=== PATIENT | male | born 1940 | race Caucasian/White ===

== ENCOUNTER 2017-07-14 12:30 | Inpatient (IN) | payer MEDICARE, OTHER ==
--- NOTE | 2017-07-14 14:21 | EDM.PDOC ---
ED HPI GENERAL MEDICAL PROBLEM - General Chief Complaint: Cardiovascular Problem Stated Complaint: SENT BY G[facility] Time Seen by Provider: 07/14/17 12:54 Source of Information: Reports: Patient, Provider (Dr. Briseno), RN Notes Reviewed History Limitations: Reports: No Limitations - History of Present Illness INITIAL COMMENTS - FREE TEXT/NARRATIVE: The patient was sent from the office of Dr. Briseno due to a heart rate elevated at 130. The patient states that his heart rate has been elevated for about a week at [facility], although Dr. Briseno had indicated that his heart rate was only found to be elevated last night. CG in his office indicated a sinus tachycardia of 130. Dr. Ledezma mentioned that because the patient has Parkinson disease, he is essentially nonambulatory. The patient states that he is able to ambulate holding onto rails. The patient denies having chest pain, palpitations, or dyspnea. The patient denies a prior history of elevated heart rate. - Related Data Allergies Allergy/AdvReac Type Severity Reaction Status Date / Time bee venom protein (honey bee) Allergy Cannot Verified 07/14/17 12:54 Remember hornet venom Allergy Cannot Verified 07/14/17 12:54 Remember Penicillins Allergy Cannot Verified 07/14/17 12:54 Remember Home Meds: Home Meds Acetaminophen 650 mg PO ASDIRECTED PRN 07/14/17 [History] Acetaminophen. 07/14/17 [History] Ascorbate Calcium [Vitamin C] 500 mg PO DAILY 07/14/17 [History] Calcium Carbonate [Tums] 200 mg PO QID PRN 07/14/17 [History] Cholecalciferol (Vitamin D3) [Vitamin D3] 2,000 unit PO DAILY 07/14/17 [History] Cyanocobalamin (Vitamin B-12) [Vitamin B-12] 1,000 mcg PO DAILY 07/14/17 [ History] Ferrous Sulfate 325 mg PO DAILY 07/14/17 [History] Fluticasone Propionate [Flonase Allergy Relief] 2 spray NS BID 07/14/17 [History ] Lisinopril/Hydrochlorothiazide [Lisinopril-Hctz 20-12.5 mg Tab] 1 each PO DAILY 07/14/17 [History] Mag Carb/Al Hydrox/Alginic Ac [Gaviscon Liquid] 93 - 358 mg PO ASDIRECTED [History] Mag Hydrox/Al Hydrox/Simeth [Maalox Maximum Strength Susp] 30 ml PO QID PRN [History] Magnesium Hydroxide [Milk of Magnesia] 30 ml PO ASDIRECTED PRN 07/14/17 [History ] Menthol/Camphor [Sarna Anti-Itch] 1 applic TOP BID 07/14/17 [History] Sennosides/Docusate Sodium [Senna-S] 1 each PO BID 07/14/17 [History] Sertraline [Zoloft] 50 mg PO DAILY 07/14/17 [History] Sodium Chloride [Saline Mist] 2 spray NS ASDIRECTED PRN 07/14/17 [History] Tamsulosin [Flomax] 0.8 mg PO BEDTIME 07/14/17 [History] Trolamine Salicylate/Aloe Vera [Aspercreme 10%] 1 applic TOP ASDIRECTED PRN [History] guaiFENesin [Mucinex] 600 mg PO BID 07/14/17 [History] traMADol [Ultram] 50 mg PO BID 07/14/17 [History] Past Medical History HEENT History: Reports: Sinusitis (chronic) Cardiovascular History: Reports: Hypertension Genitourinary History: Reports: BPH Musculoskeletal History: Reports: Osteoarthritis (knees) Neurological History: Reports: Parkinson's Psychiatric History: Reports: Depression - Past Surgical History Musculoskeletal Surgical History: Reports: Knee Replacement (bilateral), Other ( See Below) (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) Social & Family History - Tobacco Use Smoking Status *Q: Never Smoker - Caffeine Use Caffeine Use: Reports: Coffee Caffeine Use Comment: very little use - Alcohol Use Alcohol Use History: No - Recreational Drug Use Recreational Drug Use: No - Living Situation & Occupation Living situation: Reports: Extended Care Facility ([facility]) ED ROS GENERAL - Review of Systems Review Of Systems: See Below Constitutional: Reports: No Symptoms HEENT: Reports: No Symptoms Respiratory: Reports: No Symptoms Cardiovascular: Reports: No Symptoms Endocrine: Reports: No Symptoms GI/Abdominal: Reports: No Symptoms : Reports: No Symptoms Musculoskeletal: Reports: No Symptoms Skin: Reports: No Symptoms Neurological: Reports: No Symptoms Psychiatric: Reports: No Symptoms Hematologic/Lymphatic: Reports: No Symptoms Immunologic: Reports: No Symptoms ED EXAM, GENERAL - Physical Exam Exam: See Below Exam Limited By: No Limitations General Appearance: Alert, WD/WN, No Apparent Distress Eye Exam: Bilateral Eye: Normal Inspection Ears: Normal External Exam, Hearing Grossly Normal Nose: Normal Inspection, No Blood Throat/Mouth: Normal Inspection, Normal Lips, Normal Voice, No Airway Compromise Head: Atraumatic, Normocephalic Neck: Normal Inspection, Full Range of Motion Respiratory/Chest: No Respiratory Distress, Lungs Clear, Normal Breath Sounds, No Accessory Muscle Use Cardiovascular: Normal Peripheral Pulses, Regular Rate, Rhythm, No Gallop, No JVD, No Murmur, No Rub Peripheral Pulses: 4+: Radial (L), Radial (R) GI/Abdominal: Normal Bowel Sounds, Soft, Non-Tender, No Organomegaly, No Distention, No Abnormal Bruit, No Mass (Male) Exam: Deferred Rectal (Males) Exam: Deferred Extremities: Normal Inspection, Normal Range of Motion, Normal Capillary Refill , Other (2+ pitting pretibial edema bilaterally) Neurological: Alert, Oriented, Normal Cognition, Other (Masked facies, bradykinesia) Psychiatric: Normal Affect Skin Exam: Warm, Dry, Intact, Normal Color, No Rash Lymphatic: No Adenopathy EKG INTERPRETATION EKG Date: 07/14/17 Time: 12:49 Rhythm: Other (Sinus tachycardia) Rate (Beats/Min): 131 Kevin: LAD-Left Kevin Deviation P-Wave: Present (best seen in lead III) QRS: Normal ST-T: Normal QT: Prolonged (QTc 516 ms) Comparison: NA - No Prior EKG Course - Vital Signs Last Recorded V/S: Last Vital Signs Temp 35.7 C 07/14/17 12:54 Pulse 135 H 07/14/17 12:54 Resp 16 07/14/17 12:54 BP 119/89 07/14/17 12:54 Pulse Ox 95 07/14/17 12:54 - Orders/Labs/Meds Orders: Active Orders 24 hr Category Date Time Status EKG Documentation Completion [RC] STAT Care 07/14/17 12:50 Active EKG Documentation Completion [RC] STAT Care 07/14/17 15:21 Active Diltiazem 125 mg Med 07/14/17 16:00 Ordered Sodium Chloride 0.9% [Normal Saline] 100 ml IV TITRATE Sodium Chloride 0.9% [Normal Saline] 1,000 ml Med 07/14/17 14:30 Active IV ASDIRECTED Sodium Chloride 0.9% [Normal Saline] 100 ml Med 07/14/17 14:30 Active IV ASDIRECTED Medication Orders Sodium Chloride (Normal Saline) 1,000 mls @ 100 mls/hr IV ASDIRECTED PETERSON Last Admin: 07/14/17 14:26 Dose: 100 mls/hr Sodium Chloride (Normal Saline) 100 mls @ 60 mls/hr IV ASDIRECTED PETERSON Last Admin: 07/14/17 14:40 Dose: 60 mls/hr Diltiazem HCl 125 mg/ Sodium (Chloride) 125 mls @ 10 mls/hr IV TITRATE PETERSON; 10 MG/HR PRN Reason: Protocol Labs: Laboratory Tests 07/14/17 07/14/17 07/14/17 Range/Units 12:50 12:50 12:50 WBC 8.45 (4.23-9.07) K/mm3 RBC 4.44 L (4.63-6.08) M/mm3 Hgb 13.6 L (13.7-17.5) gm/L Hct 41.6 (40.1-51.0) % MCV 93.7 H (79.0-92.2) fl MCH 30.6 (25.7-32.2) pg MCHC 32.7 (32.2-35.5) g/dl RDW Std Deviation 50.2 H (35.1-43.9) fL Plt Count 255 (163-337) K/mm3 MPV 9.3 L (9.4-12.3) fl Neutrophils % (Manual) 78 H (40-60) % Band Neutrophils % 0 (0-10) % Lymphocytes % (Manual) 21 (20-40) % Atypical Lymphs % 0 % Monocytes % (Manual) 0 L (2-10) % Eosinophils % (Manual) 1 (0.8-7.0) % Basophils % (Manual) 0 L (0.2-1.2) Platelet Estimate Adequate RBC Morph Comment Normal PT 10.7 (8.0-13.0) SECONDS INR 0.98 APTT 30 (22-36) SECONDS D-Dimer, Quantitative 0.73 H (0.19-0.59) mg/L Sodium 139 (136-145) mEq/L Potassium 3.7 (3.5-5.1) mEq/L Chloride 104 (98-107) mEq/L Carbon Dioxide 25 (21-32) mEq/L Anion Gap 13.7 (5-15) BUN 17 (7-18) mg/dL Creatinine 1.1 (0.7-1.3) mg/dL Est Cr Clr Drug Dosing 59.77 mL/min Estimated GFR (MDRD) > 60 (>60) mL/min BUN/Creatinine Ratio 15.5 (14-18) Glucose 101 (83-115) mg/dL Calcium 9.6 (8.5-10.1) mg/dL Total Bilirubin 0.6 (0.2-1.0) mg/dL AST 17 (15-37) U/L ALT 14 L (16-63) U/L Alkaline Phosphatase 80 (46-116) U/L Troponin I < 0.017 (0.00-0.056) ng/mL NT-Pro-B Natriuret Pep 629 H (0-450) pg/mL Total Protein 7.9 (6.4-8.2) g/dl Albumin 3.9 (3.4-5.0) g/dl Globulin 4.0 gm/dL Albumin/Globulin Ratio 1.0 (1-2) Meds: Medications Generic Name Dose Route Start Last Admin Trade Name Freq PRN Reason Stop Dose Admin Sodium Chloride 1,000 mls @ 100 mls/hr 07/14/17 14:30 07/14/17 14:26 Normal Saline IV 100 mls/hr ASDIRECTED PETERSON Administration Sodium Chloride 100 mls @ 60 mls/hr 07/14/17 14:30 07/14/17 14:40 Normal Saline IV 60 mls/hr ASDIRECTED PETERSON Administration Diltiazem HCl 125 mg/ Sodium 125 mls @ 10 mls/hr 07/14/17 16:00 Chloride IV TITRATE PETERSON Protocol 10 MG/HR Discontinued Medications Generic Name Dose Route Start Last Admin Trade Name Freq PRN Reason Stop Dose Admin Adenosine 12 mg 07/14/17 15:20 07/14/17 15:32 Adenocard IVPUSH 07/14/17 15:21 12 mg NOW ONE Administration Diltiazem HCl 5 mg 07/14/17 15:49 Diltiazem IVPUSH 07/14/17 15:50 ONETIME STA Enoxaparin Sodium 100 mg 07/14/17 15:50 Lovenox SUBCUT 07/14/17 15:51 ONETIME ONE Iopamidol 100 ml 07/14/17 14:24 07/14/17 14:40 Isovue-370 (76%) IVPUSH 07/14/17 14:25 100 ml ONETIME ONE Administration Sodium Chloride 10 ml 07/14/17 14:24 07/14/17 14:41 Saline Flush FLUSH 07/14/17 14:25 10 ml ONETIME ONE Administration - Re-Assessments/Exams Free Text/Narrative Re-Assessment/Exam: 07/14/17 13:29 Portable chest radiograph reviewed. Cardiac silhouette is at the upper limits of normal. No pulmonary vascular congestion. No pleural effusions visible. No focal infiltrate. No pneumothorax. Old rib fracture on the left incidentally noted. Formal read per the Radiologist pending. 07/14/17 14:18 The patient's D-dimer has returned modestly elevated at 0.73, however, the remainder of his workup is unremarkable, and does not explain the cause of his tachycardia. I have ordered a CT angiogram of the chest to evaluate for a PE. 07/14/17 15:15 CT angiogram of the chest is read by Dr. Cortez as: 1. No findings of pulmonary embolism. 2. Other incidental findings as noted above. Nothing acute is appreciated on CT study of the chest. 07/14/17 15:22 Today's workup is unremarkable, and does not swing the cause of the patient's tachycardia. I have ordered adenosine 12 mg and a continuous ECG to be sure that the patient does not have an unusual presentation of an SVT masquerading as sinus tachycardia. 07/14/17 15:45 Following adenosine 12 mg IVP, the continuous ECG demonstrated atrial flutter. He returned to his previous rate of 123 BPM. His conduction is likely 2:1. I will start him on IV Cardizem and SQ Lovenox. He will require addition to the hospital. 07/14/17 15:[address] Burch at 15:53. He accepts the patient to the ICU. Departure - Departure Time of Disposition: 15:55 Disposition: Admitted As Inpatient 64 Condition: Fair Clinical Impression: Atrial flutter - My Orders Last 24 Hours: My Active Orders 07/14/17 12:50 EKG Documentation Completion [RC] STAT 07/14/17 14:30 Sodium Chloride 0.9% [Normal Saline] 1,000 ml IV ASDIRECTED Sodium Chloride 0.9% [Normal Saline] 100 ml IV ASDIRECTED 07/14/17 15:21 EKG Documentation Completion [RC] STAT 07/14/17 16:00 Diltiazem 125 mg Sodium Chloride 0.9% [Normal Saline] 100 ml IV TITRATE - Assessment/Plan Last 24 Hours: My Active Orders 07/14/17 12:50 EKG Documentation Completion [RC] STAT 07/14/17 14:30 Sodium Chloride 0.9% [Normal Saline] 1,000 ml IV ASDIRECTED Sodium Chloride 0.9% [Normal Saline] 100 ml IV ASDIRECTED 07/14/17 15:21 EKG Documentation Completion [RC] STAT 07/14/17 16:00 Diltiazem 125 mg Sodium Chloride 0.9% [Normal Saline] 100 ml IV TITRATE
[2017-07-14] MEDS ORDERED: Iopamidol 755 Mg/ML 100 ML Bottle IVPUSH ONE (14:24)
[2017-07-14] MEDS: Sodium Chloride 0.9% 1,000 ML IV SCH (14:26)
[2017-07-14] MEDS: Sodium Chloride 0.9% 10 ML Syringe FLUSH ONE ×2 (14:27→14:41)
[2017-07-14] MEDS ORDERED: Sodium Chloride 0.9% 100 ML IV SCH (14:30)
--- NOTE | 2017-07-14 14:48 | CR ---
Chest: Portable view of the chest was obtained. Heart size slightly is enlarged but accentuated from portable technique. Tortuous thoracic aorta is seen. Lungs are clear with no acute infiltrates. Several left-sided rib fractures are noted. These presumably are old but please correlate that patient has had no prior acute trauma. Impression: 1. Findings as described above. Nothing acute is appreciated. Diagnostic code #2
--- NOTE | 2017-07-14 15:04 | CT ---
CT chest Technique: Multiple axial sections were obtained through the chest. Intravenous contrast was utilized. Study has been performed as a pulmonary angiogram protocol. Findings: Mediastinum and hilar regions show no adenopathy or mass. Coronary artery calcification is seen. Mediastinum and hilar regions show no adenopathy or mass. No pericardial thickening is seen. Small portion of the visualized upper abdominal structures are within normal limits for the patient's age. Small hiatal hernia is noted. Focal area of pleural thickening and calcification is seen within the right lung base believed to be incidental. Lungs otherwise are clear. Bone window settings were reviewed which shows degenerative change within the spine. Several anterior wedge deformities are seen within the mid thoracic spine which are likely old. Impression: 1. No findings of pulmonary embolism. 2. Other incidental findings as noted above. Nothing acute is appreciated on CT study of the chest. Diagnostic code #2
[2017-07-14] MEDS ORDERED: Adenosine 12 MG/4 ML SDV IVPUSH ONE (15:20)
[2017-07-14] MEDS ORDERED: Diltiazem 25 MG/5 ML SDV IVPUSH STA ×2 (15:49→17:44)
[2017-07-14] MEDS ORDERED: Enoxaparin 100 MG/1 ML Syringe SUBCUT ONE (15:50)
[2017-07-14] MEDS ORDERED: Diltiazem 125 MG in Sodium Chloride 0.9% 100 ML IV SCH (16:00)
--- NOTE | 2017-07-14 17:31 | PCM.HP ---
H&P History of Present Illness - General Date of Service: 07/14/17 Admit Problem/Dx: Atrial Flutter Source of Information: Patient, Residential Records, Old Records, Provider, RN Notes Reviewed History Limitations: Reports: Physical Impairment - History of Present Illness Initial Comments - Free Text/Narative: This is a 77-year-old pleasant elderly white male with past medical history of HTN, BPH, Parkinsons's Disease, Maxillary Sinusitis, Allergic Rhinitis, OA/DJD, Iron Deficiency Anemia, on Iron Pills, Eczema, Constipation, Nicotine Dependence , he chews tobacco products, Hx/o Folliculitis, Hx/o Of C5-C6 Cervical Dislocation and MDD who was sent over by his PCP due to considerably elevated heart rate of 130 at the clinic. The patient denies any associated symptoms of shortness of breath, chest pain, lightheaded or dizziness, or heart palpitation. Per patient his heart rate has been elevated for about a week now. However according to his primary care doctor is fast heart rate was found to be elevated last night. Patient carries a history of hypertension but no history of abnormal rhythm. He takes hydrochlorothiazide and lisinopril for maintenance medications. I review all he is home medication list shows he is not on any calcium channel or beta blockers. He carries no history of thyroid dysfunction. On presentation to the emergency department, he had the following vital signs: Blood pressure 119/89 millimeters per mercury, respiratory rate of 16, heart rate of 135, and O2 sat of 95% on room air. His initial workup in the emergency department shows a CBC remarkable for RBC of 4.44, hemoglobin of 13.6, MCV of 92.7, and neutrophils of 78%. PT/APTT are normal but d-dimer is noted at 0.73. His chemistry is fairly unremarkable. ProBNP is slightly elevated at 629. Chest CTA shows no findings of pulmonary embolism. Chest x-ray report reads nothing acute is appreciated. Patient received initial treatment emergency department before he was sent to the unit for further treatment. During that time patient was found to be in atrial flutter. Currently he is on Cardizem drip to treat his fast heart rate. Patient is being admitted for medical treatment of sinus tachycardia. He is DNR. - Related Data Allergies/Adverse Reactions: Allergies Allergy/AdvReac Type Severity Reaction Status Date / Time bee venom protein (honey bee) Allergy Intermediate Bronchospas Verified 01:10 ms hornet venom Allergy Intermediate Bronchospas Verified 07/15/17 01:10 ms Penicillins Allergy Mild Rash Verified 07/15/17 01:10 Home Medications: Home Meds Acetaminophen 650 mg PO Q6H PRN 07/14/17 [History] Ascorbate Calcium [Vitamin C] 500 mg PO DAILY 07/14/17 [History] Calcium Carbonate [Tums] 200 mg PO QID PRN 07/14/17 [History] Cholecalciferol (Vitamin D3) [Vitamin D3] 2,000 unit PO DAILY 07/14/17 [History] Cyanocobalamin (Vitamin B-12) [Vitamin B-12] 1,000 mcg PO DAILY 07/14/17 [ History] Ferrous Sulfate 325 mg PO DAILY 07/14/17 [History] Fluticasone Propionate [Flonase Allergy Relief] 2 spray NS BID 07/14/17 [History ] Lisinopril/Hydrochlorothiazide [Lisinopril-Hctz 20-12.5 mg Tab] 1 each PO DAILY 07/14/17 [History] Mag Carb/Al Hydrox/Alginic Ac [Gaviscon Liquid] 95 - 358 mg PO ASDIRECTED [History] Mag Hydrox/Al Hydrox/Simeth [Maalox Maximum Strength Susp] 30 ml PO QID PRN [History] Magnesium Hydroxide [Milk of Magnesia] 30 ml PO ASDIRECTED PRN 07/14/17 [History ] Menthol/Camphor [Sarna Anti-Itch] 1 applic TOP BID PRN 07/14/17 [History] Sennosides/Docusate Sodium [Senna-S] 1 each PO BID 07/14/17 [History] Sertraline [Zoloft] 50 mg PO DAILY 07/14/17 [History] Sodium Chloride [Saline Mist] 2 spray NS ASDIRECTED PRN 07/14/17 [History] Tamsulosin [Flomax] 0.8 mg PO BEDTIME 07/14/17 [History] Trolamine Salicylate/Aloe Vera [Aspercreme 10%] 1 applic TOP ASDIRECTED PRN [History] guaiFENesin [Mucinex] 600 mg PO BID 07/14/17 [History] traMADol [Ultram] 50 mg PO BID 07/14/17 [History] Past Medical History HEENT History: Reports: Sinusitis (chronic) Other HEENT History: chronic maxillary sinus infection, chronic rhinitis Cardiovascular History: Reports: Hypertension Gastrointestinal History: Reports: Chronic Constipation, Other (See Below) Other Gastrointestinal History: nausea Genitourinary History: Reports: BPH Other Genitourinary History: BPH Musculoskeletal History: Reports: Osteoarthritis (knees) Other Musculoskeletal History: osteoarthritis of knees, disloaction of c5-c6 Neurological History: Reports: Parkinson's Psychiatric History: Reports: Depression Dermatologic History: Reports: Other (See Below) Other Dermatologic History: folliliculitis - Infectious Disease History Infectious Disease History: Reports: Chicken Pox, Measles, Mumps - Past Surgical History Musculoskeletal Surgical History: Reports: Knee Replacement (bilateral), Other ( See Below) (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 Denies: Contact Lenses, Dysphasia, Ear Pain, Eye Pain, Headaches, Hearing Changes, Post Nasal Drip, Sore Throat, Vertigo, Visual Changes, Other Pulmonary: Reports: Cough, Sputum. Denies: Shortness of Breath, Pleuritic Chest Pain, Hemoptysis Cardiovascular: Denies: Chest Pain, Palpitations, Dyspnea on Exertion, Edema, Lightheadedness, Syncope, Claudication Gastrointestinal: Denies: Abdominal Pain, Nausea, Vomiting Genitourinary: Denies: No Symptoms Musculoskeletal: Reports: No Symptoms Skin: Denies: Cyanosis, Jaundice, Mottled, Pallor, Diaphoresis, Pruritis, Rash, Erythema Psychiatric: Denies: Depression, Mood Lability, Anxiety, Cravings, Hallucinations, Suicidal Ideation, Homicidal Ideation, Hallucinations (Auditory) Neurological: Reports: Difficulty Walking, Weakness, Gait Disturbance. Denies: Confusion Hematologic/Lymphatic: Reports: No Symptoms Immunologic: Reports: No Symptoms Exam - Exam Exam: See Below - Vital Signs Vital Signs: Last Vital Signs Temp 35.7 C 07/14/17 12:54 Pulse 135 H 07/14/17 12:54 Resp 16 07/14/17 12:54 BP 119/89 07/14/17 12:54 Pulse Ox 95 07/14/17 12:54 Weight: 104.326 kg - Exam Quality Assessment: No: Supplemental Oxygen General: Alert, Oriented, Cooperative. No: Mild Distress HEENT: Conjunctiva Clear, EACs Clear, EOMI, Hearing Intact, Mucosa Moist & Mccloud , Nares Patent, Normal Nasal Septum, Posterior Pharynx Clear, Pupils Equal, Rhinitis, Other (Poor dentition) Neck: Supple, Trachea Midline, +2 Carotid Pulse wo Bruit Lungs: Normal Respiratory Effort, Decreased Breath Sounds Cardiovascular: Regular Rate, Tachycardia GI/Abdominal Exam: Normal Bowel Sounds, Soft, Non-Tender, No Organomegaly, No Distention, No Abnormal Bruit, No Mass, Other (Obese) (Male) Exam: Deferred Rectal (Males) Exam: Deferred Back Exam: Normal Inspection, Decreased Range of Motion Extremities: Normal Inspection, Normal Range of Motion, Non-Tender, No Pedal Edema, Normal Capillary Refill, Other (right leg trace edema). No: Leg Pain Peripheral Pulses: 2+: Posterior Tibial (L), Posterior Tibial (R), Dorsalis Pedis (L), Dorsalis Pedis (R) Skin: Warm, Dry, Intact Neuro Extensive - Mental Status: Oriented x3, Normal Cognition, Memory Intact Neuro Extensive - Motor, Sensory, Reflexes: CN II-XII Intact (limited but grossly intact), Abnormal Gait Psychiatric: Alert, Normal Affect, Normal Mood - Patient Data Lab Results Last 24 hrs: Laboratory Results - last 24 hr 07/14/17 07/14/17 07/14/17 Range/Units 12:50 12:50 12:50 WBC 8.45 (4.23-9.07) K/mm3 RBC 4.44 L (4.63-6.08) M/mm3 Hgb 13.6 L (13.7-17.5) gm/L Hct 41.6 (40.1-51.0) % MCV 93.7 H (79.0-92.2) fl MCH 30.6 (25.7-32.2) pg MCHC 32.7 (32.2-35.5) g/dl RDW Std Deviation 50.2 H (35.1-43.9) fL Plt Count 255 (163-337) K/mm3 MPV 9.3 L (9.4-12.3) fl Neutrophils % (Manual) 78 H (40-60) % Band Neutrophils % 0 (0-10) % Lymphocytes % (Manual) 21 (20-40) % Atypical Lymphs % 0 % Monocytes % (Manual) 0 L (2-10) % Eosinophils % (Manual) 1 (0.8-7.0) % Basophils % (Manual) 0 L (0.2-1.2) Platelet Estimate Adequate RBC Morph Comment Normal PT 10.7 (8.0-13.0) SECONDS INR 0.98 APTT 30 (22-36) SECONDS D-Dimer, Quantitative 0.73 H (0.19-0.59) mg/L Sodium 139 (136-145) mEq/L Potassium 3.7 (3.5-5.1) mEq/L Chloride 104 (98-107) mEq/L Carbon Dioxide 25 (21-32) mEq/L Anion Gap 13.7 (5-15) BUN 17 (7-18) mg/dL Creatinine 1.1 (0.7-1.3) mg/dL Est Cr Clr Drug Dosing 59.77 mL/min Estimated GFR (MDRD) > 60 (>60) mL/min BUN/Creatinine Ratio 15.5 (14-18) Glucose 101 (83-115) mg/dL Calcium 9.6 (8.5-10.1) mg/dL Total Bilirubin 0.6 (0.2-1.0) mg/dL AST 17 (15-37) U/L ALT 14 L (16-63) U/L Alkaline Phosphatase 80 (46-116) U/L Troponin I < 0.017 (0.00-0.056) ng/mL NT-Pro-B Natriuret Pep 629 H (0-450) pg/mL Total Protein 7.9 (6.4-8.2) g/dl Albumin 3.9 (3.4-5.0) g/dl Globulin 4.0 gm/dL Albumin/Globulin Ratio 1.0 (1-2) Result Diagrams: 07/15/17 05:48 07/15/17 05:48 EKG INTERPRETATION EKG Date: 07/14/17 Time: 12:49 Rhythm: Other (Sinus Tachycardia) Rate (Beats/Min): 131 QT: Prolonged Comparison: NA - No Prior EKG EKG Interpretation Comments: Q wave in 2,3 aVF, aVR and V1 *Q Meaningful Use (ADM) - VTE *Q VTE Criteria *Q: - Stroke *Q Stroke Criteria *Q: - AMI *Q AMI Criteria *Q: Problem List Initiated/Reviewed/Updated: Yes Orders Last 24hrs: Active Orders 24 hr Category Date Time Status EKG Documentation Completion [RC] STAT Care 07/14/17 12:50 Active EKG Documentation Completion [RC] STAT Care 07/14/17 15:21 Active Diltiazem 125 mg Med 07/14/17 16:00 Active Sodium Chloride 0.9% [Normal Saline] 100 ml IV TITRATE Sodium Chloride 0.9% [Normal Saline] 1,000 ml Med 07/14/17 14:30 Active IV ASDIRECTED Sodium Chloride 0.9% [Normal Saline] 100 ml Med 07/14/17 14:30 Active IV ASDIRECTED Medication Orders Sodium Chloride (Normal Saline) 1,000 mls @ 100 mls/hr IV ASDIRECTED PETERSON Last Admin: 07/14/17 14:26 Dose: 100 mls/hr Sodium Chloride (Normal Saline) 100 mls @ 60 mls/hr IV ASDIRECTED PETERSON Last Admin: 07/14/17 14:40 Dose: 60 mls/hr Diltiazem HCl 125 mg/ Sodium (Chloride) 125 mls @ 10 mls/hr IV TITRATE PETERSON; 10 MG/HR PRN Reason: Protocol Last Admin: 07/14/17 16:35 Dose: 10 mg/hr, 10 mls/hr Assessment/Plan Comment:: Assessment/Plan: Acute: Sinus Tachycardia vs New Onset A-flutter - HR in 130s at the clinic - HR has been elevated for a week at [facility] per patient - PCP report fast heart rate started last night - Apparently went into A-flutter after adenosin treatment in ED - Reviewed EKGs, could not appreciate atrial flutter, HR is < 100 - Patient still tachycardic with HR in the upper teens to 120s - Continue cardizem drip, titrate to keep HR at or < 100 - Serial EKGs Q6 x 3 to capture A-flutter - Thyroid Panel in AM Mildly Elevated D-Dimer - D-dimer 0.73 - CTA negative for PE Mildly Elevated Pro-BNP - 629 - No previous echo - 2D echo in AM for baseline CXR Findings - Several left sided rib fractures presumably old Chest CTA findings - Coronary artery calcification - Small hiatal hernia - Focal area of pleural thickening in calcification within the right lung base believed to be incidental - Generative change within the spine - Several anterior wedge deformities are seen within the mid thoracic spine which are likely old Chronic: HTN BPH Parkinsons's Disease Maxillary Sinusitis Allergic Rhinitis OA/DJD MDD Iron Deficiency Anemia, on Iron Pills Eczema Constipation Nicotine Dependence, he chews tobacco products Hx/o Folliculitis Hx/o Of C5-C6 Cervical Dislocation Plan: Admit to ICU Routine AM Labs Thyroid Panel in AM Nicotine Patch 21 mg daily Resume Home Meds Fall Precautions PT/OT consult SW/CM for d/c planning Additional orders as above Code status: DNR
[2017-07-14] MEDS ORDERED: hydrALAZINE 20 MG/ML SDV IVPUSH PRN (18:27)
[2017-07-14] MEDS ORDERED: LORazepam 2 MG/ML MDV IVPUSH PRN (18:27)
[2017-07-14] MEDS ORDERED: Capsaicin 0.025% Crm 60 GM Tube TOP PRN (18:28)
[2017-07-14] MEDS ORDERED: Aluminum Hydroxide/Magnesium Hydroxide/Simethicone Susp 30 ML Cup PO PRN (18:28)
[2017-07-14] MEDS ORDERED: Calcium Carbonate 500 MG Tab.Chew PO PRN (18:28)
[2017-07-14] MEDS ORDERED: Sodium Chloride 0.65% Nasal Spray 45 ML Bottle NASBOTH PRN (18:28)
[2017-07-14] MEDS ORDERED: Acetaminophen 325 MG Tab PO PRN (18:28)
[2017-07-14] MEDS ORDERED: Magnesium Hydroxide 400 MG/5 ML Susp 30 ML Cup PO PRN (18:28)
[2017-07-14] MEDS ORDERED: HYDROmorphone 1 MG/ML Syringe IVPUSH PRN (18:30)
[2017-07-14] MEDS ORDERED: Acetaminophen/HYDROcodone 325-5 MG Tab PO PRN (18:30)
[2017-07-14] MEDS ORDERED: Ondansetron 4 MG/2 ML SDV IV PRN (18:30)
[2017-07-14] MEDS ORDERED: Albuterol/Ipratropium 3.0-0.5 MG/3 ML Neb Soln NEB PRN (18:30)
[2017-07-14] MEDS ORDERED: Promethazine 12.5 MG in Sodium Chloride 0.9% 50 ML IV PRN (18:30)
[2017-07-14] MEDS ORDERED: Ibuprofen 600 MG Tab PO PRN (18:30)
[2017-07-14] MEDS ORDERED: Polyethylene Glycol 3350 Powder 17 GM Packet PO PRN (18:30)
[2017-07-14] MEDS ORDERED: Nicotine 21 MG/24 Hr Patch TRDERM ONE (18:58)
[2017-07-14] MEDS: Tamsulosin 0.4 MG Cap.ER PO SCH (20:43)
[2017-07-14] MEDS: traMADol 50 MG Tab PO SCH (20:44)
[2017-07-14] MEDS: Temazepam 7.5 MG Cap PO PRN (20:44)
[2017-07-14] MEDS: guaiFENesin 600 MG Tab.ER PO SCH (20:44)
[2017-07-14] MEDS: Oxymetazoline 0.05% Nasal Spray 15 ML Bottle NAS SCH (20:47)
[2017-07-15] MEDS: Sodium Chloride 0.9% 1,000 ML IV SCH (00:31)
[2017-07-15] MEDS ORDERED: HYDROmorphone 0.5 MG/0.5 ML Syringe IVPUSH PRN (07:14)
--- NOTE | 2017-07-15 07:42 | PCM.SN ---
- Free Text/Narrative Note: Serial EKGs captured atrial flutter with 3:1 AVB. Patient will come off cardizem drip and start on oral dose. Will defer to Dr. Leblanc and CM to discuss with patient patient's preference for anti-coagulation.
[2017-07-15] MEDS: MENTHOL TOP SCH ×3 (07:57→20:14)
[2017-07-15] MEDS: CAMPHOR TOP SCH ×3 (07:57→20:14)
[2017-07-15] MEDS: traMADol 50 MG Tab PO SCH ×2 (08:18→20:12)
[2017-07-15] MEDS: Cyanocobalamin (Vitamin B12) 1,000 MCG Tab PO SCH (08:18)
[2017-07-15] MEDS: Sertraline 50 MG Tab PO SCH (08:18)
[2017-07-15] MEDS: Cholecalciferol (Vitamin D3) 1,000 Unit Tab PO SCH (08:18)
[2017-07-15] MEDS: Hydrochlorothiazide 12.5 MG Cap PO SCH (08:18)
[2017-07-15] MEDS: Ferrous Sulfate 325 MG Tab PO SCH (08:18)
[2017-07-15] MEDS: Enoxaparin 40 MG/0.4 ML Syringe SUBCUT SCH (08:19)
[2017-07-15] MEDS: guaiFENesin 600 MG Tab.ER PO SCH ×2 (08:19→20:13)
[2017-07-15] MEDS: Diltiazem 180 MG Cap.CD PO SCH (08:19)
[2017-07-15] MEDS: Ascorbic Acid 500 MG Tab PO SCH (08:19)
[2017-07-15] MEDS: Lisinopril 20 MG Tab PO SCH (08:19)
[2017-07-15] MEDS: Nicotine 21 MG/24 Hr Patch TRDERM SCH (08:23)
[2017-07-15] MEDS: Oxymetazoline 0.05% Nasal Spray 15 ML Bottle NAS SCH (08:34)
[2017-07-15] MEDS ORDERED: Metoprolol Tartrate 5 MG/5 ML SDV IVPUSH PRN (11:26)
--- NOTE | 2017-07-15 11:33 | PCM.PN ---
<Sonia De La Vega - Last Filed: 07/15/17 11:24> - General Info Date of Service: 07/15/17 Admission Dx/Problem (Free Text): Atrial Flutter Functional Status: Reports: Pain Controlled - Review of Systems General: Reports: No Symptoms HEENT: Reports: No Symptoms Pulmonary: Reports: No Symptoms Cardiovascular: Reports: No Symptoms Gastrointestinal: Reports: No Symptoms Genitourinary: Reports: No Symptoms Musculoskeletal: Reports: No Symptoms Skin: Reports: No Symptoms Neurological: Reports: No Symptoms Psychiatric: Reports: No Symptoms - Patient Data Vitals - Most Recent: Last Vital Signs Temp 98.0 F 07/15/17 08:00 Pulse 82 07/15/17 02:01 Resp 21 H 07/15/17 08:00 BP 127/92 H 07/15/17 08:19 Pulse Ox 95 07/15/17 08:00 Weight - Most Recent: 104.326 kg I&O - Last 24 Hours: Intake & Output 07/14/17 07/15/17 07/15/17 22:59 06:59 14:59 Intake Total 514 2100 Output Total 175 300 250 Balance 339 1800 -250 Lab Results Last 24 Hours: Laboratory Results - last 24 hr 07/15/17 07/15/17 07/15/17 Range/Units 00:35 05:48 05:48 WBC 6.44 (4.23-9.07) K/mm3 RBC 3.84 L (4.63-6.08) M/mm3 Hgb 11.8 L (13.7-17.5) gm/L Hct 36.3 L (40.1-51.0) % MCV 94.5 H (79.0-92.2) fl MCH 30.7 (25.7-32.2) pg MCHC 32.5 (32.2-35.5) g/dl RDW Std Deviation 48.7 H (35.1-43.9) fL Plt Count 215 (163-337) K/mm3 MPV 8.9 L (9.4-12.3) fl Neut % (Auto) 64.3 (34.0-67.9) % Lymph % (Auto) 18.8 L (21.8-53.1) % [place] % (Auto) 12.0 (5.3-12.2) % Eos % (Auto) 4.3 (0.8-7.0) Baso % (Auto) 0.3 (0.1-1.2) % Neut # (Auto) 4.14 (1.78-5.38) K/mm3 Lymph # (Auto) 1.21 L (1.32-3.57) K/mm3 [place] # (Auto) 0.77 (0.30-0.82) K/mm3 Eos # (Auto) 0.28 (0.04-0.54) K/mm3 Baso # (Auto) 0.02 (0.01-0.08) K/mm3 Sodium 141 (136-145) mEq/L Potassium 3.7 (3.5-5.1) mEq/L Chloride 106 (98-107) mEq/L Carbon Dioxide 24 (21-32) mEq/L Anion Gap 14.7 (5-15) BUN 16 (7-18) mg/dL Creatinine 0.8 (0.7-1.3) mg/dL Est Cr Clr Drug Dosing 82.18 mL/min Estimated GFR (MDRD) > 60 (>60) mL/min BUN/Creatinine Ratio 20.0 H (14-18) Glucose 93 (83-115) mg/dL Calcium 8.6 (8.5-10.1) mg/dL Magnesium 1.8 (1.8-2.4) mg/dl Free T4 1.07 (0.76-1.46) ng/dL TSH 3rd Generation 2.423 (0.358-3.74) uIU/mL MRSA (PCR) Negative Med Orders - Current: Current Medications Acetaminophen (Tylenol) 650 mg PO Q6H PRN PRN Reason: unknown Hydrocodone Bitart/Acetaminophen ([place] 325-5 Mg) 1 tab PO Q4H PRN PRN Reason: Pain (moderate 4-6) Al Hydroxide/Mg Hydroxide (Mag-Al Plus) 30 ml PO QID PRN PRN Reason: unknown Albuterol/Ipratropium (Duoneb 3.0-0.5 Mg/3 Ml) 3 ml NEB Q4H PRN PRN Reason: Shortness Of Breath/wheezing Ascorbic Acid (Vitamin C) 500 mg PO DAILY [facility] Last Admin: 07/15/17 08:19 Dose: 500 mg Calcium Carbonate/Glycine (Tums) 500 mg PO QID PRN PRN Reason: HEARTBURN Capsaicin (Zostrix 0.025% Crm) 0 gm TOP ASDIRECTED PRN PRN Reason: APPLY TO KNEES Cholecalciferol (Vitamin D3) 2,000 units PO DAILY [facility] Last Admin: 07/15/17 08:18 Dose: 2,000 units Cyanocobalamin (Vitamin B12) 1,000 mcg PO DAILY [facility] Last Admin: 07/15/17 08:18 Dose: 1,000 mcg Diltiazem HCl (Cardizem Cd) 180 mg PO DAILY [facility] Last Admin: 07/15/17 08:19 Dose: 180 mg Enoxaparin Sodium (Lovenox) 40 mg SUBCUT DAILY [facility] Last Admin: 07/15/17 08:19 Dose: 40 mg Ferrous Sulfate (Ferrous Sulfate) 325 mg PO DAILY [facility] Last Admin: 07/15/17 08:18 Dose: 325 mg Flunisolide (Nasalide Nasal [place]) 0 ml NASBOTH BID [facility] Last Admin: 07/15/17 08:27 Dose: 2 spray Guaifenesin (Mucinex) 600 mg PO BID [facility] Last Admin: 07/15/17 08:19 Dose: 600 mg Hydralazine HCl (Apresoline) 20 mg IVPUSH Q4H PRN PRN Reason: Hypertension Hydrochlorothiazide (Hydrochlorothiazide) 12.5 mg PO DAILY [facility] Last Admin: 07/15/17 08:18 Dose: 12.5 mg Hydromorphone HCl (Dilaudid) 0.25 mg IVPUSH Q4H PRN PRN Reason: Pain (severe 7-10) Diltiazem HCl 125 mg/ Sodium (Chloride) 125 mls @ 10 mls/hr IV TITRATE [place]; 10 MG/HR PRN Reason: Protocol Last Titration: 07/14/17 23:04 Dose: 5 mg/hr, 5 mls/hr Promethazine HCl 12.5 mg/ (Sodium Chloride) 50.5 mls @ 100 mls/hr IV Q6H PRN PRN Reason: Nausea/Vomiting Ibuprofen (Motrin) 600 mg PO Q6H PRN PRN Reason: Pain (moderate 4-6) Lisinopril (Prinivil) 20 mg PO DAILY [facility] Last Admin: 07/15/17 08:19 Dose: 20 mg Lorazepam (Ativan) 1 mg IVPUSH Q4H PRN; Protocol PRN Reason: Anxiety Magnesium Hydroxide (Milk Of Magnesia) 30 ml PO ASDIRECTED PRN PRN Reason: unknown Magnesium Sulfate (Pharmacy To Dose - Magnesium Replacement) 0 dose .XX ASDIRECTED PRN PRN Reason: RX TO WATCH MAG LEVELS Miscellaneous Information (Remove Patch) 1 ea TRDERM DAILY [facility] Last Admin: 07/15/17 08:29 Dose: Not Given Nicotine (Habitrol) 21 mg TRDERM DAILY [facility] Last Admin: 07/15/17 08:23 Dose: Not Given Ondansetron HCl (Zofran) 4 mg IV Q6H PRN PRN Reason: Nausea/Vomiting Oxymetazoline HCl (Afrin Original 0.05% Nasal [place]) 0 ml TIFFANI DAILY [facility] Last Admin: 07/15/17 08:34 Dose: 1 spray Menthol/Camphor [ (Sarna] Lotion) 0 each TOP BID [facility] Last Admin: 07/15/17 08:23 Dose: Not Given Polyethylene Glycol (Miralax) 17 gm PO DAILY PRN PRN Reason: Constipation Potassium Chloride (Pharmacy To Dose - Potassium Replacement) 0 dose .XX ASDIRECTED PRN PRN Reason: RX TO WATCH K LEVELS Senna/Docusate Sodium (Senna Plus) 1 tab PO BID [facility] Last Admin: 07/15/17 08:18 Dose: 1 tab Sertraline HCl (Zoloft) 50 mg PO DAILY [facility] Last Admin: 07/15/17 08:18 Dose: 50 mg Sodium Chloride ([place] Nasal [place]) 0 ml NASBOTH ASDIRECTED PRN PRN Reason: CONGESTION Tamsulosin HCl (Flomax) 0.8 mg PO BEDTIME [facility] Last Admin: 07/14/17 20:43 Dose: 0.8 mg Temazepam (Restoril) 7.5 mg PO BEDTIME PRN PRN Reason: Sleep Last Admin: 07/14/17 20:44 Dose: 7.5 mg Tramadol HCl (Ultram) 50 mg PO BID [facility] Last Admin: 07/15/17 08:18 Dose: 50 mg Discontinued Medications Adenosine (Adenocard) 12 mg IVPUSH NOW ONE Stop: 07/14/17 15:21 Last Admin: 07/14/17 15:32 Dose: 12 mg Diltiazem HCl (Diltiazem) 5 mg IVPUSH ONETIME STA Stop: 07/14/17 15:50 Last Admin: 07/14/17 16:41 Dose: 5 mg Diltiazem HCl (Diltiazem) 5 mg IVPUSH ONETIME STA Stop: 07/14/17 17:45 Last Admin: 07/14/17 17:49 Dose: 5 mg Enoxaparin Sodium (Lovenox) 100 mg SUBCUT ONETIME ONE Stop: 07/14/17 15:51 Last Admin: 07/14/17 16:33 Dose: 100 mg Hydromorphone HCl (Dilaudid) 0.25 mg IVPUSH Q4H PRN PRN Reason: Pain (severe 7-10) Sodium Chloride (Normal Saline) 1,000 mls @ 100 mls/hr IV ASDIRECTED [facility] Last Admin: 07/15/17 00:31 Dose: 100 mls/hr Sodium Chloride (Normal Saline) 100 mls @ 60 mls/hr IV ASDIRECTED [facility] Last Admin: 07/14/17 14:40 Dose: 60 mls/hr Iopamidol (Isovue-370 (76%)) 100 ml IVPUSH ONETIME ONE Stop: 07/14/17 14:25 Last Admin: 07/14/17 14:40 Dose: 100 ml Nicotine (Habitrol) 21 mg TRDERM ONETIME ONE Stop: 07/14/17 18:59 Last Admin: 07/14/17 20:32 Dose: Not Given Sodium Chloride (Saline Flush) 10 ml FLUSH ONETIME ONE Stop: 07/14/17 14:25 Last Admin: 07/14/17 14:41 Dose: 10 ml - Exam General: Alert, Oriented, Cooperative Neck: Supple Lungs: Clear to Auscultation, Normal Respiratory Effort Cardiovascular: Regular Rhythm, Tachycardia GI/Abdominal Exam: Normal Bowel Sounds, Soft, Non-Tender, No Distention (Male) Exam: Deferred Back Exam: Normal Inspection Extremities: Normal Inspection, Normal Range of Motion, Non-Tender, No Pedal Edema Skin: Warm, Dry, Intact Neurological: No New Focal Deficit Psy/Mental Status: Alert, Normal Affect, Normal Mood - My Orders Last 24 Hours: My Active Orders 07/15/17 11:11 Hemoccult [OCCULT BLOOD DIAGNOSTIC] [OP] Routine - Plan Plan:: Assessment/Plan: This is a 77-year-old pleasant elderly white male with past medical history of HTN, BPH, Parkinsons's Disease, Maxillary Sinusitis, Allergic Rhinitis, OA/DJD, Iron Deficiency Anemia, on Iron Pills, Eczema, Constipation, Nicotine Dependence , he chews tobacco products, Hx/o Folliculitis, Hx/o Of C5-C6 Cervical Dislocation and MDD who was sent over by his PCP on 07/14/17 due to considerably elevated heart rate of 130 at the clinic. Thyroid panel is normal. Patient was given diltiazem to lower HR. The patient denies any associated symptoms of shortness of breath, diaphoresis, chest pain, lightheaded or dizziness, or heart palpitation. Acute: Sinus Tachycardia vs New Onset A-flutter - HR in 130s at the clinic - HR has been elevated for a week at [facility] per patient - PCP report fast heart rate started last night - Apparently went into A-flutter after adenosin treatment in ED - Reviewed EKGs, could not appreciate atrial flutter, HR is < 100 - Patient still tachycardic with HR in the upper teens to 120s - Continue cardizem drip, titrate to keep HR at or < 100 - Serial EKGs Q6 x 3 to capture A-flutter - Thyroid Panel in AM Mildly Elevated D-Dimer - D-dimer 0.73 - CTA negative for PE Anemia -On admission: RBC 4.44, Hgb: 13.6, Hct: 41.6, MCV: 93.7 Mildly Elevated Pro-BNP - 629 - No previous echo - 2D echo in AM for baseline CXR Findings - Several left sided rib fractures presumably old Chest CTA findings - Coronary artery calcification - Small hiatal hernia - Focal area of pleural thickening in calcification within the right lung base believed to be incidental - Generative change within the spine - Several anterior wedge deformities are seen within the mid thoracic spine which are likely old Chronic: HTN BPH Parkinsons's Disease Maxillary Sinusitis Allergic Rhinitis OA/DJD MDD Iron Deficiency Anemia, on Iron Pills Eczema Constipation Nicotine Dependence, he chews tobacco products Hx/o Folliculitis Hx/o Of C5-C6 Cervical Dislocation Plan: Admit to ICU Fecal occult blood test ordered due to anemia and elevated MCV Routine AM Labs Nicotine Patch 21 mg daily Resume Home Meds Fall Precautions PT/OT consult SW/CM for d/c planning Additional orders as above Code status: DNR <Mavis Leblanc - Last Filed: 07/17/17 12:51> - Patient Data Vitals - Most Recent: Last Vital Signs Temp 36.7 C 07/17/17 10:58 Pulse 78 07/17/17 10:58 Resp 16 07/17/17 10:58 BP 97/66 07/17/17 10:58 Pulse Ox 94 L 07/17/17 10:58 I&O - Last 24 Hours: Intake & Output 07/16/17 07/17/17 07/17/17 22:59 06:59 14:59 Intake Total 550 540 120 Output Total 850 Balance 550 -310 120 Lab Results Last 24 Hours: Laboratory Results - last 24 hr 07/16/17 07/17/17 Range/Units 13:14 05:44 PT 11.0 (8.0-13.0) SECONDS INR 1.01 Sodium 140 (136-145) mEq/L Potassium 3.8 (3.5-5.1) mEq/L Chloride 106 (98-107) mEq/L Carbon Dioxide 26 (21-32) mEq/L Anion Gap 11.8 (5-15) BUN 15 (7-18) mg/dL Creatinine 0.9 (0.7-1.3) mg/dL Est Cr Clr Drug Dosing 73.05 mL/min Estimated GFR (MDRD) > 60 (>60) mL/min BUN/Creatinine Ratio 16.7 (14-18) Glucose 79 L (83-115) mg/dL Calcium 8.8 (8.5-10.1) mg/dL Magnesium 1.9 (1.8-2.4) mg/dl [place] Results Last 24 Hours: Microbiology 07/17/17 10:00 Stool Occult Blood (ISSA) - Final Stool / Feces NEGATIVE OCCULT BLOOD Med Orders - Current: Current Medications Acetaminophen (Tylenol) 650 mg PO Q6H PRN PRN Reason: unknown Hydrocodone Bitart/Acetaminophen ([place] 325-5 Mg) 1 tab PO Q4H PRN PRN Reason: Pain (moderate 4-6) Al Hydroxide/Mg Hydroxide (Mag-Al Plus) 30 ml PO QID PRN PRN Reason: unknown Albuterol/Ipratropium (Duoneb 3.0-0.5 Mg/3 Ml) 3 ml NEB Q4H PRN PRN Reason: Shortness Of Breath/wheezing Ascorbic Acid (Vitamin C) 500 mg PO DAILY [facility] Last Admin: 07/17/17 08:10 Dose: 500 mg Calcium Carbonate/Glycine (Tums) 500 mg PO QID PRN PRN Reason: HEARTBURN Capsaicin (Zostrix 0.025% Crm) 0 gm TOP ASDIRECTED PRN PRN Reason: APPLY TO KNEES Cholecalciferol (Vitamin D3) 2,000 units PO DAILY [facility] Last Admin: 07/17/17 08:10 Dose: 2,000 units Cyanocobalamin (Vitamin B12) 1,000 mcg PO DAILY [facility] Last Admin: 07/17/17 08:11 Dose: 1,000 mcg Diltiazem HCl (Cardizem Cd) 240 mg PO DAILY [facility] Last Admin: 07/17/17 08:10 Dose: 240 mg Enoxaparin Sodium (Lovenox) 100 mg SUBCUT Q12HR [facility] Last Admin: 07/17/17 08:09 Dose: 100 mg Ferrous Sulfate (Ferrous Sulfate) 325 mg PO DAILY [facility] Last Admin: 07/17/17 08:11 Dose: 325 mg Flunisolide (Nasalide Nasal [place]) 0 ml NASBOTH BID [facility] Last Admin: 07/17/17 08:24 Dose: 1 spray Guaifenesin (Mucinex) 600 mg PO BID [facility] Last Admin: 07/17/17 08:11 Dose: 600 mg Hydralazine HCl (Apresoline) 20 mg IVPUSH Q4H PRN PRN Reason: Hypertension Hydrochlorothiazide (Hydrochlorothiazide) 12.5 mg PO DAILY [facility] Last Admin: 07/17/17 08:10 Dose: 12.5 mg Hydromorphone HCl (Dilaudid) 0.25 mg IVPUSH Q4H PRN PRN Reason: Pain (severe 7-10) Promethazine HCl 12.5 mg/ (Sodium Chloride) 50.5 mls @ 100 mls/hr IV Q6H PRN PRN Reason: Nausea/Vomiting Lisinopril (Prinivil) 20 mg PO DAILY [facility] Last Admin: 07/17/17 08:10 Dose: 20 mg Lorazepam (Ativan) 1 mg IVPUSH Q4H PRN; Protocol PRN Reason: Anxiety Magnesium Hydroxide (Milk Of Magnesia) 30 ml PO ASDIRECTED PRN PRN Reason: unknown Last Admin: 07/17/17 08:28 Dose: 30 ml Metoprolol Tartrate (Lopressor) 5 mg IVPUSH Q6H PRN PRN Reason: heart rate Last Admin: 07/15/17 14:14 Dose: 5 mg Metoprolol Tartrate (Lopressor) 25 mg PO Q12HR [facility] Last Admin: 07/17/17 08:11 Dose: 25 mg Miscellaneous Information (Remove Patch) 1 ea TRDERM DAILY [facility] Last Admin: 07/17/17 08:13 Dose: 1 ea Nicotine (Habitrol) 21 mg TRDERM DAILY [facility] Last Admin: 07/17/17 08:09 Dose: 21 mg Ondansetron HCl (Zofran) 4 mg IV Q6H PRN PRN Reason: Nausea/Vomiting Last Admin: 07/15/17 16:12 Dose: 4 mg Oxymetazoline HCl (Afrin Original 0.05% Nasal [place]) 0 ml TIFFANI DAILY [facility] Last Admin: 07/17/17 08:24 Dose: 1 spray Menthol/Camphor [ (Sarna] Lotion) 0 each TOP BID [facility] Last Admin: 07/17/17 08:13 Dose: Not Given Patient's Own Medication 1 Each Zyrtec 10 Mg 1 each PO DAILY [facility] Last Admin: 07/17/17 08:12 Dose: Not Given Polyethylene Glycol (Miralax) 17 gm PO DAILY PRN PRN Reason: Constipation Senna/Docusate Sodium (Senna Plus) 1 tab PO BID [facility] Last Admin: 07/17/17 08:10 Dose: 1 tab Sertraline HCl (Zoloft) 50 mg PO DAILY [facility] Last Admin: 07/17/17 08:12 Dose: 50 mg Sodium Chloride ([place] Nasal [place]) 0 ml NASBOTH ASDIRECTED PRN PRN Reason: CONGESTION Tamsulosin HCl (Flomax) 0.8 mg PO BEDTIME [facility] Last Admin: 07/16/17 20:37 Dose: 0.8 mg Temazepam (Restoril) 7.5 mg PO BEDTIME PRN PRN Reason: Sleep Last Admin: 07/16/17 20:37 Dose: 7.5 mg Tramadol HCl (Ultram) 50 mg PO BID [facility] Last Admin: 07/17/17 08:11 Dose: 50 mg Warfarin Sodium (Coumadin) 5 mg PO ONETIME ONE Stop: 07/17/17 18:01 Discontinued Medications Adenosine (Adenocard) 12 mg IVPUSH NOW ONE Stop: 07/14/17 15:21 Last Admin: 07/14/17 15:32 Dose: 12 mg Diltiazem HCl (Diltiazem) 5 mg IVPUSH ONETIME STA Stop: 07/14/17 15:50 Last Admin: 07/14/17 16:41 Dose: 5 mg Diltiazem HCl (Diltiazem) 5 mg IVPUSH ONETIME STA Stop: 07/14/17 17:45 Last Admin: 07/14/17 17:49 Dose: 5 mg Diltiazem HCl (Cardizem Cd) 180 mg PO DAILY [facility] Last Admin: 07/16/17 09:01 Dose: 180 mg Enoxaparin Sodium (Lovenox) 100 mg SUBCUT ONETIME ONE Stop: 07/14/17 15:51 Last Admin: 07/14/17 16:33 Dose: 100 mg Enoxaparin Sodium (Lovenox) 40 mg SUBCUT DAILY [facility] Last Admin: 07/16/17 09:01 Dose: 40 mg Hydromorphone HCl (Dilaudid) 0.25 mg IVPUSH Q4H PRN PRN Reason: Pain (severe 7-10) Sodium Chloride (Normal Saline) 1,000 mls @ 100 mls/hr IV ASDIRECTED [facility] Last Admin: 07/15/17 00:31 Dose: 100 mls/hr Sodium Chloride (Normal Saline) 100 mls @ 60 mls/hr IV ASDIRECTED [facility] Last Admin: 07/14/17 14:40 Dose: 60 mls/hr Diltiazem HCl 125 mg/ Sodium (Chloride) 125 mls @ 10 mls/hr IV TITRATE [place]; 10 MG/HR PRN Reason: Protocol Last Titration: 07/14/17 23:04 Dose: 5 mg/hr, 5 mls/hr Magnesium Sulfate 2 gm/ Premix 50 mls @ 25 mls/hr IV ONETIME ONE Stop: 07/15/17 16:36 Last Admin: 07/15/17 16:10 Dose: 25 mls/hr Ibuprofen (Motrin) 600 mg PO Q6H PRN PRN Reason: Pain (moderate 4-6) Iopamidol (Isovue-370 (76%)) 100 ml IVPUSH ONETIME ONE Stop: 07/14/17 14:25 Last Admin: 07/14/17 14:40 Dose: 100 ml Magnesium Sulfate (Pharmacy To Dose - Magnesium Replacement) 0 dose .XX ASDIRECTED PRN PRN Reason: RX TO WATCH MAG LEVELS Nicotine (Habitrol) 21 mg TRDERM ONETIME ONE Stop: 07/14/17 18:59 Last Admin: 07/14/17 20:32 Dose: Not Given Potassium Chloride (Pharmacy To Dose - Potassium Replacement) 0 dose .XX ASDIRECTED PRN PRN Reason: RX TO WATCH K LEVELS Sodium Chloride (Saline Flush) 10 ml FLUSH ONETIME ONE Stop: 07/14/17 14:25 Last Admin: 07/14/17 14:41 Dose: 10 ml - Problem List Review Problem List Initiated/Reviewed/Updated: Yes - My Orders Last 24 Hours: My Active Orders 07/16/17 12:00 Metoprolol Tartrate [Lopressor] 25 mg PO Q12HR 07/16/17 21:00 Enoxaparin [Lovenox] 100 mg SUBCUT Q12HR 07/17/17 09:00 Diltiazem [Cardizem CD] 240 mg PO DAILY 07/17/17 18:00 Warfarin [Coumadin] 5 mg PO ONETIME ONE 07/18/17 05:00 INR,PT,PROTHROMBIN TIME [COAG] Routine - Plan Plan:: Discussed briefly anticoagulation, will be initiated before DC.
[2017-07-15] MEDS ORDERED: Magnesium Sulfate/Water 2 GM in Premix Bag 1 BAG IV ONE (14:37)
[2017-07-15] MEDS: Temazepam 7.5 MG Cap PO PRN (20:12)
[2017-07-15] MEDS: Tamsulosin 0.4 MG Cap.ER PO SCH (20:13)
[2017-07-16] MEDS: Nicotine 21 MG/24 Hr Patch TRDERM SCH (08:59)
[2017-07-16] MEDS: Cyanocobalamin (Vitamin B12) 1,000 MCG Tab PO SCH (08:59)
[2017-07-16] MEDS: Ferrous Sulfate 325 MG Tab PO SCH (09:00)
[2017-07-16] MEDS: Oxymetazoline 0.05% Nasal Spray 15 ML Bottle NAS SCH (09:00)
[2017-07-16] MEDS: Cholecalciferol (Vitamin D3) 1,000 Unit Tab PO SCH (09:01)
[2017-07-16] MEDS: Enoxaparin 40 MG/0.4 ML Syringe SUBCUT SCH (09:01)
[2017-07-16] MEDS: Hydrochlorothiazide 12.5 MG Cap PO SCH (09:01)
[2017-07-16] MEDS: guaiFENesin 600 MG Tab.ER PO SCH ×2 (09:01→20:34)
[2017-07-16] MEDS: Diltiazem 180 MG Cap.CD PO SCH (09:01)
[2017-07-16] MEDS: MENTHOL TOP SCH ×2 (09:02→20:46)
[2017-07-16] MEDS: CAMPHOR TOP SCH ×2 (09:02→20:46)
[2017-07-16] MEDS: Lisinopril 20 MG Tab PO SCH (09:02)
[2017-07-16] MEDS: Ascorbic Acid 500 MG Tab PO SCH (09:03)
[2017-07-16] MEDS: ZYRTEC 10 MG PO SCH (09:03)
[2017-07-16] MEDS: traMADol 50 MG Tab PO SCH ×2 (09:06→20:35)
[2017-07-16] MEDS: Sertraline 50 MG Tab PO SCH (09:15)
[2017-07-16] MEDS: Metoprolol Tartrate 25 MG Tab PO SCH ×3 (10:11→20:34)
--- NOTE | 2017-07-16 13:15 | PCM.PN ---
- General Info Date of Service: 07/16/17 Functional Status: Reports: Pain Controlled, Tolerating Diet - Review of Systems General: Reports: No Symptoms HEENT: Reports: No Symptoms Pulmonary: Reports: No Symptoms Cardiovascular: Reports: No Symptoms Gastrointestinal: Reports: No Symptoms Genitourinary: Reports: No Symptoms Musculoskeletal: Reports: No Symptoms Skin: Reports: No Symptoms Neurological: Reports: No Symptoms Psychiatric: Reports: No Symptoms - Patient Data Vitals - Most Recent: Last Vital Signs Temp 36.3 C 07/16/17 11:15 Pulse 102 H 07/16/17 11:15 Resp 6 L 07/16/17 11:15 BP 97/76 07/16/17 11:15 Pulse Ox 95 07/16/17 11:15 Weight - Most Recent: 108.862 kg I&O - Last 24 Hours: Intake & Output 07/15/17 07/16/17 07/16/17 22:59 06:59 14:59 Intake Total 300 600 240 Output Total 450 200 725 Balance -150 400 -485 Lab Results Last 24 Hours: Laboratory Results - last 24 hr 07/16/17 Range/Units 05:40 Sodium 142 (136-145) mEq/L Potassium 3.6 (3.5-5.1) mEq/L Chloride 106 (98-107) mEq/L Carbon Dioxide 27 (21-32) mEq/L Anion Gap 12.6 (5-15) BUN 11 (7-18) mg/dL Creatinine 0.9 (0.7-1.3) mg/dL Est Cr Clr Drug Dosing 73.05 mL/min Estimated GFR (MDRD) > 60 (>60) mL/min BUN/Creatinine Ratio 12.2 L (14-18) Glucose 86 (83-115) mg/dL Calcium 8.5 (8.5-10.1) mg/dL Magnesium 2.0 (1.8-2.4) mg/dl Med Orders - Current: Current Medications Acetaminophen (Tylenol) 650 mg PO Q6H PRN PRN Reason: unknown Hydrocodone Bitart/Acetaminophen ([place] 325-5 Mg) 1 tab PO Q4H PRN PRN Reason: Pain (moderate 4-6) Al Hydroxide/Mg Hydroxide (Mag-Al Plus) 30 ml PO QID PRN PRN Reason: unknown Albuterol/Ipratropium (Duoneb 3.0-0.5 Mg/3 Ml) 3 ml NEB Q4H PRN PRN Reason: Shortness Of Breath/wheezing Ascorbic Acid (Vitamin C) 500 mg PO DAILY [facility] Last Admin: 07/16/17 09:03 Dose: 500 mg Calcium Carbonate/Glycine (Tums) 500 mg PO QID PRN PRN Reason: HEARTBURN Capsaicin (Zostrix 0.025% Crm) 0 gm TOP ASDIRECTED PRN PRN Reason: APPLY TO KNEES Cholecalciferol (Vitamin D3) 2,000 units PO DAILY [facility] Last Admin: 07/16/17 09:01 Dose: 2,000 units Cyanocobalamin (Vitamin B12) 1,000 mcg PO DAILY [facility] Last Admin: 07/16/17 08:59 Dose: 1,000 mcg Diltiazem HCl (Cardizem Cd) 240 mg PO DAILY [facility] Ferrous Sulfate (Ferrous Sulfate) 325 mg PO DAILY [facility] Last Admin: 07/16/17 09:00 Dose: 325 mg Flunisolide (Nasalide Nasal [place]) 0 ml NASBOTH BID [facility] Last Admin: 07/16/17 09:00 Dose: 1 spray Guaifenesin (Mucinex) 600 mg PO BID [facility] Last Admin: 07/16/17 09:01 Dose: 600 mg Hydralazine HCl (Apresoline) 20 mg IVPUSH Q4H PRN PRN Reason: Hypertension Hydrochlorothiazide (Hydrochlorothiazide) 12.5 mg PO DAILY [facility] Last Admin: 07/16/17 09:01 Dose: 12.5 mg Hydromorphone HCl (Dilaudid) 0.25 mg IVPUSH Q4H PRN PRN Reason: Pain (severe 7-10) Diltiazem HCl 125 mg/ Sodium (Chloride) 125 mls @ 10 mls/hr IV TITRATE [place]; 10 MG/HR PRN Reason: Protocol Last Titration: 07/14/17 23:04 Dose: 5 mg/hr, 5 mls/hr Promethazine HCl 12.5 mg/ (Sodium Chloride) 50.5 mls @ 100 mls/hr IV Q6H PRN PRN Reason: Nausea/Vomiting Lisinopril (Prinivil) 20 mg PO DAILY [facility] Last Admin: 07/16/17 09:02 Dose: 20 mg Lorazepam (Ativan) 1 mg IVPUSH Q4H PRN; Protocol PRN Reason: Anxiety Magnesium Hydroxide (Milk Of Magnesia) 30 ml PO ASDIRECTED PRN PRN Reason: unknown Metoprolol Tartrate (Lopressor) 5 mg IVPUSH Q6H PRN PRN Reason: heart rate Last Admin: 07/15/17 14:14 Dose: 5 mg Metoprolol Tartrate (Lopressor) 25 mg PO Q12HR [facility] Last Admin: 07/16/17 12:31 Dose: Not Given Miscellaneous Information (Remove Patch) 1 ea TRDERM DAILY [facility] Last Admin: 07/16/17 09:03 Dose: Not Given Nicotine (Habitrol) 21 mg TRDERM DAILY [facility] Last Admin: 07/16/17 08:59 Dose: 21 mg Ondansetron HCl (Zofran) 4 mg IV Q6H PRN PRN Reason: Nausea/Vomiting Last Admin: 07/15/17 16:12 Dose: 4 mg Oxymetazoline HCl (Afrin Original 0.05% Nasal [place]) 0 ml TIFFANI DAILY [facility] Last Admin: 07/16/17 09:00 Dose: 1 spray Menthol/Camphor [ (Sarna] Lotion) 0 each TOP BID [facility] Last Admin: 07/16/17 09:02 Dose: Not Given Patient's Own Medication 1 Each Zyrtec 10 Mg 1 each PO DAILY [facility] Last Admin: 07/16/17 09:03 Dose: Not Given Polyethylene Glycol (Miralax) 17 gm PO DAILY PRN PRN Reason: Constipation Senna/Docusate Sodium (Senna Plus) 1 tab PO BID [facility] Last Admin: 07/16/17 09:00 Dose: 1 tab Sertraline HCl (Zoloft) 50 mg PO DAILY [facility] Last Admin: 07/16/17 09:15 Dose: 50 mg Sodium Chloride (Regino [place] Nasal [place]) 0 ml NASBOTH ASDIRECTED PRN PRN Reason: CONGESTION Tamsulosin HCl (Flomax) 0.8 mg PO BEDTIME [facility] Last Admin: 07/15/17 20:13 Dose: 0.8 mg Temazepam (Restoril) 7.5 mg PO BEDTIME PRN PRN Reason: Sleep Last Admin: 07/15/17 20:12 Dose: 7.5 mg Tramadol HCl (Ultram) 50 mg PO BID [facility] Last Admin: 07/16/17 09:06 Dose: 50 mg Discontinued Medications Adenosine (Adenocard) 12 mg IVPUSH NOW ONE Stop: 07/14/17 15:21 Last Admin: 07/14/17 15:32 Dose: 12 mg Diltiazem HCl (Diltiazem) 5 mg IVPUSH ONETIME STA Stop: 07/14/17 15:50 Last Admin: 07/14/17 16:41 Dose: 5 mg Diltiazem HCl (Diltiazem) 5 mg IVPUSH ONETIME STA Stop: 07/14/17 17:45 Last Admin: 07/14/17 17:49 Dose: 5 mg Diltiazem HCl (Cardizem Cd) 180 mg PO DAILY [facility] Last Admin: 07/16/17 09:01 Dose: 180 mg Enoxaparin Sodium (Lovenox) 100 mg SUBCUT ONETIME ONE Stop: 07/14/17 15:51 Last Admin: 07/14/17 16:33 Dose: 100 mg Enoxaparin Sodium (Lovenox) 40 mg SUBCUT DAILY [facility] Last Admin: 07/16/17 09:01 Dose: 40 mg Hydromorphone HCl (Dilaudid) 0.25 mg IVPUSH Q4H PRN PRN Reason: Pain (severe 7-10) Sodium Chloride (Normal Saline) 1,000 mls @ 100 [facility]ls[facility] Last Admin: 07/15/17 00:31 Dose: 100 mls/hr Sodium Chloride (Normal Saline) 100 mls [facility] 60 [facility] Admin: 07/14/17 14:40 Dose: 60 mls/hr Magnesium Sulfate 2 gm/ Premix 50 mls @ 25 mls/hr IV ONETIME ONE Stop: 07/15/17 16:36 Last Admin: 07/15/17 16:10 Dose: 25 mls/hr Ibuprofen (Motrin) 600 mg PO Q6H PRN PRN Reason: Pain (moderate 4-6) Iopamidol (Isovue-370 (76%)) 100 ml IVPUSH ONETIME ONE Stop: 07/14/17 14:25 Last Admin: 07/14/17 14:40 Dose: 100 ml Magnesium Sulfate (Pharmacy To Dose - Magnesium Replacement) 0 dose .XX ASDIRECTED PRN PRN Reason: RX TO WATCH MAG LEVELS Nicotine (Habitrol) 21 mg TRDERM ONETIME ONE Stop: 07/14/17 18:59 Last Admin: 07/14/17 20:32 Dose: Not Given Potassium Chloride (Pharmacy To Dose - Potassium Replacement) 0 dose .XX ASDIRECTED PRN PRN Reason: RX TO WATCH K LEVELS Sodium Chloride (Saline Flush) 10 ml FLUSH ONETIME ONE Stop: 07/14/17 14:25 Last Admin: 07/14/17 14:41 Dose: 10 ml - Exam Quality Assessment: DVT Prophylaxis General: Alert, Oriented, Cooperative, No Acute Distress HEENT: Pupils Equal, Pupils Reactive, EOMI Neck: Supple, Trachea Midline Lungs: Normal Respiratory Effort Cardiovascular: Regular Rate, Irregular Rhythm GI/Abdominal Exam: Normal Bowel Sounds, Soft, Non-Tender, No Distention (Male) Exam: Deferred Back Exam: Normal Inspection Extremities: Normal Inspection Skin: Warm Neurological: No New Focal Deficit Psy/Mental Status: Alert, Normal Affect, Normal Mood - Problem List Review Problem List Initiated/Reviewed/Updated: Yes - My Orders Last 24 Hours: My Active Orders 07/16/17 09:00 Patient's Own Medication [Ptom] 1 each PO DAILY 07/16/17 12:00 Metoprolol Tartrate [Lopressor] 25 mg PO Q12HR 07/16/17 13:14 INR,PT,PROTHROMBIN TIME [COAG] Routine 07/16/17 21:00 Enoxaparin [Lovenox] 100 mg SUBCUT Q12HR 07/17/17 09:00 Diltiazem [Cardizem CD] 240 mg PO DAILY 07/17/17 18:00 Warfarin [Coumadin] 5 mg PO ONETIME ONE - Plan Plan:: Assessment/Plan: This is a 77-year-old pleasant elderly white male with past medical history of HTN, BPH, Parkinsons's Disease, Maxillary Sinusitis, Allergic Rhinitis, OA/DJD, Iron Deficiency Anemia, on Iron Pills, Eczema, Constipation, Nicotine Dependence , he chews tobacco products, Hx/o Folliculitis, Hx/o Of C5-C6 Cervical Dislocation and MDD who was sent over by his PCP on 07/14/17 due to considerably elevated heart rate of 130 at the clinic. Thyroid panel is normal. Patient was given diltiazem to lower HR. The patient denies any associated symptoms of shortness of breath, diaphoresis, chest pain, lightheaded or dizziness, or heart palpitation. Acute: New Onset A-flutter-->ChadVasc~4 - HR in 130s at the clinic - HR has been elevated for a week at [place] per patient - PCP report fast heart rate started last night - Apparently went into A-flutter after adenosin treatment in ED - Reviewed EKGs, could not appreciate atrial flutter, HR is < 100 - Patient still tachycardic with HR in the upper teens to 120s - Continue cardizem drip, titrate to keep HR at or < 100 - Serial EKGs Q6 x 3 to capture A-flutter - Thyroid Panel in AM Mildly Elevated D-Dimer - D-dimer 0.73 - CTA negative for PE Anemia -On admission: RBC 4.44, Hgb: 13.6, Hct: 41.6, MCV: 93.7 Mildly Elevated Pro-BNP - 629 - No previous echo - 2D echo in AM for baseline CXR Findings - Several left sided rib fractures presumably old Chest CTA findings - Coronary artery calcification - Small hiatal hernia - Focal area of pleural thickening in calcification within the right lung base believed to be incidental - Generative change within the spine - Several anterior wedge deformities are seen within the mid thoracic spine which are likely old Chronic: HTN BPH Parkinsons's Disease Maxillary Sinusitis Allergic Rhinitis OA/DJD MDD Iron Deficiency Anemia, on Iron Pills Eczema Constipation Nicotine Dependence, he chews tobacco products Hx/o Folliculitis Hx/o Of C5-C6 Cervical Dislocation Plan: Admit to ICU Fecal occult blood test ordered due to anemia and elevated MCV Routine AM Labs Nicotine Patch 21 mg daily Resume Home Meds Fall Precautions PT/OT consult SW/CM for d/c planning Additional orders as above Code status: DNR LOS>96 hours expected with gradual response to therapy.
[2017-07-16] MEDS: Enoxaparin 100 MG/1 ML Syringe SUBCUT SCH (20:35)
[2017-07-16] MEDS: Tamsulosin 0.4 MG Cap.ER PO SCH (20:37)
[2017-07-16] MEDS: Temazepam 7.5 MG Cap PO PRN (20:37)
[2017-07-17] MEDS: Enoxaparin 100 MG/1 ML Syringe SUBCUT SCH ×2 (08:09→20:39)
[2017-07-17] MEDS: Nicotine 21 MG/24 Hr Patch TRDERM SCH (08:09)
[2017-07-17] MEDS: Cholecalciferol (Vitamin D3) 1,000 Unit Tab PO SCH (08:10)
[2017-07-17] MEDS: Lisinopril 20 MG Tab PO SCH (08:10)
[2017-07-17] MEDS: Diltiazem 120 MG Cap.CD PO SCH (08:10)
[2017-07-17] MEDS: Hydrochlorothiazide 12.5 MG Cap PO SCH (08:10)
[2017-07-17] MEDS: Ascorbic Acid 500 MG Tab PO SCH (08:10)
[2017-07-17] MEDS: Cyanocobalamin (Vitamin B12) 1,000 MCG Tab PO SCH (08:11)
[2017-07-17] MEDS: traMADol 50 MG Tab PO SCH ×2 (08:11→20:38)
[2017-07-17] MEDS: Ferrous Sulfate 325 MG Tab PO SCH (08:11)
[2017-07-17] MEDS: Metoprolol Tartrate 25 MG Tab PO SCH ×3 (08:11→21:14)
[2017-07-17] MEDS: guaiFENesin 600 MG Tab.ER PO SCH ×2 (08:11→20:36)
[2017-07-17] MEDS: ZYRTEC 10 MG PO SCH (08:12)
[2017-07-17] MEDS: Sertraline 50 MG Tab PO SCH (08:12)
[2017-07-17] MEDS: MENTHOL TOP SCH ×2 (08:13→20:39)
[2017-07-17] MEDS: CAMPHOR TOP SCH ×2 (08:13→20:39)
[2017-07-17] MEDS: Oxymetazoline 0.05% Nasal Spray 15 ML Bottle NAS SCH (08:24)
--- NOTE | 2017-07-17 13:08 | PCM.PN ---
- General Info Date of Service: 07/17/17 Functional Status: Reports: Pain Controlled, Tolerating Diet - Review of Systems General: Reports: No Symptoms HEENT: Reports: No Symptoms Pulmonary: Reports: No Symptoms Cardiovascular: Reports: No Symptoms Gastrointestinal: Reports: No Symptoms Genitourinary: Reports: No Symptoms Musculoskeletal: Reports: No Symptoms Skin: Reports: No Symptoms Neurological: Reports: No Symptoms Psychiatric: Reports: No Symptoms - Patient Data Vitals - Most Recent: Last Vital Signs Temp 36.7 C 07/17/17 10:58 Pulse 78 07/17/17 10:58 Resp 16 07/17/17 10:58 BP 97/66 07/17/17 10:58 Pulse Ox 94 L 07/17/17 10:58 Weight - Most Recent: 108.862 kg I&O - Last 24 Hours: Intake & Output 07/16/17 07/17/17 07/17/17 22:59 06:59 14:59 Intake Total 550 540 120 Output Total 850 Balance 550 -310 120 Lab Results Last 24 Hours: Laboratory Results - last 24 hr 07/16/17 07/17/17 Range/Units 13:14 05:44 PT 11.0 (8.0-13.0) SECONDS INR 1.01 Sodium 140 (136-145) mEq/L Potassium 3.8 (3.5-5.1) mEq/L Chloride 106 (98-107) mEq/L Carbon Dioxide 26 (21-32) mEq/L Anion Gap 11.8 (5-15) BUN 15 (7-18) mg/dL Creatinine 0.9 (0.7-1.3) mg/dL Est Cr Clr Drug Dosing 73.05 mL/min Estimated GFR (MDRD) > 60 (>60) mL/min BUN/Creatinine Ratio 16.7 (14-18) Glucose 79 L (83-115) mg/dL Calcium 8.8 (8.5-10.1) mg/dL Magnesium 1.9 (1.8-2.4) mg/dl [place] Results Last 24 Hours: Microbiology 07/17/17 10:00 Stool Occult Blood (ISSA) - Final Stool / Feces NEGATIVE OCCULT BLOOD Med Orders - Current: Current Medications Acetaminophen (Tylenol) 650 mg PO Q6H PRN PRN Reason: unknown Hydrocodone Bitart/Acetaminophen ([place] 325-5 Mg) 1 tab PO Q4H PRN PRN Reason: Pain (moderate 4-6) Al Hydroxide/Mg Hydroxide (Mag-Al Plus) 30 ml PO QID PRN PRN Reason: unknown Albuterol/Ipratropium (Duoneb 3.0-0.5 Mg/3 Ml) 3 ml NEB Q4H PRN PRN Reason: Shortness Of Breath/wheezing Ascorbic Acid (Vitamin C) 500 mg PO DAILY [facility] Last Admin: 07/17/17 08:10 Dose: 500 mg Calcium Carbonate/Glycine (Tums) 500 mg PO QID PRN PRN Reason: HEARTBURN Capsaicin (Zostrix 0.025% Crm) 0 gm TOP ASDIRECTED PRN PRN Reason: APPLY TO KNEES Cholecalciferol (Vitamin D3) 2,000 units PO DAILY [facility] Last Admin: 07/17/17 08:10 Dose: 2,000 units Cyanocobalamin (Vitamin B12) 1,000 mcg PO DAILY [facility] Last Admin: 07/17/17 08:11 Dose: 1,000 mcg Diltiazem HCl (Cardizem Cd) 240 mg PO DAILY [facility] Last Admin: 07/17/17 08:10 Dose: 240 mg Enoxaparin Sodium (Lovenox) 100 mg SUBCUT Q12HR [facility] Last Admin: 07/17/17 08:09 Dose: 100 mg Ferrous Sulfate (Ferrous Sulfate) 325 mg PO DAILY [facility] Last Admin: 07/17/17 08:11 Dose: 325 mg Flunisolide (Nasalide Nasal [place]) 0 ml NASBOTH BID [facility] Last Admin: 07/17/17 08:24 Dose: 1 spray Guaifenesin (Mucinex) 600 mg PO BID [facility] Last Admin: 07/17/17 08:11 Dose: 600 mg Hydralazine HCl (Apresoline) 20 mg IVPUSH Q4H PRN PRN Reason: Hypertension Hydrochlorothiazide (Hydrochlorothiazide) 12.5 mg PO DAILY [facility] Last Admin: 07/17/17 08:10 Dose: 12.5 mg Hydromorphone HCl (Dilaudid) 0.25 mg IVPUSH Q4H PRN PRN Reason: Pain (severe 7-10) Promethazine HCl 12.5 mg/ (Sodium Chloride) 50.5 mls @ 100 mls/hr IV Q6H PRN PRN Reason: Nausea/Vomiting Lisinopril (Prinivil) 20 mg PO DAILY [facility] Last Admin: 07/17/17 08:10 Dose: 20 mg Lorazepam (Ativan) 1 mg IVPUSH Q4H PRN; Protocol PRN Reason: Anxiety Magnesium Hydroxide (Milk Of Magnesia) 30 ml PO ASDIRECTED PRN PRN Reason: unknown Last Admin: 07/17/17 08:28 Dose: 30 ml Metoprolol Tartrate (Lopressor) 5 mg IVPUSH Q6H PRN PRN Reason: heart rate Last Admin: 07/15/17 14:14 Dose: 5 mg Metoprolol Tartrate (Lopressor) 25 mg PO Q12HR [facility] Last Admin: 07/17/17 08:11 Dose: 25 mg Miscellaneous Information (Remove Patch) 1 ea TRDERM DAILY [facility] Last Admin: 07/17/17 08:13 Dose: 1 ea Nicotine (Habitrol) 21 mg TRDERM DAILY [facility] Last Admin: 07/17/17 08:09 Dose: 21 mg Ondansetron HCl (Zofran) 4 mg IV Q6H PRN PRN Reason: Nausea/Vomiting Last Admin: 07/15/17 16:12 Dose: 4 mg Oxymetazoline HCl (Afrin Original 0.05% Nasal [place]) 0 ml TIFFANI DAILY [facility] Last Admin: 07/17/17 08:24 Dose: 1 spray Menthol/Camphor [ (Sarna] Lotion) 0 each TOP BID [facility] Last Admin: 07/17/17 08:13 Dose: Not Given Patient's Own Medication 1 Each Zyrtec 10 Mg 1 each PO DAILY [facility] Last Admin: 07/17/17 08:12 Dose: Not Given Polyethylene Glycol (Miralax) 17 gm PO DAILY PRN PRN Reason: Constipation Senna/Docusate Sodium (Senna Plus) 1 tab PO BID [facility] Last Admin: 07/17/17 08:10 Dose: 1 tab Sertraline HCl (Zoloft) 50 mg PO DAILY [facility] Last Admin: 07/17/17 08:12 Dose: 50 mg Sodium Chloride ([place] Nasal [place]) 0 ml NASBOTH ASDIRECTED PRN PRN Reason: CONGESTION Tamsulosin HCl (Flomax) 0.8 mg PO BEDTIME [facility] Last Admin: 07/16/17 20:37 Dose: 0.8 mg Temazepam (Restoril) 7.5 mg PO BEDTIME PRN PRN Reason: Sleep Last Admin: 07/16/17 20:37 Dose: 7.5 mg Tramadol HCl (Ultram) 50 mg PO BID [facility] Last Admin: 07/17/17 08:11 Dose: 50 mg Warfarin Sodium (Coumadin) 5 mg PO ONETIME ONE Stop: 07/17/17 18:01 Discontinued Medications Adenosine (Adenocard) 12 mg IVPUSH NOW ONE Stop: 07/14/17 15:21 Last Admin: 07/14/17 15:32 Dose: 12 mg Diltiazem HCl (Diltiazem) 5 mg IVPUSH ONETIME STA Stop: 07/14/17 15:50 Last Admin: 07/14/17 16:41 Dose: 5 mg Diltiazem HCl (Diltiazem) 5 mg IVPUSH ONETIME STA Stop: 07/14/17 17:45 Last Admin: 07/14/17 17:49 Dose: 5 mg Diltiazem HCl (Cardizem Cd) 180 mg PO DAILY [facility] Last Admin: 07/16/17 09:01 Dose: 180 mg Enoxaparin Sodium (Lovenox) 100 mg SUBCUT ONETIME ONE Stop: 07/14/17 15:51 Last Admin: 07/14/17 16:33 Dose: 100 mg Enoxaparin Sodium (Lovenox) 40 mg SUBCUT DAILY [facility] Last Admin: 07/16/17 09:01 Dose: 40 mg Hydromorphone HCl (Dilaudid) 0.25 mg IVPUSH Q4H PRN PRN Reason: Pain (severe 7-10) Sodium Chloride (Normal Saline) 1,000 mls @ 100 mls/hr IV ASDIRECTED [facility] Last Admin: 07/15/17 00:31 Dose: 100 mls/hr Sodium Chloride (Normal Saline) 100 mls @ 60 mls/hr IV ASDIRECTED [facility] Last Admin: 07/14/17 14:40 Dose: 60 mls/hr Diltiazem HCl 125 mg/ Sodium (Chloride) 125 mls @ 10 mls/hr IV TITRATE [place]; 10 MG/HR PRN Reason: Protocol Last Titration: 07/14/17 23:04 Dose: 5 mg/hr, 5 mls/hr Magnesium Sulfate 2 gm/ Premix 50 mls @ 25 mls/hr IV ONETIME ONE Stop: 07/15/17 16:36 Last Admin: 07/15/17 16:10 Dose: 25 mls/hr Ibuprofen (Motrin) 600 mg PO Q6H PRN PRN Reason: Pain (moderate 4-6) Iopamidol (Isovue-370 (76%)) 100 ml IVPUSH ONETIME ONE Stop: 07/14/17 14:25 Last Admin: 07/14/17 14:40 Dose: 100 ml Magnesium Sulfate (Pharmacy To Dose - Magnesium Replacement) 0 dose .XX ASDIRECTED PRN PRN Reason: RX TO WATCH MAG LEVELS Nicotine (Habitrol) 21 mg TRDERM ONETIME ONE Stop: 07/14/17 18:59 Last Admin: 07/14/17 20:32 Dose: Not Given Potassium Chloride (Pharmacy To Dose - Potassium Replacement) 0 dose .XX ASDIRECTED PRN PRN Reason: RX TO WATCH K LEVELS Sodium Chloride (Saline Flush) 10 ml FLUSH ONETIME ONE Stop: 07/14/17 14:25 Last Admin: 07/14/17 14:41 Dose: 10 ml - Exam Quality Assessment: DVT Prophylaxis General: Alert, Oriented, Cooperative, No Acute Distress HEENT: Pupils Equal, Pupils Reactive, EOMI Neck: Supple, Trachea Midline, No JVD Lungs: Normal Respiratory Effort Cardiovascular: Regular Rate, Irregular Rhythm, Tachycardia GI/Abdominal Exam: Normal Bowel Sounds, Soft, Non-Tender, No Distention (Male) Exam: Deferred Back Exam: Normal Inspection Extremities: Normal Inspection, No Pedal Edema Skin: Warm Neurological: No New Focal Deficit, Normal Speech Psy/Mental Status: Alert, Normal Affect, Normal Mood - Problem List Review Problem List Initiated/Reviewed/Updated: Yes - My Orders Last 24 Hours: My Active Orders 07/16/17 21:00 Enoxaparin [Lovenox] 100 mg SUBCUT Q12HR 07/17/17 09:00 Diltiazem [Cardizem CD] 240 mg PO DAILY 07/17/17 18:00 Warfarin [Coumadin] 5 mg PO ONETIME ONE 07/18/17 05:00 INR,PT,PROTHROMBIN TIME [COAG] Routine - Plan Plan:: Assessment/Plan: This is a 77-year-old pleasant elderly white male with past medical history of HTN, BPH, Parkinsons's Disease, Maxillary Sinusitis, Allergic Rhinitis, OA/DJD, Iron Deficiency Anemia, on Iron Pills, Eczema, Constipation, Nicotine Dependence , he chews tobacco products, Hx/o Folliculitis, Hx/o Of C5-C6 Cervical Dislocation and MDD who was sent over by his PCP on 07/14/17 due to considerably elevated heart rate of 130 at the clinic. Thyroid panel is normal. Patient was given diltiazem to lower HR. The patient denies any associated symptoms of shortness of breath, diaphoresis, chest pain, lightheaded or dizziness, or heart palpitation. Acute: New Onset A-flutter-->ChadVasc~4 - HR in 130s at the clinic - HR has been elevated for a week at [place] per patient - PCP report fast heart rate started last night - Apparently went into A-flutter after adenosin treatment in ED - Reviewed EKGs, could not appreciate atrial flutter, HR is < 100 - Patient still tachycardic with HR in the upper teens to 120s - Cardizem CD 240 mg with Lopressor 25 mg BID--->increase to TID - Serial EKGs Q6 x 3 to capture A-flutter - Thyroid Panel in AM Mildly Elevated D-Dimer - D-dimer 0.73 - CTA negative for PE Anemia -On admission: RBC 4.44, Hgb: 13.6, Hct: 41.6, MCV: 93.7 Mildly Elevated Pro-BNP - 629 - No previous echo - 2D echo in AM for baseline CXR Findings - Several left sided rib fractures presumably old Chest CTA findings - Coronary artery calcification - Small hiatal hernia - Focal area of pleural thickening in calcification within the right lung base believed to be incidental - Generative change within the spine - Several anterior wedge deformities are seen within the mid thoracic spine which are likely old Chronic: HTN BPH Parkinsons's Disease Maxillary Sinusitis Allergic Rhinitis OA/DJD MDD Iron Deficiency Anemia, on Iron Pills Eczema Constipation Nicotine Dependence, he chews tobacco products Hx/o Folliculitis Hx/o Of C5-C6 Cervical Dislocation Plan: Admit to ICU Fecal occult blood test ordered due to anemia and elevated MCV Routine AM Labs Nicotine Patch 21 mg daily Resume Home Meds Fall Precautions PT/OT consult SW/CM for d/c planning Additional orders as above Code status: DNR LOS>96 hours expected with gradual response to therapy.
[2017-07-17] MEDS ORDERED: Metoprolol Tartrate 25 MG Tab PO SCH (13:15)
[2017-07-17] MEDS ORDERED: Warfarin 5 MG Tab PO ONE (18:00)
[2017-07-17] MEDS: Tamsulosin 0.4 MG Cap.ER PO SCH (20:37)
[2017-07-17] MEDS: Temazepam 7.5 MG Cap PO PRN (20:37)
[2017-07-18] MEDS: Metoprolol Tartrate 25 MG Tab PO SCH (05:57)
[2017-07-18] MEDS: Sertraline 50 MG Tab PO SCH (08:08)
[2017-07-18] MEDS: Cholecalciferol (Vitamin D3) 1,000 Unit Tab PO SCH (08:08)
[2017-07-18] MEDS: Ascorbic Acid 500 MG Tab PO SCH (08:08)
[2017-07-18] MEDS: Diltiazem 120 MG Cap.CD PO SCH (08:08)
[2017-07-18] MEDS: Hydrochlorothiazide 12.5 MG Cap PO SCH (08:09)
[2017-07-18] MEDS: traMADol 50 MG Tab PO SCH (08:09)
[2017-07-18] MEDS: Ferrous Sulfate 325 MG Tab PO SCH (08:09)
[2017-07-18] MEDS: Nicotine 21 MG/24 Hr Patch TRDERM SCH (08:09)
[2017-07-18] MEDS: Cyanocobalamin (Vitamin B12) 1,000 MCG Tab PO SCH (08:09)
[2017-07-18] MEDS: guaiFENesin 600 MG Tab.ER PO SCH (08:09)
[2017-07-18] MEDS: Lisinopril 20 MG Tab PO SCH (08:09)
[2017-07-18] MEDS: Enoxaparin 100 MG/1 ML Syringe SUBCUT SCH (08:10)
[2017-07-18] MEDS: Oxymetazoline 0.05% Nasal Spray 15 ML Bottle NAS SCH (08:10)
[2017-07-18] MEDS: MENTHOL TOP SCH (08:11)
[2017-07-18] MEDS: CAMPHOR TOP SCH (08:11)
[2017-07-18] MEDS: ZYRTEC 10 MG PO SCH (08:11)
--- NOTE | 2017-07-18 10:17 | PCM.DCSUM1 ---
Discharge Summary - Hospital Course Free Text/Narrative:: 77 year old male with rapid heart rate, diagnosed on this admission with A Flutter. He was started on a Cardizem drip. His hospital stay was uneventful but required frequent titration to improve rate control. The goal of therapy was two fold, rate control and anticoagulation. He had a 2D echo which unfortunately had not been dictated before discharge. At least two family meetings occurred including a phone visit with his daughter, Johanny who lives in [place]. The phone conference participants included hospitalist, ICU nurse, and patient as well as daughter out of state. The conference call was 35 minutes. The patient is ready for DC, he will be on long acting Cardizem as well as short acting Metoprolol. Pradaxa has been chosen for his NOAC because of the drug interaction with nondihydropyridine calcium channel marcela, Diltiazem. Additionally, the family had a negative impression/ experience with Coumadin from a family member who was on the medication. Pradaxa 75 mg BID has been prescribed as a result of the patient's age. He is to begin the Pradaxa on 07/19/17. (The patient may or may not be able to get the medication from the [place] where it is on the formulary). One dose of weight adjusted Lovenox was given on the day of DC. Primary DX A Flutter HTN Hyperlipidemia Meds, see home med list Newer: Lopressor 25 mg TID Cardizem CD 240 mg daily Pradaxa 75 mg BID as directed Follow Up PCP, Dr Briseno Cardiology, Dr James Guillory' Pending at the time of DC 2D echo Activity As tolerated Diet Resume previous diet - Discharge Data Discharge Date: 07/18/17 Discharge Disposition: Home, Self-Care 01 Condition: Good - Patient Summary/Data Consults: Consultations 07/14/17 18:33 Consult to Case Management [CONS] Routine Consult to Airdox Fitter [CONS] Routine OT Evaluation and Treatment [CONS] Routine PT Evaluation and Treatment [CONS] Routine Recommended Follow-up Testing/Procedures: PCP, Dr Briseno Cardiology, Dr Guillory Hospital Course: See free text narrative. - Patient Instructions Diet: Usual Diet as Tolerated Activity: As Tolerated Driving: May Drive Today Showering/Bathing: May Shower Notify Provider of: Increased Pain - Discharge Plan Prescriptions/Med Rec: Diltiazem [Cardizem CD] 240 mg PO DAILY #30 cap.cd Metoprolol Tartrate [Lopressor] 25 mg PO Q8H #90 tablet Nicotine [Habitrol] 21 mg TRDERM DAILY #30 patch Home Medications: Home Meds Acetaminophen 650 mg PO Q6H PRN 07/14/17 [History] Ascorbate Calcium [Vitamin C] 500 mg PO DAILY 07/14/17 [History] Calcium Carbonate [Tums] 200 mg PO QID PRN 07/14/17 [History] Cholecalciferol (Vitamin D3) [Vitamin D3] 2,000 unit PO DAILY 07/14/17 [History] Cyanocobalamin (Vitamin B-12) [Vitamin B-12] 1,000 mcg PO DAILY 07/14/17 [ History] Ferrous Sulfate 325 mg PO DAILY 07/14/17 [History] Fluticasone Propionate [Flonase Allergy Relief] 2 spray NS BID 07/14/17 [History ] Lisinopril/Hydrochlorothiazide [Lisinopril-Hctz 20-12.5 mg Tab] 1 each PO DAILY 07/14/17 [History] Mag Carb/Al Hydrox/Alginic Ac [Gaviscon Liquid] 95 - 358 mg PO ASDIRECTED [History] Mag Hydrox/Al Hydrox/Simeth [Maalox Maximum Strength Susp] 30 ml PO QID PRN [History] Magnesium Hydroxide [Milk of Magnesia] 30 ml PO ASDIRECTED PRN 07/14/17 [History ] Menthol/Camphor [Sarna Anti-Itch] 1 applic TOP BID PRN 07/14/17 [History] Sennosides/Docusate Sodium [Senna-S] 1 each PO BID 07/14/17 [History] Sertraline [Zoloft] 50 mg PO DAILY 07/14/17 [History] Sodium Chloride [Saline Mist] 2 spray NS ASDIRECTED PRN 07/14/17 [History] Tamsulosin [Flomax] 0.8 mg PO BEDTIME 07/14/17 [History] Trolamine Salicylate/Aloe Vera [Aspercreme 10%] 1 applic TOP ASDIRECTED PRN [History] guaiFENesin [Mucinex] 600 mg PO BID 07/14/17 [History] traMADol [Ultram] 50 mg PO BID 07/14/17 [History] Diltiazem [Cardizem CD] 240 mg PO DAILY #30 cap.cd 07/18/17 [Rx] Metoprolol Tartrate [Lopressor] 25 mg PO Q8H #90 tablet 07/18/17 [Rx] Nicotine [Habitrol] 21 mg TRDERM DAILY #30 patch 07/18/17 [Rx] Patient Handouts: Atrial Flutter Referrals: James Guillory MD [Ordering Only Provider] - Sunny Briseno MD [Primary Care Provider] - - Discharge Summary/Plan Comment DC Time >30 min.: No - General Info Date of Service: 07/14/17 Functional Status: Reports: Tolerating Diet - Review of Systems General: Reports: No Symptoms HEENT: Reports: No Symptoms Pulmonary: Reports: No Symptoms Cardiovascular: Reports: No Symptoms Gastrointestinal: Reports: No Symptoms Genitourinary: Reports: No Symptoms Musculoskeletal: Reports: No Symptoms Skin: Reports: No Symptoms Neurological: Reports: No Symptoms Psychiatric: Reports: No Symptoms - Patient Data Vitals - Most Recent: Last Vital Signs Temp 36.9 C 07/18/17 07:33 Pulse 82 07/18/17 08:08 Resp 16 07/18/17 07:33 BP 121/87 07/18/17 08:09 Pulse Ox 98 07/18/17 07:33 Weight - Most Recent: 107.728 kg I&O - Last 24 hours: Intake & Output 07/17/17 07/18/17 07/18/17 22:59 06:59 14:59 Intake Total 340 100 Output Total 200 275 Balance 140 -175 Lab Results - Last 24 hrs: Laboratory Results - last 24 hr 07/18/17 Range/Units 05:55 PT 10.7 (8.0-13.0) SECONDS INR 0.98 HILARIO Results - Last 24 hrs: Microbiology 07/17/17 10:00 Stool Occult Blood (HILARIO) - Final Stool / Feces NEGATIVE OCCULT BLOOD Med Orders - Current: Current Medications Acetaminophen (Tylenol) 650 mg PO Q6H PRN PRN Reason: unknown Hydrocodone Bitart/Acetaminophen ([place] 325-5 Mg) 1 tab PO Q4H PRN PRN Reason: Pain (moderate 4-6) Al Hydroxide/Mg Hydroxide (Mag-Al Plus) 30 ml PO QID PRN PRN Reason: unknown Albuterol/Ipratropium (Duoneb 3.0-0.5 Mg/3 Ml) 3 ml NEB Q4H PRN PRN Reason: Shortness Of Breath/wheezing Ascorbic Acid (Vitamin C) 500 mg PO DAILY [facility] [place] [place] Last Admin: 07/18/17 08:08 Dose: 500 mg Calcium Carbonate/Glycine (Tums) 500 mg PO QID PRN PRN Reason: HEARTBURN Capsaicin (Zostrix 0.025% Crm) 0 gm TOP ASDIRECTED PRN PRN Reason: APPLY TO KNEES Cholecalciferol (Vitamin D3) 2,000 units PO DAILY [facility] [place] Last Admin: 07/18/17 08:08 Dose: 2,000 units Cyanocobalamin (Vitamin B12) 1,000 mcg PO DAILY [facility] [place] Last Admin: 07/18/17 08:09 Dose: 1,000 mcg Diltiazem HCl (Cardizem Cd) 240 mg PO DAILY [facility] [place] Last Admin: 07/18/17 08:08 Dose: 240 mg Enoxaparin Sodium (Lovenox) 100 mg SUBCUT Q12HR [facility] [place] Last Admin: 07/18/17 08:10 Dose: 100 mg Ferrous Sulfate (Ferrous Sulfate) 325 mg PO DAILY [facility] [place] Last Admin: 07/18/17 08:09 Dose: 325 mg Flunisolide (Nasalide Nasal [place]) 0 ml NASBOTH BID [facility] [place] [place] Last Admin: 07/18/17 08:10 Dose: 1 spray Guaifenesin (Mucinex) 600 mg PO BID [facility] [place] Last Admin: 07/18/17 08:09 Dose: 600 mg Hydralazine HCl (Apresoline) 20 mg IVPUSH Q4H PRN PRN Reason: Hypertension Hydrochlorothiazide (Hydrochlorothiazide) 12.5 mg PO DAILY [facility] [place] [place] Last Admin: 07/18/17 08:09 Dose: 12.5 mg Hydromorphone HCl (Dilaudid) 0.25 mg IVPUSH Q4H PRN PRN Reason: Pain (severe 7-10) Promethazine HCl 12.5 mg/ (Sodium Chloride) 50.5 mls @ 100 mls/hr IV Q6H PRN PRN Reason: Nausea/Vomiting Lisinopril (Prinivil) 20 mg PO DAILY [facility] [place] [place] Last Admin: 07/18/17 08:09 Dose: 20 mg Lorazepam (Ativan) 1 mg IVPUSH Q4H PRN; Protocol PRN Reason: Anxiety Magnesium Hydroxide (Milk Of Magnesia) 30 ml PO ASDIRECTED PRN PRN Reason: unknown Last Admin: 07/17/17 08:28 Dose: 30 ml Metoprolol Tartrate (Lopressor) 5 mg IVPUSH Q6H PRN PRN Reason: heart rate Last Admin: 07/15/17 14:14 Dose: 5 mg Metoprolol Tartrate (Lopressor) 25 mg PO Q8H [facility] [place] Last Admin: 07/18/17 05:57 Dose: 25 mg Miscellaneous Information (Remove Patch) 1 ea TRDERM DAILY [facility] [place] Last Admin: 07/18/17 08:12 Dose: 1 ea Nicotine (Habitrol) 21 mg TRDERM DAILY [facility] [place] Last Admin: 07/18/17 08:09 Dose: 21 mg Ondansetron HCl (Zofran) 4 mg IV Q6H PRN PRN Reason: Nausea/Vomiting Last Admin: 07/15/17 16:12 Dose: 4 mg Oxymetazoline HCl (Afrin Original 0.05% Nasal [place]) 0 ml TIFFANI DAILY [facility] [place] Last Admin: 07/18/17 08:10 Dose: 1 spray Menthol/Camphor [ (Sarna] Lotion) 0 each TOP BID [facility] [place] Last Admin: 07/18/17 08:11 Dose: Not Given Patient's Own Medication 1 Each Zyrtec 10 Mg 1 each PO DAILY [facility] [place] Last Admin: 07/18/17 08:11 Dose: Not Given Polyethylene Glycol (Miralax) 17 gm PO DAILY PRN PRN Reason: Constipation Senna/Docusate Sodium (Senna Plus) 1 tab PO BID [facility] [place] Last Admin: 07/18/17 08:08 Dose: 1 tab Sertraline HCl (Zoloft) 50 mg PO DAILY [facility] [place] Last Admin: 07/18/17 08:08 Dose: 50 mg Sodium Chloride ([place] Nasal [place]) 0 ml NASBOTH ASDIRECTED PRN PRN Reason: CONGESTION Tamsulosin HCl (Flomax) 0.8 mg PO BEDTIME [facility] [place] Last Admin: 07/17/17 20:37 Dose: 0.8 mg Temazepam (Restoril) 7.5 mg PO BEDTIME PRN PRN Reason: Sleep Last Admin: 07/17/17 20:37 Dose: 7.5 mg Tramadol HCl (Ultram) 50 mg PO BID [facility] [place] Last Admin: 07/18/17 08:09 Dose: 50 mg Discontinued Medications Adenosine (Adenocard) 12 mg IVPUSH NOW ONE Stop: 07/14/17 15:21 Last Admin: 07/14/17 15:32 Dose: 12 mg Diltiazem HCl (Diltiazem) 5 mg IVPUSH ONETIME STA Stop: 07/14/17 15:50 Last Admin: 07/14/17 16:41 Dose: 5 mg Diltiazem HCl (Diltiazem) 5 mg IVPUSH ONETIME STA Stop: 07/14/17 17:45 Last Admin: 07/14/17 17:49 Dose: 5 mg Diltiazem HCl (Cardizem Cd) 180 mg PO DAILY [facility] [place] Last Admin: 07/16/17 09:01 Dose: 180 mg Enoxaparin Sodium (Lovenox) 100 mg SUBCUT ONETIME ONE Stop: 07/14/17 15:51 Last Admin: 07/14/17 16:33 Dose: 100 mg Enoxaparin Sodium (Lovenox) 40 mg SUBCUT DAILY [facility] [place] Last Admin: 07/16/17 09:01 Dose: 40 mg Hydromorphone HCl (Dilaudid) 0.25 mg IVPUSH Q4H PRN PRN Reason: Pain (severe 7-10) Sodium Chloride (Normal Saline) 1,000 mls @ 100 mls/hr IV ASDIRECTED [facility] [place] Last Admin: 07/15/17 00:31 Dose: 100 mls/hr Sodium Chloride (Normal Saline) 100 mls @ 60 mls/hr IV ASDIRECTED [facility] [place] Last Admin: 07/14/17 14:40 Dose: 60 mls/hr Diltiazem HCl 125 mg/ Sodium (Chloride) 125 mls @ 10 mls/hr IV TITRATE [place]; 10 MG/HR PRN Reason: Protocol Last Titration: 07/14/17 23:04 Dose: 5 mg/hr, 5 mls/hr Magnesium Sulfate 2 gm/ Premix 50 mls @ 25 mls/hr IV ONETIME ONE Stop: 07/15/17 16:36 Last Admin: 07/15/17 16:10 Dose: 25 mls/hr Ibuprofen (Motrin) 600 mg PO Q6H PRN PRN Reason: Pain (moderate 4-6) Iopamidol (Isovue-370 (76%)) 100 ml IVPUSH ONETIME ONE Stop: 07/14/17 14:25 Last Admin: 07/14/17 14:40 Dose: 100 ml Magnesium Sulfate (Pharmacy To Dose - Magnesium Replacement) 0 dose .XX ASDIRECTED PRN PRN Reason: RX TO WATCH MAG LEVELS Metoprolol Tartrate (Lopressor) 25 mg PO Q12HR [facility] Last Admin: 07/17/17 08:11 Dose: 25 mg Metoprolol Tartrate (Lopressor) 25 mg PO Q8H [place] Nicotine (Habitrol) 21 mg TRDERM ONETIME ONE Stop: 07/14/17 18:59 Last Admin: 07/14/17 20:32 Dose: Not Given Potassium Chloride (Pharmacy To Dose - Potassium Replacement) 0 dose .XX ASDIRECTED PRN PRN Reason: RX TO WATCH K LEVELS Sodium Chloride (Saline Flush) 10 ml FLUSH ONETIME ONE Stop: 07/14/17 14:25 Last Admin: 07/14/17 14:41 Dose: 10 ml Warfarin Sodium (Coumadin) 5 mg PO ONETIME ONE Stop: 07/17/17 18:01 - Exam Quality Assessment: Reports: DVT Prophylaxis General: Reports: Alert, Oriented, Cooperative, No Acute Distress HEENT: Reports: Pupils Equal, Pupils Reactive, EOMI Neck: Reports: Supple, Trachea Midline Lungs: Reports: Clear to Auscultation, Normal Respiratory Effort Cardiovascular: Reports: Regular Rate, Irregular Rhythm GI/Abdominal Exam: Normal Bowel Sounds, Soft, Non-Tender, No Distention (Male) Exam: Deferred Rectal (Males) Exam: Deferred Back Exam: Reports: Normal Inspection Extremities: Normal Inspection Skin: Reports: Warm Neurological: Reports: No New Focal Deficit, Normal Speech Psy/Mental Status: Reports: Alert, Normal Affect, Normal Mood *Q Meaningful Use (DIS) - VTE *Q VTE Criteria *Q: - Stroke *Q Stroke Criteria *Q: - AMI *Q AMI Criteria *Q:
[2017-07-18 11:27] VITALS: BP 101/62
== END 2017-07-18 12:36 | disposition home or self-care (01) | DRG 309 ==
LOC: JD.ED 12:30 → JD.ICU 17:49 → UNDOADMIN 17:49 → JD.ICU 19:31 → UNDODISIN 07-18 12:36
PROVIDERS: ADMIT Internal Medicine; ATTEND Internal Medicine
DX: I48.92 Unspecified atrial flutter (principal); S22.42XA Multiple fractures of ribs, left side, initial encounter for closed fracture; R79.1 Abnormal coagulation profile; R79.89 Other specified abnormal findings of blood chemistry; E78.5 Hyperlipidemia, unspecified; I10 Essential (primary) hypertension; N40.0 Benign prostatic hyperplasia without lower urinary tract symptoms; G20 Parkinson's disease; J30.9 Allergic rhinitis, unspecified; M17.0 Bilateral primary osteoarthritis of knee; F32.9 Major depressive disorder, single episode, unspecified; D50.9 Iron deficiency anemia, unspecified; L30.9 Dermatitis, unspecified; J32.0 Chronic maxillary sinusitis; K59.00 Constipation, unspecified; K44.9 Diaphragmatic hernia without obstruction or gangrene; F17.200 Nicotine dependence, unspecified, uncomplicated; Z66 Do not resuscitate; Z88.0 Allergy status to penicillin; Z91.030 Bee allergy status; Z91.038 Other insect allergy status; Z79.899 Other long term (current) drug therapy; X58.XXXA Exposure to other specified factors, initial encounter
CPT/HCPCS: 36415; 71010; 71275; 80053; 83880; 84484; 85025; 85379; 85610; 85730; 93005 ×2; 96361; 96365; 96366; 96372; 96374; 99285; J0153; J1650; J3490; J7030 ×2; J7040; J7050 ×2; Q9967; 80048; 82272; 83735; 84439; 84443; 87641; 93306; 97162-GP; 97166-GO; A9270-GY; J2405; J3475

== ENCOUNTER 2018-05-24 11:31 | Inpatient (IN) | payer MEDICARE, OTHER ==
[2018-05-24] MEDS ORDERED: Sodium Chloride 0.9% 1,000 ML IV ONE (11:59)
[2018-05-24] MEDS ORDERED: Sodium Chloride 0.9% 10 ML Syringe FLUSH PRN (11:59)
--- NOTE | 2018-05-24 12:30 | EDM.PDOC ---
ED HPI GENERAL MEDICAL PROBLEM - General Chief Complaint: Gastrointestinal Problem Stated Complaint: LOW BLOOD COUNTS Time Seen by Provider: 05/24/18 11:35 Source of Information: Reports: Patient, Old Records (recent clinic labs ) History Limitations: Reports: No Limitations - History of Present Illness INITIAL COMMENTS - FREE TEXT/NARRATIVE: 78-year-old male sent over from his primary care provider's office for a low hemoglobin of 5.5. The patient is a poor historian. He states that he's had black stools for "a while". He is a resident of [facility]. Records show that his blood pressures have been running on the lower side, 90s over 50s, for the last week. He is reporting shortness of breath, and right-sided chest pain which he describes as pain above his ribs. No syncope. No lightheadedness or dizziness. No nausea or vomiting. Reports he has been having about one bowel movement per day. Patient is on Xeralto. The past medical history of A. fib. Patient reportedly chews tobacco. He also drinks a glass of whiskey daily. Patient is listed as being a DNR. Left Abdominal Pain Score (Numeric/FACES): 4 - Related Data Allergies Allergy/AdvReac Type Severity Reaction Status Date / Time bee venom protein (honey bee) Allergy Intermediate Bronchospas Verified 18:21 ms hornet venom Allergy Intermediate Bronchospas Verified 05/24/18 18:21 ms Penicillins Allergy Mild Rash Verified 05/24/18 18:21 Home Meds: Home Meds Acetaminophen [Tylenol] 650 mg PO Q6H PRN 05/24/18 [History] Aloe Vera/Sodium Chloride [Verona Saline Nasal Gel] 2 spray TIFFANI DAILY PRN 05/24/18 [History] Alum Hydrox/Mag Hydrox/Simeth [Maalox Advanced] 30 ml PO QID PRN 05/24/18 [ History] Ascorbate Calcium [Vitamin C] 500 mg PO DAILY 05/24/18 [History] Calcium Carbonate [Tums] 500 mg PO QID PRN 05/24/18 [History] Cetirizine [ZyrTEC] 10 mg PO DAILY 05/24/18 [History] Cholecalciferol (Vitamin D3) [Vitamin D3] 2,000 units PO DAILY 05/24/18 [History ] Cyanocobalamin (Vitamin B12) [Vitamin B12] 1,000 mcg PO DAILY 05/24/18 [History] Diltiazem HCl [Diltiazem 24Hr Cd] 240 mg PO DAILY 05/24/18 [History] Docusate Sodium/Sennosides [Senokot-S] 1 tab PO BID 05/24/18 [History] Eucalyptus/Menthol [Cough Drops] 1 lozenge PO Q4H PRN 05/24/18 [History] Ferrous Sulfate 325 mg PO DAILY 05/24/18 [History] Fluticasone Propionate [Flonase] 2 spray TIFFANI BID 05/24/18 [History] Lisinopril/Hydrochlorothiazide [Zestoretic 10-12.5 mg Tablet] 1 tab PO DAILY 10/01 [History] Mag Carb/Al Hydrox/Alginic Ac [Gaviscon Extra Strength Liquid] 15 ml PO TID PRN 05/24/18 [History] Magnesium Hydroxide [Milk of Magnesia] 30 ml PO DAILY PRN 05/24/18 [History] Metoprolol Tartrate [Lopressor] 50 mg PO BID 05/24/18 [History] Oxymetazoline HCl [Mucinex Sinus-Max] 1 spray TIFFANI QID PRN 05/24/18 [History] Propylene Glycol [Systane Balance] 1 drop EYEBOTH TID 05/24/18 [History] Rivaroxaban [Xarelto] 20 mg PO DAILY 05/24/18 [History] Sertraline [Zoloft] 50 mg PO DAILY 05/24/18 [History] Tamsulosin [Flomax] 0.8 mg PO DAILY 05/24/18 [History] Trolamine Salicylate/Aloe Vera [Aspercreme 10%] 1 applic TOP DAILY 05/24/18 [ History] guaiFENesin [Mucinex] 600 mg PO BID 05/24/18 [History] traMADol [Ultram] 50 mg PO BID 05/24/18 [History] Past Medical History HEENT History: Reports: Sinusitis Other HEENT History: chronic maxillary sinus infection, chronic rhinitis Cardiovascular History: Reports: Hypertension Gastrointestinal History: Reports: Chronic Constipation, Other (See Below) Other Gastrointestinal History: nausea Genitourinary History: Reports: BPH Other Genitourinary History: BPH Musculoskeletal History: Reports: Osteoarthritis Other Musculoskeletal History: osteoarthritis of knees, disloaction of c5-c6 Neurological History: Reports: Parkinson's Psychiatric History: Reports: Depression Dermatologic History: Reports: Other (See Below) Other Dermatologic History: folliliculitis - Infectious Disease History Infectious Disease History: Reports: Chicken Pox, Measles, Mumps - Past Surgical History Musculoskeletal Surgical History: Reports: Knee Replacement, Other (See Below) Social & Family History - Caffeine Use Caffeine Use: Reports: Coffee Caffeine Use Comment: very little use - Recreational Drug Use Recreational Drug Use: No - Living Situation & Occupation Living situation: Reports: Extended Care Facility ([facility]) ED ROS GENERAL - Review of Systems Review Of Systems: See Below Respiratory: Denies: Shortness of Breath Cardiovascular: Reports: Chest Pain (right lower lateral chest) GI/Abdominal: Reports: Melena. Denies: Diarrhea, Nausea, Vomiting Neurological: Denies: Syncope ED EXAM, GI/ABD - Physical Exam Exam: See Below Exam Limited By: No Limitations General Appearance: Alert, WD/WN, No Apparent Distress Ears: Normal External Exam Nose: Normal Inspection Throat/Mouth: Normal Inspection, Normal Voice, No Airway Compromise Respiratory/Chest: No Respiratory Distress, Lungs Clear, Normal Breath Sounds Cardiovascular: Normal Peripheral Pulses, Regular Rate, Rhythm, No Murmur GI/Abdominal Exam: Normal Bowel Sounds, Soft, Non-Tender Neurological: Alert, Oriented, Normal Cognition Psychiatric: Normal Affect, Normal Mood Skin Exam: Warm, Dry, Pallor EKG INTERPRETATION EKG Date: 05/24/18 Time: 12:45 Rhythm: NSR Rate (Beats/Min): 87 [place]: Normal P-Wave: Present QRS: Normal ST-T: Normal QT: Normal Comparison: No Change (2016 EKG) EKG Interpretation Comments: NSR at 87 bpm. No acute changes. Reviewed by myself and Dr. Mckinney. Course - Vital Signs Last Recorded V/S: Last Vital Signs Temp 98.9 F 05/24/18 18:20 Pulse 96 05/24/18 18:20 Resp 16 05/24/18 18:20 BP 132/50 L 05/24/18 18:20 Pulse Ox 98 05/24/18 18:20 - Orders/Labs/Meds Orders: Active Orders 24 hr Category Date Time Status PATIENT RETYPE [BBK] Stat Lab 05/24/18 11:45 Results RED BLOOD CELLS LP [BBK] Stat Lab 05/24/18 11:45 Results TYPE AND SCREEN [BBK] Stat Lab 05/24/18 11:45 Results Sodium Chloride 0.9% [Saline Flush] Med 05/24/18 11:59 Active 10 ml FLUSH ASDIRECTED PRN Peripheral IV Insertion Adult [OM.PC] Routine Oth 05/24/18 11:59 Ordered Transfuse Red Blood Cells [COMM] Stat Oth 05/24/18 12:02 Ordered Transfuse Red Blood Cells [COMM] Stat Oth 05/24/18 12:02 Ordered Medication Orders Acetaminophen (Tylenol) 650 mg PO Q6H PRN PRN Reason: Pain Acetaminophen (Tylenol) 650 mg PO Q4H PRN PRN Reason: Pain (Mild 1-3)/fever Hydrocodone Bitart/Acetaminophen ([place] 325-5 Mg) 1 tab PO Q4H PRN PRN Reason: Pain (moderate 4-6) Al Hydroxide/Mg Hydroxide (Mag-Al Plus) 30 ml PO QID PRN PRN Reason: Indigestion Albuterol/Ipratropium (Duoneb 3.0-0.5 Mg/3 Ml) 3 ml NEB Q4H PRN PRN Reason: Shortness Of Breath/wheezing Artificial Tears (Isopto Tears 0.5% Ophth Soln) 0 ml EYEBOTH TID [facility]ERSON Ascorbic Acid (Vitamin C) 500 mg PO DAILY [facility]ERSON Calcium Carbonate/Glycine (Tums) 500 mg PO QID PRN PRN Reason: Indigestion Cholecalciferol (Vitamin D3) 2,000 units PO DAILY PETERSON Cyanocobalamin (Vitamin B12) 1,000 mcg PO DAILY PETERSON Diltiazem HCl (Cardizem Cd) 240 mg PO DAILY [facility]ERSON Ferrous Sulfate (Ferrous Sulfate) 325 mg PO DAILY [facility]ERSON Flunisolide (Nasalide Nasal [place]) 0 ml TIFFANI BID [facility]ERSON Guaifenesin (Mucinex) 600 mg PO BID [facility]ERSON Hydralazine HCl (Apresoline) 10 mg IVPUSH Q4H PRN PRN Reason: Hypertension Hydrochlorothiazide (Hydrochlorothiazide) 12.5 mg PO DAILY PETERSON Hydromorphone HCl (Dilaudid) 0.25 mg IVPUSH Q2H PRN PRN Reason: Pain (severe 7-10) Promethazine HCl 12.5 mg/ (Sodium Chloride) 50.5 mls @ 100 mls/hr IV Q6H PRN PRN Reason: Nausea/Vomiting Lisinopril (Prinivil) 10 mg PO DAILY [facility] Loratadine (Claritin) 10 mg PO DAILY [facility] Lorazepam (Ativan) 0.25 mg IV Q6H PRN PRN Reason: Anxiety Lorazepam (Ativan) 2 mg IVPUSH Q4H PRN PRN Reason: Seizures Magnesium Hydroxide (Milk Of Magnesia) 30 ml PO DAILY PRN PRN Reason: constipation Magnesium Sulfate (Pharmacy To Dose - Magnesium Replacement) 1 dose .XX ASDIRECTED [facility] Metoprolol Tartrate (Lopressor) 50 mg PO BID [facility] Metoprolol Tartrate (Lopressor) 5 mg IVPUSH Q4H PRN PRN Reason: Tachycardia Non-Formulary Medication (Aloe Vera/Sodium Chloride [Verona Saline Nasal Gel]) 2 spray TIFFANI DAILY PRN PRN Reason: Rhinitis Non-Formulary Medication (Eucalyptus/Menthol [Cough Drops]) 1 lozenge PO Q4H PRN PRN Reason: Cough Non-Formulary Medication (Oxymetazoline Hcl [Mucinex Sinus-Max]) 1 spray TIFFANI QID PRN PRN Reason: nasal decongestant Non-Formulary Medication (Trolamine Salicylate/Aloe Vera) 1 applic TOP DAILY [facility] Ondansetron HCl (Zofran) 4 mg IV Q6H PRN PRN Reason: Nausea/Vomiting Potassium Chloride (Pharmacy To Dose - Potassium Replacement) 1 dose .XX ASDIRECTED [facility] Senna/Docusate Sodium (Senna Plus) 1 tab PO BID [facility] Sertraline HCl (Zoloft) 50 mg PO DAILY [facility] Sodium Chloride (Saline Flush) 10 ml FLUSH ASDIRECTED PRN PRN Reason: Keep Vein Open Last Admin: 05/24/18 12:14 Dose: 10 ml Tamsulosin HCl (Flomax) 0.8 mg PO DAILY [facility] Temazepam (Restoril) 7.5 mg PO BEDTIME PRN PRN Reason: Sleep Tramadol HCl (Ultram) 50 mg PO BID [facility] Labs: Laboratory Tests 05/24/18 05/24/18 05/24/18 Range/Units 11:45 11:45 11:45 WBC 12.18 H (4.23-9.07) K/mm3 RBC 1.78 L (4.63-6.08) M/mm3 Hgb 5.6 L* (13.7-17.5) gm/L Hct 18.7 L (40.1-51.0) % MCV 105.1 H (79.0-92.2) fl MCH 31.5 (25.7-32.2) pg MCHC 29.9 L (32.2-35.5) g/dl RDW Std Deviation 64.7 H (35.1-43.9) fL Plt Count 318 (163-337) K/mm3 MPV 9.2 L (9.4-12.3) fl Neutrophils % (Manual) 81 H (40-60) % Band Neutrophils % 0 (0-10) % Lymphocytes % (Manual) 15 L (20-40) % Atypical Lymphs % 0 % Monocytes % (Manual) 1 L (2-10) % Eosinophils % (Manual) 3 (0.8-7.0) % Basophils % (Manual) 0 L (0.2-1.2) Platelet Estimate Adequate Polychromasia 2+ moderate Hypochromasia 1+ slight Anisocytosis 2+ moderate Macrocytosis 1+ slight RBC Morph Comment Not Reportable PT 11.4 (9.5-12.1) SECONDS INR 1.05 APTT 26 (24-31) SECONDS Sodium 138 (136-145) mEq/L Potassium 3.9 (3.5-5.1) mEq/L Chloride 105 (98-107) mEq/L Carbon Dioxide 23 (21-32) mEq/L Anion Gap 13.9 (5-15) BUN 34 H (7-18) mg/dL Creatinine 1.4 H (0.7-1.3) mg/dL Est Cr Clr Drug Dosing 37.98 mL/min Estimated GFR (MDRD) 49 (>60) mL/min BUN/Creatinine Ratio 24.3 H (14-18) Glucose 99 (83-115) mg/dL Calcium 8.7 (8.5-10.1) mg/dL Total Bilirubin 0.4 (0.2-1.0) mg/dL AST 42 H (15-37) U/L ALT 18 (16-63) U/L Alkaline Phosphatase 58 (46-116) U/L Troponin I < 0.017 (0.00-0.056) ng/mL NT-Pro-B Natriuret Pep (0-450) pg/mL Total Protein 6.7 (6.4-8.2) g/dl Albumin 3.3 L (3.4-5.0) g/dl Globulin 3.4 gm/dL Albumin/Globulin Ratio 1.0 (1-2) Blood Type Gel Antibody Screen Crossmatch 05/24/18 05/24/18 Range/Units 11:45 11:45 WBC (4.23-9.07) K/mm3 RBC (4.63-6.08) M/mm3 Hgb (13.7-17.5) gm/L Hct (40.1-51.0) % MCV (79.0-92.2) fl MCH (25.7-32.2) pg MCHC (32.2-35.5) g/dl RDW Std Deviation (35.1-43.9) fL Plt Count (163-337) K/mm3 MPV (9.4-12.3) fl Neutrophils % (Manual) (40-60) % Band Neutrophils % (0-10) % Lymphocytes % (Manual) (20-40) % Atypical Lymphs % % Monocytes % (Manual) (2-10) % Eosinophils % (Manual) (0.8-7.0) % Basophils % (Manual) (0.2-1.2) Platelet Estimate Polychromasia Hypochromasia Anisocytosis Macrocytosis RBC Morph Comment PT (9.5-12.1) SECONDS INR APTT (24-31) SECONDS Sodium (136-145) mEq/L Potassium (3.5-5.1) mEq/L Chloride (98-107) mEq/L Carbon Dioxide (21-32) mEq/L Anion Gap (5-15) BUN (7-18) mg/dL Creatinine (0.7-1.3) mg/dL Est Cr Clr Drug Dosing mL/min Estimated GFR (MDRD) (>60) mL/min BUN/Creatinine Ratio (14-18) Glucose (83-115) mg/dL Calcium (8.5-10.1) mg/dL Total Bilirubin (0.2-1.0) mg/dL AST (15-37) U/L ALT (16-63) U/L Alkaline Phosphatase (46-116) U/L Troponin I (0.00-0.056) ng/mL NT-Pro-B Natriuret Pep 850 H (0-450) pg/mL Total Protein (6.4-8.2) g/dl Albumin (3.4-5.0) g/dl Globulin gm/dL Albumin/Globulin Ratio (1-2) Blood Type O POSITIVE Gel Antibody Screen Negative Crossmatch See Detail Meds: Medications Generic Name Dose Route Start Last Admin Trade Name Freq PRN Reason Stop Dose Admin Acetaminophen 650 mg 05/24/18 17:16 Tylenol PO Q6H PRN Pain Acetaminophen 650 mg 05/24/18 17:32 Tylenol PO Q4H PRN Pain (Mild 1-3)/fever Hydrocodone Bitart/Acetaminophen 1 tab 05/24/18 17:32 [place] 325-5 Mg PO Q4H PRN Pain (moderate 4-6) Al Hydroxide/Mg Hydroxide 30 ml 05/24/18 17:16 Mag-Al Plus PO QID PRN Indigestion Albuterol/Ipratropium 3 ml 05/24/18 17:32 Duoneb 3.0-0.5 Mg/3 Ml NEB Q4H PRN Shortness Of Breath/wheezing Artificial Tears 0 ml 05/24/18 21:00 Isopto Tears 0.5% Ophth Soln EYEBOTH TID PETERSON Ascorbic Acid 500 mg 05/25/18 09:00 Vitamin C PO DAILY PETERSON Calcium Carbonate/Glycine 500 mg 05/24/18 17:16 Tums PO QID PRN Indigestion Cholecalciferol 2,000 units 05/25/18 09:00 Vitamin D3 PO DAILY PETERSON Cyanocobalamin 1,000 mcg 05/25/18 09:00 Vitamin B12 PO DAILY PETERSON Diltiazem HCl 240 mg 05/25/18 09:00 Cardizem Cd PO DAILY PETERSON Ferrous Sulfate 325 mg 05/25/18 09:00 Ferrous Sulfate PO DAILY PETERSON Flunisolide 0 ml 05/24/18 21:00 Nasalide Nasal [place] TIFFANI BID PETERSON Guaifenesin 600 mg 05/24/18 21:00 Mucinex PO BID PETERSON Hydralazine HCl 10 mg 05/24/18 17:45 Apresoline IVPUSH Q4H PRN Hypertension Hydrochlorothiazide 12.5 mg 05/25/18 09:00 Hydrochlorothiazide PO DAILY PETERSON Hydromorphone HCl 0.25 mg 05/24/18 17:32 Dilaudid IVPUSH Q2H PRN Pain (severe 7-10) Promethazine HCl 12.5 mg/ 50.5 mls @ 100 mls/hr 05/24/18 17:32 Sodium Chloride IV Q6H PRN Nausea/Vomiting Lisinopril 10 mg 05/25/18 09:00 Prinivil PO DAILY PETERSON Loratadine 10 mg 05/25/18 09:00 Claritin PO DAILY PETERSON Lorazepam 0.25 mg 05/24/18 17:32 Ativan IV Q6H PRN Anxiety Lorazepam 2 mg 05/24/18 17:45 Ativan IVPUSH Q4H PRN Seizures Magnesium Hydroxide 30 ml 05/24/18 17:16 Milk Of Magnesia PO DAILY PRN constipation Magnesium Sulfate 1 dose 05/24/18 17:45 Pharmacy To Dose - Magnesium Replacement .XX ASDIRECTED PETERSON Metoprolol Tartrate 50 mg 05/24/18 21:00 Lopressor PO BID PETERSON Metoprolol Tartrate 5 mg 05/24/18 17:45 Lopressor IVPUSH Q4H PRN Tachycardia Non-Formulary Medication 2 spray 05/24/18 17:16 Aloe Vera/Sodium Chloride [Verona Saline Nasal Gel] TIFFANI DAILY PRN Rhinitis Non-Formulary Medication 1 lozenge 05/24/18 17:16 Eucalyptus/Menthol [Cough Drops] PO Q4H PRN Cough Non-Formulary Medication 1 spray 05/24/18 17:16 Oxymetazoline Hcl [Mucinex Sinus-Max] TIFFANI QID PRN nasal decongestant Non-Formulary Medication 1 applic 05/25/18 09:00 Trolamine Salicylate/Aloe Vera TOP DAILY [facility]ERSON Ondansetron HCl 4 mg 05/24/18 17:32 Zofran IV Q6H PRN Nausea/Vomiting Potassium Chloride 1 dose 05/24/18 17:45 Pharmacy To Dose - Potassium Replacement .XX ASDIRECTED [facility]ERSON Senna/Docusate Sodium 1 tab 05/24/18 21:00 Senna Plus PO BID PETERSON Sertraline HCl 50 mg 05/25/18 09:00 Zoloft PO DAILY [facility]ERSON Sodium Chloride 10 ml 05/24/18 11:59 05/24/18 12:14 Saline Flush FLUSH 10 ml ASDIRECTED PRN Administration Keep Vein Open Tamsulosin HCl 0.8 mg 05/25/18 09:00 Flomax PO DAILY PETERSON Temazepam 7.5 mg 05/24/18 17:32 Restoril PO BEDTIME PRN Sleep Tramadol HCl 50 mg 05/24/18 21:00 Ultram PO BID PETERSON Discontinued Medications Generic Name Dose Route Start Last Admin Trade Name Freq PRN Reason Stop Dose Admin Sodium Chloride 1,000 mls @ 500 mls/hr 05/24/18 11:59 05/24/18 12:13 Normal Saline IV 05/24/18 13:58 999 mls/hr ONETIME ONE Administration Non-Formulary Medication 15 ml 05/24/18 17:16 Mag Carb/Al Hydrox/Alginic Ac [Gaviscon Extra Strength Liquid] PO TID PRN Indigestion - Radiology Interpretation Free Text/Narrative:: Chest: Portable view of the chest was obtained. Comparison: Prior chest x-ray of 07/14/[address] of 07/14/17. Heart is enlarged. Tortuous thoracic aorta is noted. Nodule is seen within the right mid to lower lung which correlates to a pleural-based calcified nodule or pleural thickening on previous CT exam which is incidental. Lungs otherwise are clear. Bony structures are grossly intact. Impression: 1. Incidental findings as noted above. Nothing acute is seen. - Re-Assessments/Exams Free Text/Narrative Re-Assessment/Exam: 05/24/18 14:21 I reviewed the labs, EKG and imaging with the patient and his family. Given his hemoglobin of 5.5 in the ED today and he is symptomatic, shortness of breath, I do feel he needs to be admitted. Sonia also had documented blood pressures in the 90s to 50s systolic over the last week. His blood pressures have not been this low in the ED, however, I do not feel that he is safe to go home especially since he is on xeralto at this time. Spoke with the patient's primary care provider, Dr. Briseno, he tells me that patient's last hemoglobin they have on file for him was 12.8 in February. creatinine at that time was 1.02. Dr. Briseno reports that the patient previously had a diagnosis of Parkinson's but at this time the diagnosis is inconclusive. 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 The patient has not had much trouble with his tremor. Dr. Briseno has referred him for further testing in [place]. He has not been able to go as of yet. He is not currently on any medications for Parkinson's. Patient primarily presented to Dr. Briseno's office today due to the shortness of breath. Dr. Briseno is recommending that we admit or transfer the patient. Spoke with Dr. Mcdonald, hospitalist distribution district supervisor. He agrees to the admission. Will admit [facility] with telemetry for GI bleed. Departure - Departure Time of Disposition: 14:25 Disposition: Admitted As Inpatient 64 Condition: Serious Clinical Impression: GI bleed, Anemia - Discharge Information *PRESCRIPTION DRUG MONITORING PROGRAM REVIEWED*: No *COPY OF PRESCRIPTION DRUG MONITORING REPORT IN PATIENT TIMUR: No - My Orders Last 24 Hours: My Active Orders 05/24/18 11:45 PATIENT RETYPE [BBK] Stat RED BLOOD CELLS LP [BBK] Stat TYPE AND SCREEN [BBK] Stat 05/24/18 11:59 Sodium Chloride 0.9% [Saline Flush] 10 ml FLUSH ASDIRECTED PRN Peripheral IV Insertion Adult [OM.PC] Routine 05/24/18 12:02 Transfuse Red Blood Cells [COMM] Stat Transfuse Red Blood Cells [COMM] Stat - Assessment/Plan Last 24 Hours: My Active Orders 05/24/18 11:45 PATIENT RETYPE [BBK] Stat RED BLOOD CELLS LP [BBK] Stat TYPE AND SCREEN [BBK] Stat 05/24/18 11:59 Sodium Chloride 0.9% [Saline Flush] 10 ml FLUSH ASDIRECTED PRN Peripheral IV Insertion Adult [OM.PC] Routine 05/24/18 12:02 Transfuse Red Blood Cells [COMM] Stat Transfuse Red Blood Cells [COMM] Stat
--- NOTE | 2018-05-24 14:02 | CR ---
Chest: Portable view of the chest was obtained. Comparison: Prior chest x-ray of 07/14/[address] of 07/14/17. Heart is enlarged. Tortuous thoracic aorta is noted. Nodule is seen within the right mid to lower lung which correlates to a pleural-based calcified nodule or pleural thickening on previous CT exam which is incidental. Lungs otherwise are clear. Bony structures are grossly intact. Impression: 1. Incidental findings as noted above. Nothing acute is seen. Diagnostic code #2
[2018-05-24] MEDS ORDERED: Magnesium Hydroxide 400 MG/5 ML Susp 30 ML Cup PO PRN (17:16)
[2018-05-24] MEDS ORDERED: Oxymetazoline 0.05% Nasal Spray 15 ML Bottle NAS PRN (17:16)
[2018-05-24] MEDS ORDERED: [UNRECOGNIZED DRUG - OTHER] PO PRN (17:16)
[2018-05-24] MEDS ORDERED: MAG CARB PO PRN (17:16)
[2018-05-24] MEDS ORDERED: AL HYDROX PO PRN (17:16)
[2018-05-24] MEDS ORDERED: Aluminum Hydroxide/Magnesium Hydroxide/Simethicone Susp 30 ML Cup PO PRN (17:16)
[2018-05-24] MEDS ORDERED: [UNRECOGNIZED DRUG - OTHER] MUCMEM PRN (17:16)
[2018-05-24] MEDS ORDERED: PHENOL MUCMEM PRN (17:16)
[2018-05-24] MEDS ORDERED: ALGINIC AC PO PRN (17:16)
[2018-05-24] MEDS ORDERED: Acetaminophen 325 MG Tab PO PRN ×2 (17:16→17:32)
[2018-05-24] MEDS ORDERED: Calcium Carbonate 500 MG Tab.Chew PO PRN (17:16)
--- NOTE | 2018-05-24 17:17 | PCM.HP ---
<Talisha Henriquez - Last Filed: 05/24/18 17:12> H&P History of Present Illness - General Date of Service: 05/24/18 Admit Problem/Dx: Admission Diagnosis/Problem Admission Diagnosis/Problem Anemia Source of Information: Patient History Limitations: Reports: No Limitations - History of Present Illness Onset of Symptoms: Reports: Unknown/Unsure (Reports black stools for "a while") Location: Reports: Chest Front/Back Full Body Diagram: 1 - Patient reports pain "right under his ribs" Left Abdominal Pain Score (Numeric/FACES): 4 - Related Data Allergies/Adverse Reactions: Allergies Allergy/AdvReac Type Severity Reaction Status Date / Time bee venom protein (honey bee) Allergy Intermediate Bronchospas Verified 18:21 ms hornet venom Allergy Intermediate Bronchospas Verified 05/24/18 18:21 ms Penicillins Allergy Mild Rash Verified 05/24/18 18:21 Home Medications: Home Meds Acetaminophen [Tylenol] 650 mg PO Q6H PRN 05/24/18 [History] Aloe Vera/Sodium Chloride [[place] Saline Nasal Gel] 2 spray NASBOTH QID PRN [History] Alum Hydrox/Mag Hydrox/Simeth [Maalox Advanced] 30 ml PO QID PRN 05/24/18 [ History] Ascorbate Calcium [Vitamin C] 500 mg PO DAILY 05/24/18 [History] Calcium Carbonate [Tums] 200 mg PO QID PRN 05/24/18 [History] Cetirizine [ZyrTEC] 5 mg PO DAILY 05/24/18 [History] Cholecalciferol (Vitamin D3) [Vitamin D3] 2,000 units PO DAILY 05/24/18 [History ] Cyanocobalamin (Vitamin B12) [Vitamin B12] 1,000 mcg PO DAILY 05/24/18 [History] Diltiazem HCl [Diltiazem 24Hr Cd] 240 mg PO DAILY 05/24/18 [History] Docusate Sodium/Sennosides [Senokot-S] 1 tab PO BID 05/24/18 [History] Eucalyptus/Menthol [Cough Drops] 1 lozenge PO TID PRN 05/24/18 [History] Ferrous Sulfate 325 mg PO DAILY 05/24/18 [History] Fluticasone Propionate [Flonase] 2 spray NASBOTH BID 05/24/18 [History] Lisinopril/Hydrochlorothiazide [Zestoretic 10-12.5 mg Tablet] 1 tab PO DAILY 10/01 [History] Mag Carb/Al Hydrox/Alginic Ac [Gaviscon Extra Strength Liquid] 15 ml PO TID PRN 05/24/18 [History] Magnesium Hydroxide [Milk of Magnesia] 30 ml PO DAILY PRN 05/24/18 [History] Menthol/Camphor [[place] Anti-Itch] 1 applic TOP BID PRN 05/24/18 [History] Metoprolol Tartrate [Lopressor] 50 mg PO BID 05/24/18 [History] Oxymetazoline HCl [Mucinex Sinus-Max] 1 spray NASBOTH TID PRN 05/24/18 [History] Propylene Glycol [Systane Balance] 1 drop EYEBOTH TID 05/24/18 [History] Rivaroxaban [Xarelto] 20 mg PO DAILY 05/24/18 [History] Sertraline [Zoloft] 50 mg PO DAILY 05/24/18 [History] Tamsulosin [Flomax] 0.8 mg PO DAILY 05/24/18 [History] Trolamine Salicylate/Aloe Vera [Aspercreme 10%] 1 applic TOP TID PRN 05/24/18 [ History] guaiFENesin [Mucinex] 600 mg PO BID 05/24/18 [History] traMADol [Ultram] 50 mg PO BID 05/24/18 [History] Past Medical History HEENT History: Reports: Sinusitis Other HEENT History: chronic maxillary sinus infection, chronic rhinitis Cardiovascular History: Reports: Hypertension Gastrointestinal History: Reports: Chronic Constipation, Other (See Below) Other Gastrointestinal History: nausea Genitourinary History: Reports: BPH Other Genitourinary History: BPH Musculoskeletal History: Reports: Osteoarthritis Other Musculoskeletal History: osteoarthritis of knees, disloaction of c5-c6 Neurological History: Reports: Parkinson's Psychiatric History: Reports: Depression Dermatologic History: Reports: Other (See Below) Other Dermatologic History: folliliculitis - Infectious Disease History Infectious Disease History: Reports: Chicken Pox, Measles, Mumps - Past Surgical History Musculoskeletal Surgical History: Reports: Knee Replacement, Other (See Below) Social & Family History - Caffeine Use Caffeine Use: Reports: Coffee Caffeine Use Comment: very little use - Recreational Drug Use Recreational Drug Use: No - Living Situation & Occupation Living situation: Reports: Extended Care Facility ([facility]) H&P Review of Systems - Review of Systems: Review Of Systems: See Below General: Reports: No Symptoms HEENT: Reports: Other (Chronic maxillary sinus infection; chronic rhinitis) Pulmonary: Reports: Shortness of Breath Cardiovascular: Reports: Other (Hx atrial flutter). Denies: Lightheadedness, Syncope Gastrointestinal: Reports: Black Stool, Constipation, Melena Genitourinary: Reports: Other (BPH) Musculoskeletal: Reports: Other (Osteoarthritis of knee; dislocation of C5-6) Skin: Reports: No Symptoms, Other (Folliculitis) Psychiatric: Reports: Depression Neurological: Reports: Other (Parkinson's) Exam - Exam Exam: See Below - Vital Signs Vital Signs: Last Vital Signs Temp 99.2 F 05/24/18 13:57 Pulse 93 05/24/18 15:09 Resp 16 05/24/18 15:09 BP 138/71 05/24/18 15:09 Pulse Ox 93 L 05/24/18 15:09 Weight: 104.326 kg - Exam General: Alert, Oriented, Cooperative HEENT: Conjunctiva Clear, Hearing Intact, PERRLA Neck: Supple Lungs: Clear to Auscultation, Normal Respiratory Effort Cardiovascular: Regular Rate, Regular Rhythm GI/Abdominal Exam: Normal Bowel Sounds, Soft, No Organomegaly, No Mass, Tender ( RUQ pain) (Male) Exam: Normal Inspection, Deferred Rectal (Males) Exam: Deferred Extremities: Normal Inspection, Normal Range of Motion, Non-Tender, No Pedal Edema Skin: Warm, Dry, Intact Neurological: Cranial Nerves Intact, Reflexes Equal Bilateral, Normal Speech Neuro Extensive - Mental Status: Alert, Normal Mood/Affect, Normal Cognition Neuro Extensive - Motor, Sensory, Reflexes: CN II-XII Intact Psychiatric: Alert, Normal Affect, Normal Mood - Patient Data Lab Results Last 24 hrs: Laboratory Results - last 24 hr 07/11/18 07/11/18 07/11/18 Range/Units 11:45 11:45 11:45 WBC 12.18 H (4.23-9.07) K/mm3 RBC 1.78 L (4.63-6.08) M/mm3 Hgb 5.6 L* (13.7-17.5) gm/L Hct 18.7 L (40.1-51.0) % MCV 105.1 H (79.0-92.2) fl MCH 31.5 (25.7-32.2) pg MCHC 29.9 L (32.2-35.5) g/dl RDW Std Deviation 64.7 H (35.1-43.9) fL Plt Count 318 (163-337) K/mm3 MPV 9.2 L (9.4-12.3) fl Neutrophils % (Manual) 81 H (40-60) % Band Neutrophils % 0 (0-10) % Lymphocytes % (Manual) 15 L (20-40) % Atypical Lymphs % 0 % Monocytes % (Manual) 1 L (2-10) % Eosinophils % (Manual) 3 (0.8-7.0) % Basophils % (Manual) 0 L (0.2-1.2) Platelet Estimate Adequate Polychromasia 2+ moderate Hypochromasia 1+ slight Anisocytosis 2+ moderate Macrocytosis 1+ slight RBC Morph Comment Not Reportable PT 11.4 (9.5-12.1) SECONDS INR 1.05 APTT 26 (24-31) SECONDS Sodium 138 (136-145) mEq/L Potassium 3.9 (3.5-5.1) mEq/L Chloride 105 (98-107) mEq/L Carbon Dioxide 23 (21-32) mEq/L Anion Gap 13.9 (5-15) BUN 34 H (7-18) mg/dL Creatinine 1.4 H (0.7-1.3) mg/dL Est Cr Clr Drug Dosing 37.98 mL/min Estimated GFR (MDRD) 49 (>60) mL/min BUN/Creatinine Ratio 24.3 H (14-18) Glucose 99 (83-115) mg/dL Calcium 8.7 (8.5-10.1) mg/dL Total Bilirubin 0.4 (0.2-1.0) mg/dL AST 42 H (15-37) U/L ALT 18 (16-63) U/L Alkaline Phosphatase 58 (46-116) U/L Troponin I < 0.017 (0.00-0.056) ng/mL NT-Pro-B Natriuret Pep (0-450) pg/mL Total Protein 6.7 (6.4-8.2) g/dl Albumin 3.3 L (3.4-5.0) g/dl Globulin 3.4 gm/dL Albumin/Globulin Ratio 1.0 (1-2) Blood Type Gel Antibody Screen Crossmatch 05/24/18 05/24/18 Range/Units 11:45 11:45 WBC (4.23-9.07) K/mm3 RBC (4.63-6.08) M/mm3 Hgb (13.7-17.5) gm/L Hct (40.1-51.0) % MCV (79.0-92.2) fl MCH (25.7-32.2) pg MCHC (32.2-35.5) g/dl RDW Std Deviation (35.1-43.9) fL Plt Count (163-337) K/mm3 MPV (9.4-12.3) fl Neutrophils % (Manual) (40-60) % Band Neutrophils % (0-10) % Lymphocytes % (Manual) (20-40) % Atypical Lymphs % % Monocytes % (Manual) (2-10) % Eosinophils % (Manual) (0.8-7.0) % Basophils % (Manual) (0.2-1.2) Platelet Estimate Polychromasia Hypochromasia Anisocytosis Macrocytosis RBC Morph Comment PT (9.5-12.1) SECONDS INR APTT (24-31) SECONDS Sodium (136-145) mEq/L Potassium (3.5-5.1) mEq/L Chloride (98-107) mEq/L Carbon Dioxide (21-32) mEq/L Anion Gap (5-15) BUN (7-18) mg/dL Creatinine (0.7-1.3) mg/dL Est Cr Clr Drug Dosing mL/min Estimated GFR (MDRD) (>60) mL/min BUN/Creatinine Ratio (14-18) Glucose (83-115) mg/dL Calcium (8.5-10.1) mg/dL Total Bilirubin (0.2-1.0) mg/dL AST (15-37) U/L ALT (16-63) U/L Alkaline Phosphatase (46-116) U/L Troponin I (0.00-0.056) ng/mL NT-Pro-B Natriuret Pep 850 H (0-450) pg/mL Total Protein (6.4-8.2) g/dl Albumin (3.4-5.0) g/dl Globulin gm/dL Albumin/Globulin Ratio (1-2) Blood Type O POSITIVE Gel Antibody Screen Negative Crossmatch See Detail Result Diagrams: 05/24/18 11:45 05/24/18 11:45 Problem List Initiated/Reviewed/Updated: Yes Orders Last 24hrs: Active Orders 24 hr Category Date Time Status Patient Status [ADT] Routine ADT 05/24/18 14:34 Active Cardiac Monitoring [RC] . DIRECTED Care 05/24/18 12:03 Active EKG 12 Lead [EKG Documentation Completion] [RC] STAT Care 05/24/18 11:59 Active METH-RESIST S.AUR,MRSA BY PCR [MOLEC] Routine Lab 05/24/18 16:32 Received PATIENT RETYPE [BBK] Stat Lab 05/24/18 11:45 Results RED BLOOD CELLS LP [BBK] Stat Lab 05/24/18 11:45 Results TYPE AND SCREEN [BBK] Stat Lab 05/24/18 11:45 Results Sodium Chloride 0.9% [Saline Flush] Med 05/24/18 11:59 Active 10 ml FLUSH ASDIRECTED PRN Peripheral IV Insertion Adult [OM.PC] Routine Oth 05/24/18 11:59 Ordered Transfuse Red Blood Cells [COMM] Stat Oth 05/24/18 12:02 Ordered Transfuse Red Blood Cells [COMM] Stat Oth 05/24/18 12:02 Ordered Medication Orders Sodium Chloride (Saline Flush) 10 ml FLUSH ASDIRECTED PRN PRN Reason: Keep Vein Open Last Admin: 05/24/18 12:14 Dose: 10 ml Assessment/Plan Comment:: Assessment: Acute: Anemia * RBC 1.78; Hgb 5.6; Hct 18.7 * Most likely due to GI bleed. Patient reports having black stools for "a while " Prerenal Azotemia * BUN 34; creatinine 1.4; estimated GFR 49 * Due to insufficient perfusion Plan: * Continue IV hydration * Transfuse RBCs to stabilize hemoglobin to 9 * Stop Zarelto until the source of the blood loss is identified and corrected * Avoid gastroerosive agents like NSAIDs, aspirin * Consult surgery to perform endoscopy/colonoscopy * Code status: DNR * PCP: Sunny Briseno <Jonelle Burch - Last Filed: 05/25/18 16:24> H&P History of Present Illness - General Admit Problem/Dx: Admission Diagnosis/Problem Admission Diagnosis/Problem Anemia Source of Information: Patient, Family, Old Records, Provider, RN Notes Reviewed History Limitations: Reports: No Limitations - History of Present Illness Initial Comments - Free Text/Narative: This is an 78 yo elderly white male with past medical hx/o chronic maxillary sinus inspection, chronic sinusitis, hypertension, chronic constipation, chronic nausea, BPH, or she arthritis dislocation of C5-C6, parkinsonian syndrome and depression who comes in the emergency department with complains of shortness of breath, and right-sided ib pain. He reports an adequate complaints black stool that has been going on for a while. He was initially seen at his primary are office we'd a hemoglobin level of 5.5. Patient needs at [facility] and in the past week he was observed having pressures and the lower end as low as 90s over 50s. patient carries a history of atrial fibrillation currently on 0 though. Per secondary sources, he chews tobacco and drinks a glass of w daily. And per [facility] staff, it appears patient is taking aspirin on his own after they found an empty bottle of aspirin in his room. Patient is a poor historian. His initial workup in the emergency department is remarkable for WBC of 12.18, RBC of 1.78, hemoglobin of 5.6, MCH of 29.9, RDW of 64.7, MPV of 9.2, neutrophils of 81%, lymphocytes of 15%, and monocytes of 1%. His chemistry is significant for BUN of 34, creatinine of 1.4, AST of 42, proBNP of 850, an albumin of 3. His guaiac-positive in ED. Patient is being admitted for acute GI bleed likely secondary to blood thinners. He is DNR/DNI. H&P Review of Systems - Review of Systems: Review of Systems Comment:: Agree with ROS by medical student Exam - Vital Signs Vital Signs: Last Vital Signs Temp 37.2 C 07/11/18 18:20 Pulse 96 05/24/18 18:20 Resp 16 05/24/18 18:20 BP 132/50 L 05/24/18 18:20 Pulse Ox 98 05/24/18 18:20 - Exam HEENT: Pupils Equal, Pupils Reactive Neck: Trachea Midline Peripheral Pulses: 2+: Dorsalis Pedis (L), Dorsalis Pedis (R) Neuro Extensive - Motor, Sensory, Reflexes: No: Abnormal Gait Physical Exam Comments:: Agree with physical exam findings by medical student - Patient Data Lab Results Last 24 hrs: Laboratory Results - last 24 hr 05/24/18 05/24/18 05/24/18 Range/Units 11:45 11:45 11:45 WBC 12.18 H (4.23-9.07) K/mm3 RBC 1.78 L (4.63-6.08) M/mm3 Hgb 5.6 L* (13.7-17.5) gm/L Hct 18.7 L (40.1-51.0) % MCV 105.1 H (79.0-92.2) fl MCH 31.5 (25.7-32.2) pg MCHC 29.9 L (32.2-35.5) g/dl RDW Std Deviation 64.7 H (35.1-43.9) fL Plt Count 318 (163-337) K/mm3 MPV 9.2 L (9.4-12.3) fl Neutrophils % (Manual) 81 H (40-60) % Band Neutrophils % 0 (0-10) % Lymphocytes % (Manual) 15 L (20-40) % Atypical Lymphs % 0 % Monocytes % (Manual) 1 L (2-10) % Eosinophils % (Manual) 3 (0.8-7.0) % Basophils % (Manual) 0 L (0.2-1.2) Platelet Estimate Adequate Polychromasia 2+ moderate Hypochromasia 1+ slight Anisocytosis 2+ moderate Macrocytosis 1+ slight RBC Morph Comment Not Reportable PT 11.4 (9.5-12.1) SECONDS INR 1.05 APTT 26 (24-31) SECONDS Sodium 138 (136-145) mEq/L Potassium 3.9 (3.5-5.1) mEq/L Chloride 105 (98-107) mEq/L Carbon Dioxide 23 (21-32) mEq/L Anion Gap 13.9 (5-15) BUN 34 H (7-18) mg/dL Creatinine 1.4 H (0.7-1.3) mg/dL Est Cr Clr Drug Dosing 37.98 mL/min Estimated GFR (MDRD) 49 (>60) mL/min BUN/Creatinine Ratio 24.3 H (14-18) Glucose 99 (83-115) mg/dL Calcium 8.7 (8.5-10.1) mg/dL Total Bilirubin 0.4 (0.2-1.0) mg/dL AST 42 H (15-37) U/L ALT 18 (16-63) U/L Alkaline Phosphatase 58 (46-116) U/L Troponin I < 0.017 (0.00-0.056) ng/mL NT-Pro-B Natriuret Pep (0-450) pg/mL Total Protein 6.7 (6.4-8.2) g/dl Albumin 3.3 L (3.4-5.0) g/dl Globulin 3.4 gm/dL Albumin/Globulin Ratio 1.0 (1-2) Blood Type Gel Antibody Screen Crossmatch 05/24/18 05/24/18 Range/Units 11:45 11:45 WBC (4.23-9.07) K/mm3 RBC (4.63-6.08) M/mm3 Hgb (13.7-17.5) gm/L Hct (40.1-51.0) % MCV (79.0-92.2) fl MCH (25.7-32.2) pg MCHC (32.2-35.5) g/dl RDW Std Deviation (35.1-43.9) fL Plt Count (163-337) K/mm3 MPV (9.4-12.3) fl Neutrophils % (Manual) (40-60) % Band Neutrophils % (0-10) % Lymphocytes % (Manual) (20-40) % Atypical Lymphs % % Monocytes % (Manual) (2-10) % Eosinophils % (Manual) (0.8-7.0) % Basophils % (Manual) (0.2-1.2) Platelet Estimate Polychromasia Hypochromasia Anisocytosis Macrocytosis RBC Morph Comment PT (9.5-12.1) SECONDS INR APTT (24-31) SECONDS Sodium (136-145) mEq/L Potassium (3.5-5.1) mEq/L Chloride (98-107) mEq/L Carbon Dioxide (21-32) mEq/L Anion Gap (5-15) BUN (7-18) mg/dL Creatinine (0.7-1.3) mg/dL Est Cr Clr Drug Dosing mL/min Estimated GFR (MDRD) (>60) mL/min BUN/Creatinine Ratio (14-18) Glucose (83-115) mg/dL Calcium (8.5-10.1) mg/dL Total Bilirubin (0.2-1.0) mg/dL AST (15-37) U/L ALT (16-63) U/L Alkaline Phosphatase (46-116) U/L Troponin I (0.00-0.056) ng/mL NT-Pro-B Natriuret Pep 850 H (0-450) pg/mL Total Protein (6.4-8.2) g/dl Albumin (3.4-5.0) g/dl Globulin gm/dL Albumin/Globulin Ratio (1-2) Blood Type O POSITIVE Gel Antibody Screen Negative Crossmatch See Detail Result Diagrams: 05/25/18 05:45 05/25/18 05:45 EKG INTERPRETATION EKG Date: 05/24/18 Time: 12:47 Rhythm: Other (Sinus Rhythm) Rate (Beats/Min): 87 ST-T: Depressed (minimal in lateral leads) Comparison: Change From Previous EKG Orders Last 24hrs: Active Orders 24 hr Category Date Time Status Patient Status [ADT] Routine ADT 05/24/18 14:34 Active Cardiac Monitoring [RC] CONTINUOUS Care 05/24/18 17:33 Active Height and Weight [RC] 04 Care 05/24/18 17:32 Active Intake and Output [RC] 04,16 Care 05/24/18 17:33 Active Notify Provider Consults [RC] ASDIRECTED Care 05/24/18 17:15 Active Oxygen Therapy [RC] PRN Care 05/24/18 17:32 Active RT Aerosol Therapy [RC] ASDIRECTED Care 05/24/18 17:36 Active Up With Assistance [RC] ASDIRECTED Care 05/24/18 17:32 Active Up ad Nalini [RC] ASDIRECTED Care 05/24/18 17:32 Active VTE/DVT Education [RC] DAILY Care 05/24/18 17:32 Active Vital Signs [RC] Q4H Care 05/24/18 17:32 Active Consult to Case Management [CONS] Routine Cons 05/24/18 17:32 Active Consult to Reptile Keeper [CONS] Routine Cons 05/24/18 17:32 Active Consult to Physician [CONS] Routine Cons 05/24/18 17:15 Active Consult to Newspaper Clipper [CONS] Routine Cons 05/24/18 17:32 Active Consult to Spiritual Care [CONS] Routine Cons 05/24/18 17:32 Active Nothing per Oral After Midnight Diet [DIET] Diet 05/24/18 Dinner Active Regular Diet [DIET] Diet 05/24/18 Dinner Active BASIC METABOLIC PANEL,BMP [CHEM] AM Lab 05/25/18 05:11 Ordered CBC WITH AUTO DIFF [HEME] AM Lab 05/25/18 05:11 Ordered MAGNESIUM [CHEM] AM Lab 05/25/18 05:11 Ordered METH-RESIST S.AUR,MRSA BY PCR [MOLEC] Routine Lab 05/24/18 16:32 Received PATIENT RETYPE [BBK] Stat Lab 05/24/18 11:45 Results RED BLOOD CELLS LP [BBK] Stat Lab 05/24/18 11:45 Results TYPE AND SCREEN [BBK] Stat Lab 05/24/18 11:45 Results Acetaminophen [Tylenol] Med 05/24/18 17:32 Pending 650 mg PO Q4H PRN Acetaminophen [Tylenol] Med 05/24/18 17:16 Active 650 mg PO Q6H PRN Acetaminophen/HYDROcodone [[place] 325-5 MG] Med 05/24/18 17:32 Active 1 tab PO Q4H PRN Albuterol/Ipratropium [DuoNeb 3.0-0.5 MG/3 ML] Med 05/24/18 17:32 Active 3 ml NEB Q4H PRN Aloe Vera/Sodium Chloride [[place] Saline Nasal Gel] Med 05/24/18 17:16 Pending 2 spray TIFFANI DAILY PRN Alum Hydrox/Mag Hydrox/Simeth [Mag-Al Plus] Med 05/24/18 17:16 Active 30 ml PO QID PRN Ascorbic Acid [Vitamin C] Med 05/25/18 09:00 Active 500 mg PO DAILY Calcium Carbonate [Tums] Med 05/24/18 17:16 Active 500 mg PO QID PRN Cholecalciferol (Vitamin D3) [Vitamin D3] Med 05/25/18 09:00 Active 2,000 units PO DAILY Cyanocobalamin (Vitamin B12) [Vitamin B12] Med 05/25/18 09:00 Active 1,000 mcg PO DAILY Diltiazem [Cardizem CD] Med 05/25/18 09:00 Active 240 mg PO DAILY Docusate Sodium/Sennosides [Senna Plus] Med 05/24/18 21:00 Active 1 tab PO BID Eucalyptus/Menthol [Cough Drops] Med 05/24/18 17:16 Pending 1 lozenge PO Q4H PRN Ferrous Sulfate Med 05/25/18 09:00 Active 325 mg PO DAILY Flunisolide [Nasalide Nasal [place]] Med 05/24/18 21:00 Active 0 ml TIFFANI BID HYDROmorphone [Dilaudid] Med 05/24/18 17:32 Active 0.25 mg IVPUSH Q2H PRN Hydrochlorothiazide Med 05/25/18 09:00 Active 12.5 mg PO DAILY Hypromellose [Isopto Tears 0.5% Ophth Soln] Med 05/24/18 21:00 Active 0 ml EYEBOTH TID LORazepam [Ativan] Med 05/24/18 17:32 Active 0.25 mg IV Q6H PRN LORazepam [Ativan] Med 05/24/18 17:45 Active 2 mg IVPUSH Q4H PRN Lisinopril [Prinivil] Med 05/25/18 09:00 Active 10 mg PO DAILY Loratadine [Claritin] Med 05/25/18 09:00 Active 10 mg PO DAILY Magnesium Hydroxide [Milk of Magnesia] Med 05/24/18 17:16 Active 30 ml PO DAILY PRN Magnesium Rep Pharmacy to Dose [Pharmacy to Dose - Med 05/24/18 17:45 Pending Magnesium Replacement] 1 dose .XX ASDIRECTED Metoprolol Tartrate [Lopressor] Med 05/24/18 17:45 Active 5 mg IVPUSH Q4H PRN Metoprolol Tartrate [Lopressor] Med 05/24/18 21:00 Active 50 mg PO BID Ondansetron [Zofran] Med 05/24/18 17:32 Active 4 mg IV Q6H PRN Oxymetazoline HCl [Mucinex Sinus-Max] Med 05/24/18 17:16 Pending 1 spray TIFFANI QID PRN Potassium Rep Pharmacy to Dose [Pharmacy to Dose - Med 05/24/18 17:45 Pending Potassium Replacement] 1 dose .XX ASDIRECTED Promethazine [Phenergan] 12.5 mg Med 05/24/18 17:32 Active Sodium Chloride 0.9% [Normal Saline] 50 ml IV Q6H Sertraline [Zoloft] Med 05/25/18 09:00 Active 50 mg PO DAILY Sodium Chloride 0.9% [Saline Flush] Med 05/24/18 11:59 Active 10 ml FLUSH ASDIRECTED PRN Tamsulosin [Flomax] Med 05/25/18 09:00 Active 0.8 mg PO DAILY Temazepam [Restoril] Med 05/24/18 17:32 Active 7.5 mg PO BEDTIME PRN Trolamine Salicylate/Aloe Vera Med 05/25/18 09:00 Pending 1 applic TOP DAILY guaiFENesin [Mucinex] Med 05/24/18 21:00 Active 600 mg PO BID hydrALAZINE [Apresoline] Med 05/24/18 17:45 Active 10 mg IVPUSH Q4H PRN traMADol [Ultram] Med 05/24/18 21:00 Active 50 mg PO BID Peripheral IV Insertion Adult [OM.PC] Routine Oth 05/24/18 11:59 Ordered Sequential Compression Device [OM.PC] Per Unit Routine Oth 05/24/18 17:34 Ordered Transfuse Red Blood Cells [COMM] Stat Oth 05/24/18 12:02 Ordered Transfuse Red Blood Cells [COMM] Stat Oth 05/24/18 12:02 Ordered Resuscitation Status Routine Resus Stat 05/24/18 17:32 Ordered Medication Orders Acetaminophen (Tylenol) 650 mg PO Q6H PRN PRN Reason: Pain Acetaminophen (Tylenol) 650 mg PO Q4H PRN PRN Reason: Pain (Mild 1-3)/fever Hydrocodone Bitart/Acetaminophen ([place] 325-5 Mg) 1 tab PO Q4H PRN PRN Reason: Pain (moderate 4-6) Al Hydroxide/Mg Hydroxide (Mag-Al Plus) 30 ml PO QID PRN PRN Reason: Indigestion Albuterol/Ipratropium (Duoneb 3.0-0.5 Mg/3 Ml) 3 ml NEB Q4H PRN PRN Reason: Shortness Of Breath/wheezing Artificial Tears (Isopto Tears 0.5% Ophth Soln) 0 ml EYEBOTH TID [place] Ascorbic Acid (Vitamin C) 500 mg PO DAILY [place] Calcium Carbonate/Glycine (Tums) 500 mg PO QID PRN PRN Reason: Indigestion Cholecalciferol (Vitamin D3) 2,000 units PO DAILY [place] Cyanocobalamin (Vitamin B12) 1,000 mcg PO DAILY [place] Diltiazem HCl (Cardizem Cd) 240 mg PO DAILY [place] Ferrous Sulfate (Ferrous Sulfate) 325 mg PO DAILY [facility] Flunisolide (Nasalide Nasal [place]) 0 ml TIFFANI BID [facility] Guaifenesin (Mucinex) 600 mg PO BID [facility] Hydralazine HCl (Apresoline) 10 mg IVPUSH Q4H PRN PRN Reason: Hypertension Hydrochlorothiazide (Hydrochlorothiazide) 12.5 mg PO DAILY [facility] Hydromorphone HCl (Dilaudid) 0.25 mg IVPUSH Q2H PRN PRN Reason: Pain (severe 7-10) Promethazine HCl 12.5 mg/ (Sodium Chloride) 50.5 mls @ 100 mls/hr IV Q6H PRN PRN Reason: Nausea/Vomiting Lisinopril (Prinivil) 10 mg PO DAILY [facility] Loratadine (Claritin) 10 mg PO DAILY [facility] Lorazepam (Ativan) 0.25 mg IV Q6H PRN PRN Reason: Anxiety Lorazepam (Ativan) 2 mg IVPUSH Q4H PRN PRN Reason: Seizures Magnesium Hydroxide (Milk Of Magnesia) 30 ml PO DAILY PRN PRN Reason: constipation Magnesium Sulfate (Pharmacy To Dose - Magnesium Replacement) 1 dose .XX ASDIRECTED [place] Metoprolol Tartrate (Lopressor) 50 mg PO BID [place] Metoprolol Tartrate (Lopressor) 5 mg IVPUSH Q4H PRN PRN Reason: Tachycardia Non-Formulary Medication (Aloe Vera/Sodium Chloride [[place] Saline Nasal Gel]) 2 spray TIFFANI DAILY PRN PRN Reason: Rhinitis Non-Formulary Medication (Eucalyptus/Menthol [Cough Drops]) 1 lozenge PO Q4H PRN PRN Reason: Cough Non-Formulary Medication (Oxymetazoline Hcl [Mucinex Sinus-Max]) 1 spray TIFFANI QID PRN PRN Reason: nasal decongestant Non-Formulary Medication (Trolamine Salicylate/Aloe Vera) 1 applic TOP DAILY [facility] Ondansetron HCl (Zofran) 4 mg IV Q6H PRN PRN Reason: Nausea/Vomiting Potassium Chloride (Pharmacy To Dose - Potassium Replacement) 1 dose .XX ASDIRECTED [facility] Senna/Docusate Sodium (Senna Plus) 1 tab PO BID [facility] Sertraline HCl (Zoloft) 50 mg PO DAILY [facility] Sodium Chloride (Saline Flush) 10 ml FLUSH ASDIRECTED PRN PRN Reason: Keep Vein Open Last Admin: 05/24/18 12:14 Dose: 10 ml Tamsulosin HCl (Flomax) 0.8 mg PO DAILY [facility] Temazepam (Restoril) 7.5 mg PO BEDTIME PRN PRN Reason: Sleep Tramadol HCl (Ultram) 50 mg PO BID [facility] Assessment/Plan Comment:: Assessment/Plan: Acute: Anemia * Hct is 5.6; baseline * 2/2 GI Bleed likely from PUD * Risk factors: On anticoagulation and anti-platelet * No previous hx/o GI bleed the past * He is currently receiving blood transfusions * GS consult for further evaluation * No nausea or vomiting * Monitor H/H Pre-renal Azotemia * BUN 34; creatinine 1.4; estimated GFR 49 * Due to insufficient perfusion * Expect to improve after volume resuscitation PAF * Discussed the need to stop the xarelto with family due to active bleed * They were made aware; he would be at increased risk of stroke without anticoagulation Chronic: chronic maxillary sinus inspection, chronic sinusitis, hypertension, chronic constipation, chronic nausea, BPH, osteoarthritis, dislocation of C5-C6 , parkinsonian syndrome, depression and obesity Plan: * Admit to [facility] floor with Tele-He is clinically stable * Resume Home Meds * Routine AM Labs * Volume resuscitation with blood and fluids * Continue IV hydration * Transfuse RBCs to stabilize hemoglobin with a target goal of 8-9 * Stop Xarelto until the source of the blood loss is identified and corrected * Avoid gastroerosive agents like NSAIDs, aspirin; H2B * Consult surgery to perform endoscopy/colonoscopy * DVT/GI PPx: SCDs and H2B * Code status: DNR/DNI * PCP: Sunny Briseno Spoke to family at bedside. Updated them about his diagnosis, treatment plan and clinical status.
[2018-05-24] MEDS ORDERED: Promethazine 12.5 MG in Sodium Chloride 0.9% 50 ML IV PRN (17:32)
[2018-05-24] MEDS ORDERED: Ondansetron 4 MG/2 ML SDV IV PRN (17:32)
[2018-05-24] MEDS ORDERED: LORazepam 2 MG/ML SDV IV PRN (17:32)
[2018-05-24] MEDS ORDERED: Albuterol/Ipratropium 3.0-0.5 MG/3 ML Neb Soln NEB PRN (17:32)
[2018-05-24] MEDS ORDERED: Acetaminophen/HYDROcodone 325-5 MG Tab PO PRN (17:32)
[2018-05-24] MEDS ORDERED: HYDROmorphone 0.5 MG/0.5 ML SYRINGE IVPUSH PRN (17:32)
[2018-05-24] MEDS ORDERED: Temazepam 7.5 MG Cap PO PRN (17:32)
[2018-05-24] MEDS ORDERED: Metoprolol Tartrate 5 MG/5 ML SDV IVPUSH PRN (17:45)
[2018-05-24] MEDS ORDERED: LORazepam 2 MG/ML SDV IVPUSH PRN (17:45)
[2018-05-24] MEDS ORDERED: hydrALAZINE 20 MG/ML SDV IVPUSH PRN (17:45)
[2018-05-24] MEDS: guaiFENesin 600 MG Tab.ER PO SCH (20:43)
[2018-05-24] MEDS: Hypromellose 0.5% Ophth Soln 15 ML Bottle EYEBOTH SCH (20:43)
[2018-05-24] MEDS: traMADol 50 MG Tab PO SCH (20:44)
[2018-05-24] MEDS: Metoprolol Tartrate 50 MG Tab PO SCH (20:44)
[2018-05-24] MEDS: Nystatin Topical Powder 15 GM Bottle TOP SCH (20:51)
[2018-05-24] MEDS ORDERED: Sodium Chloride 0.9% 250 ML IV ONE (21:22)
[2018-05-24] MEDS ORDERED: Sodium Chloride 0.65% Nasal Spray 45 ML Bottle NAS PRN ×2 (22:10→22:15)
[2018-05-25] MEDS ORDERED: Propofol 200 MG/20 ML SDV ONE (08:29)
[2018-05-25] MEDS ORDERED: Lidocaine 1% 4 ML ONE (08:29)
[2018-05-25] MEDS ORDERED: fentaNYL 100 MCG/2 ML SDV ONE (08:30)
--- NOTE | 2018-05-25 08:48 | PCM.PREANE ---
Preanesthetic Assessment - Procedure Proposed Procedure: diag egd - Anesthesia/Transfusion/Family Hx Anesthesia History: Prior Anesthesia Without Reaction Type of Anesthesia Reaction: Other (see below) (hard time waking up) Family History of Anesthesia Reaction: No Transfusion History: Prior Transfusion Without Reaction - Review of Systems General: Weakness Pulmonary: Shortness of Breath Cardiovascular: Dyspnea on Exertion Gastrointestinal: Other (dark tarry stools) Neurological: Tremors (minimal) Other: Reports: Easy Bleeding, Easy Bruising, Sinus Problem (chronic sinusitis) , Depression - Physical Assessment NPO Status Date: 05/24/18 NPO Status Time: 21:00 Pulse: 73 O2 Sat by Pulse Oximetry: 97 Respiratory Rate: 24 Blood Pressure: 132/66 Temperature: 98.4 F Vital Signs: Last Vital Signs Temp 98.4 F 05/25/18 08:00 Pulse 73 05/25/18 08:00 Resp 24 H 05/25/18 08:00 BP 132/66 05/25/18 08:00 Pulse Ox 97 05/25/18 08:00 Height: 5 ft 6 in Weight: 112.536 kg ASA Class: 3 Mental Status: Alert & Oriented x3 (seems to answer questions appropiately) Airway Class: Mallampati = 3 Dentition: Reports: Dentures (top- not in), Broken Tooth/Teeth, Missing Tooth/ Teeth (bottom) Thyro-Mental Finger Breadths: 3 Mouth Opening Finger Breadths: 3 ROM/Head Extension: Limited/Partial - Lab Values: Laboratory Last Values WBC 9.38 K/mm3 (4.23-9.07) H 05/25/18 05:45 RBC 2.67 M/mm3 (4.63-6.08) L 05/25/18 05:45 Hgb 8.1 gm/L (13.7-17.5) L 05/25/18 05:45 Hct 25.6 % (40.1-51.0) L 05/25/18 05:45 MCV 95.9 fl (79.0-92.2) H 05/25/18 05:45 MCH 30.3 pg (25.7-32.2) 05/25/18 05:45 MCHC 31.6 g/dl (32.2-35.5) L 05/25/18 05:45 RDW Std Deviation 61.6 fL (35.1-43.9) H 05/25/18 05:45 Plt Count 271 K/mm3 (163-337) 05/25/18 05:45 MPV 8.8 fl (9.4-12.3) 05/25/18 05:45 Neut % (Auto) 78.4 % (34.0-67.9) H 05/25/18 05:45 Lymph % (Auto) 10.1 % (21.8-53.1) 05/25/18 05:45 [place] % (Auto) 8.5 % (5.3-12.2) 05/25/18 05:45 Eos % (Auto) 2.0 (0.8-7.0) 05/25/18 05:45 Baso % (Auto) 0.3 % (0.1-1.2) 05/25/18 05:45 Neut # (Auto) 7.34 K/mm3 (1.78-5.38) 05/25/18 05:45 Lymph # (Auto) 0.95 K/mm3 (1.32-3.57) 05/25/18 05:45 [place] # (Auto) 0.80 K/mm3 (0.30-0.82) 05/25/18 05:45 Eos # (Auto) 0.19 K/mm3 (0.04-0.54) 05/25/18 05:45 Baso # (Auto) 0.03 K/mm3 (0.01-0.08) 05/25/18 05:45 Neutrophils % (Manual) 81 % (40-60) 05/24/18 11:45 Band Neutrophils % 0 % (0-10) 05/24/18 11:45 Lymphocytes % (Manual) 15 % (20-40) 05/24/18 11:45 Atypical Lymphs % 0 % 05/24/18 11:45 Monocytes % (Manual) 1 % (2-10) 05/24/18 11:45 Eosinophils % (Manual) 3 % (0.8-7.0) 05/24/18 11:45 Basophils % (Manual) 0 (0.2-1.2) 05/24/18 11:45 Platelet Estimate Adequate 05/24/18 11:45 Polychromasia 2+ moderate 05/24/18 11:45 Hypochromasia 1+ slight 05/24/18 11:45 Anisocytosis 2+ moderate 05/24/18 11:45 Macrocytosis 1+ slight 05/24/18 11:45 RBC Morph Comment Not Reportable 05/24/18 11:45 PT 11.4 SECONDS (9.5-12.1) 05/24/18 11:45 INR 1.05 05/24/18 11:45 APTT 26 SECONDS (24-31) 05/24/18 11:45 Sodium 141 mEq/L (136-145) 05/25/18 05:45 Potassium 4.1 mEq/L (3.5-5.1) 05/25/18 05:45 Chloride 108 mEq/L (98-107) H 05/25/18 05:45 Carbon Dioxide 26 mEq/L (21-32) 05/25/18 05:45 Anion Gap 11.1 (5-15) 05/25/18 05:45 BUN 28 mg/dL (7-18) H 05/25/18 05:45 Creatinine 1.1 mg/dL (0.7-1.3) 05/25/18 05:45 Est Cr Clr Drug Dosing 48.33 mL/min 05/25/18 05:45 Estimated GFR (MDRD) > 60 mL/min (>60) 05/25/18 05:45 BUN/Creatinine Ratio 25.5 (14-18) H 05/25/18 05:45 Glucose 93 mg/dL (83-115) 05/25/18 05:45 Calcium 8.1 mg/dL (8.5-10.1) L 05/25/18 05:45 Magnesium 1.9 mg/dl (1.8-2.4) 05/25/18 05:45 Total Bilirubin 0.4 mg/dL (0.2-1.0) 05/24/18 11:45 AST 42 U/L (15-37) H 05/24/18 11:45 ALT 18 U/L (16-63) 05/24/18 11:45 Alkaline Phosphatase 58 U/L (46-116) 05/24/18 11:45 Troponin I < 0.017 ng/mL (0.00-0.056) 05/24/18 11:45 NT-Pro-B Natriuret Pep 850 pg/mL (0-450) H 05/24/18 11:45 Total Protein 6.7 g/dl (6.4-8.2) 05/24/18 11:45 Albumin 3.3 g/dl (3.4-5.0) L 05/24/18 11:45 Globulin 3.4 gm/dL 05/24/18 11:45 Albumin/Globulin Ratio 1.0 (1-2) 05/24/18 11:45 MRSA (PCR) Negative 05/24/18 16:32 Blood Type O POSITIVE 05/24/18 11:45 Gel Antibody Screen Negative 05/24/18 11:45 Crossmatch See Detail 05/24/18 11:45 - Allergies Allergies/Adverse Reactions: Allergies Allergy/AdvReac Type Severity Reaction Status Date / Time bee venom protein (honey bee) Allergy Intermediate Bronchospas Verified 18:21 ms hornet venom Allergy Intermediate Bronchospas Verified 05/24/18 18:21 ms Penicillins Allergy Mild Rash Verified 05/24/18 18:21 - Anesthesia Plan Beta Kenia: Metoprolol Med Last Dose Date: 05/25/18 Med Last Dose Time: 09:00 - Acknowledgements Anesthesia Type Planned: MAC Pt an Appropriate Candidate for the Planned Anesthesia: Yes Alternatives and Risks of Anesthesia Discussed w Pt/Guardian: Yes Pt/Guardian Understands and Agrees with Anesthesia Plan: Yes PreAnesthesia Questionnaire HEENT History: Reports: Sinusitis Other HEENT History: chronic maxillary sinus infection, chronic rhinitis Cardiovascular History: Reports: Hypertension Other Cardiovascular History: atrial flutter Respiratory History: Reports: None Gastrointestinal History: Reports: Chronic Constipation, Other (See Below) Other Gastrointestinal History: nausea Genitourinary History: Reports: BPH Other Genitourinary History: BPH Musculoskeletal History: Reports: Osteoarthritis Other Musculoskeletal History: osteoarthritis of knees, disloaction of c5-c6 Neurological History: Reports: Parkinson's Psychiatric History: Reports: Depression Endocrine/Metabolic History: Reports: None Hematologic History: Reports: B12 Deficiency, Iron Deficiency Immunologic History: Reports: None Oncologic (Cancer) History: Reports: None Dermatologic History: Reports: Other (See Below) Other Dermatologic History: folliliculitis - Infectious Disease History Infectious Disease History: Reports: Chicken Pox, Measles, Mumps - Past Surgical History Musculoskeletal Surgical History: Reports: Knee Replacement, Other (See Below) ( finger cut off) - SUBSTANCE USE Smoking Status *Q: Unknown Ever Smoked Tobacco Use Within Last Twelve Months: Snuff/Dip Other Tobacco Use Within Last Twelve Months: chews daily Second Hand Smoke Exposure: No Days Per Week of Alcohol Use: 7 (glass of whiskey a day) Number of Drinks Per Day: 1 Total Drinks Per Week: 7 Recreational Drug Use History: No - HOME MEDS Home Medications: Home Meds Acetaminophen [Tylenol] 650 mg PO Q6H PRN 05/24/18 [History] Aloe Vera/Sodium Chloride [[place] Saline Nasal Gel] 2 spray NASBOTH QID PRN [History] Alum Hydrox/Mag Hydrox/Simeth [Maalox Advanced] 30 ml PO QID PRN 05/24/18 [ History] Ascorbate Calcium [Vitamin C] 500 mg PO DAILY 05/24/18 [History] Calcium Carbonate [Tums] 200 mg PO QID PRN 05/24/18 [History] Cetirizine [ZyrTEC] 5 mg PO DAILY 05/24/18 [History] Cholecalciferol (Vitamin D3) [Vitamin D3] 2,000 units PO DAILY 05/24/18 [History ] Cyanocobalamin (Vitamin B12) [Vitamin B12] 1,000 mcg PO DAILY 05/24/18 [History] Diltiazem HCl [Diltiazem 24Hr Cd] 240 mg PO DAILY 05/24/18 [History] Docusate Sodium/Sennosides [Senokot-S] 1 tab PO BID 05/24/18 [History] Eucalyptus/Menthol [Cough Drops] 1 lozenge PO TID PRN 05/24/18 [History] Ferrous Sulfate 325 mg PO DAILY 05/24/18 [History] Fluticasone Propionate [Flonase] 2 spray NASBOTH BID 05/24/18 [History] Lisinopril/Hydrochlorothiazide [Zestoretic 10-12.5 mg Tablet] 1 tab PO DAILY 10/01 [History] Mag Carb/Al Hydrox/Alginic Ac [Gaviscon Extra Strength Liquid] 15 ml PO TID PRN 05/24/18 [History] Magnesium Hydroxide [Milk of Magnesia] 30 ml PO DAILY PRN 05/24/18 [History] Menthol/Camphor [[place] Anti-Itch] 1 applic TOP BID PRN 05/24/18 [History] Metoprolol Tartrate [Lopressor] 50 mg PO BID 05/24/18 [History] Oxymetazoline HCl [Mucinex Sinus-Max] 1 spray NASBOTH TID PRN 05/24/18 [History] Propylene Glycol [Systane Balance] 1 drop EYEBOTH TID 05/24/18 [History] Rivaroxaban [Xarelto] 20 mg PO DAILY 05/24/18 [History] Sertraline [Zoloft] 50 mg PO DAILY 05/24/18 [History] Tamsulosin [Flomax] 0.8 mg PO DAILY 05/24/18 [History] Trolamine Salicylate/Aloe Vera [Aspercreme 10%] 1 applic TOP TID PRN 05/24/18 [ History] guaiFENesin [Mucinex] 600 mg PO BID 05/24/18 [History] traMADol [Ultram] 50 mg PO BID 05/24/18 [History] - CURRENT (IN HOUSE) MEDS Current Meds: Current Medications Acetaminophen (Tylenol) 650 mg PO Q6H PRN PRN Reason: Pain Hydrocodone Bitart/Acetaminophen ([place] 325-5 Mg) 1 tab PO Q4H PRN PRN Reason: Pain (moderate 4-6) Al Hydroxide/Mg Hydroxide (Mag-Al Plus) 30 ml PO QID PRN PRN Reason: Indigestion Albuterol/Ipratropium (Duoneb 3.0-0.5 Mg/3 Ml) 3 ml NEB Q4H PRN PRN Reason: Shortness Of Breath/wheezing Artificial Tears (Isopto Tears 0.5% Ophth Soln) 0 ml EYEBOTH TID [facility] Last Admin: 05/24/18 20:43 Dose: 1 drop Ascorbic Acid (Vitamin C) 500 mg PO DAILY [facility] Calcium Carbonate/Glycine (Tums) 500 mg PO QID PRN PRN Reason: Indigestion Capsaicin (Zostrix 0.025% Crm) 0 gm TOP DAILY [facility] Cholecalciferol (Vitamin D3) 2,000 units PO DAILY [facility] Cyanocobalamin (Vitamin B12) 1,000 mcg PO DAILY [facility] Diltiazem HCl (Cardizem Cd) 240 mg PO DAILY [facility] Ferrous Sulfate (Ferrous Sulfate) 325 mg PO DAILY [facility] Flunisolide (Nasalide Nasal [place]) 0 ml TIFFANI BID [facility] Last Admin: 05/24/18 20:42 Dose: 2 spr Guaifenesin (Mucinex) 600 mg PO BID [facility] Last Admin: 05/24/18 20:43 Dose: 600 mg Hydralazine HCl (Apresoline) 10 mg IVPUSH Q4H PRN PRN Reason: Hypertension Hydrochlorothiazide (Hydrochlorothiazide) 12.5 mg PO DAILY [facility] Hydromorphone HCl (Dilaudid) 0.25 mg IVPUSH Q2H PRN PRN Reason: Pain (severe 7-10) Promethazine HCl 12.5 mg/ (Sodium Chloride) 50.5 mls @ 100 mls/hr IV Q6H PRN PRN Reason: Nausea/Vomiting Lisinopril (Prinivil) 10 mg PO DAILY [facility] Loratadine (Claritin) 10 mg PO DAILY [facility] Lorazepam (Ativan) 0.25 mg IV Q6H PRN PRN Reason: Anxiety Lorazepam (Ativan) 2 mg IVPUSH Q4H PRN PRN Reason: Seizures Magnesium Hydroxide (Milk Of Magnesia) 30 ml PO DAILY PRN PRN Reason: constipation Magnesium Sulfate (Pharmacy To Dose - Magnesium Replacement) 0 dose .XX ASDIRECTED PRN PRN Reason: RX TO WATCH MAG LEVELS Metoprolol Tartrate (Lopressor) 50 mg PO BID [facility] Last Admin: 05/24/18 20:44 Dose: 50 mg Metoprolol Tartrate (Lopressor) 5 mg IVPUSH Q4H PRN PRN Reason: Tachycardia Nystatin (Nystop) 0 gm TOP TID [facility] Last Admin: 05/24/18 20:51 Dose: 1 applic Ondansetron HCl (Zofran) 4 mg IV Q6H PRN PRN Reason: Nausea/Vomiting Oxymetazoline HCl (Afrin Original 0.05% Nasal [place]) 0 ml TIFFANI QID PRN PRN Reason: nasal decongestant Phenol/Menthol (Cepastat) 1 deacon MUCMEM Q4H PRN PRN Reason: Cough Potassium Chloride (Pharmacy To Dose - Potassium Replacement) 0 dose .XX ASDIRECTED PRN PRN Reason: RX TO WATCH K LEVELS Senna/Docusate Sodium (Senna Plus) 1 tab PO BID [facility] Last Admin: 05/24/18 20:44 Dose: 1 tab Sertraline HCl (Zoloft) 50 mg PO DAILY [facility] Sodium Chloride (Saline Flush) 10 ml FLUSH ASDIRECTED PRN PRN Reason: Keep Vein Open Last Admin: 05/24/18 12:14 Dose: 10 ml Sodium Chloride ([place] Nasal [place]) 0 ml TIFFANI QID PRN PRN Reason: RHINITIS Tamsulosin HCl (Flomax) 0.8 mg PO DAILY [facility] Temazepam (Restoril) 7.5 mg PO BEDTIME PRN PRN Reason: Sleep Tramadol HCl (Ultram) 50 mg PO BID [facility] Last Admin: 05/24/18 20:44 Dose: 50 mg Discontinued Medications Acetaminophen (Tylenol) 650 mg PO Q4H PRN PRN Reason: Pain (Mild 1-3)/fever Fentanyl (Sublimaze) Confirm Administered Dose 100 mcg .ROUTE .STK-MED ONE Stop: 05/25/18 08:31 Sodium Chloride (Normal Saline) 1,000 mls @ 500 mls/hr IV ONETIME ONE Stop: 05/24/18 13:58 Last Admin: 05/24/18 12:13 Dose: 999 mls/hr Sodium Chloride (Normal Saline) 250 mls @ 125 mls/hr IV ONETIME ONE Stop: 05/24/18 23:21 Last Admin: 05/25/18 02:31 Dose: 125 mls/hr Lidocaine HCl (Xylocaine-Mpf 1%) Confirm Administered Dose 4 mls @ as directed .ROUTE .STK-MED ONE Stop: 05/25/18 08:30 Non-Formulary Medication (Mag Carb/Al Hydrox/Alginic Ac [Gaviscon Extra Strength Liquid]) 15 ml PO TID PRN PRN Reason: Indigestion Propofol (Diprivan 20 Ml) Confirm Administered Dose 200 mg .ROUTE .STK-MED ONE Stop: 05/25/18 08:30 Sodium Chloride ([place] Nasal [place]) 0 ml TIFFANI DAILY PRN PRN Reason: RHINITIS
[2018-05-25] MEDS: Metoprolol Tartrate 50 MG Tab PO SCH ×2 (08:58→22:14)
[2018-05-25] MEDS ORDERED: Ferrous Sulfate 325 MG Tab PO SCH (09:00)
--- NOTE | 2018-05-25 09:08 | PCM.CONSN ---
- General Info Date of Service: 05/25/18 - Patient Data Vitals - Most Recent: Last Vital Signs Temp 98.4 F 05/25/18 08:56 Pulse 73 05/25/18 08:58 Resp 24 H 05/25/18 08:56 BP 132/66 05/25/18 08:58 Pulse Ox 97 05/25/18 08:56 Weight - Most Recent: 112.536 kg I&O - Last 24 Hours: Intake & Output 05/24/18 05/25/18 05/25/18 23:59 07:59 15:59 Intake Total 1545 885 Output Total 1050 Balance 1545 -165 Lab Results Last 24 Hours: Laboratory Results - last 24 hr 05/24/18 05/24/18 05/24/18 Range/Units 11:45 11:45 11:45 WBC 12.18 H (4.23-9.07) K/mm3 RBC 1.78 L (4.63-6.08) M/mm3 Hgb 5.6 L* (13.7-17.5) gm/L Hct 18.7 L (40.1-51.0) % MCV 105.1 H (79.0-92.2) fl MCH 31.5 (25.7-32.2) pg MCHC 29.9 L (32.2-35.5) g/dl RDW Std Deviation 64.7 H (35.1-43.9) fL Plt Count 318 (163-337) K/mm3 MPV 9.2 L (9.4-12.3) fl Neut % (Auto) (34.0-67.9) % Lymph % (Auto) (21.8-53.1) % [place] % (Auto) (5.3-12.2) % Eos % (Auto) (0.8-7.0) Baso % (Auto) (0.1-1.2) % Neut # (Auto) (1.78-5.38) K/mm3 Lymph # (Auto) (1.32-3.57) K/mm3 [place] # (Auto) (0.30-0.82) K/mm3 Eos # (Auto) (0.04-0.54) K/mm3 Baso # (Auto) (0.01-0.08) K/mm3 Neutrophils % (Manual) 81 H (40-60) % Band Neutrophils % 0 (0-10) % Lymphocytes % (Manual) 15 L (20-40) % Atypical Lymphs % 0 % Monocytes % (Manual) 1 L (2-10) % Eosinophils % (Manual) 3 (0.8-7.0) % Basophils % (Manual) 0 L (0.2-1.2) Platelet Estimate Adequate Polychromasia 2+ moderate Hypochromasia 1+ slight Anisocytosis 2+ moderate Macrocytosis 1+ slight RBC Morph Comment Not Reportable PT 11.4 (9.5-12.1) SECONDS INR 1.05 APTT 26 (24-31) SECONDS Sodium 138 (136-145) mEq/L Potassium 3.9 (3.5-5.1) mEq/L Chloride 105 (98-107) mEq/L Carbon Dioxide 23 (21-32) mEq/L Anion Gap 13.9 (5-15) BUN 34 H (7-18) mg/dL Creatinine 1.4 H (0.7-1.3) mg/dL Est Cr Clr Drug Dosing 37.98 mL/min Estimated GFR (MDRD) 49 (>60) mL/min BUN/Creatinine Ratio 24.3 H (14-18) Glucose 99 (83-115) mg/dL Calcium 8.7 (8.5-10.1) mg/dL Magnesium (1.8-2.4) mg/dl Total Bilirubin 0.4 (0.2-1.0) mg/dL AST 42 H (15-37) U/L ALT 18 (16-63) U/L Alkaline Phosphatase 58 (46-116) U/L Troponin I < 0.017 (0.00-0.056) ng/mL NT-Pro-B Natriuret Pep (0-450) pg/mL Total Protein 6.7 (6.4-8.2) g/dl Albumin 3.3 L (3.4-5.0) g/dl Globulin 3.4 gm/dL Albumin/Globulin Ratio 1.0 (1-2) MRSA (PCR) Blood Type Gel Antibody Screen Crossmatch 05/24/18 05/24/18 05/24/18 Range/Units 11:45 11:45 16:32 WBC (4.23-9.07) K/mm3 RBC (4.63-6.08) M/mm3 Hgb (13.7-17.5) gm/L Hct (40.1-51.0) % MCV (79.0-92.2) fl MCH (25.7-32.2) pg MCHC (32.2-35.5) g/dl RDW Std Deviation (35.1-43.9) fL Plt Count (163-337) K/mm3 MPV (9.4-12.3) fl Neut % (Auto) (34.0-67.9) % Lymph % (Auto) (21.8-53.1) % [place] % (Auto) (5.3-12.2) % Eos % (Auto) (0.8-7.0) Baso % (Auto) (0.1-1.2) % Neut # (Auto) (1.78-5.38) K/mm3 Lymph # (Auto) (1.32-3.57) K/mm3 [place] # (Auto) (0.30-0.82) K/mm3 Eos # (Auto) (0.04-0.54) K/mm3 Baso # (Auto) (0.01-0.08) K/mm3 Neutrophils % (Manual) (40-60) % Band Neutrophils % (0-10) % Lymphocytes % (Manual) (20-40) % Atypical Lymphs % % Monocytes % (Manual) (2-10) % Eosinophils % (Manual) (0.8-7.0) % Basophils % (Manual) (0.2-1.2) Platelet Estimate Polychromasia Hypochromasia Anisocytosis Macrocytosis RBC Morph Comment PT (9.5-12.1) SECONDS INR APTT (24-31) SECONDS Sodium (136-145) mEq/L Potassium (3.5-5.1) mEq/L Chloride (98-107) mEq/L Carbon Dioxide (21-32) mEq/L Anion Gap (5-15) BUN (7-18) mg/dL Creatinine (0.7-1.3) mg/dL Est Cr Clr Drug Dosing mL/min Estimated GFR (MDRD) (>60) mL/min BUN/Creatinine Ratio (14-18) Glucose (83-115) mg/dL Calcium (8.5-10.1) mg/dL Magnesium (1.8-2.4) mg/dl Total Bilirubin (0.2-1.0) mg/dL AST (15-37) U/L ALT (16-63) U/L Alkaline Phosphatase (46-116) U/L Troponin I (0.00-0.056) ng/mL NT-Pro-B Natriuret Pep 850 H (0-450) pg/mL Total Protein (6.4-8.2) g/dl Albumin (3.4-5.0) g/dl Globulin gm/dL Albumin/Globulin Ratio (1-2) MRSA (PCR) Negative Blood Type O POSITIVE Gel Antibody Screen Negative Crossmatch See Detail 05/25/18 05/25/18 Range/Units 05:45 05:45 WBC 9.38 H (4.23-9.07) K/mm3 RBC 2.67 L (4.63-6.08) M/mm3 Hgb 8.1 L (13.7-17.5) gm/L Hct 25.6 L (40.1-51.0) % MCV 95.9 H (79.0-92.2) fl MCH 30.3 (25.7-32.2) pg MCHC 31.6 L (32.2-35.5) g/dl RDW Std Deviation 61.6 H (35.1-43.9) fL Plt Count 271 (163-337) K/mm3 MPV 8.8 L (9.4-12.3) fl Neut % (Auto) 78.4 H (34.0-67.9) % Lymph % (Auto) 10.1 L (21.8-53.1) % [place] % (Auto) 8.5 (5.3-12.2) % Eos % (Auto) 2.0 (0.8-7.0) Baso % (Auto) 0.3 (0.1-1.2) % Neut # (Auto) 7.34 H (1.78-5.38) K/mm3 Lymph # (Auto) 0.95 L (1.32-3.57) K/mm3 [place] # (Auto) 0.80 (0.30-0.82) K/mm3 Eos # (Auto) 0.19 (0.04-0.54) K/mm3 Baso # (Auto) 0.03 (0.01-0.08) K/mm3 Neutrophils % (Manual) (40-60) % Band Neutrophils % (0-10) % Lymphocytes % (Manual) (20-40) % Atypical Lymphs % % Monocytes % (Manual) (2-10) % Eosinophils % (Manual) (0.8-7.0) % Basophils % (Manual) (0.2-1.2) Platelet Estimate Polychromasia Hypochromasia Anisocytosis Macrocytosis RBC Morph Comment PT (9.5-12.1) SECONDS INR APTT (24-31) SECONDS Sodium 141 (136-145) mEq/L Potassium 4.1 (3.5-5.1) mEq/L Chloride 108 H (98-107) mEq/L Carbon Dioxide 26 (21-32) mEq/L Anion Gap 11.1 (5-15) BUN 28 H (7-18) mg/dL Creatinine 1.1 (0.7-1.3) mg/dL Est Cr Clr Drug Dosing 48.33 mL/min Estimated GFR (MDRD) > 60 (>60) mL/min BUN/Creatinine Ratio 25.5 H (14-18) Glucose 93 (83-115) mg/dL Calcium 8.1 L (8.5-10.1) mg/dL Magnesium 1.9 (1.8-2.4) mg/dl Total Bilirubin (0.2-1.0) mg/dL AST (15-37) U/L ALT (16-63) U/L Alkaline Phosphatase (46-116) U/L Troponin I (0.00-0.056) ng/mL NT-Pro-B Natriuret Pep (0-450) pg/mL Total Protein (6.4-8.2) g/dl Albumin (3.4-5.0) g/dl Globulin gm/dL Albumin/Globulin Ratio (1-2) MRSA (PCR) Blood Type Gel Antibody Screen Crossmatch Med Orders - Current: Current Medications Acetaminophen (Tylenol) 650 mg PO Q6H PRN PRN Reason: Pain Hydrocodone Bitart/Acetaminophen ([place] 325-5 Mg) 1 tab PO Q4H PRN PRN Reason: Pain (moderate 4-6) Al Hydroxide/Mg Hydroxide (Mag-Al Plus) 30 ml PO QID PRN PRN Reason: Indigestion Albuterol/Ipratropium (Duoneb 3.0-0.5 Mg/3 Ml) 3 ml NEB Q4H PRN PRN Reason: Shortness Of Breath/wheezing Artificial Tears (Isopto Tears 0.5% Ophth Soln) 0 ml EYEBOTH TID [facility] Last Admin: 05/24/18 20:43 Dose: 1 drop Ascorbic Acid (Vitamin C) 500 mg PO DAILY [facility] Calcium Carbonate/Glycine (Tums) 500 mg PO QID PRN PRN Reason: Indigestion Capsaicin (Zostrix 0.025% Crm) 0 gm TOP DAILY [facility] Cholecalciferol (Vitamin D3) 2,000 units PO DAILY [facility] Cyanocobalamin (Vitamin B12) 1,000 mcg PO DAILY [facility] Diltiazem HCl (Cardizem Cd) 240 mg PO DAILY [facility] Ferrous Sulfate (Ferrous Sulfate) 325 mg PO DAILY [facility] Flunisolide (Nasalide Nasal [place]) 0 ml TIFFANI BID [facility] Last Admin: 05/24/18 20:42 Dose: 2 spr Guaifenesin (Mucinex) 600 mg PO BID [facility] Last Admin: 05/24/18 20:43 Dose: 600 mg Hydralazine HCl (Apresoline) 10 mg IVPUSH Q4H PRN PRN Reason: Hypertension Hydrochlorothiazide (Hydrochlorothiazide) 12.5 mg PO DAILY [facility] Hydromorphone HCl (Dilaudid) 0.25 mg IVPUSH Q2H PRN PRN Reason: Pain (severe 7-10) Promethazine HCl 12.5 mg/ (Sodium Chloride) 50.5 mls @ 100 mls/hr IV Q6H PRN PRN Reason: Nausea/Vomiting Lisinopril (Prinivil) 10 mg PO DAILY [facility] Loratadine (Claritin) 10 mg PO DAILY [facility] Lorazepam (Ativan) 0.25 mg IV Q6H PRN PRN Reason: Anxiety Lorazepam (Ativan) 2 mg IVPUSH Q4H PRN PRN Reason: Seizures Magnesium Hydroxide (Milk Of Magnesia) 30 ml PO DAILY PRN PRN Reason: constipation Magnesium Sulfate (Pharmacy To Dose - Magnesium Replacement) 0 dose .XX ASDIRECTED PRN PRN Reason: RX TO WATCH MAG LEVELS Metoprolol Tartrate (Lopressor) 50 mg PO BID [facility] Last Admin: 05/25/18 08:58 Dose: 50 mg Metoprolol Tartrate (Lopressor) 5 mg IVPUSH Q4H PRN PRN Reason: Tachycardia Nystatin (Nystop) 0 gm TOP TID [facility] Last Admin: 05/24/18 20:51 Dose: 1 applic Ondansetron HCl (Zofran) 4 mg IV Q6H PRN PRN Reason: Nausea/Vomiting Oxymetazoline HCl (Afrin Original 0.05% Nasal [place]) 0 ml TIFFANI QID PRN PRN Reason: nasal decongestant Phenol/Menthol (Cepastat) 1 deacon MUCMEM Q4H PRN PRN Reason: Cough Potassium Chloride (Pharmacy To Dose - Potassium Replacement) 0 dose .XX ASDIRECTED PRN PRN Reason: RX TO WATCH K LEVELS Senna/Docusate Sodium (Senna Plus) 1 tab PO BID [facility] Last Admin: 05/24/18 20:44 Dose: 1 tab Sertraline HCl (Zoloft) 50 mg PO DAILY [facility] Sodium Chloride (Saline Flush) 10 ml FLUSH ASDIRECTED PRN PRN Reason: Keep Vein Open Last Admin: 05/24/18 12:14 Dose: 10 ml Sodium Chloride ([place] Nasal [place]) 0 ml TIFFANI QID PRN PRN Reason: RHINITIS Tamsulosin HCl (Flomax) 0.8 mg PO DAILY [facility] Temazepam (Restoril) 7.5 mg PO BEDTIME PRN PRN Reason: Sleep Tramadol HCl (Ultram) 50 mg PO BID [facility] Last Admin: 05/24/18 20:44 Dose: 50 mg Discontinued Medications Acetaminophen (Tylenol) 650 mg PO Q4H PRN PRN Reason: Pain (Mild 1-3)/fever Fentanyl (Sublimaze) Confirm Administered Dose 100 mcg .ROUTE .STK-MED ONE Stop: 05/25/18 08:31 Sodium Chloride (Normal Saline) 1,000 mls @ 500 mls/hr IV ONETIME ONE Stop: 05/24/18 13:58 Last Admin: 05/24/18 12:13 Dose: 999 mls/hr Sodium Chloride (Normal Saline) 250 mls @ 125 mls/hr IV ONETIME ONE Stop: 05/24/18 23:21 Last Admin: 05/25/18 02:31 Dose: 125 mls/hr Lidocaine HCl (Xylocaine-Mpf 1%) Confirm Administered Dose 4 mls @ as directed .ROUTE .STK-MED ONE Stop: 05/25/18 08:30 Non-Formulary Medication (Mag Carb/Al Hydrox/Alginic Ac [Gaviscon Extra Strength Liquid]) 15 ml PO TID PRN PRN Reason: Indigestion Propofol (Diprivan 20 Ml) Confirm Administered Dose 200 mg .ROUTE .STK-MED ONE Stop: 05/25/18 08:30 Sodium Chloride ([place] Nasal [place]) 0 ml TIFFANI DAILY PRN PRN Reason: RHINITIS Consult PN Assessment/Plan Procedures: Procedures ASSAY OF FREE THYROXINE (07/14/17) ASSAY OF MAGNESIUM (07/14/17) ASSAY OF NATRIURETIC PEPTIDE (07/14/17) ASSAY OF TROPONIN QUANT (07/14/17) ASSAY THYROID STIM HORMONE (07/14/17) CHEST X-RAY 1 VIEW FRONTAL (07/14/17) COMPLETE CBC W/AUTO DIFF WBC (07/14/17) COMPREHEN METABOLIC PANEL (07/14/17) CT ANGIOGRAPHY CHEST (07/14/17) ELECTROCARDIOGRAM TRACING (07/14/17) EMERGENCY DEPT VISIT (07/14/17) FIBRIN DEGRADATION QUANT (07/14/17) HYDRATE IV INFUSION ADD-ON (07/14/17) METABOLIC PANEL TOTAL CA (07/14/17) MR-STAPH DNA AMP PROBE (07/14/17) OCCULT BLD FECES 1-3 TESTS (07/14/17) OT EVAL MOD COMPLEX 45 MIN (07/14/17) PROTHROMBIN TIME (07/14/17) PT EVAL MOD COMPLEX 30 MIN (07/14/17) ROUTINE VENIPUNCTURE (07/14/17) THER/PROPH/DIAG INJ IV PUSH (07/14/17) THER/PROPH/DIAG INJ SC/IM (07/14/17) THER/PROPH/DIAG IV INF ADDON (07/14/17) THER/PROPH/DIAG IV INF INIT (07/14/17) THROMBOPLASTIN TIME PARTIAL (07/14/17) TTE W/DOPPLER COMPLETE (07/14/17) Problem List Initiated/Reviewed/Updated: Yes My Orders Last 24 Hours: My Active Orders 05/25/18 09:03 Verify Patient Consent Obtain [RC] ASDIRECTED Schedule Procedure [COMM] Routine Plan: surgical consult dictated [place]
--- NOTE | 2018-05-25 10:24 | PCM.OPNOTE ---
- General Post-Op/Procedure Note Date of Surgery/Procedure: 05/25/18 Operative Procedure(s): egd Findings: mild chronic gastritic Pre Op Diagnosis: GI bleed anemia Post-Op Diagnosis: Same Anesthesia Technique: MAC Primary Surgeon: Cy Hinton Complications: None Condition: Good Free Text/Narrative:: Intake & Output 05/24/18 05/25/18 05/25/18 23:59 07:59 15:59 Intake Total 1545 885 Output Total 1050 Balance 1545 -165
--- NOTE | 2018-05-25 10:30 | PCM48HPAN ---
Post Anesthesia Note - EVALUATION WITHIN 48HRS OF ANESTHETIC Vital Signs in Normal Range: Yes Patient Participated in Evaluation: Yes Respiratory Function Stable: Yes Airway Patent: Yes Cardiovascular Function Stable: Yes Hydration Status Stable: Yes Pain Control Satisfactory: Yes Nausea and Vomiting Control Satisfactory: Yes Mental Status Recovered: Yes Pulse Rate: 73 SaO2: 94 Resp Rate: 17 Temperature: 36.9 C Blood Pressure: 120/80 Pulse Rate: 73
[2018-05-25] MEDS: Cyanocobalamin (Vitamin B12) 1,000 MCG Tab PO SCH (10:39)
[2018-05-25] MEDS: Cholecalciferol (Vitamin D3) 1,000 Unit Tab PO SCH (10:39)
[2018-05-25] MEDS: Tamsulosin 0.4 MG Cap.ER PO SCH (10:40)
[2018-05-25] MEDS: Diltiazem 120 MG Cap.CD PO SCH (10:40)
[2018-05-25] MEDS: guaiFENesin 600 MG Tab.ER PO SCH ×2 (10:41→22:16)
[2018-05-25] MEDS: Sertraline 50 MG Tab PO SCH (10:41)
[2018-05-25] MEDS: Lisinopril 10 MG Tab PO SCH (10:41)
[2018-05-25] MEDS: Loratadine 10 MG Tab PO SCH (10:41)
[2018-05-25] MEDS: Ascorbic Acid 500 MG Tab PO SCH (10:41)
[2018-05-25] MEDS: Hydrochlorothiazide 12.5 MG Cap PO SCH (10:42)
[2018-05-25] MEDS: traMADol 50 MG Tab PO SCH ×2 (10:42→22:40)
[2018-05-25] MEDS: Hypromellose 0.5% Ophth Soln 15 ML Bottle EYEBOTH SCH ×3 (10:46→22:16)
[2018-05-25] MEDS: Capsaicin 0.025% Crm 60 GM Tube TOP SCH (10:50)
[2018-05-25] MEDS: Nystatin Topical Powder 15 GM Bottle TOP SCH ×3 (10:51→22:12)
--- NOTE | 2018-05-25 11:21 | PCM.PN ---
<Talisha Henriquez - Last Filed: 05/25/18 13:00> - General Info Date of Service: 05/25/18 Admission Dx/Problem (Free Text): Admission Diagnosis/Problem Admission Diagnosis/Problem Anemia Functional Status: Reports: Pain Controlled (Patient reports no pain) - Review of Systems General: Reports: No Symptoms HEENT: Reports: Rhinitis (chronic), Other (Chronic maxillary sinus infection) Pulmonary: Reports: No Symptoms. Denies: Shortness of Breath, Pleuritic Chest Pain Cardiovascular: Reports: No Symptoms Gastrointestinal: Reports: No Symptoms. Denies: Abdominal Pain Genitourinary: Reports: Other (BPH) Musculoskeletal: Reports: Other (Osteoarthritis of knee; dislocation of C5-6) Skin: Reports: No Symptoms Neurological: Reports: Other (Parkinson's) Psychiatric: Reports: Depression - Patient Data Vitals - Most Recent: Last Vital Signs Temp 98.5 F 05/25/18 10:30 Pulse 68 05/25/18 10:40 Resp 17 05/25/18 10:30 BP 109/58 L 05/25/18 10:41 Pulse Ox 94 L 05/25/18 10:30 Weight - Most Recent: 112.536 kg I&O - Last 24 Hours: Intake & Output 05/24/18 05/25/18 05/25/18 22:59 06:59 14:59 Intake Total 1545 885 Output Total 1050 Balance 1545 -165 Lab Results Last 24 Hours: Laboratory Results - last 24 hr 05/24/18 05/24/18 05/24/18 Range/Units 11:45 11:45 11:45 WBC 12.18 H (4.23-9.07) K/mm3 RBC 1.78 L (4.63-6.08) M/mm3 Hgb 5.6 L* (13.7-17.5) gm/L Hct 18.7 L (40.1-51.0) % MCV 105.1 H (79.0-92.2) fl MCH 31.5 (25.7-32.2) pg MCHC 29.9 L (32.2-35.5) g/dl RDW Std Deviation 64.7 H (35.1-43.9) fL Plt Count 318 (163-337) K/mm3 MPV 9.2 L (9.4-12.3) fl Neut % (Auto) (34.0-67.9) % Lymph % (Auto) (21.8-53.1) % Cecil % (Auto) (5.3-12.2) % Eos % (Auto) (0.8-7.0) Baso % (Auto) (0.1-1.2) % Neut # (Auto) (1.78-5.38) K/mm3 Lymph # (Auto) (1.32-3.57) K/mm3 Cecil # (Auto) (0.30-0.82) K/mm3 Eos # (Auto) (0.04-0.54) K/mm3 Baso # (Auto) (0.01-0.08) K/mm3 Neutrophils % (Manual) 81 H (40-60) % Band Neutrophils % 0 (0-10) % Lymphocytes % (Manual) 15 L (20-40) % Atypical Lymphs % 0 % Monocytes % (Manual) 1 L (2-10) % Eosinophils % (Manual) 3 (0.8-7.0) % Basophils % (Manual) 0 L (0.2-1.2) Platelet Estimate Adequate Polychromasia 2+ moderate Hypochromasia 1+ slight Anisocytosis 2+ moderate Macrocytosis 1+ slight RBC Morph Comment Not Reportable PT 11.4 (9.5-12.1) SECONDS INR 1.05 APTT 26 (24-31) SECONDS Sodium 138 (136-145) mEq/L Potassium 3.9 (3.5-5.1) mEq/L Chloride 105 (98-107) mEq/L Carbon Dioxide 23 (21-32) mEq/L Anion Gap 13.9 (5-15) BUN 34 H (7-18) mg/dL Creatinine 1.4 H (0.7-1.3) mg/dL Est Cr Clr Drug Dosing 37.98 mL/min Estimated GFR (MDRD) 49 (>60) mL/min BUN/Creatinine Ratio 24.3 H (14-18) Glucose 99 (83-115) mg/dL Calcium 8.7 (8.5-10.1) mg/dL Magnesium (1.8-2.4) mg/dl Total Bilirubin 0.4 (0.2-1.0) mg/dL AST 42 H (15-37) U/L ALT 18 (16-63) U/L Alkaline Phosphatase 58 (46-116) U/L Troponin I < 0.017 (0.00-0.056) ng/mL NT-Pro-B Natriuret Pep (0-450) pg/mL Total Protein 6.7 (6.4-8.2) g/dl Albumin 3.3 L (3.4-5.0) g/dl Globulin 3.4 gm/dL Albumin/Globulin Ratio 1.0 (1-2) MRSA (PCR) Blood Type Gel Antibody Screen Crossmatch 05/24/18 05/24/18 05/24/18 Range/Units 11:45 11:45 16:32 WBC (4.23-9.07) K/mm3 RBC (4.63-6.08) M/mm3 Hgb (13.7-17.5) gm/L Hct (40.1-51.0) % MCV (79.0-92.2) fl MCH (25.7-32.2) pg MCHC (32.2-35.5) g/dl RDW Std Deviation (35.1-43.9) fL Plt Count (163-337) K/mm3 MPV (9.4-12.3) fl Neut % (Auto) (34.0-67.9) % Lymph % (Auto) (21.8-53.1) % Cecil % (Auto) (5.3-12.2) % Eos % (Auto) (0.8-7.0) Baso % (Auto) (0.1-1.2) % Neut # (Auto) (1.78-5.38) K/mm3 Lymph # (Auto) (1.32-3.57) K/mm3 Cecil # (Auto) (0.30-0.82) K/mm3 Eos # (Auto) (0.04-0.54) K/mm3 Baso # (Auto) (0.01-0.08) K/mm3 Neutrophils % (Manual) (40-60) % Band Neutrophils % (0-10) % Lymphocytes % (Manual) (20-40) % Atypical Lymphs % % Monocytes % (Manual) (2-10) % Eosinophils % (Manual) (0.8-7.0) % Basophils % (Manual) (0.2-1.2) Platelet Estimate Polychromasia Hypochromasia Anisocytosis Macrocytosis RBC Morph Comment PT (9.5-12.1) SECONDS INR APTT (24-31) SECONDS Sodium (136-145) mEq/L Potassium (3.5-5.1) mEq/L Chloride (98-107) mEq/L Carbon Dioxide (21-32) mEq/L Anion Gap (5-15) BUN (7-18) mg/dL Creatinine (0.7-1.3) mg/dL Est Cr Clr Drug Dosing mL/min Estimated GFR (MDRD) (>60) mL/min BUN/Creatinine Ratio (14-18) Glucose (83-115) mg/dL Calcium (8.5-10.1) mg/dL Magnesium (1.8-2.4) mg/dl Total Bilirubin (0.2-1.0) mg/dL AST (15-37) U/L ALT (16-63) U/L Alkaline Phosphatase (46-116) U/L Troponin I (0.00-0.056) ng/mL NT-Pro-B Natriuret Pep 850 H (0-450) pg/mL Total Protein (6.4-8.2) g/dl Albumin (3.4-5.0) g/dl Globulin gm/dL Albumin/Globulin Ratio (1-2) MRSA (PCR) Negative Blood Type O POSITIVE Gel Antibody Screen Negative Crossmatch See Detail 05/25/18 05/25/18 Range/Units 05:45 05:45 WBC 9.38 H (4.23-9.07) K/mm3 RBC 2.67 L (4.63-6.08) M/mm3 Hgb 8.1 L (13.7-17.5) gm/L Hct 25.6 L (40.1-51.0) % MCV 95.9 H (79.0-92.2) fl MCH 30.3 (25.7-32.2) pg MCHC 31.6 L (32.2-35.5) g/dl RDW Std Deviation 61.6 H (35.1-43.9) fL Plt Count 271 (163-337) K/mm3 MPV 8.8 L (9.4-12.3) fl Neut % (Auto) 78.4 H (34.0-67.9) % Lymph % (Auto) 10.1 L (21.8-53.1) % Cecil % (Auto) 8.5 (5.3-12.2) % Eos % (Auto) 2.0 (0.8-7.0) Baso % (Auto) 0.3 (0.1-1.2) % Neut # (Auto) 7.34 H (1.78-5.38) K/mm3 Lymph # (Auto) 0.95 L (1.32-3.57) K/mm3 Cecil # (Auto) 0.80 (0.30-0.82) K/mm3 Eos # (Auto) 0.19 (0.04-0.54) K/mm3 Baso # (Auto) 0.03 (0.01-0.08) K/mm3 Neutrophils % (Manual) (40-60) % Band Neutrophils % (0-10) % Lymphocytes % (Manual) (20-40) % Atypical Lymphs % % Monocytes % (Manual) (2-10) % Eosinophils % (Manual) (0.8-7.0) % Basophils % (Manual) (0.2-1.2) Platelet Estimate Polychromasia Hypochromasia Anisocytosis Macrocytosis RBC Morph Comment PT (9.5-12.1) SECONDS INR APTT (24-31) SECONDS Sodium 141 (136-145) mEq/L Potassium 4.1 (3.5-5.1) mEq/L Chloride 108 H (98-107) mEq/L Carbon Dioxide 26 (21-32) mEq/L Anion Gap 11.1 (5-15) BUN 28 H (7-18) mg/dL Creatinine 1.1 (0.7-1.3) mg/dL Est Cr Clr Drug Dosing 48.33 mL/min Estimated GFR (MDRD) > 60 (>60) mL/min BUN/Creatinine Ratio 25.5 H (14-18) Glucose 93 (83-115) mg/dL Calcium 8.1 L (8.5-10.1) mg/dL Magnesium 1.9 (1.8-2.4) mg/dl Total Bilirubin (0.2-1.0) mg/dL AST (15-37) U/L ALT (16-63) U/L Alkaline Phosphatase (46-116) U/L Troponin I (0.00-0.056) ng/mL NT-Pro-B Natriuret Pep (0-450) pg/mL Total Protein (6.4-8.2) g/dl Albumin (3.4-5.0) g/dl Globulin gm/dL Albumin/Globulin Ratio (1-2) MRSA (PCR) Blood Type Gel Antibody Screen Crossmatch Med Orders - Current: Current Medications Acetaminophen (Tylenol) 650 mg PO Q6H PRN PRN Reason: Pain Hydrocodone Bitart/Acetaminophen ([place]vin 325-5 Mg) 1 tab PO Q4H PRN PRN Reason: Pain (moderate 4-6) Al Hydroxide/Mg Hydroxide (Mag-Al Plus) 30 ml PO QID PRN PRN Reason: Indigestion Albuterol/Ipratropium (Duoneb 3.0-0.5 Mg/3 Ml) 3 ml NEB Q4H PRN PRN Reason: Shortness Of Breath/wheezing Artificial Tears (Isopto Tears 0.5% Ophth Soln) [address] [facility] Last Admin: 05/25/18 10:46 Dose: 1 drop Ascorbic Acid (Vitamin C) [address] [facility] Last Admin: 05/25/18 10:41 Dose: 500 mg Calcium Carbonate/Glycine (Tums) 500 mg PO QID PRN PRN Reason: Indigestion Capsaicin (Zostrix 0.025% Crm) [address] [facility] Last Admin: 05/25/18 10:50 Dose: Not Given Cholecalciferol (Vitamin D3) 2,[address] [facility] Last Admin: 05/25/18 10:39 Dose: 2,000 units Cyanocobalamin (Vitamin B12) 1,[address] [facility] Last Admin: 05/25/18 10:39 Dose: 1,000 mcg Diltiazem HCl (Cardizem Cd) [address] [facility] Last Admin: 05/25/18 10:40 Dose: 240 mg Ferrous Sulfate (Ferrous Sulfate) [address] [facility] Last Admin: 05/25/18 10:42 Dose: 325 mg Flunisolide (Nasalide Nasal [place]) [address] [facility] Last Admin: 05/25/18 10:47 Dose: 2 spr Guaifenesin (Mucinex) [address] [facility] Last Admin: 05/25/18 10:41 Dose: 600 mg Hydralazine HCl (Apresoline) 10 mg IVPUSH Q4H PRN PRN Reason: Hypertension Hydrochlorothiazide (Hydrochlorothiazide) 12.[address] [facility] Last Admin: 05/25/18 10:42 Dose: 12.5 mg Hydromorphone HCl (Dilaudid) 0.25 mg IVPUSH Q2H PRN PRN Reason: Pain (severe 7-10) Promethazine HCl 12.5 mg/ (Sodium Chloride) 50.5 mls @ 100 mls/hr IV Q6H PRN PRN Reason: Nausea/Vomiting Lisinopril (Prinivil) [address] [facility] Last Admin: 05/25/18 10:41 Dose: 10 mg Loratadine (Claritin) [address] [facility] Last Admin: 05/25/18 10:41 Dose: 10 mg Lorazepam (Ativan) 0.25 mg IV Q6H PRN PRN Reason: Anxiety Lorazepam (Ativan) 2 mg IVPUSH Q4H PRN PRN Reason: Seizures Magnesium Hydroxide (Milk Of Magnesia) 30 ml PO DAILY PRN PRN Reason: constipation Magnesium Sulfate (Pharmacy To Dose - Magnesium Replacement) 0 dose .XX ASDIRECTED PRN PRN Reason: RX TO WATCH MAG LEVELS Metoprolol Tartrate (Lopressor) [address] [facility] Last Admin: 05/25/18 08:58 Dose: 50 mg Metoprolol Tartrate (Lopressor) 5 mg IVPUSH Q4H PRN PRN Reason: Tachycardia Nystatin (Nystop) [address] [facility] Last Admin: 05/25/18 10:51 Dose: 15 applic Ondansetron HCl (Zofran) 4 mg IV Q6H PRN PRN Reason: Nausea/Vomiting Oxymetazoline HCl (Afrin Original 0.05% Nasal [place]) 0 ml TIFFANI QID PRN PRN Reason: nasal decongestant Phenol/Menthol (Cepastat) 1 deacon MUCMEM Q4H PRN PRN Reason: Cough Polyethylene Glycol/Electrolytes (Golytely) 4,000 ml PO ONETIME ONE Stop: 05/25/18 17:01 Potassium Chloride (Pharmacy To Dose - Potassium Replacement) 0 dose .XX ASDIRECTED PRN PRN Reason: RX TO WATCH K LEVELS Senna/Docusate Sodium (Senna Plus) [address] [facility] Last Admin: 05/25/18 10:41 Dose: 1 tab Sertraline HCl (Zoloft) [address] [facility] Last Admin: 05/25/18 10:41 Dose: 50 mg Sodium Chloride (Saline Flush) 10 ml FLUSH ASDIRECTED PRN PRN Reason: Keep Vein Open Last Admin: 05/24/18 12:14 Dose: 10 ml Sodium Chloride ([place] Nasal [place]) 0 ml TIFFANI QID PRN PRN Reason: RHINITIS Tamsulosin HCl (Flomax) 0.[address] [facility] Last Admin: 05/25/18 10:40 Dose: 0.8 mg Temazepam (Restoril) 7.5 mg PO BEDTIME PRN PRN Reason: Sleep Tramadol HCl (Ultram) [address] [facility] Last Admin: 05/25/18 10:42 Dose: 50 mg Discontinued Medications Acetaminophen (Tylenol) 650 mg PO Q4H PRN PRN Reason: Pain (Mild 1-3)/fever Fentanyl (Sublimaze) Confirm Administered Dose 100 mcg .ROUTE .STK-MED ONE Stop: 05/25/18 08:31 Sodium Chloride (Normal Saline) 1,000 mls @ 500 mls/hr IV ONETIME ONE Stop: 05/24/18 13:58 Last Admin: 05/24/18 12:13 Dose: 999 mls/hr Sodium Chloride (Normal Saline) 250 mls @ 125 mls/hr IV ONETIME ONE Stop: 05/24/18 23:21 Last Admin: 05/25/18 02:31 Dose: 125 mls/hr Lidocaine HCl (Xylocaine-Mpf 1%) Confirm Administered Dose 4 mls @ as directed .ROUTE .STK-MED ONE Stop: 05/25/18 08:30 Non-Formulary Medication (Mag Carb/Al Hydrox/Alginic Ac [Gaviscon Extra Strength Liquid]) 15 ml PO TID PRN PRN Reason: Indigestion Propofol (Diprivan 20 Ml) Confirm Administered Dose 200 mg .ROUTE .STK-MED ONE Stop: 05/25/18 08:30 Sodium Chloride ([place] Nasal [place]) 0 ml TIFFANI DAILY PRN PRN Reason: RHINITIS - Exam General: Alert, Cooperative, No Acute Distress HEENT: Pupils Equal, Pupils Reactive, Mucous Membr. Moist/[place] Neck: Supple Lungs: Clear to Auscultation, Normal Respiratory Effort Cardiovascular: Regular Rate, No Murmurs GI/Abdominal Exam: Normal Bowel Sounds, Soft, Non-Tender (Male) Exam: Deferred Back Exam: Normal Inspection Extremities: Normal Inspection, Non-Tender, No Pedal Edema Skin: Intact Neurological: No New Focal Deficit Psy/Mental Status: Alert, Normal Mood - Problem List Review Problem List Initiated/Reviewed/Updated: Yes - Plan Plan:: Assessment: Acute: Anemia * Improved with 3 units of packed RBCs. Hgb is now 8.1, RBC 2.67, and Hct 25.6 * Labs on admission: RBC 1.78; Hgb 5.6; Hct 18.7 * Most likely due to GI bleed. Patient reports having black stools for "a while " * Upper endoscopy showed mild chronic gastritis and a sliding hiatal hernia, but no acute ulceration or irritation Prerenal Azotemia * Improved with hydration and increased blood volume. BUN now 28, Creatinine 1.1 , and estimated GFR > 60. * Labs on admission: BUN 34; creatinine 1.4; estimated GFR 49 Plan: * Dr. Hinton performed endoscopy and will perform colonoscopy on 05/26/18 * Prepare for colonoscopy tomorrow with a clear liquid diet and ordered preparation regimen * Supplement folic acid, vitamin B12, and iron to aid in hematopoiesis * Hold Zarelto * Avoid gastroerosive agents like NSAIDs, aspirin * Routine labs in AM to assess hemoglobin status * Code status: DNR * PCP: Sunny Briseno <Jonelle Burch T - Last Filed: 05/25/18 16:59> - General Info Subjective Update: Follow Up Functional Status: Reports: Pain Controlled, Urinating. Denies: New Symptoms - Review of Systems General: Denies: Fever, Weakness, Fatigue, Malaise, Chills HEENT: Reports: No Symptoms Cardiovascular: Denies: Chest Pain, Palpitations, Dyspnea on Exertion, Lightheadedness Gastrointestinal: Denies: Nausea, Vomiting Genitourinary: Reports: No Symptoms Skin: Denies: Cyanosis, Mottled, Pallor, Diaphoresis, Bruising Neurological: Reports: Weakness, Gait Disturbance, Other. Denies: Confusion Psychiatric: Denies: Depression, Anxiety, Agitation, Hallucinations Systems Review Comment:: No overnight or acute issues. His Hgb is stable at 8.1. No episode or rectal bleed report by his nurse. He just came back from endoscopy with no reports of any abnormal findings. - Patient Data Vitals - Most Recent: Last Vital Signs Temp 36.9 C 05/25/18 10:30 Pulse 67 05/25/18 11:30 Resp 17 05/25/18 10:30 BP 109/54 L 05/25/18 14:21 Pulse Ox 99 05/25/18 11:30 I&O - Last 24 Hours: Intake & Output 05/25/18 05/25/18 05/25/18 06:59 14:59 22:59 Intake Total 885 720 Output Total 1050 Balance -165 720 Lab Results Last 24 Hours: Laboratory Results - last 24 hr 05/24/18 05/24/18 05/25/18 Range/Units 11:45 16:32 05:45 WBC 9.38 H (4.23-9.07) K/mm3 RBC 2.67 L (4.63-6.08) M/mm3 Hgb 8.1 L (13.7-17.5) gm/L Hct 25.6 L (40.1-51.0) % MCV 95.9 H (79.0-92.2) fl MCH 30.3 (25.7-32.2) pg MCHC 31.6 L (32.2-35.5) g/dl RDW Std Deviation 61.6 H (35.1-43.9) fL Plt Count 271 (163-337) K/mm3 MPV 8.8 L (9.4-12.3) fl Neut % (Auto) 78.4 H (34.0-67.9) % Lymph % (Auto) 10.1 L (21.8-53.1) % Cecil % (Auto) 8.5 (5.3-12.2) % Eos % (Auto) 2.0 (0.8-7.0) Baso % (Auto) 0.3 (0.1-1.2) % Neut # (Auto) 7.34 H (1.78-5.38) K/mm3 Lymph # (Auto) 0.95 L (1.32-3.57) K/mm3 Cecil # (Auto) 0.80 (0.30-0.82) K/mm3 Eos # (Auto) 0.19 (0.04-0.54) K/mm3 Baso # (Auto) 0.03 (0.01-0.08) K/mm3 Sodium (136-145) mEq/L Potassium (3.5-5.1) mEq/L Chloride (98-107) mEq/L Carbon Dioxide (21-32) mEq/L Anion Gap (5-15) BUN (7-18) mg/dL Creatinine (0.7-1.3) mg/dL Est Cr Clr Drug Dosing mL/min Estimated GFR (MDRD) (>60) mL/min BUN/Creatinine Ratio (14-18) Glucose (83-115) mg/dL Calcium (8.5-10.1) mg/dL Magnesium (1.8-2.4) mg/dl MRSA (PCR) Negative Blood Type O POSITIVE Gel Antibody Screen Negative Crossmatch See Detail 05/25/18 Range/Units 05:45 WBC (4.23-9.07) K/mm3 RBC (4.63-6.08) M/mm3 Hgb (13.7-17.5) gm/L Hct (40.1-51.0) % MCV (79.0-92.2) fl MCH (25.7-32.2) pg MCHC (32.2-35.5) g/dl RDW Std Deviation (35.1-43.9) fL Plt Count (163-337) K/mm3 MPV (9.4-12.3) fl Neut % (Auto) (34.0-67.9) % Lymph % (Auto) (21.8-53.1) % [place] % (Auto) (5.3-12.2) % Eos % (Auto) (0.8-7.0) Baso % (Auto) (0.1-1.2) % Neut # (Auto) (1.78-5.38) K/mm3 Lymph # (Auto) (1.32-3.57) K/mm3 [place] # (Auto) (0.30-0.82) K/mm3 Eos # (Auto) (0.04-0.54) K/mm3 Baso # (Auto) (0.01-0.08) K/mm3 Sodium 141 (136-145) mEq/L Potassium 4.1 (3.5-5.1) mEq/L Chloride 108 H (98-107) mEq/L Carbon Dioxide 26 (21-32) mEq/L Anion Gap 11.1 (5-15) BUN 28 H (7-18) mg/dL Creatinine 1.1 (0.7-1.3) mg/dL Est Cr Clr Drug Dosing 48.33 mL/min Estimated GFR (MDRD) > 60 (>60) mL/min BUN/Creatinine Ratio 25.5 H (14-18) Glucose 93 (83-115) mg/dL Calcium 8.1 L (8.5-10.1) mg/dL Magnesium 1.9 (1.8-2.4) mg/dl MRSA (PCR) Blood Type Gel Antibody Screen Crossmatch Med Orders - Current: Current Medications Acetaminophen (Tylenol) 650 mg PO Q6H PRN PRN Reason: Pain Hydrocodone Bitart/Acetaminophen (Calvin 325-5 Mg) 1 tab PO Q4H PRN PRN Reason: Pain (moderate 4-6) Al Hydroxide/Mg Hydroxide (Mag-Al Plus) 30 ml PO QID PRN PRN Reason: Indigestion Albuterol/Ipratropium (Duoneb 3.0-0.5 Mg/3 Ml) 3 ml NEB Q4H PRN PRN Reason: Shortness Of Breath/wheezing Artificial Tears (Isopto Tears 0.5% Ophth Soln) [address] [facility] Last Admin: 05/25/18 15:55 Dose: 1 drop Ascorbic Acid (Vitamin C) [address] [facility] Last Admin: 05/25/18 10:41 Dose: 500 mg Calcium Carbonate/Glycine (Tums) 500 mg PO QID PRN PRN Reason: Indigestion Capsaicin (Zostrix 0.025% Crm) [address] [facility] Last Admin: 05/25/18 10:50 Dose: Not Given Cholecalciferol (Vitamin D3) 2,[address] [facility] Last Admin: 05/25/18 10:39 Dose: 2,000 units Cyanocobalamin (Vitamin B12) 1,[address] [facility] Last Admin: 05/25/18 10:39 Dose: 1,000 mcg Diltiazem HCl (Cardizem Cd) [address] [facility] Last Admin: 05/25/18 10:40 Dose: 240 mg Famotidine (Pepcid) [address] [facility] Stop: 05/26/18 09:01 Flunisolide (Nasalide Nasal [place]) [address] [facility] Last Admin: 05/25/18 10:47 Dose: 2 spr Folic Acid (Folic Acid) [address] [facility] Guaifenesin (Mucinex) [address] [facility] Last Admin: 05/25/18 10:41 Dose: 600 mg Hydralazine HCl (Apresoline) 10 mg IVPUSH Q4H PRN PRN Reason: Hypertension Hydrochlorothiazide (Hydrochlorothiazide) 12.[address] [facility] Last Admin: 05/25/18 10:42 Dose: 12.5 mg Hydromorphone HCl (Dilaudid) 0.25 mg IVPUSH Q2H PRN PRN Reason: Pain (severe 7-10) Promethazine HCl 12.5 mg/ (Sodium Chloride) 50.5 mls @ 100 mls/hr IV Q6H PRN PRN Reason: Nausea/Vomiting Lisinopril (Prinivil) [address] [facility] Last Admin: 05/25/18 10:41 Dose: 10 mg Loratadine (Claritin) [address] [facility] Last Admin: 05/25/18 10:41 Dose: 10 mg Lorazepam (Ativan) 0.25 mg IV Q6H PRN PRN Reason: Anxiety Lorazepam (Ativan) 2 mg IVPUSH Q4H PRN PRN Reason: Seizures Magnesium Hydroxide (Milk Of Magnesia) 30 ml PO DAILY PRN PRN Reason: constipation Magnesium Sulfate (Pharmacy To Dose - Magnesium Replacement) 0 dose .XX ASDIRECTED PRN PRN Reason: RX TO WATCH MAG LEVELS Metoprolol Tartrate (Lopressor) [address] [facility] Last Admin: 05/25/18 08:58 Dose: 50 mg Metoprolol Tartrate (Lopressor) 5 mg IVPUSH Q4H PRN PRN Reason: Tachycardia Nystatin (Nystop) [address] [facility] Last Admin: 05/25/18 15:55 Dose: 1 applic Ondansetron HCl (Zofran) 4 mg IV Q6H PRN PRN Reason: Nausea/Vomiting Oxymetazoline HCl (Afrin Original 0.05% Nasal [place]) 0 ml TIFFANI QID PRN PRN Reason: nasal decongestant Phenol/Menthol (Cepastat) 1 deacon MUCMEM Q4H PRN PRN Reason: Cough Polyethylene Glycol/Electrolytes (Golytely) 4,000 ml PO ONETIME ONE Stop: 05/25/18 17:01 Potassium Chloride (Pharmacy To Dose - Potassium Replacement) 0 dose .XX ASDIRECTED PRN PRN Reason: RX TO WATCH K LEVELS Senna/Docusate Sodium (Senna Plus) [address] [facility] Last Admin: 05/25/18 10:41 Dose: 1 tab Sertraline HCl (Zoloft) [address] [facility] Last Admin: 05/25/18 10:41 Dose: 50 mg Sodium Chloride (Saline Flush) 10 ml FLUSH ASDIRECTED PRN PRN Reason: Keep Vein Open Last Admin: 05/24/18 12:14 Dose: 10 ml Sodium Chloride ([place] Nasal [place]) 0 ml TIFFANI QID PRN PRN Reason: RHINITIS Tamsulosin HCl (Flomax) 0.[address] [facility] Last Admin: 05/25/18 10:40 Dose: 0.8 mg Temazepam (Restoril) 7.5 mg PO BEDTIME PRN PRN Reason: Sleep Thiamine HCl (Vitamin B-1) [address] [facility] Tramadol HCl (Ultram) [address] [facility] Last Admin: 05/25/18 10:42 Dose: 50 mg Discontinued Medications Acetaminophen (Tylenol) 650 mg PO Q4H PRN PRN Reason: Pain (Mild 1-3)/fever Fentanyl (Sublimaze) Confirm Administered Dose 100 mcg .ROUTE .STK-MED ONE Stop: 05/25/18 08:31 Ferrous Sulfate (Ferrous Sulfate) [address] [facility] Last Admin: 05/25/18 10:42 Dose: 325 mg Sodium Chloride (Normal Saline) 1,000 mls @ 500 mls/hr IV ONETIME ONE Stop: 05/24/18 13:58 Last Admin: 05/24/18 12:13 Dose: 999 mls/hr Sodium Chloride (Normal Saline) 250 mls @ 125 mls/hr IV ONETIME ONE Stop: 05/24/18 23:21 Last Admin: 05/25/18 02:31 Dose: 125 mls/hr Lidocaine HCl (Xylocaine-Mpf 1%) Confirm Administered Dose 4 mls @ as directed .ROUTE .STK-MED ONE Stop: 05/25/18 08:30 Ferric Sodium Gluconate Complex 250 mg/ Sodium Chloride 120 mls @ 60 mls/hr IV ONETIME ONE Stop: 05/25/18 13:59 Last Admin: 05/25/18 12:21 Dose: 60 mls/hr Non-Formulary Medication (Mag Carb/Al Hydrox/Alginic Ac [Gaviscon Extra Strength Liquid]) 15 ml PO TID PRN PRN Reason: Indigestion Propofol (Diprivan 20 Ml) Confirm Administered Dose 200 mg .ROUTE .STK-MED ONE Stop: 05/25/18 08:30 Sodium Chloride ([place] Nasal [place]) 0 ml TIFFANI DAILY PRN PRN Reason: RHINITIS - Exam General: Alert, Cooperative Cardiovascular: Regular Rhythm GI/Abdominal Exam: No Organomegaly, No Distention, No Abnormal Bruit, No Mass Peripheral Pulses: 2+: Dorsalis Pedis (L), Dorsalis Pedis (R) Skin: Warm, Dry Psy/Mental Status: Normal Affect Physical Findings Comments:: 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 - My Orders Last 24 Hours: My Active Orders 05/24/18 17:15 Notify Provider Consults [RC] ASDIRECTED Consult to Physician [CONS] Routine 05/24/18 17:16 Acetaminophen [Tylenol] 650 mg PO Q6H PRN Alum Hydrox/Mag Hydrox/Simeth [Mag-Al Plus] 30 ml PO QID PRN Calcium Carbonate [Tums] 500 mg PO QID PRN Magnesium Hydroxide [Milk of Magnesia] 30 ml PO DAILY PRN Oxymetazoline [Afrin Original 0.05% Nasal [place]] 0 ml TIFFANI QID PRN Phenol [Cepastat] 1 deacon MUCMEM Q4H PRN 05/24/18 17:32 Height and Weight [RC] 04 Oxygen Therapy [RC] PRN Up With Assistance [RC] ASDIRECTED Up ad Nalini [RC] ASDIRECTED VTE/DVT Education [RC] DAILY Vital Signs [RC] Q4HR Consult to Case Management [CONS] Routine Consult to Transformation Consultant [CONS] Routine Consult to Senior Oracle Applications Developer [CONS] Routine Consult to Spiritual Care [CONS] Routine Acetaminophen/HYDROcodone [Calvin 325-5 MG] 1 tab PO Q4H PRN Albuterol/Ipratropium [DuoNeb 3.0-0.5 MG/3 ML] 3 ml NEB Q4H PRN HYDROmorphone [Dilaudid] 0.25 mg IVPUSH Q2H PRN LORazepam [Ativan] 0.25 mg IV Q6H PRN Ondansetron [Zofran] 4 mg IV Q6H PRN Promethazine [Phenergan] 12.5 mg Sodium Chloride 0.9% [Normal Saline] 50 ml IV Q6H Temazepam [Restoril] 7.5 mg PO BEDTIME PRN Resuscitation Status Routine 05/24/18 17:33 Cardiac Monitoring [RC] CONTINUOUS Intake and Output [RC] 04,16 05/24/18 17:34 Sequential Compression Device [OM.PC] Per Unit Routine 05/24/18 17:36 RT Aerosol Therapy [RC] ASDIRECTED 05/24/18 17:45 LORazepam [Ativan] 2 mg IVPUSH Q4H PRN Magnesium Rep Pharmacy to Dose [Pharmacy to Dose - Magnesium Replacement] 0 dose .XX ASDIRECTED PRN Metoprolol Tartrate [Lopressor] 5 mg IVPUSH Q4H PRN Potassium Rep Pharmacy to Dose [Pharmacy to Dose - Potassium Replacement] 0 dose .XX ASDIRECTED PRN hydrALAZINE [Apresoline] 10 mg IVPUSH Q4H PRN 05/24/18 19:53 Transfuse PRBC [Transfuse Red Blood Cells] [COMM] Routine 05/24/18 21:00 Docusate Sodium/Sennosides [Senna Plus] 1 tab PO BID Flunisolide [Nasalide Nasal [place]] 0 ml TIFFANI BID Hypromellose [Isopto Tears 0.5% Ophth Soln] 0 ml EYEBOTH TID Metoprolol Tartrate [Lopressor] 50 mg PO BID guaiFENesin [Mucinex] 600 mg PO BID traMADol [Ultram] 50 mg PO BID 05/24/18 22:10 Sodium Chloride 0.65% [[place] Nasal [place]] 0 ml TIFFANI QID PRN 05/25/18 09:00 Ascorbic Acid [Vitamin C] 500 mg PO DAILY Capsaicin [Zostrix 0.025% Crm] 0 gm TOP DAILY Cholecalciferol (Vitamin D3) [Vitamin D3] 2,000 units PO DAILY Cyanocobalamin (Vitamin B12) [Vitamin B12] 1,000 mcg PO DAILY Diltiazem [Cardizem CD] 240 mg PO DAILY Hydrochlorothiazide 12.5 mg PO DAILY Lisinopril [Prinivil] 10 mg PO DAILY Loratadine [Claritin] 10 mg PO DAILY Sertraline [Zoloft] 50 mg PO DAILY Tamsulosin [Flomax] 0.8 mg PO DAILY 05/25/18 21:00 Famotidine [Pepcid] 20 mg IVPUSH BID Folic Acid 1 mg PO BEDTIME Thiamine [Vitamin B-1] 100 mg PO BEDTIME - Plan Plan:: Assessment/Plan: Acute: Anemia * Hct is 5.6; baseline is 11 * 2/2 GI Bleed; EGD is benign * Risk factors: On anticoagulation and anti-platelet * No previous hx/o GI bleed the past * S/p 2 units of PRBC Transfusion * GS following for further evaluation * No nausea or vomiting * Monitor H/H PAF * Discussed the need to stop the xarelto with family due to active bleed * They were made aware; he would be at increased risk of stroke without anticoagulation * He remains in SR by auscultation and Telemetry Resolved: S/p Pre-renal Azotemia * BUN 34; creatinine 1.4; estimated GFR 49 ---> > 60 * Due to insufficient perfusion Chronic: maxillary sinus inspection, sinusitis, hypertension, constipation, nausea, BPH, osteoarthritis, dislocation of C5-C6, parkinsonian syndrome, depression and obesity Plan: * He is much better clinically * Routine AM Labs * Continue IV hydration * Colonoscopy in Am per Dr. Hinton * DVT/GI PPx: SCDs and H2B * Code status: DNR/DNI * PCP: Sunny Briseno Spoke to family at bedside. Updated them about his most recent labs, findings on EGD and treatment plan and clinical status. Possible discharge in AM if lower endoscopy is negative.
--- NOTE | 2018-05-25 12:54 | CONS ---
CONSULTING PHYSICIAN: Cy Hinton MD DATE OF CONSULTATION: 05/25/2018 HISTORY OF PRESENT ILLNESS: An 78-year-old who comes into his primary care's office with hemoglobin of 5.5. He is not lightheaded nor dizzy. No symptoms. No nausea or vomiting. Did report abdominal pain in the right upper quadrant, which has since resolved. He was brought into the hospital and given transfusions, and his hemoglobin has gone up to the 8 range. The patient states that he has been taking some aspirin. He has black tarry stools, not sure of the duration. He is on Xarelto for atrial fibrillation and multiple medications which have been reviewed. PAST MEDICAL HISTORY: Hypertension, osteoarthritis, Parkinson disease, and history of atrial fibrillation. SOCIAL HISTORY: Use of aspirin. No smoking, drinking, or drug use. REVIEW OF SYSTEMS: No chest pain, shortness of breath, cough, hoarseness, wheezing, fainting, weakness, numbness, or convulsions. Did have black tarry stools. No diarrhea. PHYSICAL EXAMINATION: GENERAL: Reveals alert, cooperative male. VITAL SIGNS: Blood pressure 132/50, respirations 16, pulse 96. HEENT: Eyes: Sclerae white. Extraocular muscle motion normal. Oral cavity: Healthy mucous membrane with mouth and tongue. NECK: Supple. No nodes. No thyromegaly. Trachea midline. LUNGS: Clear. No rales, rhonchi, fremitus, or dullness. HEART: Heart tones are regular rate. No S3, S4, jugular venous distention or murmurs. ABDOMEN: Soft. No tenderness, guarding, rebound, organomegaly, or pulsatile masses. Upper and lower extremities; no angulation deformities. NEUROLOGIC: He does have some stiffness due to his Parkinson's. ASSESSMENT: Gastrointestinal bleed. PLAN: Plan for upper GI endoscopy. Discussed this with the caregiver and the power of sports attorney. Risks and complications. He understands and consents. GILBERTO /[id number]
--- NOTE | 2018-05-25 12:57 | OR ---
DATE OF OPERATION: 05/25/2018 SURGEON: Cy Hinton MD PREOPERATIVE DIAGNOSIS: Anemia. POSTOPERATIVE DIAGNOSIS: Anemia. OPERATION PERFORMED: Esophagogastroduodenoscopy done under IV sedation. FINDINGS: Some chronic gastritis, flattening of the mucosa throughout the stomach, some mild inflammation in the duodenal bulb and the antrum. There is a hiatal hernia at GE junction located about 35 cm which is sliding. There is no acute pathology at the GE junction and the balance of the esophagus free of any disease. DESCRIPTION OF PROCEDURE: The patient was taken to the endoscopy room, placed in a supine position, connected to the monitoring equipment, placed in the left lateral position. Bite block was inserted and video Olympus gastroscope placed in the posterior oropharynx under direct vision, threaded past the cricopharyngeus down the esophagus into the stomach. Stomach was insufflated and the scope passed through the pylorus to the second portion of the duodenum. This was then slowly withdrawn showing pathology as described above. The antrum was viewed and showed some mild inflammation, but no active ulceration in either the duodenum or the antrum. Body and cardia of the stomach other than chronic gastritis did not show any acute ulceration. J maneuver demonstrated sliding hiatal hernia and normal fundus. Scope withdrawn to the GE junction which did not show any acute pathology. No pathology in the hiatal hernia pouch. The esophagus was viewed, scope withdrawn, was normal. The patient tolerated the procedure and sent to recovery room in a stable condition. ANESTHESIA: ESTIMATED BLOOD LOSS: MMODAL /[id number]
[2018-05-25] MEDS ORDERED: Polyethylene Glycol/Electrolytes 4,000 ML Bottle PO ONE (17:00)
[2018-05-25] MEDS: Famotidine 20 MG/2 ML SDV IVPUSH SCH (22:14)
[2018-05-25] MEDS: Thiamine 100 MG Tab PO SCH (22:15)
[2018-05-25] MEDS: Folic Acid 1 MG Tab PO SCH (22:15)
--- NOTE | 2018-05-26 07:31 | PCM.PREANE ---
Preanesthetic Assessment - Anesthesia/Transfusion/Family Hx Anesthesia History: Prior Anesthesia Without Reaction Type of Anesthesia Reaction: Other (see below) (hard time waking up) Family History of Anesthesia Reaction: No Transfusion History: Prior Transfusion Without Reaction - Review of Systems General: Weakness Pulmonary: Shortness of Breath Cardiovascular: Dyspnea on Exertion Gastrointestinal: Other (dark tarry stools) Neurological: Tremors Other: Reports: Easy Bleeding, Easy Bruising, Sinus Problem (chronic sinusitis) , Depression - Physical Assessment NPO Status Date: 05/25/18 NPO Status Time: 00:00 Pulse: 67 O2 Sat by Pulse Oximetry: 97 Respiratory Rate: 16 Blood Pressure: 124/63 Temperature: 37.1 C Vital Signs: Last Vital Signs Temp 37.1 C 05/26/18 04:10 Pulse 67 05/26/18 04:10 Resp 16 05/26/18 04:10 BP 124/63 05/26/18 04:10 Pulse Ox 97 05/26/18 04:10 Height: 1.68 m Weight: 112.854 kg ASA Class: 3 Mental Status: Alert & Oriented x3 Airway Class: Mallampati = 2 Dentition: Reports: Dentures, Missing Tooth/Teeth (bottom) Thyro-Mental Finger Breadths: 3 Mouth Opening Finger Breadths: 3 ROM/Head Extension: Limited/Partial Lungs: Clear to Auscultation, Normal Respiratory Effort Cardiovascular: Regular Rate, Regular Rhythm - Lab Values: Laboratory Last Values WBC 9.38 K/mm3 (4.23-9.07) H 05/25/18 05:45 RBC 2.67 M/mm3 (4.63-6.08) L 05/25/18 05:45 Hgb 8.1 gm/L (13.7-17.5) L 05/25/18 05:45 Hct 25.6 % (40.1-51.0) L 05/25/18 05:45 MCV 95.9 fl (79.0-92.2) H 05/25/18 05:45 MCH 30.3 pg (25.7-32.2) 05/25/18 05:45 MCHC 31.6 g/dl (32.2-35.5) L 05/25/18 05:45 RDW Std Deviation 61.6 fL (35.1-43.9) H 05/25/18 05:45 Plt Count 271 K/mm3 (163-337) 05/25/18 05:45 MPV 8.8 fl (9.4-12.3) L 05/25/18 05:45 Neut % (Auto) 78.4 % (34.0-67.9) H 05/25/18 05:45 Lymph % (Auto) 10.1 % (21.8-53.1) L 05/25/18 05:45 [place] % (Auto) 8.5 % (5.3-12.2) 05/25/18 05:45 Eos % (Auto) 2.0 (0.8-7.0) 05/25/18 05:45 Baso % (Auto) 0.3 % (0.1-1.2) 05/25/18 05:45 Neut # (Auto) 7.34 K/mm3 (1.78-5.38) H 05/25/18 05:45 Lymph # (Auto) 0.95 K/mm3 (1.32-3.57) L 05/25/18 05:45 [place] # (Auto) 0.80 K/mm3 (0.30-0.82) 05/25/18 05:45 Eos # (Auto) 0.19 K/mm3 (0.04-0.54) 05/25/18 05:45 Baso # (Auto) 0.03 K/mm3 (0.01-0.08) 05/25/18 05:45 Neutrophils % (Manual) 81 % (40-60) H 05/24/18 11:45 Band Neutrophils % 0 % (0-10) 05/24/18 11:45 Lymphocytes % (Manual) 15 % (20-40) L 05/24/18 11:45 Atypical Lymphs % 0 % 05/24/18 11:45 Monocytes % (Manual) 1 % (2-10) L 05/24/18 11:45 Eosinophils % (Manual) 3 % (0.8-7.0) 05/24/18 11:45 Basophils % (Manual) 0 (0.2-1.2) L 05/24/18 11:45 Platelet Estimate Adequate 05/24/18 11:45 Polychromasia 2+ moderate 05/24/18 11:45 Hypochromasia 1+ slight 05/24/18 11:45 Anisocytosis 2+ moderate 05/24/18 11:45 Macrocytosis 1+ slight 05/24/18 11:45 RBC Morph Comment Not Reportable 05/24/18 11:45 PT 11.4 SECONDS (9.5-12.1) 05/24/18 11:45 INR 1.05 05/24/18 11:45 APTT 26 SECONDS (24-31) 05/24/18 11:45 Sodium 141 mEq/L (136-145) 05/25/18 05:45 Potassium 4.1 mEq/L (3.5-5.1) 05/25/18 05:45 Chloride 108 mEq/L (98-107) H 05/25/18 05:45 Carbon Dioxide 26 mEq/L (21-32) 05/25/18 05:45 Anion Gap 11.1 (5-15) 05/25/18 05:45 BUN 28 mg/dL (7-18) H 05/25/18 05:45 Creatinine 1.1 mg/dL (0.7-1.3) 05/25/18 05:45 Est Cr Clr Drug Dosing 48.33 mL/min 05/25/18 05:45 Estimated GFR (MDRD) > 60 mL/min (>60) 05/25/18 05:45 BUN/Creatinine Ratio 25.5 (14-18) H 05/25/18 05:45 Glucose 93 mg/dL (83-115) 05/25/18 05:45 Calcium 8.1 mg/dL (8.5-10.1) L 05/25/18 05:45 Magnesium 1.9 mg/dl (1.8-2.4) 05/25/18 05:45 Total Bilirubin 0.4 mg/dL (0.2-1.0) 05/24/18 11:45 AST 42 U/L (15-37) H 05/24/18 11:45 ALT 18 U/L (16-63) 05/24/18 11:45 Alkaline Phosphatase 58 U/L (46-116) 05/24/18 11:45 Troponin I < 0.017 ng/mL (0.00-0.056) 05/24/18 11:45 NT-Pro-B Natriuret Pep 850 pg/mL (0-450) H 05/24/18 11:45 Total Protein 6.7 g/dl (6.4-8.2) 05/24/18 11:45 Albumin 3.3 g/dl (3.4-5.0) L 05/24/18 11:45 Globulin 3.4 gm/dL 05/24/18 11:45 Albumin/Globulin Ratio 1.0 (1-2) 05/24/18 11:45 MRSA (PCR) Negative 05/24/18 16:32 Blood Type O POSITIVE 05/24/18 11:45 Gel Antibody Screen Negative 05/24/18 11:45 Crossmatch See Detail 05/24/18 11:45 - Allergies Allergies/Adverse Reactions: Allergies Allergy/AdvReac Type Severity Reaction Status Date / Time bee venom protein (honey bee) Allergy Intermediate Bronchospas Verified 18:21 ms hornet venom Allergy Intermediate Bronchospas Verified 05/24/18 18:21 ms Penicillins Allergy Mild Rash Verified 05/24/18 18:21 - Anesthesia Plan Pre-Op Medication Ordered: Beta Kenia Beta Kenia: Metoprolol Med Last Dose Date: 05/25/18 Med Last Dose Time: 22:15 - Acknowledgements Anesthesia Type Planned: MAC Pt an Appropriate Candidate for the Planned Anesthesia: Yes Alternatives and Risks of Anesthesia Discussed w Pt/Guardian: Yes Pt/Guardian Understands and Agrees with Anesthesia Plan: Yes PreAnesthesia Questionnaire HEENT History: Reports: Sinusitis Other HEENT History: chronic maxillary sinus infection, chronic rhinitis Cardiovascular History: Reports: Hypertension Other Cardiovascular History: atrial flutter Respiratory History: Reports: None Gastrointestinal History: Reports: Chronic Constipation, Other (See Below) Other Gastrointestinal History: nausea Genitourinary History: Reports: BPH Other Genitourinary History: BPH Musculoskeletal History: Reports: Osteoarthritis Other Musculoskeletal History: osteoarthritis of knees, disloaction of c5-c6 Neurological History: Reports: Parkinson's Psychiatric History: Reports: Depression Endocrine/Metabolic History: Reports: None Hematologic History: Reports: B12 Deficiency, Iron Deficiency Immunologic History: Reports: None Oncologic (Cancer) History: Reports: None Dermatologic History: Reports: Other (See Below) Other Dermatologic History: folliliculitis - Infectious Disease History Infectious Disease History: Reports: Chicken Pox, Measles, Mumps - Past Surgical History Musculoskeletal Surgical History: Reports: Knee Replacement, Other (See Below) ( finger cut off) - SUBSTANCE USE Smoking Status *Q: Unknown Ever Smoked Tobacco Use Within Last Twelve Months: Snuff/Dip Other Tobacco Use Within Last Twelve Months: chews daily Second Hand Smoke Exposure: No Days Per Week of Alcohol Use: 7 (glass of whiskey a day) Number of Drinks Per Day: 1 Total Drinks Per Week: 7 Recreational Drug Use History: No - HOME MEDS Home Medications: Home Meds Acetaminophen [Tylenol] 650 mg PO Q6H PRN 05/24/18 [History] Aloe Vera/Sodium Chloride [[place] Saline Nasal Gel] 2 spray NASBOTH QID PRN [History] Alum Hydrox/Mag Hydrox/Simeth [Maalox Advanced] 30 ml PO QID PRN 05/24/18 [ History] Ascorbate Calcium [Vitamin C] 500 mg PO DAILY 05/24/18 [History] Calcium Carbonate [Tums] 200 mg PO QID PRN 05/24/18 [History] Cetirizine [ZyrTEC] 5 mg PO DAILY 05/24/18 [History] Cholecalciferol (Vitamin D3) [Vitamin D3] 2,000 units PO DAILY 05/24/18 [History ] Cyanocobalamin (Vitamin B12) [Vitamin B12] 1,000 mcg PO DAILY 05/24/18 [History] Diltiazem HCl [Diltiazem 24Hr Cd] 240 mg PO DAILY 05/24/18 [History] Docusate Sodium/Sennosides [Senokot-S] 1 tab PO BID 05/24/18 [History] Eucalyptus/Menthol [Cough Drops] 1 lozenge PO TID PRN 05/24/18 [History] Ferrous Sulfate 325 mg PO DAILY 05/24/18 [History] Fluticasone Propionate [Flonase] 2 spray NASBOTH BID 05/24/18 [History] Lisinopril/Hydrochlorothiazide [Zestoretic 10-12.5 mg Tablet] 1 tab PO DAILY 10/01 [History] Mag Carb/Al Hydrox/Alginic Ac [Gaviscon Extra Strength Liquid] 15 ml PO TID PRN 05/24/18 [History] Magnesium Hydroxide [Milk of Magnesia] 30 ml PO DAILY PRN 05/24/18 [History] Menthol/Camphor [[place] Anti-Itch] 1 applic TOP BID PRN 05/24/18 [History] Metoprolol Tartrate [Lopressor] 50 mg PO BID 05/24/18 [History] Oxymetazoline HCl [Mucinex Sinus-Max] 1 spray NASBOTH TID PRN 05/24/18 [History] Propylene Glycol [Systane Balance] 1 drop EYEBOTH TID 05/24/18 [History] Rivaroxaban [Xarelto] 20 mg PO DAILY 05/24/18 [History] Sertraline [Zoloft] 50 mg PO DAILY 05/24/18 [History] Tamsulosin [Flomax] 0.8 mg PO DAILY 05/24/18 [History] Trolamine Salicylate/Aloe Vera [Aspercreme 10%] 1 applic TOP TID PRN 05/24/18 [ History] guaiFENesin [Mucinex] 600 mg PO BID 05/24/18 [History] traMADol [Ultram] 50 mg PO BID 05/24/18 [History] - CURRENT (IN HOUSE) MEDS Current Meds: Current Medications Acetaminophen (Tylenol) 650 mg PO Q6H PRN PRN Reason: Pain Hydrocodone Bitart/Acetaminophen ([place] 325-5 Mg) 1 tab PO Q4H PRN PRN Reason: Pain (moderate 4-6) Al Hydroxide/Mg Hydroxide (Mag-Al Plus) 30 ml PO QID PRN PRN Reason: Indigestion Albuterol/Ipratropium (Duoneb 3.0-0.5 Mg/3 Ml) 3 ml NEB Q4H PRN PRN Reason: Shortness Of Breath/wheezing Artificial Tears (Isopto Tears 0.5% Ophth Soln) 0 ml EYEBOTH TID [facility] Last Admin: 05/25/18 22:16 Dose: 1 drop Ascorbic Acid (Vitamin C) 500 mg PO DAILY [facility] Last Admin: 05/25/18 10:41 Dose: 500 mg Calcium Carbonate/Glycine (Tums) 500 mg PO QID PRN PRN Reason: Indigestion Capsaicin (Zostrix 0.025% Crm) 0 gm TOP DAILY [facility] Last Admin: 05/25/18 10:50 Dose: Not Given Cholecalciferol (Vitamin D3) 2,000 units PO DAILY [facility] Last Admin: 05/25/18 10:39 Dose: 2,000 units Cyanocobalamin (Vitamin B12) 1,000 mcg PO DAILY [facility] Last Admin: 05/25/18 10:39 Dose: 1,000 mcg Diltiazem HCl (Cardizem Cd) 240 mg PO DAILY [facility] Last Admin: 05/25/18 10:40 Dose: 240 mg Famotidine (Pepcid) 20 mg IVPUSH BID [facility] Stop: 05/26/18 09:01 Last Admin: 05/25/18 22:14 Dose: 20 mg Flunisolide (Nasalide Nasal [place]) 0 ml TIFFANI BID [facility] Last Admin: 05/25/18 22:13 Dose: 1 spr Folic Acid (Folic Acid) 1 mg PO BEDTIME [facility] Last Admin: 05/25/18 22:15 Dose: 1 mg Guaifenesin (Mucinex) 600 mg PO BID [facility] Last Admin: 05/25/18 22:16 Dose: 600 mg Hydralazine HCl (Apresoline) 10 mg IVPUSH Q4H PRN PRN Reason: Hypertension Hydrochlorothiazide (Hydrochlorothiazide) 12.5 mg PO DAILY [facility] Last Admin: 05/25/18 10:42 Dose: 12.5 mg Hydromorphone HCl (Dilaudid) 0.25 mg IVPUSH Q2H PRN PRN Reason: Pain (severe 7-10) Promethazine HCl 12.5 mg/ (Sodium Chloride) 50.5 mls @ 100 mls/hr IV Q6H PRN PRN Reason: Nausea/Vomiting Lisinopril (Prinivil) 10 mg PO DAILY [facility] Last Admin: 05/25/18 10:41 Dose: 10 mg Loratadine (Claritin) 10 mg PO DAILY [facility] Last Admin: 05/25/18 10:41 Dose: 10 mg Lorazepam (Ativan) 0.25 mg IV Q6H PRN PRN Reason: Anxiety Lorazepam (Ativan) 2 mg IVPUSH Q4H PRN PRN Reason: Seizures Magnesium Hydroxide (Milk Of Magnesia) 30 ml PO DAILY PRN PRN Reason: constipation Magnesium Sulfate (Pharmacy To Dose - Magnesium Replacement) 0 dose .XX ASDIRECTED PRN PRN Reason: RX TO WATCH MAG LEVELS Metoprolol Tartrate (Lopressor) 50 mg PO BID [facility] Last Admin: 05/25/18 22:14 Dose: 50 mg Metoprolol Tartrate (Lopressor) 5 mg IVPUSH Q4H PRN PRN Reason: Tachycardia Nystatin (Nystop) 0 gm TOP TID [facility] Last Admin: 05/25/18 22:12 Dose: 1 applic Ondansetron HCl (Zofran) 4 mg IV Q6H PRN PRN Reason: Nausea/Vomiting Oxymetazoline HCl (Afrin Original 0.05% Nasal [place]) 0 ml TIFFANI QID PRN PRN Reason: nasal decongestant Phenol/Menthol (Cepastat) 1 de[place] MUCMEM Q4H PRN PRN Reason: Cough Potassium Chloride (Pharmacy To Dose - Potassium Replacement) 0 dose .XX ASDIRECTED PRN PRN Reason: RX TO WATCH K LEVELS Senna/Docusate Sodium (Senna Plus) 1 tab PO BID [facility] Last Admin: 05/25/18 22:15 Dose: 1 tab Sertraline HCl (Zoloft) 50 mg PO DAILY [facility] Last Admin: 05/25/18 10:41 Dose: 50 mg Sodium Chloride (Saline Flush) 10 ml FLUSH ASDIRECTED PRN PRN Reason: Keep Vein Open Last Admin: 05/24/18 12:14 Dose: 10 ml Sodium Chloride ([place] Nasal [place]) 0 ml TIFFANI QID PRN PRN Reason: RHINITIS Tamsulosin HCl (Flomax) 0.8 mg PO DAILY [facility] Last Admin: 05/25/18 10:40 Dose: 0.8 mg Temazepam (Restoril) 7.5 mg PO BEDTIME PRN PRN Reason: Sleep Last Admin: 05/25/18 22:15 Dose: 7.5 mg Thiamine HCl (Vitamin B-1) 100 mg PO BEDTIME [facility] Last Admin: 05/25/18 22:15 Dose: 100 mg Tramadol HCl (Ultram) 50 mg PO BID [facility] Last Admin: 05/25/18 10:42 Dose: 50 mg Discontinued Medications Acetaminophen (Tylenol) 650 mg PO Q4H PRN PRN Reason: Pain (Mild 1-3)/fever Fentanyl (Sublimaze) Confirm Administered Dose 100 mcg .ROUTE .STK-MED ONE Stop: 05/25/18 08:31 Ferrous Sulfate (Ferrous Sulfate) 325 mg PO DAILY [facility] Last Admin: 05/25/18 10:42 Dose: 325 mg Sodium Chloride (Normal Saline) 1,000 mls @ 500 mls/hr IV ONETIME ONE Stop: 05/24/18 13:58 Last Admin: 05/24/18 12:13 Dose: 999 mls/hr Sodium Chloride (Normal Saline) 250 mls @ 125 mls/hr IV ONETIME ONE Stop: 05/24/18 23:21 Last Admin: 05/25/18 02:31 Dose: 125 mls/hr Lidocaine HCl (Xylocaine-Mpf 1%) Confirm Administered Dose 4 mls @ as directed .ROUTE .STK-MED ONE Stop: 05/25/18 08:30 Ferric Sodium Gluconate Complex 250 mg/ Sodium Chloride 120 mls @ 60 mls/hr IV ONETIME ONE Stop: 05/25/18 13:59 Last Admin: 05/25/18 12:21 Dose: 60 mls/hr Non-Formulary Medication (Mag Carb/Al Hydrox/Alginic Ac [Gaviscon Extra Strength Liquid]) 15 ml PO TID PRN PRN Reason: Indigestion Polyethylene Glycol/Electrolytes (Golytely) 4,000 ml PO ONETIME ONE Stop: 05/25/18 17:01 Last Admin: 05/25/18 18:17 Dose: 4,000 ml Propofol (Diprivan 20 Ml) Confirm Administered Dose 200 mg .ROUTE .STK-MED ONE Stop: 05/25/18 08:30 Sodium Chloride ([place] Nasal [place]) 0 ml TIFFANI DAILY PRN PRN Reason: RHINITIS
[2018-05-26] MEDS: Ascorbic Acid 500 MG Tab PO SCH (08:13)
[2018-05-26] MEDS: guaiFENesin 600 MG Tab.ER PO SCH ×2 (08:13→21:50)
[2018-05-26] MEDS: traMADol 50 MG Tab PO SCH ×2 (08:13→21:51)
[2018-05-26] MEDS: Metoprolol Tartrate 50 MG Tab PO SCH ×2 (08:13→21:50)
[2018-05-26] MEDS: Hydrochlorothiazide 12.5 MG Cap PO SCH (08:13)
[2018-05-26] MEDS: Sertraline 50 MG Tab PO SCH (08:13)
[2018-05-26] MEDS: Lisinopril 10 MG Tab PO SCH (08:14)
[2018-05-26] MEDS: Diltiazem 120 MG Cap.CD PO SCH (08:14)
[2018-05-26] MEDS: Cholecalciferol (Vitamin D3) 1,000 Unit Tab PO SCH (08:14)
[2018-05-26] MEDS: Tamsulosin 0.4 MG Cap.ER PO SCH (08:14)
[2018-05-26] MEDS: Loratadine 10 MG Tab PO SCH (08:14)
[2018-05-26] MEDS: Cyanocobalamin (Vitamin B12) 1,000 MCG Tab PO SCH (08:14)
[2018-05-26] MEDS: Famotidine 20 MG/2 ML SDV IVPUSH SCH (08:15)
[2018-05-26] MEDS: Capsaicin 0.025% Crm 60 GM Tube TOP SCH (08:15)
[2018-05-26] MEDS: Hypromellose 0.5% Ophth Soln 15 ML Bottle EYEBOTH SCH ×3 (08:16→21:44)
[2018-05-26] MEDS: Nystatin Topical Powder 15 GM Bottle TOP SCH ×3 (08:17→21:54)
[2018-05-26] MEDS ORDERED: Lidocaine 1% 4 ML ONE (08:33)
[2018-05-26] MEDS ORDERED: Propofol 200 MG/20 ML SDV ONE ×2 (08:33→12:22)
[2018-05-26] MEDS ORDERED: fentaNYL 100 MCG/2 ML SDV ONE (08:33)
[2018-05-26] MEDS ORDERED: Sodium Chloride 0.9% 250 ML IV SCH (09:45)
[2018-05-26] MEDS ORDERED: Magnesium Oxide 400 MG Tab PO ONE (12:00)
[2018-05-26] MEDS ORDERED: Simethicone Drops 40 MG/0.6 ML 30 ML Bottle ONE (12:17)
[2018-05-26] MEDS ORDERED: ePHEDrine/Normal Saline 25 MG/5 ML Syringe ONE (12:21)
[2018-05-26] MEDS ORDERED: Phenylephrine/Normal Saline 100 MCG/ML 10 ML Syringe ONE (12:32)
--- NOTE | 2018-05-26 12:48 | PCM.OPNOTE ---
- General Post-Op/Procedure Note Date of Surgery/Procedure: 05/26/18 Operative Procedure(s): colonoscopy to cecum with polypectomy Pre Op Diagnosis: gi bleeding Post-Op Diagnosis: Same Anesthesia Technique: MAC Primary Surgeon: Cy Hinton EBL in mLs: 0 Complications: None Condition: Good Free Text/Narrative:: Intake & Output 05/25/18 05/26/18 05/26/18 23:59 07:59 15:59 Intake Total 1020 400 0 Output Total 125 Balance 1020 275 0
--- NOTE | 2018-05-26 13:04 | PCM48HPAN ---
Post Anesthesia Note - EVALUATION WITHIN 48HRS OF ANESTHETIC Vital Signs in Normal Range: Yes Patient Participated in Evaluation: Yes Respiratory Function Stable: Yes Airway Patent: Yes Cardiovascular Function Stable: Yes Hydration Status Stable: Yes Pain Control Satisfactory: Yes Nausea and Vomiting Control Satisfactory: Yes Mental Status Recovered: Yes Pulse Rate: 67 SaO2: 91 Resp Rate: 14 Temperature: 36.7 C Blood Pressure: 93/49 Pulse Rate: 67
--- NOTE | 2018-05-26 13:28 | OR ---
DATE OF OPERATION: 05/26/2018 SURGEON: Cy Hinton MD PREOPERATIVE DIAGNOSIS: GI bleed. POSTOPERATIVE DIAGNOSIS: GI bleed. OPERATION PERFORMED: Colonoscopy to cecum with removal of a 1.5 cm polyp on a stalk in the rectum. The removal was complete and it was retrieved and sent to pathology. FINDINGS: Polyp in the rectum as described above. Diverticulosis throughout the colon and old blood scattered throughout the colon. No source of bleeding was found. ANESTHESIA: Procedure done under IV sedation. DESCRIPTION OF PROCEDURE: The patient was taken to the endoscopy room, connected to monitoring equipment, given IV sedation, placed in left lateral position. Perianal area was inspected, it was normal. Rectal exam showed good sphincter tone. A video Olympus colonoscope was then introduced into the rectum and threaded up without problem to the cecum. The cecal anatomy showing the ileocecal valve and appendicular orifice was noted, and the prep was adequate throughout the colon. [place] Cleansing Score grade B. Scope slowly withdrawn irrigating the colon as needed, and the cecum, ascending colon, transverse colon, descending colon, sigmoid colon, and rectum were viewed. A snare was placed around the stalk of the polyp in the rectum and it was cleanly removed, retrieved, and sent to pathology. The above noted was found. The patient tolerated the procedure and sent to recovery room in a stable condition. ESTIMATED BLOOD LOSS: MMODAL /[id number]
--- NOTE | 2018-05-26 15:00 | PCM.PN ---
<Talisha Henriquez - Last Filed: 05/26/18 14:55> - General Info Date of Service: 05/26/18 Admission Dx/Problem (Free Text): Admission Diagnosis/Problem Admission Diagnosis/Problem Anemia Functional Status: Reports: Pain Controlled - Review of Systems General: Reports: No Symptoms HEENT: Reports: Sinus Congestion (chronic) Pulmonary: Reports: No Symptoms Cardiovascular: Reports: No Symptoms Gastrointestinal: Reports: No Symptoms Musculoskeletal: Reports: Joint Pain (Osteoarthritis of knee, dislocation of C5- 6) Skin: Reports: No Symptoms Neurological: Reports: No Symptoms Psychiatric: Reports: Depression - Patient Data Vitals - Most Recent: Last Vital Signs Temp 98.1 F 05/26/18 13:04 Pulse 77 05/26/18 14:32 Resp 14 05/26/18 13:04 BP 102/63 05/26/18 14:32 Pulse Ox 96 05/26/18 14:32 Weight - Most Recent: 112.854 kg I&O - Last 24 Hours: Intake & Output 05/25/18 05/26/18 05/26/18 22:59 06:59 14:59 Intake Total 1740 400 460 Output Total 125 Balance 1740 275 460 Lab Results Last 24 Hours: Laboratory Results - last 24 hr 05/24/18 05/26/18 05/26/18 Range/Units 11:45 08:40 08:40 WBC 9.13 H (4.23-9.07) K/mm3 RBC 2.36 L (4.63-6.08) M/mm3 Hgb 7.3 L* (13.7-17.5) gm/L Hct 23.1 L (40.1-51.0) % MCV 97.9 H (79.0-92.2) fl MCH 30.9 (25.7-32.2) pg MCHC 31.6 L (32.2-35.5) g/dl RDW Std Deviation 65.0 H (35.1-43.9) fL Plt Count 256 (163-337) K/mm3 MPV 8.3 L (9.4-12.3) fl Neut % (Auto) 81.5 H (34.0-67.9) % Lymph % (Auto) 7.1 L (21.8-53.1) % Mccormick % (Auto) 8.8 (5.3-12.2) % Eos % (Auto) 1.6 (0.8-7.0) Baso % (Auto) 0.3 (0.1-1.2) % Neut # (Auto) 7.44 H (1.78-5.38) K/mm3 Lymph # (Auto) 0.65 L (1.32-3.57) K/mm3 [place]ick # (Auto) 0.80 (0.30-0.82) K/mm3 Eos # (Auto) 0.15 (0.04-0.54) K/mm3 Baso # (Auto) 0.03 (0.01-0.08) K/mm3 Manual Slide Review Abnormal smear Magnesium 1.6 L (1.8-2.4) mg/dl Blood Type O POSITIVE Gel Antibody Screen Negative Crossmatch See Detail Med Orders - Current: Current Medications Acetaminophen (Tylenol) 650 mg PO Q6H PRN PRN Reason: Pain Hydrocodone Bitart/Acetaminophen ([place] 325-5 Mg) 1 tab PO Q4H PRN PRN Reason: Pain (moderate 4-6) Al Hydroxide/Mg Hydroxide (Mag-Al Plus) 30 ml PO QID PRN PRN Reason: Indigestion Albuterol/Ipratropium (Duoneb 3.0-0.5 Mg/3 Ml) 3 ml NEB Q4H PRN PRN Reason: Shortness Of Breath/wheezing Artificial Tears (Isopto Tears 0.5% Ophth Soln) 0 ml EYEBOTH TID [facility] Last Admin: 05/26/18 14:52 Dose: 1 drop Ascorbic Acid (Vitamin C) 500 mg PO DAILY [facility] Last Admin: 05/26/18 08:13 Dose: 500 mg Calcium Carbonate/Glycine (Tums) 500 mg PO QID PRN PRN Reason: Indigestion Capsaicin (Zostrix 0.025% Crm) 0 gm TOP DAILY [facility] Last Admin: 05/26/18 08:15 Dose: Not Given Cholecalciferol (Vitamin D3) 2,000 units PO DAILY [facility] Last Admin: 05/26/18 08:14 Dose: 2,000 units Cyanocobalamin (Vitamin B12) 1,000 mcg PO DAILY [facility] Last Admin: 05/26/18 08:14 Dose: 1,000 mcg Diltiazem HCl (Cardizem Cd) 240 mg PO DAILY [facility] Last Admin: 05/26/18 08:14 Dose: 240 mg Flunisolide (Nasalide Nasal [place]) 0 ml TIFFANI BID [facility] Last Admin: 05/26/18 08:15 Dose: 2 spr Folic Acid (Folic Acid) 1 mg PO BEDTIME [facility] Last Admin: 05/25/18 22:15 Dose: 1 mg Guaifenesin (Mucinex) 600 mg PO BID [facility] Last Admin: 05/26/18 08:13 Dose: 600 mg Hydralazine HCl (Apresoline) 10 mg IVPUSH Q4H PRN PRN Reason: Hypertension Hydrochlorothiazide (Hydrochlorothiazide) 12.5 mg PO DAILY [facility] Last Admin: 05/26/18 08:13 Dose: 12.5 mg Hydromorphone HCl (Dilaudid) 0.25 mg IVPUSH Q2H PRN PRN Reason: Pain (severe 7-10) Promethazine HCl 12.5 mg/ (Sodium Chloride) 50.5 mls @ 100 mls/hr IV Q6H PRN PRN Reason: Nausea/Vomiting Sodium Chloride (Normal Saline) 250 mls @ 50 mls/hr IV ASDIRECTED [facility] Lisinopril (Prinivil) 10 mg PO DAILY [facility] Last Admin: 05/26/18 08:14 Dose: 10 mg Loratadine (Claritin) 10 mg PO DAILY [facility] Last Admin: 05/26/18 08:14 Dose: 10 mg Lorazepam (Ativan) 0.25 mg IV Q6H PRN PRN Reason: Anxiety Lorazepam (Ativan) 2 mg IVPUSH Q4H PRN PRN Reason: Seizures Magnesium Hydroxide (Milk Of Magnesia) 30 ml PO DAILY PRN PRN Reason: constipation Magnesium Sulfate (Pharmacy To Dose - Magnesium Replacement) 0 dose .XX ASDIRECTED PRN PRN Reason: RX TO WATCH MAG LEVELS Metoprolol Tartrate (Lopressor) 50 mg PO BID [facility] Last Admin: 05/26/18 08:13 Dose: 50 mg Metoprolol Tartrate (Lopressor) 5 mg IVPUSH Q4H PRN PRN Reason: Tachycardia Nystatin (Nystop) 0 gm TOP TID [facility] Last Admin: 05/26/18 14:52 Dose: 1 applic Ondansetron HCl (Zofran) 4 mg IV Q6H PRN PRN Reason: Nausea/Vomiting Oxymetazoline HCl (Afrin Original 0.05% Nasal [place]) 0 ml TIFFANI QID PRN PRN Reason: nasal decongestant Phenol/Menthol (Cepastat) 1 deacon MUCMEM Q4H PRN PRN Reason: Cough Potassium Chloride (Pharmacy To Dose - Potassium Replacement) 0 dose .XX ASDIRECTED PRN PRN Reason: RX TO WATCH K LEVELS Senna/Docusate Sodium (Senna Plus) 1 tab PO BID [facility] Last Admin: 05/26/18 08:15 Dose: Not Given Sertraline HCl (Zoloft) 50 mg PO DAILY [facility] Last Admin: 05/26/18 08:13 Dose: 50 mg Sodium Chloride (Saline Flush) 10 ml FLUSH ASDIRECTED PRN PRN Reason: Keep Vein Open Last Admin: 05/24/18 12:14 Dose: 10 ml Sodium Chloride ([place] Nasal [place]) 0 ml TIFFANI QID PRN PRN Reason: RHINITIS Tamsulosin HCl (Flomax) 0.8 mg PO DAILY [facility] Last Admin: 05/26/18 08:14 Dose: 0.8 mg Temazepam (Restoril) 7.5 mg PO BEDTIME PRN PRN Reason: Sleep Last Admin: 05/25/18 22:15 Dose: 7.5 mg Thiamine HCl (Vitamin B-1) 100 mg PO BEDTIME [facility] Last Admin: 05/25/18 22:15 Dose: 100 mg Tramadol HCl (Ultram) 50 mg PO BID [facility] Last Admin: 05/26/18 08:13 Dose: 50 mg Discontinued Medications Acetaminophen (Tylenol) 650 mg PO Q4H PRN PRN Reason: Pain (Mild 1-3)/fever Ephedrine Sulfate (Ephedrine In Ns) Confirm Administered Dose 25 mg .ROUTE .STK- MED ONE Stop: 05/26/18 12:22 Famotidine (Pepcid) 20 mg IVPUSH BID [facility] Stop: 05/26/18 09:01 Last Admin: 05/26/18 08:15 Dose: 20 mg Fentanyl (Sublimaze) Confirm Administered Dose 100 mcg .ROUTE .STK-MED ONE Stop: 05/25/18 08:31 Fentanyl (Sublimaze) Confirm Administered Dose 100 mcg .ROUTE .STK-MED ONE Stop: 05/26/18 08:34 Ferrous Sulfate (Ferrous Sulfate) 325 mg PO DAILY [facility] Last Admin: 05/25/18 10:42 Dose: 325 mg Sodium Chloride (Normal Saline) 1,000 mls @ 500 mls/hr IV ONETIME ONE Stop: 05/24/18 13:58 Last Admin: 05/24/18 12:13 Dose: 999 mls/hr Sodium Chloride (Normal Saline) 250 mls @ 125 mls/hr IV ONETIME ONE Stop: 05/24/18 23:21 Last Admin: 05/25/18 02:31 Dose: 125 mls/hr Lidocaine HCl (Xylocaine-Mpf 1%) Confirm Administered Dose 4 mls @ as directed .ROUTE .STK-MED ONE Stop: 05/25/18 08:30 Ferric Sodium Gluconate Complex 250 mg/ Sodium Chloride 120 mls @ 60 mls/hr IV ONETIME ONE Stop: 05/25/18 13:59 Last Admin: 05/25/18 12:21 Dose: 60 mls/hr Lidocaine HCl (Xylocaine-Mpf 1%) Confirm Administered Dose 4 mls @ as directed .ROUTE .STK-MED ONE Stop: 05/26/18 08:34 Magnesium Oxide (Magnesium Oxide) 800 mg PO ONETIME ONE Stop: 05/26/18 12:01 Last Admin: 05/26/18 13:41 Dose: 800 mg Non-Formulary Medication (Mag Carb/Al Hydrox/Alginic Ac [Gaviscon Extra Strength Liquid]) 15 ml PO TID PRN PRN Reason: Indigestion Phenylephrine HCl (Phenylephrine In Ns 100 Mcg/Ml) Confirm Administered Dose 1 mg .ROUTE .STK-MED ONE Stop: 05/26/18 12:33 Polyethylene Glycol/Electrolytes (Golytely) 4,000 ml PO ONETIME ONE Stop: 05/25/18 17:01 Last Admin: 05/25/18 18:17 Dose: 4,000 ml Propofol (Diprivan 20 Ml) Confirm Administered Dose 200 mg .ROUTE .STK-MED ONE Stop: 05/25/18 08:30 Propofol (Diprivan 20 Ml) Confirm Administered Dose 200 mg .ROUTE .STK-MED ONE Stop: 05/26/18 08:34 Propofol (Diprivan 20 Ml) Confirm Administered Dose 200 mg .ROUTE .STK-MED ONE Stop: 05/26/18 12:23 Simethicone (Infants' Gas Relief) Confirm Administered Dose 2,000 mg .ROUTE .STK -MED ONE Stop: 05/26/18 12:18 Last Admin: 05/26/18 12:25 Dose: 2,000 mg Sodium Chloride ([place] Nasal [place]) 0 ml TIFFANI DAILY PRN PRN Reason: RHINITIS - Exam General: Alert, Cooperative HEENT: Pupils Equal, Pupils Reactive, Mucous Membr. Moist/[place] Neck: Supple Lungs: Clear to Auscultation, Normal Respiratory Effort Cardiovascular: Regular Rate, Regular Rhythm, No Murmurs GI/Abdominal Exam: Normal Bowel Sounds, Soft, Non-Tender (Male) Exam: Deferred Back Exam: Normal Inspection Extremities: Normal Inspection, No Pedal Edema Peripheral Pulses: 2+: Radial (L), Radial (R), Posterior Tibial (L), Posterior Tibial (R), Dorsalis Pedis (L), Dorsalis Pedis (R) Skin: Dry, Intact Neurological: No New Focal Deficit Psy/Mental Status: Alert, Normal Affect, Normal Mood - Problem List Review Problem List Initiated/Reviewed/Updated: Yes - Plan Plan:: Assessment/Plan: Acute: Anemia * Hct on admission 5.6; baseline is 11 * On 05/25/18 Hct is 8.1. This morning was back down to 7.3 * 2/2 GI Bleed; EGD is benign; colonoscopy shows diverticulosis with old blood, and a rectal polyp which was removed. No source of active bleeding identified. * Risk factors: On anticoagulation and anti-platelet * No previous hx/o GI bleed the past * S/p 2 units of PRBC Transfusion on 05/24/18. Another unit was transfused today. * GS following for further evaluation * No nausea or vomiting * Monitor H/H PAF * Discussed the need to stop the xarelto with family due to active bleed * They were made aware; he would be at increased risk of stroke without anticoagulation * He remains in SR by auscultation and Telemetry Resolved: S/p Pre-renal Azotemia * BUN 34; creatinine 1.4; estimated GFR 49 ---> > 60 * Due to insufficient perfusion Chronic: maxillary sinus inspection, sinusitis, hypertension, constipation, nausea, BPH, osteoarthritis, dislocation of C5-C6, parkinsonian syndrome, depression and obesity Plan: * He is much better clinically, but will continue to monitor hemoglobin * Routine AM Labs * Continue folate, B12, and iron supplements * Educated patient on proper hydration and high fiber diet for diverticulosis; prevent constipation * DVT/GI PPx: SCDs and H2B * Code status: DNR/DNI * PCP: Sunny Briseno <Jonelle Burch - Last Filed: 05/26/18 22:07> - General Info Subjective Update: Follow up - Review of Systems Genitourinary: Reports: No Symptoms Systems Review Comment:: No overnight or acute issues. He slept pretty good. He has no complaints. He just got back from endoscopy w/o any complications. His Hgb level dropped to 7.3 this AM. - Patient Data Vitals - Most Recent: Last Vital Signs Temp 36.8 C 05/26/18 16:01 Pulse 89 05/26/18 16:01 Resp 16 05/26/18 16:01 BP 146/76 H 05/26/18 16:01 Pulse Ox 99 05/26/18 16:01 I&O - Last 24 Hours: Intake & Output 05/26/18 05/26/18 05/26/18 06:59 14:59 22:59 Intake Total 400 460 0 Output Total 125 Balance 275 460 0 Lab Results Last 24 Hours: Laboratory Results - last 24 hr 05/24/18 05/26/18 05/26/18 Range/Units 11:45 08:40 08:40 WBC 9.13 H (4.23-9.07) K/mm3 RBC 2.36 L (4.63-6.08) M/mm3 Hgb 7.3 L* (13.7-17.5) gm/L Hct 23.1 L (40.1-51.0) % MCV 97.9 H (79.0-92.2) fl MCH 30.9 (25.7-32.2) pg MCHC 31.6 L (32.2-35.5) g/dl RDW Std Deviation 65.0 H (35.1-43.9) fL Plt Count 256 (163-337) K/mm3 MPV 8.3 L (9.4-12.3) fl Neut % (Auto) 81.5 H (34.0-67.9) % Lymph % (Auto) 7.1 L (21.8-53.1) % Mccormick % (Auto) 8.8 (5.3-12.2) % Eos % (Auto) 1.6 (0.8-7.0) Baso % (Auto) 0.3 (0.1-1.2) % Neut # (Auto) 7.44 H (1.78-5.38) K/mm3 Lymph # (Auto) 0.65 L (1.32-3.57) K/mm3 M[place]ormick # (Auto) 0.80 (0.30-0.82) K/mm3 Eos # (Auto) 0.15 (0.04-0.54) K/mm3 Baso # (Auto) 0.03 (0.01-0.08) K/mm3 Manual Slide Review Abnormal smear Magnesium 1.6 L (1.8-2.4) mg/dl Blood Type O POSITIVE Gel Antibody Screen Negative Crossmatch See Detail Med Orders - Current: Current Medications Acetaminophen (Tylenol) 650 mg PO Q6H PRN PRN Reason: Pain Hydrocodone Bitart/Acetaminophen ([place] 325-5 Mg) 1 tab PO Q4H PRN PRN Reason: Pain (moderate 4-6) Al Hydroxide/Mg Hydroxide (Mag-Al Plus) 30 ml PO QID PRN PRN Reason: Indigestion Albuterol/Ipratropium (Duoneb 3.0-0.5 Mg/3 Ml) 3 ml NEB Q4H PRN PRN Reason: Shortness Of Breath/wheezing Artificial Tears (Isopto Tears 0.5% Ophth Soln) 0 ml EYEBOTH TID [facility] Last Admin: 05/26/18 14:52 Dose: 1 drop Ascorbic Acid (Vitamin C) 500 mg PO DAILY [facility] Last Admin: 05/26/18 08:13 Dose: 500 mg Calcium Carbonate/Glycine (Tums) 500 mg PO QID PRN PRN Reason: Indigestion Capsaicin (Zostrix 0.025% Crm) 0 gm TOP DAILY [facility] Last Admin: 05/26/18 08:15 Dose: Not Given Cholecalciferol (Vitamin D3) 2,000 units PO DAILY [facility] Last Admin: 05/26/18 08:14 Dose: 2,000 units Cyanocobalamin (Vitamin B12) 1,000 mcg PO DAILY [facility] Last Admin: 05/26/18 08:14 Dose: 1,000 mcg Diltiazem HCl (Cardizem Cd) 240 mg PO DAILY [facility] Last Admin: 05/26/18 08:14 Dose: 240 mg Flunisolide (Nasalide Nasal [place]) 0 ml TIFFANI BID [facility] Last Admin: 05/26/18 08:15 Dose: 2 spr Folic Acid (Folic Acid) 1 mg PO BEDTIME [facility] Last Admin: 05/25/18 22:15 Dose: 1 mg Guaifenesin (Mucinex) 600 mg PO BID [facility] Last Admin: 05/26/18 08:13 Dose: 600 mg Hydralazine HCl (Apresoline) 10 mg IVPUSH Q4H PRN PRN Reason: Hypertension Hydrochlorothiazide (Hydrochlorothiazide) 12.5 mg PO DAILY [facility] Last Admin: 05/26/18 08:13 Dose: 12.5 mg Hydromorphone HCl (Dilaudid) 0.25 mg IVPUSH Q2H PRN PRN Reason: Pain (severe 7-10) Promethazine HCl 12.5 mg/ (Sodium Chloride) 50.5 mls @ 100 mls/hr IV Q6H PRN PRN Reason: Nausea/Vomiting Lisinopril (Prinivil) 10 mg PO DAILY [facility] Last Admin: 05/26/18 08:14 Dose: 10 mg Loratadine (Claritin) 10 mg PO DAILY [facility] Last Admin: 05/26/18 08:14 Dose: 10 mg Lorazepam (Ativan) 0.25 mg IV Q6H PRN PRN Reason: Anxiety Lorazepam (Ativan) 2 mg IVPUSH Q4H PRN PRN Reason: Seizures Magnesium Hydroxide (Milk Of Magnesia) 30 ml PO DAILY PRN PRN Reason: constipation Magnesium Sulfate (Pharmacy To Dose - Magnesium Replacement) 0 dose .XX ASDIRECTED PRN PRN Reason: RX TO WATCH MAG LEVELS Metoprolol Tartrate (Lopressor) 50 mg PO BID [facility] Last Admin: 05/26/18 08:13 Dose: 50 mg Metoprolol Tartrate (Lopressor) 5 mg IVPUSH Q4H PRN PRN Reason: Tachycardia Nystatin (Nystop) 0 gm TOP TID [facility] Last Admin: 05/26/18 14:52 Dose: 1 applic Ondansetron HCl (Zofran) 4 mg IV Q6H PRN PRN Reason: Nausea/Vomiting Oxymetazoline HCl (Afrin Original 0.05% Nasal [place]) 0 ml TIFFANI QID PRN PRN Reason: nasal decongestant Phenol/Menthol (Cepastat) 1 deacon MUCMEM Q4H PRN PRN Reason: Cough Potassium Chloride (Pharmacy To Dose - Potassium Replacement) 0 dose .XX ASDIRECTED PRN PRN Reason: RX TO WATCH K LEVELS Senna/Docusate Sodium (Senna Plus) 1 tab PO BID [facility] Last Admin: 05/26/18 08:15 Dose: Not Given Sertraline HCl (Zoloft) 50 mg PO DAILY [facility] Last Admin: 05/26/18 08:13 Dose: 50 mg Sodium Chloride (Saline Flush) 10 ml FLUSH ASDIRECTED PRN PRN Reason: Keep Vein Open Last Admin: 05/24/18 12:14 Dose: 10 ml Sodium Chloride ([place] Nasal [place]) 0 ml TIFFANI QID PRN PRN Reason: RHINITIS Tamsulosin HCl (Flomax) 0.8 mg PO DAILY [facility] Last Admin: 05/26/18 08:14 Dose: 0.8 mg Temazepam (Restoril) 7.5 mg PO BEDTIME PRN PRN Reason: Sleep Last Admin: 05/25/18 22:15 Dose: 7.5 mg Thiamine HCl (Vitamin B-1) 100 mg PO BEDTIME [facility] Last Admin: 05/25/18 22:15 Dose: 100 mg Tramadol HCl (Ultram) 50 mg PO BID [facility] Last Admin: 05/26/18 08:13 Dose: 50 mg Discontinued Medications Acetaminophen (Tylenol) 650 mg PO Q4H PRN PRN Reason: Pain (Mild 1-3)/fever Ephedrine Sulfate (Ephedrine In Ns) Confirm Administered Dose 25 mg .ROUTE .STK- MED ONE Stop: 05/26/18 12:22 Famotidine (Pepcid) 20 mg IVPUSH BID [facility] Stop: 05/26/18 09:01 Last Admin: 05/26/18 08:15 Dose: 20 mg Fentanyl (Sublimaze) Confirm Administered Dose 100 mcg .ROUTE .STK-MED ONE Stop: 05/25/18 08:31 Fentanyl (Sublimaze) Confirm Administered Dose 100 mcg .ROUTE .STK-MED ONE Stop: 05/26/18 08:34 Ferrous Sulfate (Ferrous Sulfate) 325 mg PO DAILY [facility] Last Admin: 05/25/18 10:42 Dose: 325 mg Sodium Chloride (Normal Saline) 1,000 mls @ 500 mls/hr IV ONETIME ONE Stop: 05/24/18 13:58 Last Admin: 05/24/18 12:13 Dose: 999 mls/hr Sodium Chloride (Normal Saline) 250 mls @ 125 mls/hr IV ONETIME ONE Stop: 05/24/18 23:21 Last Admin: 05/25/18 02:31 Dose: 125 mls/hr Lidocaine HCl (Xylocaine-Mpf 1%) Confirm Administered Dose 4 mls @ as directed .ROUTE .STK-MED ONE Stop: 05/25/18 08:30 Ferric Sodium Gluconate Complex 250 mg/ Sodium Chloride 120 mls @ 60 mls/hr IV ONETIME ONE Stop: 05/25/18 13:59 Last Admin: 05/25/18 12:21 Dose: 60 mls/hr Lidocaine HCl (Xylocaine-Mpf 1%) Confirm Administered Dose 4 mls @ as directed .ROUTE .STK-MED ONE Stop: 05/26/18 08:34 Sodium Chloride (Normal Saline) 250 mls @ 50 mls/hr IV ASDIRECTED [place] Magnesium Oxide (Magnesium Oxide) 800 mg PO ONETIME ONE Stop: 05/26/18 12:01 Last Admin: 05/26/18 13:41 Dose: 800 mg Non-Formulary Medication (Mag Carb/Al Hydrox/Alginic Ac [Gaviscon Extra Strength Liquid]) 15 ml PO TID PRN PRN Reason: Indigestion Phenylephrine HCl (Phenylephrine In Ns 100 Mcg/Ml) Confirm Administered Dose 1 mg .ROUTE .STK-MED ONE Stop: 05/26/18 12:33 Polyethylene Glycol/Electrolytes (Golytely) 4,000 ml PO ONETIME ONE Stop: 05/25/18 17:01 Last Admin: 05/25/18 18:17 Dose: 4,000 ml Propofol (Diprivan 20 Ml) Confirm Administered Dose 200 mg .ROUTE .STK-MED ONE Stop: 05/25/18 08:30 Propofol (Diprivan 20 Ml) Confirm Administered Dose 200 mg .ROUTE .STK-MED ONE Stop: 05/26/18 08:34 Propofol (Diprivan 20 Ml) Confirm Administered Dose 200 mg .ROUTE .STK-MED ONE Stop: 05/26/18 12:23 Simethicone (Infants' Gas Relief) Confirm Administered Dose 2,000 mg .ROUTE .STK -MED ONE Stop: 05/26/18 12:18 Last Admin: 05/26/18 12:25 Dose: 2,000 mg Sodium Chloride ([place] Nasal [place]) 0 ml TIFFANI DAILY PRN PRN Reason: RHINITIS - Exam Skin: Moist - My Orders Last 24 Hours: My Active Orders 05/25/18 21:00 Folic Acid 1 mg PO BEDTIME Thiamine [Vitamin B-1] 100 mg PO BEDTIME 05/26/18 09:02 Transfuse RBC [Transfuse Red Blood Cells] [COMM] Stat 05/27/18 05:00 CBC WITH AUTO DIFF [HEME] Routine - Plan Plan:: The patient was seen and examined at bedside in concert with the medical student. The assessment and plans were discussed and agreed upon with me. Patient did well s/p colonoscopy. Procedure showed diverticulosis but no source of active bleeding. Will resume po status and continue to monitor his H/H. Pharmacy to replete Mg level. LOS > 96 hrs due to slow response to treatment
[2018-05-26] MEDS: Folic Acid 1 MG Tab PO SCH (21:43)
[2018-05-26] MEDS: Thiamine 100 MG Tab PO SCH (21:51)
--- NOTE | 2018-05-27 07:02 | PCM.PN ---
- General Info Date of Service: 05/27/18 Admission Dx/Problem (Free Text): Admission Diagnosis/Problem Admission Diagnosis/Problem Anemia Subjective Update: Follow up Functional Status: Reports: Pain Controlled, Tolerating Diet, Ambulating, Urinating - Review of Systems General: Denies: Fever, Chills HEENT: Reports: No Symptoms Pulmonary: Denies: Shortness of Breath Cardiovascular: Denies: Chest Pain, Dyspnea on Exertion, Lightheadedness Gastrointestinal: Denies: Abdominal Pain, Melena, Nausea, Vomiting Genitourinary: Reports: No Symptoms Musculoskeletal: Reports: No Symptoms Skin: Denies: Cyanosis, Mottled, Pallor, Diaphoresis, Bruising Neurological: Reports: Difficulty Walking, Gait Disturbance. Denies: Confusion , Weakness Psychiatric: Denies: Depression, Anxiety, Agitation, Hallucinations Systems Review Comment:: No significant overnight or acute issues. He slept good and no complaints. His Hgb level essentially did not improve from yesterday; 7.5 (7.3 yesterday) after receiving one unit of PRBC. No report of rectal bleed or melena overnight. - Patient Data Vitals - Most Recent: Last Vital Signs Temp 36.8 C 05/26/18 16:01 Pulse 89 05/26/18 21:50 Resp 16 05/26/18 16:01 BP 116/58 L 05/26/18 21:50 Pulse Ox 99 05/26/18 16:01 Weight - Most Recent: 112.854 kg I&O - Last 24 Hours: Intake & Output 05/26/18 05/26/18 05/27/18 14:59 22:59 06:59 Intake Total 460 0 Balance 460 0 Lab Results Last 24 Hours: Laboratory Results - last 24 hr 05/24/18 05/26/18 05/26/18 Range/Units 11:45 08:40 08:40 WBC 9.13 H (4.23-9.07) K/mm3 RBC 2.36 L (4.63-6.08) M/mm3 Hgb 7.3 L* (13.7-17.5) gm/L Hct 23.1 L (40.1-51.0) % MCV 97.9 H (79.0-92.2) fl MCH 30.9 (25.7-32.2) pg MCHC 31.6 L (32.2-35.5) g/dl RDW Std Deviation 65.0 H (35.1-43.9) fL Plt Count 256 (163-337) K/mm3 MPV 8.3 L (9.4-12.3) fl Neut % (Auto) 81.5 H (34.0-67.9) % Lymph % (Auto) 7.1 L (21.8-53.1) % [place] % (Auto) 8.8 (5.3-12.2) % Eos % (Auto) 1.6 (0.8-7.0) Baso % (Auto) 0.3 (0.1-1.2) % Neut # (Auto) 7.44 H (1.78-5.38) K/mm3 Lymph # (Auto) 0.65 L (1.32-3.57) K/mm3 [place] # (Auto) 0.80 (0.30-0.82) K/mm3 Eos # (Auto) 0.15 (0.04-0.54) K/mm3 Baso # (Auto) 0.03 (0.01-0.08) K/mm3 Manual Slide Review Abnormal smear Magnesium 1.6 L (1.8-2.4) mg/dl Blood Type O POSITIVE Gel Antibody Screen Negative Crossmatch See Detail 05/27/18 Range/Units 05:50 WBC 9.05 (4.23-9.07) K/mm3 RBC 2.41 L (4.63-6.08) M/mm3 Hgb 7.5 L (13.7-17.5) gm/L Hct 23.6 L (40.1-51.0) % MCV 97.9 H (79.0-92.2) fl MCH 31.1 (25.7-32.2) pg MCHC 31.8 L (32.2-35.5) g/dl RDW Std Deviation 60.6 H (35.1-43.9) fL Plt Count 250 (163-337) K/mm3 MPV 8.7 L (9.4-12.3) fl Neut % (Auto) 77.0 H (34.0-67.9) % Lymph % (Auto) 10.3 L (21.8-53.1) % [place] % (Auto) 9.7 (5.3-12.2) % Eos % (Auto) 2.2 (0.8-7.0) Baso % (Auto) 0.2 (0.1-1.2) % Neut # (Auto) 6.97 H (1.78-5.38) K/mm3 Lymph # (Auto) 0.93 L (1.32-3.57) K/mm3 [place] # (Auto) 0.88 H (0.30-0.82) K/mm3 Eos # (Auto) 0.20 (0.04-0.54) K/mm3 Baso # (Auto) 0.02 (0.01-0.08) K/mm3 Manual Slide Review Abnormal smear Magnesium (1.8-2.4) mg/dl Blood Type Gel Antibody Screen Crossmatch Med Orders - Current: Current Medications Acetaminophen (Tylenol) 650 mg PO Q6H PRN PRN Reason: Pain Hydrocodone Bitart/Acetaminophen ([place] 325-5 Mg) 1 tab PO Q4H PRN PRN Reason: Pain (moderate 4-6) Al Hydroxide/Mg Hydroxide (Mag-Al Plus) 30 ml PO QID PRN PRN Reason: Indigestion Albuterol/Ipratropium (Duoneb 3.0-0.5 Mg/3 Ml) 3 ml NEB Q4H PRN PRN Reason: Shortness Of Breath/wheezing Artificial Tears (Isopto Tears 0.5% Ophth Soln) 0 ml EYEBOTH TID [facility] Last Admin: 05/26/18 21:44 Dose: 1 drop Ascorbic Acid (Vitamin C) 500 mg PO DAILY [facility] Last Admin: 05/26/18 08:13 Dose: 500 mg Calcium Carbonate/Glycine (Tums) 500 mg PO QID PRN PRN Reason: Indigestion Capsaicin (Zostrix 0.025% Crm) 0 gm TOP DAILY [facility] Last Admin: 05/26/18 08:15 Dose: Not Given Cholecalciferol (Vitamin D3) 2,000 units PO DAILY [facility] Last Admin: 05/26/18 08:14 Dose: 2,000 units Cyanocobalamin (Vitamin B12) 1,000 mcg PO DAILY [facility] Last Admin: 05/26/18 08:14 Dose: 1,000 mcg Diltiazem HCl (Cardizem Cd) 240 mg PO DAILY [facility] Last Admin: 05/26/18 08:14 Dose: 240 mg Flunisolide (Nasalide Nasal [place]) 0 ml TIFFANI BID [facility] Last Admin: 05/26/18 21:53 Dose: 2 spr Folic Acid (Folic Acid) 1 mg PO BEDTIME [facility] Last Admin: 05/26/18 21:43 Dose: 1 mg Guaifenesin (Mucinex) 600 mg PO BID [facility] Last Admin: 05/26/18 21:50 Dose: 600 mg Hydralazine HCl (Apresoline) 10 mg IVPUSH Q4H PRN PRN Reason: Hypertension Hydrochlorothiazide (Hydrochlorothiazide) 12.5 mg PO DAILY [facility] Last Admin: 05/26/18 08:13 Dose: 12.5 mg Hydromorphone HCl (Dilaudid) 0.25 mg IVPUSH Q2H PRN PRN Reason: Pain (severe 7-10) Promethazine HCl 12.5 mg/ (Sodium Chloride) 50.5 mls @ 100 mls/hr IV Q6H PRN PRN Reason: Nausea/Vomiting Lisinopril (Prinivil) 10 mg PO DAILY [facility] Last Admin: 05/26/18 08:14 Dose: 10 mg Loratadine (Claritin) 10 mg PO DAILY [facility] Last Admin: 05/26/18 08:14 Dose: 10 mg Lorazepam (Ativan) 0.25 mg IV Q6H PRN PRN Reason: Anxiety Lorazepam (Ativan) 2 mg IVPUSH Q4H PRN PRN Reason: Seizures Magnesium Hydroxide (Milk Of Magnesia) 30 ml PO DAILY PRN PRN Reason: constipation Magnesium Sulfate (Pharmacy To Dose - Magnesium Replacement) 0 dose .XX ASDIRECTED PRN PRN Reason: RX TO WATCH MAG LEVELS Metoprolol Tartrate (Lopressor) 50 mg PO BID [facility] Last Admin: 05/26/18 21:50 Dose: 50 mg Metoprolol Tartrate (Lopressor) 5 mg IVPUSH Q4H PRN PRN Reason: Tachycardia Nystatin (Nystop) 0 gm TOP TID [facility] Last Admin: 05/26/18 21:54 Dose: 1 applic Ondansetron HCl (Zofran) 4 mg IV Q6H PRN PRN Reason: Nausea/Vomiting Oxymetazoline HCl (Afrin Original 0.05% Nasal [place]) 0 ml TIFFANI QID PRN PRN Reason: nasal decongestant Phenol/Menthol (Cepastat) 1 deacon MUCMEM Q4H PRN PRN Reason: Cough Potassium Chloride (Pharmacy To Dose - Potassium Replacement) 0 dose .XX ASDIRECTED PRN PRN Reason: RX TO WATCH K LEVELS Senna/Docusate Sodium (Senna Plus) 1 tab PO BID [facility] Last Admin: 05/26/18 21:51 Dose: 1 tab Sertraline HCl (Zoloft) 50 mg PO DAILY [facility] Last Admin: 05/26/18 08:13 Dose: 50 mg Sodium Chloride (Saline Flush) 10 ml FLUSH ASDIRECTED PRN PRN Reason: Keep Vein Open Last Admin: 05/24/18 12:14 Dose: 10 ml Sodium Chloride (Raub Nasal [place]) 0 ml TIFFANI QID PRN PRN Reason: RHINITIS Tamsulosin HCl (Flomax) 0.8 mg PO DAILY [facility] Last Admin: 05/26/18 08:14 Dose: 0.8 mg Temazepam (Restoril) 7.5 mg PO BEDTIME PRN PRN Reason: Sleep Last Admin: 05/25/18 22:15 Dose: 7.5 mg Thiamine HCl (Vitamin B-1) 100 mg PO BEDTIME [facility] Last Admin: 05/26/18 21:51 Dose: 100 mg Tramadol HCl (Ultram) 50 mg PO BID [facility] Last Admin: 05/26/18 21:51 Dose: 50 mg Discontinued Medications Acetaminophen (Tylenol) 650 mg PO Q4H PRN PRN Reason: Pain (Mild 1-3)/fever Ephedrine Sulfate (Ephedrine In Ns) Confirm Administered Dose 25 mg .ROUTE .STK- MED ONE Stop: 05/26/18 12:22 Famotidine (Pepcid) 20 mg IVPUSH BID [facility] Stop: 05/26/18 09:01 Last Admin: 05/26/18 08:15 Dose: 20 mg Fentanyl (Sublimaze) Confirm Administered Dose 100 mcg .ROUTE .STK-MED ONE Stop: 05/25/18 08:31 Fentanyl (Sublimaze) Confirm Administered Dose 100 mcg .ROUTE .STK-MED ONE Stop: 05/26/18 08:34 Ferrous Sulfate (Ferrous Sulfate) 325 mg PO DAILY [facility] Last Admin: 05/25/18 10:42 Dose: 325 mg Sodium Chloride (Normal Saline) 1,000 mls @ 500 mls/hr IV ONETIME ONE Stop: 05/24/18 13:58 Last Admin: 05/24/18 12:13 Dose: 999 mls/hr Sodium Chloride (Normal Saline) 250 mls @ 125 mls/hr IV ONETIME ONE Stop: 05/24/18 23:21 Last Admin: 05/25/18 02:31 Dose: 125 mls/hr Lidocaine HCl (Xylocaine-Mpf 1%) Confirm Administered Dose 4 mls @ as directed .ROUTE .STK-MED ONE Stop: 05/25/18 08:30 Ferric Sodium Gluconate Complex 250 mg/ Sodium Chloride 120 mls @ 60 mls/hr IV ONETIME ONE Stop: 05/25/18 13:59 Last Admin: 05/25/18 12:21 Dose: 60 mls/hr Lidocaine HCl (Xylocaine-Mpf 1%) Confirm Administered Dose 4 mls @ as directed .ROUTE .STK-MED ONE Stop: 05/26/18 08:34 Sodium Chloride (Normal Saline) 250 mls @ 50 mls/hr IV ASDIRECTED [place] Magnesium Oxide (Magnesium Oxide) 800 mg PO ONETIME ONE Stop: 05/26/18 12:01 Last Admin: 05/26/18 13:41 Dose: 800 mg Non-Formulary Medication (Mag Carb/Al Hydrox/Alginic Ac [Gaviscon Extra Strength Liquid]) 15 ml PO TID PRN PRN Reason: Indigestion Phenylephrine HCl (Phenylephrine In Ns 100 Mcg/Ml) Confirm Administered Dose 1 mg .ROUTE .STK-MED ONE Stop: 05/26/18 12:33 Polyethylene Glycol/Electrolytes (Golytely) 4,000 ml PO ONETIME ONE Stop: 05/25/18 17:01 Last Admin: 05/25/18 18:17 Dose: 4,000 ml Propofol (Diprivan 20 Ml) Confirm Administered Dose 200 mg .ROUTE .STK-MED ONE Stop: 05/25/18 08:30 Propofol (Diprivan 20 Ml) Confirm Administered Dose 200 mg .ROUTE .STK-MED ONE Stop: 05/26/18 08:34 Propofol (Diprivan 20 Ml) Confirm Administered Dose 200 mg .ROUTE .STK-MED ONE Stop: 05/26/18 12:23 Simethicone (Infants' Gas Relief) Confirm Administered Dose 2,000 mg .ROUTE .STK -MED ONE Stop: 05/26/18 12:18 Last Admin: 05/26/18 12:25 Dose: 2,000 mg Sodium Chloride (Raub Nasal [place]) 0 ml TIFFANI DAILY PRN PRN Reason: RHINITIS - Exam General: Alert, Cooperative, No Acute Distress, Other (Obese) HEENT: Pupils Equal, Pupils Reactive, EOMI, Mucous Membr. Moist/[place] Neck: Supple, Trachea Midline Lungs: Normal Respiratory Effort, Decreased Breath Sounds Cardiovascular: Regular Rate, Regular Rhythm GI/Abdominal Exam: Normal Bowel Sounds, Soft, Non-Tender, No Organomegaly, No Distention, No Abnormal Bruit, No Mass (Male) Exam: Deferred Back Exam: Normal Inspection, Decreased Range of Motion Extremities: Normal Inspection, Normal Range of Motion, Non-Tender, No Pedal Edema, Other (trace peripheral lower extremity edema) Peripheral Pulses: 2+: Dorsalis Pedis (L), Dorsalis Pedis (R) Skin: Warm, Dry, Intact Neurological: No New Focal Deficit Psy/Mental Status: Alert, Normal Affect, Normal Mood - Problem List & Annotations (1) GI bleed SNOMED Code(s): 00736194 Code(s): K92.2 - GASTROINTESTINAL HEMORRHAGE, UNSPECIFIED Status: Acute Qualifiers: GI bleed type/associated pathology: unspecified gastrointestinal hemorrhage type Qualified Code(s): K92.2 - Gastrointestinal hemorrhage, unspecified (2) Anemia SNOMED Code(s): 204553229 Code(s): D64.9 - ANEMIA, UNSPECIFIED Status: Acute Qualifiers: Iron deficiency anemia type: chronic blood loss - Problem List Review Problem List Initiated/Reviewed/Updated: Yes - My Orders Last 24 Hours: My Active Orders 05/26/18 09:02 Transfuse RBC [Transfuse Red Blood Cells] [COMM] Stat - Plan Plan:: Assessment/Plan: Acute: Anemia * Hct on admission 5.6; baseline is 11 * On 05/25/18 Hct is 8.1. This morning was back down to 7.3--> Hgb is 7.5 this AM * 2/2 GI Bleed; EGD is benign; colonoscopy shows diverticulosis with old blood, and a rectal polyp which was removed. No source of active bleeding identified. * Risk factors: On anticoagulation and anti-platelet * No previous hx/o GI bleed the past * S/p total 3 units of PRBC Transfusion * GS following for further evaluation * No nausea or vomiting * Monitor H/H GI Bleed * S/p Upper and Lower Endoscopy * Diverticulosis w/o active bleed * Hgb essentially did not improve after 1 unit of PRBC was transfused yesterday ; 7.3 --> now 7.5 Resolved: S/p Pre-renal Azotemia * BUN 34; creatinine 1.4; estimated GFR 49 ---> > 60 * Due to insufficient perfusion Chronic: maxillary sinus inspection, sinusitis, hypertension, constipation, nausea, BPH, osteoarthritis, dislocation of C5-C6, parkinsonian syndrome, depression and obesity PAF * Discussed the need to stop the xarelto with family due to active bleed * They were made aware; he would be at increased risk of stroke without anticoagulation * He remains in SR by auscultation and Telemetry Plan: * He remains clinically stable * Discussed options with family and would like to have further intestinal eval * They were informed we do not offer those services here and therefore he has to go to [place]; ALVAREZ [place] agreed * DVT/GI PPx: SCDs and H2B * Code status: DNR/DNI * PCP: Sunny Briseno Will make phone call in [place] for planned transfer. He will benefit with either, capsule pill, double balloon endoscopy, or RBC tagged scan.
--- NOTE | 2018-05-27 07:04 | PCM.DCSUM1 ---
Discharge Summary - Hospital Course Brief History: This is an 78 yo elderly white male with past medical hx/o chronic maxillary sinus inspection, chronic sinusitis, hypertension, chronic constipation, chronic nausea, BPH, or she arthritis dislocation of C5-C6, parkinsonian syndrome and depression who comes in the emergency department with complains of shortness of breath, and right-sided ib pain. He reports an adequate complaints black stool that has been going on for a while. He was initially seen at his primary are office we'd a hemoglobin level of 5.5. Patient needs at [facility] and in the past week he was observed having pressures and the lower end as low as 90s over 50s. patient carries a history of atrial fibrillation currently on 0 though. Per secondary sources, he chews tobacco and drinks a glass of w daily. And per snf staff, it appears patient is taking aspirin on his own after they found an empty bottle of aspirin in his room. Patient is a poor historian. His initial workup in the emergency department is remarkable for WBC of 12.18, RBC of 1.78, hemoglobin of 5.6, MCH of 29.9, RDW of 64.7, MPV of 9.2, neutrophils of 81%, lymphocytes of 15 %, and monocytes of 1%. His chemistry is significant for BUN of 34, creatinine of 1.4, AST of 42, proBNP of 850, an albumin of 3. His guaiac-positive in ED. Patient is being admitted for acute GI bleed likely secondary to blood thinners. He is DNR/DNI. Diagnosis: Stroke: No Modified [place] Scale: No Symptoms at All Modified Alfredo Scale Score: 0 - Discharge Data Discharge Date: 05/27/18 Discharge Disposition: Home, Self-Care 01 Condition: Good - Discharge Diagnosis/Problem(s) (1) GI bleed SNOMED Code(s): 78013134 ICD Code: K92.2 - GASTROINTESTINAL HEMORRHAGE, UNSPECIFIED Status: Acute Qualifiers: GI bleed type/associated pathology: unspecified gastrointestinal hemorrhage type Qualified Code(s): K92.2 - Gastrointestinal hemorrhage, unspecified (2) Anemia SNOMED Code(s): 985667366 ICD Code: D64.9 - ANEMIA, UNSPECIFIED Status: Acute Qualifiers: Iron deficiency anemia type: chronic blood loss - Patient Summary/Data Operative Procedure(s) Performed: colonoscopy to cecum with polypectomy Complications: None Consults: Consultations 05/24/18 17:15 Consult to Physician [CONS] Routine 05/24/18 17:32 Consult to Case Management [CONS] Routine Consult to Body Worker [CONS] Routine Consult to Correctional Program Officer [CONS] Routine Consult to Spiritual Care [CONS] Routine Labs Pending at D/C: None Recommended Follow-up Testing/Procedures: Intestinal eval Planned Operative Procedure(s) after DC: GI Hospital Course: Patient was admitted for evaluation and management of Anemia 2/2 GI bleed. He was found considerably hypotensive and with a Hgb level of 5.6 on presentation to ED. At his PCP's office, he was noted with a Hgb level of 5.5. In ED, he received immediate volume resuscitation to improve his blood pressure and thereafter he was started on blood transfusion. He received a total of 3 units of PRBC and his Hgb improved to 8.1 from 5.6 on admission. During his short stay, no anticoagulants or anti-platelets were given. General surgery was consulted and the patient underwent both upper and lower endoscopy with benign findings. However yesterday his Hgb level dropped further to 7.3 but despite receiving 1 unit of PRBC his level improved to only 7.5 grams. Immediately, I contacted his family and reviewed recent labs and discussed his clinical status. After discussing his options and other plans with his family ( , daughter and son), they all but primarily DPOA (daughter) agreed to have him go east for upper level of care. Therefore we called [facility] and got a hold of Drs. Matta and Radha. After talking to them, they both agreed to take on him for further GI evaluation. The patient left here in stable condition and he was transported by local paramedics on his way to [place]. - Patient Instructions Diet: Usual Diet as Tolerated Activity: As Tolerated Driving: Do Not Drive Notify Provider of: Fever, Increased Pain, Swelling and Redness, Nausea and/or Vomiting Other/Special Instructions: - Trans [place]e to [place] under the services of Dr. Baeza attending - Discharge Plan *PRESCRIPTION DRUG MONITORING PROGRAM REVIEWED*: No *COPY OF PRESCRIPTION DRUG MONITORING REPORT IN PATIENT TIMUR: No Home Medications: Home Meds Acetaminophen [Tylenol] 650 mg PO Q6H PRN 05/24/18 [History] Aloe Vera/Sodium Chloride [[place] Saline Nasal Gel] 2 spray NASBOTH QID PRN [History] Alum Hydrox/Mag Hydrox/Simeth [Maalox Advanced] 30 ml PO QID PRN 05/24/18 [ History] Ascorbate Calcium [Vitamin C] 500 mg PO DAILY 05/24/18 [History] Calcium Carbonate [Tums] 200 mg PO QID PRN 05/24/18 [History] Cetirizine [ZyrTEC] 5 mg PO DAILY 05/24/18 [History] Cholecalciferol (Vitamin D3) [Vitamin D3] 2,000 units PO DAILY 05/24/18 [History ] Cyanocobalamin (Vitamin B12) [Vitamin B12] 1,000 mcg PO DAILY 05/24/18 [History] Diltiazem HCl [Diltiazem 24Hr Cd] 240 mg PO DAILY 05/24/18 [History] Docusate Sodium/Sennosides [Senokot-S] 1 tab PO BID 05/24/18 [History] Eucalyptus/Menthol [Cough Drops] 1 lozenge PO TID PRN 05/24/18 [History] Ferrous Sulfate 325 mg PO DAILY 05/24/18 [History] Fluticasone Propionate [Flonase] 2 spray NASBOTH BID 05/24/18 [History] Lisinopril/Hydrochlorothiazide [Zestoretic 10-12.5 mg Tablet] 1 tab PO DAILY 10/01 [History] Mag Carb/Al Hydrox/Alginic Ac [Gaviscon Extra Strength Liquid] 15 ml PO TID PRN 05/24/18 [History] Magnesium Hydroxide [Milk of Magnesia] 30 ml PO DAILY PRN 05/24/18 [History] Menthol/Camphor [[place]arna Anti-Itch] 1 applic TOP BID PRN 05/24/18 [History] Metoprolol Tartrate [Lopressor] 50 mg PO BID 05/24/18 [History] Oxymetazoline HCl [Mucinex Sinus-Max] 1 spray NASBOTH TID PRN 05/24/18 [History] Propylene Glycol [Systane Balance] 1 drop EYEBOTH TID 05/24/18 [History] Rivaroxaban [Xarelto] 20 mg PO DAILY 05/24/18 [History] Sertraline [Zoloft] 50 mg PO DAILY 05/24/18 [History] Tamsulosin [Flomax] 0.8 mg PO DAILY 05/24/18 [History] Trolamine Salicylate/Aloe Vera [Aspercreme 10%] 1 applic TOP TID PRN 05/24/18 [ History] guaiFENesin [Mucinex] 600 mg PO BID 05/24/18 [History] traMADol [Ultram] 50 mg PO BID 05/24/18 [History] Patient Handouts: Gastrointestinal Bleeding Referrals: Sunny Briseno MD [Primary Care Provider] - - Discharge Summary/Plan Comment DC Time >30 min.: Yes (45 mins) Discharge Summary/Plan Comment: Transfer to [facility] - General Info Date of Service: 05/27/18 Admission Dx/Problem (Free Text: Admission Diagnosis/Problem Admission Diagnosis/Problem Anemia Subjective Update: Follow up Functional Status: Reports: Pain Controlled, Tolerating Diet, Urinating. Denies : Ambulating - Review of Systems General: Denies: Fever, Weakness, Fatigue, Malaise, Chills HEENT: Reports: No Symptoms Pulmonary: Denies: Shortness of Breath, Pleuritic Chest Pain Cardiovascular: Denies: Chest Pain, Dyspnea on Exertion, Lightheadedness Gastrointestinal: Reports: Flatus. Denies: Abdominal Pain, Constipation, Decreased Appetite, Diarrhea, Hematochezia, Melena, Nausea, Vomiting Genitourinary: Reports: No Symptoms Musculoskeletal: Reports: No Symptoms Skin: Denies: Cyanosis, Mottled, Pallor, Bruising Neurological: Reports: Difficulty Walking, Gait Disturbance. Denies: Weakness Psychiatric: Denies: Depression, Anxiety, Agitation, Hallucinations Systems Review Comment: No overnight or acute issues except his Hgb level did not improve after receiving 1 unit of PRBC yesterday. - Patient Data Vitals - Most Recent: Last Vital Signs Temp 36.8 C 05/26/18 16:01 Pulse 89 05/26/18 21:50 Resp 16 05/26/18 16:01 BP 116/58 L 05/26/18 21:50 Pulse Ox 99 05/26/18 16:01 Weight - Most Recent: 112.854 kg I&O - Last 24 hours: Intake & Output 05/26/18 05/27/18 05/27/18 22:59 06:59 14:59 Intake Total 0 Balance 0 Lab Results - Last 24 hrs: Laboratory Results - last 24 hr 05/24/18 05/26/18 05/26/18 Range/Units 11:45 08:40 08:40 WBC 9.13 H (4.23-9.07) K/mm3 RBC 2.36 L (4.63-6.08) M/mm3 Hgb 7.3 L* (13.7-17.5) gm/L Hct 23.1 L (40.1-51.0) % MCV 97.9 H (79.0-92.2) fl MCH 30.9 (25.7-32.2) pg MCHC 31.6 L (32.2-35.5) g/dl RDW Std Deviation 65.0 H (35.1-43.9) fL Plt Count 256 (163-337) K/mm3 MPV 8.3 L (9.4-12.3) fl Neut % (Auto) 81.5 H (34.0-67.9) % Lymph % (Auto) 7.1 L (21.8-53.1) % [place] % (Auto) 8.8 (5.3-12.2) % Eos % (Auto) 1.6 (0.8-7.0) Baso % (Auto) 0.3 (0.1-1.2) % Neut # (Auto) 7.44 H (1.78-5.38) K/mm3 Lymph # (Auto) 0.65 L (1.32-3.57) K/mm3 [place] # (Auto) 0.80 (0.30-0.82) K/mm3 Eos # (Auto) 0.15 (0.04-0.54) K/mm3 Baso # (Auto) 0.03 (0.01-0.08) K/mm3 Manual Slide Review Abnormal smear Magnesium 1.6 L (1.8-2.4) mg/dl Blood Type O POSITIVE Gel Antibody Screen Negative Crossmatch See Detail 05/27/18 Range/Units 05:50 WBC 9.05 (4.23-9.07) K/mm3 RBC 2.41 L (4.63-6.08) M/mm3 Hgb 7.5 L (13.7-17.5) gm/L Hct 23.6 L (40.1-51.0) % MCV 97.9 H (79.0-92.2) fl MCH 31.1 (25.7-32.2) pg MCHC 31.8 L (32.2-35.5) g/dl RDW Std Deviation 60.6 H (35.1-43.9) fL Plt Count 250 (163-337) K/mm3 MPV 8.7 L (9.4-12.3) fl Neut % (Auto) 77.0 H (34.0-67.9) % Lymph % (Auto) 10.3 L (21.8-53.1) % [place] % (Auto) 9.7 (5.3-12.2) % Eos % (Auto) 2.2 (0.8-7.0) Baso % (Auto) 0.2 (0.1-1.2) % Neut # (Auto) 6.97 H (1.78-5.38) K/mm3 Lymph # (Auto) 0.93 L (1.32-3.57) K/mm3 [place] # (Auto) 0.88 H (0.30-0.82) K/mm3 Eos # (Auto) 0.20 (0.04-0.54) K/mm3 Baso # (Auto) 0.02 (0.01-0.08) K/mm3 Manual Slide Review Abnormal smear Magnesium (1.8-2.4) mg/dl Blood Type Gel Antibody Screen Crossmatch Med Orders - Current: Current Medications Acetaminophen (Tylenol) 650 mg PO Q6H PRN PRN Reason: Pain Hydrocodone Bitart/Acetaminophen ([place] 325-5 Mg) 1 tab PO Q4H PRN PRN Reason: Pain (moderate 4-6) Al Hydroxide/Mg Hydroxide (Mag-Al Plus) 30 ml PO QID PRN PRN Reason: Indigestion Albuterol/Ipratropium (Duoneb 3.0-0.5 Mg/3 Ml) 3 ml NEB Q4H PRN PRN Reason: Shortness Of Breath/wheezing Artificial Tears (Isopto Tears 0.5% Ophth Soln) 0 ml EYEBOTH TID [facility] Last Admin: 05/26/18 21:44 Dose: 1 drop Ascorbic Acid (Vitamin C) 500 mg PO DAILY [facility] Last Admin: 05/26/18 08:13 Dose: 500 mg Calcium Carbonate/Glycine (Tums) 500 mg PO QID PRN PRN Reason: Indigestion Capsaicin (Zostrix 0.025% Crm) 0 gm TOP DAILY [facility] Last Admin: 05/26/18 08:15 Dose: Not Given Cholecalciferol (Vitamin D3) 2,000 units PO DAILY [facility] Last Admin: 05/26/18 08:14 Dose: 2,000 units Cyanocobalamin (Vitamin B12) 1,000 mcg PO DAILY [facility] Last Admin: 05/26/18 08:14 Dose: 1,000 mcg Diltiazem HCl (Cardizem Cd) 240 mg PO DAILY [facility] Last Admin: 05/26/18 08:14 Dose: 240 mg Flunisolide (Nasalide Nasal [place]) 0 ml TIFFANI BID [facility] Last Admin: 05/26/18 21:53 Dose: 2 spr Folic Acid (Folic Acid) 1 mg PO BEDTIME [facility] Last Admin: 05/26/18 21:43 Dose: 1 mg Guaifenesin (Mucinex) 600 mg PO BID [facility] Last Admin: 05/26/18 21:50 Dose: 600 mg Hydralazine HCl (Apresoline) 10 mg IVPUSH Q4H PRN PRN Reason: Hypertension Hydrochlorothiazide (Hydrochlorothiazide) 12.5 mg PO DAILY [facility] Last Admin: 05/26/18 08:13 Dose: 12.5 mg Hydromorphone HCl (Dilaudid) 0.25 mg IVPUSH Q2H PRN PRN Reason: Pain (severe 7-10) Promethazine HCl 12.5 mg/ (Sodium Chloride) 50.5 mls @ 100 mls/hr IV Q6H PRN PRN Reason: Nausea/Vomiting Lisinopril (Prinivil) 10 mg PO DAILY [facility] Last Admin: 05/26/18 08:14 Dose: 10 mg Loratadine (Claritin) 10 mg PO DAILY [facility] Last Admin: 05/26/18 08:14 Dose: 10 mg Lorazepam (Ativan) 0.25 mg IV Q6H PRN PRN Reason: Anxiety Lorazepam (Ativan) 2 mg IVPUSH Q4H PRN PRN Reason: Seizures Magnesium Hydroxide (Milk Of Magnesia) 30 ml PO DAILY PRN PRN Reason: constipation Magnesium Sulfate (Pharmacy To Dose - Magnesium Replacement) 0 dose .XX ASDIRECTED PRN PRN Reason: RX TO WATCH MAG LEVELS Metoprolol Tartrate (Lopressor) 50 mg PO BID [facility] Last Admin: 05/26/18 21:50 Dose: 50 mg Metoprolol Tartrate (Lopressor) 5 mg IVPUSH Q4H PRN PRN Reason: Tachycardia Nystatin (Nystop) 0 gm TOP TID [facility] Last Admin: 05/26/18 21:54 Dose: 1 applic Ondansetron HCl (Zofran) 4 mg IV Q6H PRN PRN Reason: Nausea/Vomiting Oxymetazoline HCl (Afrin Original 0.05% Nasal [place]) 0 ml TIFFANI QID PRN PRN Reason: nasal decongestant Phenol/Menthol (Cepastat) 1 de[place] MUCMEM Q4H PRN PRN Reason: Cough Potassium Chloride (Pharmacy To Dose - Potassium Replacement) 0 dose .XX ASDIRECTED PRN PRN Reason: RX TO WATCH K LEVELS Senna/Docusate Sodium (Senna Plus) 1 tab PO BID [facility] Last Admin: 05/26/18 21:51 Dose: 1 tab Sertraline HCl (Zoloft) 50 mg PO DAILY [facility] Last Admin: 05/26/18 08:13 Dose: 50 mg Sodium Chloride (Saline Flush) 10 ml FLUSH ASDIRECTED PRN PRN Reason: Keep Vein Open Last Admin: 05/24/18 12:14 Dose: 10 ml Sodium Chloride ([place] Nasal [place]) 0 ml TIFFANI QID PRN PRN Reason: RHINITIS Tamsulosin HCl (Flomax) 0.8 mg PO DAILY [facility] Last Admin: 05/26/18 08:14 Dose: 0.8 mg Temazepam (Restoril) 7.5 mg PO BEDTIME PRN PRN Reason: Sleep Last Admin: 05/25/18 22:15 Dose: 7.5 mg Thiamine HCl (Vitamin B-1) 100 mg PO BEDTIME [facility] Last Admin: 05/26/18 21:51 Dose: 100 mg Tramadol HCl (Ultram) 50 mg PO BID [facility] Last Admin: 05/26/18 21:51 Dose: 50 mg Discontinued Medications Acetaminophen (Tylenol) 650 mg PO Q4H PRN PRN Reason: Pain (Mild 1-3)/fever Ephedrine Sulfate (Ephedrine In Ns) Confirm Administered Dose 25 mg .ROUTE .STK- MED ONE Stop: 05/26/18 12:22 Famotidine (Pepcid) 20 mg IVPUSH BID [place] Stop: 05/26/18 09:01 Last Admin: 05/26/18 08:15 Dose: 20 mg Fentanyl (Sublimaze) Confirm Administered Dose 100 mcg .ROUTE .STK-MED ONE Stop: 05/25/18 08:31 Fentanyl (Sublimaze) Confirm Administered Dose 100 mcg .ROUTE .STK-MED ONE Stop: 05/26/18 08:34 Ferrous Sulfate (Ferrous Sulfate) 325 mg PO DAILY [facility] Last Admin: 05/25/18 10:42 Dose: 325 mg Sodium Chloride (Normal Saline) 1,000 mls @ 500 mls/hr IV ONETIME ONE Stop: 05/24/18 13:58 Last Admin: 05/24/18 12:13 Dose: 999 mls/hr Sodium Chloride (Normal Saline) 250 mls @ 125 mls/hr IV ONETIME ONE Stop: 05/24/18 23:21 Last Admin: 05/25/18 02:31 Dose: 125 mls/hr Lidocaine HCl (Xylocaine-Mpf 1%) Confirm Administered Dose 4 mls @ as directed .ROUTE .ST-MED ONE Stop: 05/25/18 08:30 Ferric Sodium Gluconate Complex 250 mg/ Sodium Chloride 120 mls @ 60 mls/hr IV ONETIME ONE Stop: 05/25/18 13:59 Last Admin: 05/25/18 12:21 Dose: 60 mls/hr Lidocaine HCl (Xylocaine-Mpf 1%) Confirm Administered Dose 4 mls @ as directed .ROUTE .STK-MED ONE Stop: 05/26/18 08:34 Sodium Chloride (Normal Saline) 250 mls @ 50 mls/hr IV ASDIRECTED [facility] Magnesium Oxide (Magnesium Oxide) 800 mg PO ONETIME ONE Stop: 05/26/18 12:01 Last Admin: 05/26/18 13:41 Dose: 800 mg Non-Formulary Medication (Mag Carb/Al Hydrox/Alginic Ac [Gaviscon Extra Strength Liquid]) 15 ml PO TID PRN PRN Reason: Indigestion Phenylephrine HCl (Phenylephrine In Ns 100 Mcg/Ml) Confirm Administered Dose 1 mg .ROUTE .STK-MED ONE Stop: 05/26/18 12:33 Polyethylene Glycol/Electrolytes (Golytely) 4,000 ml PO ONETIME ONE Stop: 05/25/18 17:01 Last Admin: 05/25/18 18:17 Dose: 4,000 ml Propofol (Diprivan 20 Ml) Confirm Administered Dose 200 mg .ROUTE .STK-MED ONE Stop: 05/25/18 08:30 Propofol (Diprivan 20 Ml) Confirm Administered Dose 200 mg .ROUTE .STK-MED ONE Stop: 05/26/18 08:34 Propofol (Diprivan 20 Ml) Confirm Administered Dose 200 mg .ROUTE .STK-MED ONE Stop: 05/26/18 12:23 Simethicone (Infants' Gas Relief) Confirm Administered Dose 2,000 mg .ROUTE .STK -MED ONE Stop: 05/26/18 12:18 Last Admin: 05/26/18 12:25 Dose: 2,000 mg Sodium Chloride ([place] Nasal [place]) 0 ml TIFFANI DAILY PRN PRN Reason: RHINITIS - Exam Quality Assessment: Denies: Supplemental Oxygen General: Reports: Alert, Cooperative, No Acute Distress HEENT: Reports: Pupils Equal, Pupils Reactive, EOMI Neck: Reports: Supple, Trachea Midline, No JVD Lungs: Reports: Clear to Auscultation, Normal Respiratory Effort Cardiovascular: Reports: Regular Rate, Regular Rhythm, Tachycardia GI/Abdominal Exam: Normal Bowel Sounds, Non-Tender, No Organomegaly, No Abnormal Bruit, No Mass (Male) Exam: Deferred Rectal (Males) Exam: Deferred Back Exam: Reports: Normal Inspection, Decreased Range of Motion Extremities: Normal Inspection, Normal Range of Motion, Non-Tender, No Pedal Edema, Normal Capillary Refill Skin: Reports: Warm, Dry, Intact Neurological: Reports: No New Focal Deficit Psy/Mental Status: Reports: Alert, Normal Affect, Normal Mood
[2018-05-27] MEDS: Tamsulosin 0.4 MG Cap.ER PO SCH (08:02)
[2018-05-27] MEDS: Ascorbic Acid 500 MG Tab PO SCH (08:02)
[2018-05-27] MEDS: Cyanocobalamin (Vitamin B12) 1,000 MCG Tab PO SCH (08:02)
[2018-05-27] MEDS: Cholecalciferol (Vitamin D3) 1,000 Unit Tab PO SCH (08:02)
[2018-05-27] MEDS: traMADol 50 MG Tab PO SCH (08:02)
[2018-05-27] MEDS: Hydrochlorothiazide 12.5 MG Cap PO SCH (08:03)
[2018-05-27] MEDS: Sertraline 50 MG Tab PO SCH (08:03)
[2018-05-27] MEDS: Loratadine 10 MG Tab PO SCH (08:03)
[2018-05-27] MEDS: Lisinopril 10 MG Tab PO SCH (08:03)
[2018-05-27] MEDS: guaiFENesin 600 MG Tab.ER PO SCH (08:03)
[2018-05-27] MEDS: Diltiazem 120 MG Cap.CD PO SCH (08:03)
[2018-05-27] MEDS: Metoprolol Tartrate 50 MG Tab PO SCH (08:04)
[2018-05-27] MEDS: Hypromellose 0.5% Ophth Soln 15 ML Bottle EYEBOTH SCH (08:04)
[2018-05-27] MEDS: Nystatin Topical Powder 15 GM Bottle TOP SCH (08:05)
[2018-05-27] MEDS: Capsaicin 0.025% Crm 60 GM Tube TOP SCH (08:06)
[2018-05-27 12:01] VITALS: BP 110/68
== END 2018-05-27 13:30 | disposition home or self-care (01) | DRG 378 ==
LOC: JD.ED 11:31 → UNDOADMIN 14:34 → JD.MS 14:34
PROVIDERS: ADMIT Internal Medicine; ATTEND Internal Medicine
PROC: 30233N1 Transfusion of Nonautologous Red Blood Cells into Peripheral Vein, Percutaneous Approach (ICD-10-PCS; 2018-05-24)
PROC: 0DJ08ZZ Inspection of Upper Intestinal Tract, Via Natural or Artificial Opening Endoscopic (ICD-10-PCS; principal; 2018-05-25)
PROC: 0DBP8ZZ Excision of Rectum, Via Natural or Artificial Opening Endoscopic (ICD-10-PCS; 2018-05-26)
DX: K92.2 Gastrointestinal hemorrhage, unspecified (principal); D64.9 Anemia, unspecified; D68.32 Hemorrhagic disorder due to extrinsic circulating anticoagulants; T45.515A Adverse effect of anticoagulants, initial encounter; I48.91 Unspecified atrial fibrillation; F17.220 Nicotine dependence, chewing tobacco, uncomplicated; J32.0 Chronic maxillary sinusitis; J31.0 Chronic rhinitis; I10 Essential (primary) hypertension; K59.09 Other constipation; N40.0 Benign prostatic hyperplasia without lower urinary tract symptoms; G20 Parkinson's disease; F32.9 Major depressive disorder, single episode, unspecified; M16.10 Unilateral primary osteoarthritis, unspecified hip; R11.0 Nausea; D50.0 Iron deficiency anemia secondary to blood loss (chronic); K57.90 Diverticulosis of intestine, part unspecified, without perforation or abscess without bleeding; R79.89 Other specified abnormal findings of blood chemistry; R06.02 Shortness of breath; S13.161S Dislocation of C5/C6 cervical vertebrae, sequela; K92.1 Melena; R07.9 Chest pain, unspecified; I95.9 Hypotension, unspecified; X58.XXXS Exposure to other specified factors, sequela; E53.8 Deficiency of other specified B group vitamins; K62.1 Rectal polyp; K29.50 Unspecified chronic gastritis without bleeding; K44.9 Diaphragmatic hernia without obstruction or gangrene; E66.9 Obesity, unspecified; Z68.37 Body mass index [BMI] 37.0-37.9, adult; Z79.01 Long term (current) use of anticoagulants; Z96.659 Presence of unspecified artificial knee joint; Z66 Do not resuscitate; Z88.0 Allergy status to penicillin; Z91.030 Bee allergy status; Z79.899 Other long term (current) drug therapy; Z79.82 Long term (current) use of aspirin
CPT/HCPCS: 36415; 36430; 71045; 71045-26; 80048; 80053; 83735; 83880; 84484; 85007; 85025; 85027; 85610; 85730; 86850; 86900; 86901; 86922; 87641; 93005; 96360; 96361; 99284; 99285-25; A9270-GY; J2001; J2704; J2916; J3010; J7030; J7040; J7050; P9016

== ENCOUNTER 2019-03-01 15:40 | Emergency (ER) | payer MEDICARE, OTHER ==
[2019-03-01 16:05] VITALS: BP 170/81
--- NOTE | 2019-03-01 16:43 | EDM.PDOC ---
<Partha Akbar D - Last Filed: 03/01/19 16:25> ED HPI GENERAL MEDICAL PROBLEM - General Chief Complaint: Cardiovascular Problem Stated Complaint: PULSE IS IRREGULAR/NAUSEA Time Seen by Provider: 03/01/19 16:02 Source of Information: Reports: Patient History Limitations: Reports: No Limitations - History of Present Illness INITIAL COMMENTS - FREE TEXT/NARRATIVE: Brendan Alexander is a 78 year old male who was brought to the ED due to a low heart rate. [facility] lives [facility] in [place] and this morning they noticed that he was bradycardic, fatigued, and had some SOB so they recommend he get seen. He went to the [facility] and Tachycardic so he was sent here. He states that he has been having some SOB for the last week. He only experiences the SOB when he's being active and it take about 5 minutes of rest before he is completely asymptomatic. He states that he feels like he just needs to get more air. He denies any pain including chest pain. He denies any recent illness but states he is exposed to other living at the detention. He does have a history of A-fib, but does not have any respiratory disease. He does have a cough but he relates it to his chronic sinusitis. He does feel feverish. He denies any frequency, urgency, or pain with urination. - Related Data Allergies Allergy/AdvReac Type Severity Reaction Status Date / Time bee venom protein (honey bee) Allergy Intermediate Bronchospas Verified 16:01 ms hornet venom Allergy Intermediate Bronchospas Verified 03/01/19 16:01 ms Penicillins Allergy Mild Rash Verified 03/01/19 16:01 Home Meds: Home Meds Acetaminophen [Tylenol] 650 mg PO Q6H PRN 05/24/18 [History] Aloe Vera/Sodium Chloride [[place] Saline Nasal Gel] 2 spray NASBOTH QID PRN [History] Alum Hydrox/Mag Hydrox/Simeth [Maalox Advanced] 30 ml PO QID PRN 05/24/18 [ History] Ascorbate Calcium [Vitamin C] 500 mg PO DAILY 05/24/18 [History] Calcium Carbonate [Tums] 200 mg PO QID PRN 05/24/18 [History] Cetirizine [ZyrTEC] 5 mg PO DAILY 05/24/18 [History] Cholecalciferol (Vitamin D3) [Vitamin D3] 2,000 units PO DAILY 05/24/18 [History ] Cyanocobalamin (Vitamin B12) [Vitamin B12] 1,000 mcg PO DAILY 05/24/18 [History] Diltiazem HCl [Diltiazem 24Hr Cd] 240 mg PO DAILY 05/24/18 [History] Docusate Sodium/Sennosides [Senokot-S] 1 tab PO BID 05/24/18 [History] Eucalyptus/Menthol [Cough Drops] 1 lozenge PO TID PRN 05/24/18 [History] Ferrous Sulfate 325 mg PO DAILY 05/24/18 [History] Fluticasone Propionate [Flonase] 2 spray NASBOTH BID 05/24/18 [History] Lisinopril/Hydrochlorothiazide [Zestoretic 10-12.5 mg Tablet] 1 tab PO DAILY 10/01 [History] Mag Carb/Al Hydrox/Alginic Ac [Gaviscon Extra Strength Liquid] 15 ml PO TID PRN 05/24/18 [History] Magnesium Hydroxide [Milk of Magnesia] 30 ml PO DAILY PRN 05/24/18 [History] Menthol/Camphor [Sarna Anti-Itch] 1 applic TOP BID PRN 05/24/18 [History] Metoprolol Tartrate [Lopressor] 50 mg PO BID 05/24/18 [History] Oxymetazoline HCl [Mucinex Sinus-Max] 1 spray NASBOTH TID PRN 05/24/18 [History] Propylene Glycol [Systane Balance] 1 drop EYEBOTH TID 05/24/18 [History] Rivaroxaban [Xarelto] 20 mg PO BEDTIME 05/24/18 [History] Sertraline [Zoloft] 50 mg PO DAILY 05/24/18 [History] Tamsulosin [Flomax] 0.8 mg PO BEDTIME 05/24/18 [History] Trolamine Salicylate/Aloe Vera [Aspercreme 10%] 1 applic TOP TID PRN 05/24/18 [ History] guaiFENesin [Mucinex] 600 mg PO BID 05/24/18 [History] traMADol [Ultram] 50 mg PO BID 05/24/18 [History] Pantoprazole [ProTONIX] 40 mg PO DAILY 03/01/19 [History] Past Medical History HEENT History: Reports: Sinusitis Other HEENT History: chronic maxillary sinus infection, chronic rhinitis Cardiovascular History: Reports: Hypertension Other Cardiovascular History: atrial flutter Respiratory History: Reports: None Gastrointestinal History: Reports: Chronic Constipation, Other (See Below) Other Gastrointestinal History: nausea Genitourinary History: Reports: BPH Other Genitourinary History: BPH Musculoskeletal History: Reports: Osteoarthritis Other Musculoskeletal History: osteoarthritis of knees, disloaction of c5-c6 Neurological History: Reports: Parkinson's Psychiatric History: Reports: Depression Endocrine/Metabolic History: Reports: None Hematologic History: Reports: B12 Deficiency, Iron Deficiency Immunologic History: Reports: None Oncologic (Cancer) History: Reports: None Dermatologic History: Reports: Other (See Below) Other Dermatologic History: folliliculitis - Infectious Disease History Infectious Disease History: Reports: Chicken Pox, Measles, Mumps - Past Surgical History Musculoskeletal Surgical History: Reports: Knee Replacement, Other (See Below) Social & Family History - Family History Family Medical History: Noncontributory - Caffeine Use Caffeine Use: Reports: Coffee Caffeine Use Comment: very little use - Living Situation & Occupation Living situation: Reports: Extended Care Facility ([facility]) ED ROS GENERAL - Review of Systems Review Of Systems: ROS reveals no pertinent complaints other than HPI. ED EXAM, GENERAL - Physical Exam Exam: See Below Exam Limited By: No Limitations General Appearance: Alert, WD/WN, No Apparent Distress Eye Exam: Bilateral Eye: Normal Inspection Head: Atraumatic, Normocephalic Neck: Normal Inspection, Non-Tender, Full Range of Motion Respiratory/Chest: No Respiratory Distress, Lungs Clear, Normal Breath Sounds, No Accessory Muscle Use, Chest Non-Tender Cardiovascular: Normal Peripheral Pulses, Regular Rate, Rhythm, No Edema, No Gallop, No JVD, No Murmur, No Rub Peripheral Pulses: 2+: Radial (L), Radial (R) GI/Abdominal: Normal Bowel Sounds, Soft, Non-Tender, No Organomegaly, No Distention, No Abnormal Bruit, No Mass Extremities: Normal Inspection, Normal Range of Motion, Non-Tender, Normal Capillary Refill, No Pedal Edema Psychiatric: Normal Affect, Normal Mood Skin Exam: Warm, Dry, Intact, Normal Color, No Rash Course - Vital Signs Last Recorded V/S: Last Vital Signs Temp 97.0 F 03/01/19 16:01 Pulse 65 03/01/19 16:01 Resp 26 H 03/01/19 16:01 BP 170/81 H 03/01/19 16:01 Pulse Ox 95 03/01/19 16:01 - Orders/Labs/Meds Orders: Active Orders 24 hr Category Date Time Status EKG Documentation Completion [RC] ASDIRECTED Care 03/01/19 16:27 Active Holter Monitor 48 Hours [RC] .PRN Care 03/01/19 17:56 Active Chest 2V [CR] Stat Exams 03/01/19 16:24 Taken UA W/MICROSCOPIC [URIN] Stat Lab 03/01/19 16:29 Ordered EKG 12 Lead [EK] Stat Ther 03/01/19 16:24 Ordered Labs: Laboratory Tests 03/01/19 03/01/19 Range/Units 17:15 17:15 WBC 7.89 (4.23-9.07) K/mm3 RBC 4.09 L (4.63-6.08) M/mm3 Hgb 12.4 L D (13.7-17.5) gm/L Hct 38.5 L (40.1-51.0) % MCV 94.1 H (79.0-92.2) fl MCH 30.3 (25.7-32.2) pg MCHC 32.2 (32.2-35.5) g/dl RDW Std Deviation 47.2 H (35.1-43.9) fL Plt Count 217 (163-337) K/mm3 MPV 9.5 (9.4-12.3) fl Neut % (Auto) 76.1 H (34.0-67.9) % Lymph % (Auto) 12.3 L (21.8-53.1) % [place] % (Auto) 8.1 (5.3-12.2) % Eos % (Auto) 2.8 (0.8-7.0) Baso % (Auto) 0.4 (0.1-1.2) % Neut # (Auto) 6.01 H (1.78-5.38) K/mm3 Lymph # (Auto) 0.97 L (1.32-3.57) K/mm3 [place] # (Auto) 0.64 (0.30-0.82) K/mm3 Eos # (Auto) 0.22 (0.04-0.54) K/mm3 Baso # (Auto) 0.03 (0.01-0.08) K/mm3 Sodium 141 (136-145) mEq/L Potassium 3.7 (3.5-5.1) mEq/L Chloride 106 (98-107) mEq/L Carbon Dioxide 24 (21-32) mEq/L Anion Gap 14.7 (5-15) BUN 15 (7-18) mg/dL Creatinine 1.2 (0.7-1.3) mg/dL Est Cr Clr Drug Dosing 52.29 mL/min Estimated GFR (MDRD) 58 (>60) mL/min BUN/Creatinine Ratio 12.5 L (14-18) Glucose 97 (83-115) mg/dL Calcium 8.9 (8.5-10.1) mg/dL Total Bilirubin 0.4 (0.2-1.0) mg/dL AST 14 L (15-37) U/L ALT 14 L (16-63) U/L Alkaline Phosphatase 71 (46-116) U/L Total Protein 7.5 (6.4-8.2) g/dl Albumin 3.6 (3.4-5.0) g/dl Globulin 3.9 gm/dL Albumin/Globulin Ratio 0.9 L (1-2) Departure - Departure Disposition: Home, Self-Care 01 Clinical Impression: Bradycardia Instructions: Bradycardia, Adult, Ambulatory Cardiac Monitoring Referrals: Sunny Briseno MD [Primary Care Provider] - Forms: ED Department Discharge Additional Instructions: You were seen in the ED today for low pulse rate at [place] and fatigue. At this time, your cardiac, infectious, and other workup have been negative for anything acute. Chest Xray looks improved since the last time you were here. EKG was within normal limits. Therefore, we recommend going home with a Holter Monitor for 48hours to monitor your heart. You can then follow up with your primary care provider, Dr. Briseno, in a few days. Please return to ED if new or worsening symptoms. - My Orders Last 24 Hours: My Active Orders 03/01/19 16:24 Chest 2V [CR] Stat EKG 12 Lead [EK] Stat 03/01/19 16:27 EKG Documentation Completion [RC] ASDIRECTED 03/01/19 16:29 UA W/MICROSCOPIC [URIN] Stat 03/01/19 17:56 Holter Monitor 48 Hours [RC] .PRN - Assessment/Plan Last 24 Hours: My Active Orders 03/01/19 16:24 Chest 2V [CR] Stat EKG 12 Lead [EK] Stat 03/01/19 16:27 EKG Documentation Completion [RC] ASDIRECTED 03/01/19 16:29 UA W/MICROSCOPIC [URIN] Stat 03/01/19 17:56 Holter Monitor 48 Hours [RC] .PRN <Jody Jeffery - Last Filed: 03/01/19 18:14> ED HPI GENERAL MEDICAL PROBLEM - History of Present Illness INITIAL COMMENTS - FREE TEXT/NARRATIVE: I agree with Partha MCCLURE history and assessment. EKG INTERPRETATION EKG Date: 03/01/19 Time: 16:32 Rhythm: NSR [place]: Normal (borderline LAD) P-Wave: Present QRS: Normal ST-T: Normal QT: Normal Course - Orders/Labs/Meds Labs: Laboratory Tests 03/01/19 03/01/19 Range/Units 17:15 17:15 WBC 7.89 (4.23-9.07) K/mm3 RBC 4.09 L (4.63-6.08) M/mm3 Hgb 12.4 L D (13.7-17.5) gm/L Hct 38.5 L (40.1-51.0) % MCV 94.1 H (79.0-92.2) fl MCH 30.3 (25.7-32.2) pg MCHC 32.2 (32.2-35.5) g/dl RDW Std Deviation 47.2 H (35.1-43.9) fL Plt Count 217 (163-337) K/mm3 MPV 9.5 (9.4-12.3) fl Neut % (Auto) 76.1 H (34.0-67.9) % Lymph % (Auto) 12.3 L (21.8-53.1) % [place] % (Auto) 8.1 (5.3-12.2) % Eos % (Auto) 2.8 (0.8-7.0) Baso % (Auto) 0.4 (0.1-1.2) % Neut # (Auto) 6.01 H (1.78-5.38) K/mm3 Lymph # (Auto) 0.97 L (1.32-3.57) K/mm3 [place] # (Auto) 0.64 (0.30-0.82) K/mm3 Eos # (Auto) 0.22 (0.04-0.54) K/mm3 Baso # (Auto) 0.03 (0.01-0.08) K/mm3 Sodium 141 (136-145) mEq/L Potassium 3.7 (3.5-5.1) mEq/L Chloride 106 (98-107) mEq/L Carbon Dioxide 24 (21-32) mEq/L Anion Gap 14.7 (5-15) BUN 15 (7-18) mg/dL Creatinine 1.2 (0.7-1.3) mg/dL Est Cr Clr Drug Dosing 52.29 mL/min Estimated GFR (MDRD) 58 (>60) mL/min BUN/Creatinine Ratio 12.5 L (14-18) Glucose 97 (83-115) mg/dL Calcium 8.9 (8.5-10.1) mg/dL Total Bilirubin 0.4 (0.2-1.0) mg/dL AST 14 L (15-37) U/L ALT 14 L (16-63) U/L Alkaline Phosphatase 71 (46-116) U/L Total Protein 7.5 (6.4-8.2) g/dl Albumin 3.6 (3.4-5.0) g/dl Globulin 3.9 gm/dL Albumin/Globulin Ratio 0.9 L (1-2) - Re-Assessments/Exams Free Text/Narrative Re-Assessment/Exam: 03/01/19 16:24 Ordered CBC, CMP, CXR, EKG 03/01/19 16:50 EKG reviewed by myself and Dr. Mckinney- nothing acute seen. 03/01/19 17:54 CBC shows no signs of infection. CMP pending. CXR reviewed by myself and Dr. Mckinney- nothing acute seen, improved since previous CXR. Pending formal read. 03/01/19 18:06 CMP is WNL. At this time, no acute abnormalities have been found. He is stable enough to go home. Will order 48H Holter Monitor as nothing acute has been found while here. He can then follow up with his PCP, Dr. Briseno. Departure - Departure Time of Disposition: 18:07 Condition: Good
--- NOTE | 2019-03-02 13:29 | CR ---
Chest: Two views of the chest are obtained. Comparison: Prior portable chest x-ray of 05/24/18. Heart is enlarged. Tortuous thoracic aorta is seen. Slight pleural-based density is noted within the right mid to lower lung which is stable. No acute parenchymal change is seen. Slight degenerative change is scattered within the spine with scoliosis. Impression: 1. Incidental findings. Nothing acute is appreciated on two-view chest x-ray. Diagnostic code #2
== END 2019-03-01 18:37 | disposition home or self-care (01) ==
LOC: JD.ED 15:40
DX: R00.1 Bradycardia, unspecified (principal); I10 Essential (primary) hypertension; F32.9 Major depressive disorder, single episode, unspecified; Z91.030 Bee allergy status; Z88.0 Allergy status to penicillin; Z79.899 Other long term (current) drug therapy
CPT/HCPCS: 36415; 71046; 71046-26; 80053; 85025; 93005; 99284-25

== ENCOUNTER 2019-03-16 18:09 | Emergency (ER) | payer MEDICARE, OTHER ==
[2019-03-16 18:26] VITALS: BP 193/96
--- NOTE | 2019-03-16 19:49 | EDM.PDOC ---
ED HPI GENERAL MEDICAL PROBLEM - General Chief Complaint: Abdominal Pain Stated Complaint: PT FROM [place] Time Seen by Provider: 03/16/19 19:01 Source of Information: Reports: Patient History Limitations: Reports: No Limitations - History of Present Illness INITIAL COMMENTS - FREE TEXT/NARRATIVE: This is an 79-year-old male. He comes from [facility] in [place]. He says he was nauseated this afternoon. He had no vomiting or diarrhea. He says his belly doesn't really hurt even though he pushes all around on it. He had some diarrhea 3 or 4 days ago but none today. He denies any fever or chills. He does have a history of Atrial fibrillation and anemia from blood loss. He denies any black-looking stools. He appears to be without distress and he is talking normally and conversing with his friends that are here with him. Abdomen Pain Score (Numeric/FACES): 3 - Related Data Allergies Allergy/AdvReac Type Severity Reaction Status Date / Time bee venom protein (honey bee) Allergy Intermediate Bronchospas Verified 18:21 ms hornet venom Allergy Intermediate Bronchospas Verified 03/16/19 18:21 ms Penicillins Allergy Mild Rash Verified 03/16/19 18:21 Home Meds: Home Meds Acetaminophen [Tylenol] 650 mg PO Q6H PRN 05/24/18 [History] Aloe Vera/Sodium Chloride [[place] Saline Nasal Gel] 2 spray NASBOTH QID PRN [History] Alum Hydrox/Mag Hydrox/Simeth [Maalox Advanced] 30 ml PO QID PRN 05/24/18 [ History] Ascorbate Calcium [Vitamin C] 500 mg PO DAILY 05/24/18 [History] Calcium Carbonate [Tums] 200 mg PO QID PRN 05/24/18 [History] Cetirizine [ZyrTEC] 5 mg PO DAILY 05/24/18 [History] Cholecalciferol (Vitamin D3) [Vitamin D3] 2,000 units PO DAILY 05/24/18 [History ] Cyanocobalamin (Vitamin B12) [Vitamin B12] 1,000 mcg PO DAILY 05/24/18 [History] Eucalyptus/Menthol [Cough Drops] 1 lozenge PO TID PRN 05/24/18 [History] Ferrous Sulfate 325 mg PO DAILY 05/24/18 [History] Fluticasone Propionate [Flonase] 2 spray NASBOTH BID 05/24/18 [History] Magnesium Hydroxide [Milk of Magnesia] 30 ml PO DAILY PRN 05/24/18 [History] Menthol/Camphor [Sarna Anti-Itch] 1 applic TOP BID PRN 05/24/18 [History] Metoprolol Tartrate [Lopressor] 50 mg PO BID 05/24/18 [History] Oxymetazoline HCl [Mucinex Sinus-Max] 1 spray NASBOTH BID 05/24/18 [History] Propylene Glycol [Systane Balance] 1 drop EYEBOTH TID 05/24/18 [History] Rivaroxaban [Xarelto] 20 mg PO BEDTIME 05/24/18 [History] Sertraline [Zoloft] 50 mg PO DAILY 05/24/18 [History] Tamsulosin [Flomax] 0.8 mg PO BEDTIME 05/24/18 [History] Trolamine Salicylate/Aloe Vera [Aspercreme 10%] 1 applic TOP TID PRN 05/24/18 [ History] traMADol [Ultram] 50 mg PO BID 05/24/18 [History] Pantoprazole [ProTONIX] 40 mg PO DAILY 03/01/19 [History] Nystatin [Nystatin Crm] 1 applic TOP BID 03/16/19 [History] Oxymetazoline HCl [Mucinex Sinus-Max] 1 spray TIFFANI ASDIRECTED PRN 03/16/19 [ History] Sennosides/Docusate Sodium [Senna-S] 1 tab PO BID 03/16/19 [History] Past Medical History HEENT History: Reports: Sinusitis Other HEENT History: chronic maxillary sinus infection, chronic rhinitis Cardiovascular History: Reports: Hypertension Other Cardiovascular History: atrial flutter Respiratory History: Reports: None Gastrointestinal History: Reports: Chronic Constipation, Other (See Below) Other Gastrointestinal History: nausea Genitourinary History: Reports: BPH Other Genitourinary History: BPH Musculoskeletal History: Reports: Osteoarthritis Other Musculoskeletal History: osteoarthritis of knees, disloaction of c5-c6 Neurological History: Reports: Parkinson's Psychiatric History: Reports: Depression Endocrine/Metabolic History: Reports: None Hematologic History: Reports: B12 Deficiency, Iron Deficiency Immunologic History: Reports: None Oncologic (Cancer) History: Reports: None Dermatologic History: Reports: Other (See Below) Other Dermatologic History: folliliculitis - Infectious Disease History Infectious Disease History: Reports: Chicken Pox, Measles, Mumps - Past Surgical History Musculoskeletal Surgical History: Reports: Knee Replacement, Other (See Below) Social & Family History - Family History Family Medical History: Noncontributory - Caffeine Use Caffeine Use: Reports: Coffee Caffeine Use Comment: very little use - Living Situation & Occupation Living situation: Reports: Extended Care Facility ([facility]) ED ROS GENERAL - Review of Systems Review Of Systems: See Below Constitutional: Reports: Weakness. Denies: Fever, Chills HEENT: Reports: No Symptoms Respiratory: Denies: Shortness of Breath, Cough Cardiovascular: Denies: Chest Pain Endocrine: Reports: No Symptoms GI/Abdominal: Reports: Diarrhea, Nausea. Denies: Abdominal Pain, Black Stool, Vomiting : Reports: Other (Patient states he doesn't empty very well) Musculoskeletal: Reports: No Symptoms Skin: Reports: No Symptoms Neurological: Reports: No Symptoms Psychiatric: Reports: No Symptoms Hematologic/Lymphatic: Reports: Anemia ED EXAM, GI/ABD - Physical Exam Exam: See Below Exam Limited By: No Limitations General Appearance: Alert, WD/WN, No Apparent Distress Eyes: Bilateral: Normal Appearance Ears: Normal External Exam Nose: Normal Inspection Throat/Mouth: Normal Inspection, Normal Lips, Normal Voice, No Airway Compromise Head: Normocephalic Neck: Supple Respiratory/Chest: No Respiratory Distress, Lungs Clear, Normal Breath Sounds Cardiovascular: Regular Rate, Rhythm, No Murmur GI/Abdominal Exam: Other (Belly seems distended and tight and yet palpation of the abdomen does not seem to elicit any sort of tenderness or pain. He has diastases recti noted, bowel sounds are positive but they are decreased) Back Exam: Decreased Range of Motion Extremities: Normal Inspection, Pedal Edema Neurological: Alert, Oriented Psychiatric: Normal Affect, Normal Mood Skin Exam: Warm, Dry EKG INTERPRETATION EKG Date: 03/16/19 Time: 19:42 EKG Interpretation Comments: She has an atrial rhythm that appears to be ectopic but it is regular rate, there is no acute ST or T-wave changes and there is no ischemia noted. Course - Vital Signs Last Recorded V/S: Last Vital Signs Temp 98.8 F 03/16/19 18:21 Pulse 66 03/16/19 18:21 Resp 18 03/16/19 18:21 BP 193/96 H 03/16/19 18:21 Pulse Ox 95 03/16/19 18:21 - Orders/Labs/Meds Orders: Active Orders 24 hr Category Date Time Status EKG 12 Lead [EKG Documentation Completion] [RC] STAT Care 03/16/19 19:23 Active Abdomen 2V AP Flat Upright [CR] Stat Exams 03/16/19 19:22 Taken Labs: Laboratory Tests 03/16/19 03/16/19 03/16/19 Range/Units 18:57 19:58 19:58 WBC 9.42 H (4.23-9.07) K/mm3 RBC 4.21 L (4.63-6.08) M/mm3 Hgb 12.8 L (13.7-17.5) gm/L Hct 39.4 L (40.1-51.0) % MCV 93.6 H (79.0-92.2) fl MCH 30.4 (25.7-32.2) pg MCHC 32.5 (32.2-35.5) g/dl RDW Std Deviation 47.5 H (35.1-43.9) fL Plt Count 248 (163-337) K/mm3 MPV 9.2 L (9.4-12.3) fl Neut % (Auto) 77.1 H (34.0-67.9) % Lymph % (Auto) 11.8 L (21.8-53.1) % [place] % (Auto) 8.8 (5.3-12.2) % Eos % (Auto) 1.9 (0.8-7.0) Baso % (Auto) 0.2 (0.1-1.2) % Neut # (Auto) 7.26 H (1.78-5.38) K/mm3 Lymph # (Auto) 1.11 L (1.32-3.57) K/mm3 [place] # (Auto) 0.83 H (0.30-0.82) K/mm3 Eos # (Auto) 0.18 (0.04-0.54) K/mm3 Baso # (Auto) 0.02 (0.01-0.08) K/mm3 Sodium 140 (136-145) mEq/L Potassium 3.7 (3.5-5.1) mEq/L Chloride 104 (98-107) mEq/L Carbon Dioxide 23 (21-32) mEq/L Anion Gap 16.7 H (5-15) BUN 15 (7-18) mg/dL Creatinine 1.0 (0.7-1.3) mg/dL Est Cr Clr Drug Dosing TNP Estimated GFR (MDRD) > 60 (>60) mL/min BUN/Creatinine Ratio 15.0 (14-18) Glucose 98 (83-115) mg/dL Calcium 9.5 (8.5-10.1) mg/dL Total Bilirubin 0.6 (0.2-1.0) mg/dL AST 14 L (15-37) U/L ALT 18 (16-63) U/L Alkaline Phosphatase 69 (46-116) U/L Troponin I < 0.017 (0.00-0.056) ng/mL Total Protein 7.6 (6.4-8.2) g/dl Albumin 3.7 (3.4-5.0) g/dl Globulin 3.9 gm/dL Albumin/Globulin Ratio 1.0 (1-2) Urine Color Yellow (Yellow) Urine Appearance Clear (Clear) Urine pH 6.5 (5.0-8.0) Ur Specific [place] 1.025 (1.005-1.030) Urine Protein 1+ H (Negative) Urine Glucose (UA) Negative (Negative) Urine Ketones 2+ H (Negative) Urine Occult Blood 1+ H (Negative) Urine Nitrite Negative (Negative) Urine Bilirubin Negative (Negative) Urine Urobilinogen 0.2 (0.2-1.0) Ur Leukocyte Esterase 1+ H (Negative) Urine RBC 10-20 H (0-5) /hpf Urine WBC 10-20 H (0-5) /hpf Ur Epithelial Cells 0-5 (0-5) /hpf Urine Bacteria Few (FEW) /hpf Urine Mucus Moderate H (FEW) /hpf - Re-Assessments/Exams Free Text/Narrative Re-Assessment/Exam: 03/16/19 20:52 I spoke to the patient regarding the lab results, that he is a little dry needs to drink more fluids. His x-ray does not show an obstruction though he does have a bit of stool in his colon and if is trying to move the stool it could cause him some nausea. He has been completely fine since he's been here. He's been laughing and joking seems to be doing well. I encouraged him to drink more fluids to hydrate himself and will help his stool to go. Departure - Departure Time of Disposition: 20:58 Disposition: Home, Self-Care 01 Condition: Fair Clinical Impression: Mild dehydration, Nausea Constipation Qualifiers: Constipation type: unspecified constipation type Qualified Code(s): K59.00 - Constipation, unspecified - Discharge Information *PRESCRIPTION DRUG MONITORING PROGRAM REVIEWED*: Not Applicable *COPY OF PRESCRIPTION DRUG MONITORING REPORT IN PATIENT TIMUR: Not Applicable Instructions: Constipation, Adult Referrals: Sunny Briseno MD [Primary Care Provider] - Forms: ED Department Discharge Additional Instructions: Please drink more water and fluids to help the stool be softer so you can have better bowel movements, continue with your medications as prescribed, follow up with your family doctor next week for recheck, return to the ER if needed - My Orders Last 24 Hours: My Active Orders 03/16/19 19:22 Abdomen 2V AP Flat Upright [CR] Stat 03/16/19 19:23 EKG 12 Lead [EKG Documentation Completion] [RC] STAT - Assessment/Plan Last 24 Hours: My Active Orders 03/16/19 19:22 Abdomen 2V AP Flat Upright [CR] Stat 03/16/19 19:23 EKG 12 Lead [EKG Documentation Completion] [RC] STAT
--- NOTE | 2019-03-17 08:07 | CR ---
Abdomen: Supine and decubitus views of the abdomen were obtained. Comparison: No prior abdominal x-ray. Vascular calcification is seen. Bony structures are osteopenic. Degenerative change is scattered throughout the spine. Bowel gas pattern is normal. No free air is seen. Impression: 1. Incidental findings. Nothing acute is appreciated. Diagnostic code #2
== END 2019-03-16 21:16 | disposition home or self-care (01) ==
LOC: JD.ED 18:09
DX: E86.0 Dehydration (principal); K59.00 Constipation, unspecified; R11.0 Nausea; I10 Essential (primary) hypertension; F32.9 Major depressive disorder, single episode, unspecified; Z91.030 Bee allergy status; Z88.0 Allergy status to penicillin; Z79.899 Other long term (current) drug therapy
CPT/HCPCS: 36415; 74019; 74019-26; 80053; 81001; 84484; 85025; 93005; 99284-25

== ENCOUNTER 2020-04-23 11:01 | Emergency (ER) | payer MEDICARE, OTHER ==
[2020-04-23 11:17] VITALS: BP 116/69; PULSE 62
--- NOTE | 2020-04-23 11:43 | EDM.PDOC ---
ED HPI GENERAL MEDICAL PROBLEM - General Chief Complaint: Neuro Symptoms/Deficits Stated Complaint: L SIDE WEAKNESS/SPEECH DIFFICULTY Time Seen by Provider: 04/23/20 11:36 Source of Information: Reports: Patient, Care Home Records - History of Present Illness INITIAL COMMENTS - FREE TEXT/NARRATIVE: 80-year-old male presents to the ED for evaluation of dysarthric speech and perhaps left-sided weakness that care workers appreciated yesterday. Patient is currently living at [facility] in [place]. He does not appreciate really why he is here or that there is any significant problems. He does not walk and is wheelchair bound. He has had previous bilateral total knee replacements but has chronic pain in both knees. On presentation to the ED he answers all questions appropriately. He is certainly mildly dysarthric but he has no upper dentures in place and he only has a few teeth on the bottom. His tongue was also moderately dry. He made sense and answers all questions appropriately. He was oriented x3 Mini-Mental mental status examination he got 7 out of 10. Is chronic weakness in both lower extremities and was impossible to tell that one leg was any weaker than the other. 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 Also motor power and tone in upper extremities biceps seem to be equal bilaterally. Has evidence of osteoarthritic changes in his hands. His left wrist is sore and slightly warm to touch suggesting possibility of gout versus arthritis. He has limited range of motion of his shoulders due to rotator cuff disease in both forward flexion and abduction. A stroke alert was called on this gentleman and CT of the head was performed. Med list reveals the patient is on Xarelto 20 mg daily and therefore a intracerebral hemorrhage will be ruled out Onset: Unknown/Unsure Onset Date: 04/22/20 (Articular is identified increased left-sided weakness and dysarthric speech yesterday afternoon. Was brought to the ED per bus from [place] .) Duration: Hour(s):, Intermittent Location: Reports: Upper Extremity, Left (Ported left arm weakness by caretakers ), Other (Dysarthric speech which seemed to wax and wane.) Severity: Moderate Improves with: Reports: Other (Tums seem to come and go.) Worsens with: Reports: None Context: Denies: Activity, Exercise, Lifting, Sick Contact, Trauma, Other Associated Symptoms: Reports: Confusion (Short-term memory impairment), Malaise , Weakness (He no longer walks because of terrible arthritis in his lower extremities even after total knee replacements. Legs are too weak to hold him up.). 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: Acetaminophen Left Wrist Pain Score (Numeric/FACES): 6 - Related Data Allergies Allergy/AdvReac Type Severity Reaction Status Date / Time Penicillins Allergy Severe Rash Verified 04/23/20 11:24 bee venom protein (honey bee) Allergy Intermediate Bronchospas Verified 11:12 ms hornet venom Allergy Intermediate Bronchospas Verified 04/23/20 11:12 ms Home Meds: Home Meds Acetaminophen [Tylenol] 650 mg PO Q6H PRN 05/24/18 [History] Aloe Vera/Sodium Chloride [[place] Saline Nasal Gel] 2 spray NASBOTH QID PRN [History] Alum Hydrox/Mag Hydrox/Simeth [Maalox Advanced] 30 ml PO QID PRN 05/24/18 [ History] Ascorbate Calcium [Vitamin C] 500 mg PO DAILY 05/24/18 [History] Cholecalciferol (Vitamin D3) [Vitamin D3] 2,000 units PO DAILY 05/24/18 [History ] Cyanocobalamin (Vitamin B12) [Vitamin B12] 1,000 mcg PO DAILY 05/24/18 [History] Eucalyptus/Menthol [Cough Drops] 1 lozenge PO TID PRN 05/24/18 [History] Ferrous Sulfate 325 mg PO DAILY 05/24/18 [History] Fluticasone Propionate [Flonase] 2 spray NASBOTH BID 05/24/18 [History] Magnesium Hydroxide [Milk of Magnesia] 30 ml PO DAILY PRN 05/24/18 [History] Menthol/Camphor [Sarna Anti-Itch] 1 applic TOP BID PRN 05/24/18 [History] Metoprolol Tartrate [Lopressor] 50 mg PO BID 05/24/18 [History] Oxymetazoline HCl [Mucinex Sinus-Max] 1 spray NASBOTH BID 05/24/18 [History] Propylene Glycol [Systane Balance] 1 drop EYEBOTH TID 05/24/18 [History] Rivaroxaban [Xarelto] 20 mg PO BEDTIME 05/24/18 [History] Sertraline [Zoloft] 50 mg PO DAILY 05/24/18 [History] Tamsulosin [Flomax] 0.8 mg PO BEDTIME 05/24/18 [History] Trolamine Salicylate/Aloe Vera [Aspercreme 10%] 1 applic TOP TID PRN 05/24/18 [ History] traMADol [Ultram] 50 mg PO BID 05/24/18 [History] Pantoprazole [ProTONIX] 40 mg PO DAILY 03/01/19 [History] Nystatin [Nystatin Crm] 1 applic TOP BID 03/16/19 [History] Oxymetazoline HCl [Mucinex Sinus-Max] 1 spray TIFFANI ASDIRECTED PRN 03/16/19 [ History] Sennosides/Docusate Sodium [Senna-S] 1 tab PO BID 03/16/19 [History] Cefdinir [Omnicef] 300 mg PO BID #16 cap 04/23/20 [Rx] Furosemide [Lasix] 40 mg PO BID 04/23/20 [History] Ondansetron [Zofran] 4 mg PO Q4H 04/23/20 [History] metOLazone [Metolazone] 2.5 mg PO DAILY 04/23/20 [History] predniSONE [Prednisone] 20 mg PO BID #12 tablet 04/23/20 [Rx] Past Medical History HEENT History: Reports: Sinusitis Other HEENT History: chronic maxillary sinus infection, chronic rhinitis Cardiovascular History: Reports: Hypertension Other Cardiovascular History: atrial flutter Respiratory History: Reports: None Gastrointestinal History: Reports: Chronic Constipation, Other (See Below) Other Gastrointestinal History: nausea Genitourinary History: Reports: BPH Other Genitourinary History: BPH Musculoskeletal History: Reports: Osteoarthritis Other Musculoskeletal History: osteoarthritis of knees, disloaction of c5-c6 Neurological History: Reports: Parkinson's Psychiatric History: Reports: Depression Endocrine/Metabolic History: Reports: None Hematologic History: Reports: B12 Deficiency, Iron Deficiency Immunologic History: Reports: None Oncologic (Cancer) History: Reports: None Dermatologic History: Reports: Other (See Below) Other Dermatologic History: folliliculitis - Infectious Disease History Infectious Disease History: Reports: Chicken Pox, Measles, Mumps - Past Surgical History Musculoskeletal Surgical History: Reports: Knee Replacement, Other (See Below) Social & Family History - Family History Family Medical History: Noncontributory - Caffeine Use Caffeine Use: Reports: Coffee Caffeine Use Comment: very little use - Living Situation & Occupation Living situation: Reports: Extended Care Facility ([facility]) ED ROS GENERAL - Review of Systems Review Of Systems: See Below Constitutional: Reports: Malaise, Weakness, Fatigue. Denies: Fever, Chills, Decreased Appetite, Weight Loss HEENT: Reports: Other (Dry mouth) Respiratory: Reports: Shortness of Breath. Denies: Wheezing ([place] of breath occasionally), Pleuritic Chest Pain, Cough, Sputum Cardiovascular: Reports: Edema (Mild). Denies: Chest Pain, Blood Pressure Problem, Claudication, Lightheadedness, Orthopnea Endocrine: Reports: No Symptoms GI/Abdominal: Reports: Constipation : Reports: Frequency, Other (Known BPH.) Musculoskeletal: Reports: Shoulder Pain, Back Pain, Joint Pain (Chronic pain in left wrist left both shoulders both knees even though he has had total joint replacement in both knees.) Skin: Reports: Bruising (Oozes easily is a is on Xarelto) Neurological: Reports: Confusion (Apparent intermittent confusion related to us by the care staff at), Difficulty Walking (Under walks. He gets around with a wheelchair can tends for.). Denies: Dizziness, Headache, Numbness, Syncope, Tingling Psychiatric: Reports: No Symptoms Hematologic/Lymphatic: Reports: No Symptoms Immunologic: Reports: No Symptoms ED EXAM, NEURO - Physical Exam Exam: See Below Exam Limited By: Physical Impairment (He appears to have mild dementia symptoms with impaired short-term memory.) General Appearance: Alert, WD/WN, No Apparent Distress, Other (Temperature is 36.5 pulse is 62 and sinus respiratory is 18 BP 116/69 O2 sats 98% on room air.) Eye Exam: Bilateral Eye: Normal Inspection, PERRL Throat/Mouth: Other (Tongue is mildly dry and coated. He has no upper dentures in place and no teeth. He has a few teeth in the lower mandible which may attribute to dysarthric speech. Also dry mouth can contribute to dysarthria.) Head Exam: Atraumatic, Normocephalic, Other (Or no outward signs of any head or facial trauma. He denies any recent falls.) Neck: Limited Range of Motion (Some crepitus on lateral rotation of his cervical spine but range of motion is nearly full.). No: Carotid Bruit, Lymphadenopathy (L) ( Denies any pain in his neck), Lymphadenopathy (R), Thyromegaly Respiratory/Chest: No Respiratory Distress, Decreased Breath Sounds (Sounds are mildly diminished to the lower 25% lung gutierrez bilaterally), Wheezing ( Occasional wheezes both bases. Perhaps a few rales left base) Cardiovascular: Normal Peripheral Pulses, Regular Rate, Rhythm, No Gallop, No Murmur, No Rub. No: No Edema GI/Abdominal: Normal Bowel Sounds, Soft, Non-Tender, No Organomegaly, No Abnormal Bruit, No Mass, Pelvis Stable, Other (No surgical scars evident.) Neurological: Alert, Normal Mood/Affect, Normal Dorsiflexion, CN II-XII Intact, Normal Plantar Flexion, No Motor/Sensory Deficits, Oriented x 3 (Is disoriented to time.), Other (He has weakness in both lower extremities. I cannot identify that one leg was any weaker than the other. He had slight weakness in left wrist but there is also increased warmth and tenderness of the left wrist suggesting underlying gout or arthritis. He has very limited abduction or forward flexion of both shoulders due to rotator cuff disease. Cannot identify any significant left-sided weakness as compared to the right.). No: Normal Gait (Unable to test as he does not walk), Ataxia DTR: 0: Achilles (R), Achilles (L), 1+: Bicep (R), Bicep (L), Patella (R), Patella (L) Back Exam: Normal Inspection Extremities: Pedal Edema (Pedal edema at the ankles.), Other (Well-healed midline scars over both knees from total knee replacements.) Psychiatric: Normal Affect, Normal Mood Skin Exam: Warm, Dry, Intact, Normal Color, No Rash EKG INTERPRETATION EKG Date: 04/23/20 Time: 11:16 Rhythm: Other Rate (Beats/Min): 58 Douglass: LAD-Left Douglass Deviation (-30 degrees) P-Wave: Present (With first-degree AV block) QRS: Other (Decreased voltage precordial leads. Q waves V1 only nonspecific early R wave transition consider right ventricular hypertrophy pattern tall R waves in V1 suggest left ventricular hypertrophy pattern. Near Q wave 3 and aVF consider old inferior wall myocardial infarction.) ST-T: Other (T wave flattening V3 nonspecific finding) QT: Prolonged (Mildly prolonged) EKG Interpretation Comments: Abnormal ECG Course - Vital Signs Last Recorded V/S: Last Vital Signs Temp 36.5 C 04/23/20 11:12 Pulse 62 04/23/20 11:12 Resp 18 04/23/20 11:12 BP 116/69 04/23/20 11:12 Pulse Ox 98 04/23/20 11:12 - Orders/Labs/Meds Orders: Active Orders 24 hr Category Date Time Status URINALYSIS W/MICROSCOPIC [UA W/MICROSCOPIC] [URIN] Stat Lab 04/23/20 11:42 Ordered Dextrose 5%-0.9% NaCl [Dextrose 5%-Normal Saline] 1,000 Med 04/23/20 11:45 Active ml IV ASDIRECTED Medication Orders Dextrose/Sodium Chloride (Dextrose 5%-Normal Saline) 1,000 mls @ 125 mls/hr IV ASDIRECTED PETERSON Last Admin: 04/23/20 12:22 Dose: 125 mls/hr Labs: Laboratory Tests 04/23/20 04/23/20 04/23/20 Range/Units 11:20 11:20 11:20 WBC 9.63 H (4.23-9.07) K/mm3 RBC 4.42 L (4.63-6.08) M/mm3 Hgb 13.5 L (13.7-17.5) gm/dl Hct 41.9 (40.1-51.0) % MCV 94.8 H (79.0-92.2) fl MCH 30.5 (25.7-32.2) pg MCHC 32.2 (32.2-35.5) g/dl RDW Std Deviation 48.7 H (35.1-43.9) fL Plt Count 272 (163-337) K/mm3 MPV 9.6 (9.4-12.3) fl Neut % (Auto) 74.8 H (34.0-67.9) % Lymph % (Auto) 11.7 L (21.8-53.1) % [place] % (Auto) 10.2 (5.3-12.2) % Eos % (Auto) 2.6 (0.8-7.0) Baso % (Auto) 0.5 (0.1-1.2) % Neut # (Auto) 7.20 H (1.78-5.38) K/mm3 Lymph # (Auto) 1.13 L (1.32-3.57) K/mm3 [place] # (Auto) 0.98 H (0.30-0.82) K/mm3 Eos # (Auto) 0.25 (0.04-0.54) K/mm3 Baso # (Auto) 0.05 (0.01-0.08) K/mm3 ESR (0-15) mm/hr PT 11.4 (9.7-12.0) SECONDS INR 1.05 APTT 33 H (22-31) SECONDS Sodium 140 (136-145) mEq/L Potassium 4.1 (3.5-5.1) mEq/L Chloride 100 (98-107) mEq/L Carbon Dioxide 32 (21-32) mEq/L Anion Gap 12.1 (5-15) BUN 22 H (7-18) mg/dL Creatinine 1.5 H (0.7-1.3) mg/dL Est Cr Clr Drug Dosing 41.67 mL/min Estimated GFR (MDRD) 45 (>60) mL/min BUN/Creatinine Ratio 14.7 (14-18) Glucose 94 (83-115) mg/dL Uric Acid (3.5-7.2) mg/dL Calcium 9.6 (8.5-10.1) mg/dL Magnesium 2.0 (1.8-2.4) mg/dl Total Bilirubin 0.6 (0.2-1.0) mg/dL AST 27 (15-37) U/L ALT 31 (16-63) U/L Alkaline Phosphatase 88 (46-116) U/L Troponin I < 0.017 (0.00-0.056) ng/mL C-Reactive Protein 2.7 H* (<1.0) mg/dL NT-Pro-B Natriuret Pep (0-450) pg/mL Total Protein 8.0 (6.4-8.2) g/dl Albumin 3.5 (3.4-5.0) g/dl Globulin 4.5 gm/dL Albumin/Globulin Ratio 0.8 L (1-2) 04/23/20 04/23/20 04/23/20 Range/Units 11:20 11:20 12:17 WBC (4.23-9.07) K/mm3 RBC (4.63-6.08) M/mm3 Hgb (13.7-17.5) gm/dl Hct (40.1-51.0) % MCV (79.0-92.2) fl MCH (25.7-32.2) pg MCHC (32.2-35.5) g/dl RDW Std Deviation (35.1-43.9) fL Plt Count (163-337) K/mm3 MPV (9.4-12.3) fl Neut % (Auto) (34.0-67.9) % Lymph % (Auto) (21.8-53.1) % [place] % (Auto) (5.3-12.2) % Eos % (Auto) (0.8-7.0) Baso % (Auto) (0.1-1.2) % Neut # (Auto) (1.78-5.38) K/mm3 Lymph # (Auto) (1.32-3.57) K/mm3 [place] # (Auto) (0.30-0.82) K/mm3 Eos # (Auto) (0.04-0.54) K/mm3 Baso # (Auto) (0.01-0.08) K/mm3 ESR 58 H (0-15) mm/hr PT (9.7-12.0) SECONDS INR APTT (22-31) SECONDS Sodium (136-145) mEq/L Potassium (3.5-5.1) mEq/L Chloride (98-107) mEq/L Carbon Dioxide (21-32) mEq/L Anion Gap (5-15) BUN (7-18) mg/dL Creatinine (0.7-1.3) mg/dL Est Cr Clr Drug Dosing mL/min Estimated GFR (MDRD) (>60) mL/min BUN/Creatinine Ratio (14-18) Glucose (83-115) mg/dL Uric Acid 9.4 H (3.5-7.2) mg/dL Calcium (8.5-10.1) mg/dL Magnesium (1.8-2.4) mg/dl Total Bilirubin (0.2-1.0) mg/dL AST (15-37) U/L ALT (16-63) U/L Alkaline Phosphatase (46-116) U/L Troponin I (0.00-0.056) ng/mL C-Reactive Protein (<1.0) mg/dL NT-Pro-B Natriuret Pep 363 (0-450) pg/mL Total Protein (6.4-8.2) g/dl Albumin (3.4-5.0) g/dl Globulin gm/dL Albumin/Globulin Ratio (1-2) Meds: Medications Generic Name Dose Route Start Last Admin Trade Name Freq PRN Reason Stop Dose Admin Dextrose/Sodium Chloride 1,000 mls @ 125 mls/hr 04/23/20 11:45 04/23/20 12:22 Dextrose 5%-Normal Saline IV 125 mls/hr ASDIRECTED PETERSON Administration - Radiology Interpretation Free Text/Narrative:: 80-year-old male sent down from [facility] [place] where he resides with concerns about possible left-sided weakness yesterday and dysarthric speech which seems to wax and wane. They were concerned about a possible stroke. The patient does not walk anymore. He can stand and pivot. He has terrible pain in his lower extremities even after total knee replacements. Stroke alert was called on this gentleman and he was taken to CT because he is on Xarelto [address] reveals ventricles along with the basal cisterns and sulci over the convexities to be moderately prominent compatible with age-appropriate degenerative changes. Diminished diffuse diminished density is noted within the periventricular and subcortical white matter likely due to small vessel ischemic demyelination changes. Several old lacunar infarcts are seen within the basal ganglia. No other abnormal parenchymal densities are seen. There is no evidence of intracranial hemorrhage midline shift or mass-effect. There is atherosclerotic calcification seen within the vertebral vessels and within the carotid siphon. There is opacification of the right frontal sinus noted. This appears to be chronic. There is mild mucosal thickening seen within the right ethmoid sinuses. Mastoid sinuses are clear. Possible air-fluid level within the left maxillary sinus is seen. No acute calvarial findings are identified. He also felt there was significant degenerative changes in his cerebellum bilaterally which might cause ataxia. Chest x-ray done shows moderate cardiomegaly. Upper mediastinum is normal lungs show no acute parenchymal orta there is deformity of the proximal left humerus representing an old healed fracture. - Re-Assessments/Exams Free Text/Narrative Re-Assessment/Exam: 04/23/20 13:00 Labs reveal a normal white count at 9.63. 75% neutrophils on the auto differential. Hemoglobin is 13.5 with hematocrit of 41.9. MCV is minimally elevated at 94.8. Platelet counts 272,000. PT is 11.4 with an INR of 1.05. PTT is 33 again slightly elevated. Chemistry shows a sodium of 140 and a potassium of 4.1. Chloride is 100 with a bicarb of 32 i.e. CO2 CO2 retainer. Anion gap is 12.1. BUN is 22 with a creatinine of 1.5 BFR is 45 i.e. stage III chronic kidney disease. Glucose is 94. Calcium is 9.6. Magnesium is 2.0. Liver function is normal troponin is less than 0.017. C- reactive protein slightly elevated at 2.7 BNP is 363. Total protein is 8.0 with an albumin fraction of 3.5. 4 there are no metabolic abnormalities to account for dysarthria or weakness. I did order urinalysis but the patient has not yet been able to void. Also uric acid values are pending 04/23/20 13:[address] [facility] [place] since there is no evidence of CVA. He does have a couple of air-fluid levels in his sinuses which could suggest acute sinusitis. I will therefore place him on antibiotic Ceftin 300 mg twice daily for 8 days to help clear up sinus infection. 04/23/20 13:38 Patient`s uric acid did return elevated at 9.4. Therefore his current wrist pain on the left side is likely bout of acute gouty arthritis causing his left arm weakness. I will place him on prednisone 20 mg twice daily for 5 days to reduce the inflammation in his left wrist. Aleve 2 tablets every 8 hours would reduce the inflammation and pain as well and could be used okay for the next days. Therefore his acute pain in his left wrist is likely the reason that he is not using the left upper extremity as normal. Apparently the bus waited for the patient and he is already been discharged from the department before the uric acid returned. I will therefore send a prescription for prednisone with his chart to [facility] and they can have it filled from there. Departure - Departure Time of Disposition: 13:14 Disposition: DC/Tfer to [facility] Condition: Fair Clinical Impression: Left arm weakness, Joint inflammation of left hand and wrist, Cerebrovascular small vessel disease, Hyperuricemia Sinusitis Qualifiers: Sinusitis location: maxillary Chronicity: acute Recurrence: non-recurrent Qualified Code(s): J01.00 - Acute maxillary sinusitis, unspecified - Discharge Information *PRESCRIPTION DRUG MONITORING PROGRAM REVIEWED*: Not Applicable *COPY OF PRESCRIPTION DRUG MONITORING REPORT IN PATIENT TIMUR: Not Applicable Prescriptions: Cefdinir [Omnicef] 300 mg PO BID #16 cap predniSONE [Prednisone] 20 mg PO BID #12 tablet Instructions: Sinusitis, Adult, [id number] Referrals: Sunny Briseno MD [Primary Care Provider] - Forms: ED Department Discharge Additional Instructions: Evaluation in the emergency room today in regards to left-sided R arm weakness appreciated by care workers and perhaps change in speech with increased dysarthria which seems to wax and wane. Sent to the ED for evaluation of possible stroke. CT does not show evidence of previous CVAs with multiple lacunar infarcts in both basal ganglia but no new infarcts are identified. Advanced degenerative brain disease is evident. Coincidental finding of significant sinus infection involving the ethmoids and the maxillary's air- fluid levels within the left maxillary sinus opacification of the right ethmoid sinus. This may represent acute sinusitis and will be treated with Omnicef 300 mg twice daily for 8 days to clear up infection. The only finding I found on his left upper extremity was increased swelling and inflammation with warmth coming out of his left wrist probably that of degenerative arthritic change versus gout. Use of Aleve 2 tablets every 8 hours as needed to relieve pain if necessary. His dysarthria may well be due to dry mouth from medications as well as missing his upper dentures and has very few teeth in the lower mandible. I could not find no evidence of an acute cerebrovascular accident at this time. No changes to medications were made other than the addition of Omnicef for short period of time to clear up sinus infection. Uric acid did return elevated at 9.4 and is likely the cause of acute inflammation of his left wrist causing gout. The uric acid is high enough that it deserves long-term treatment with either allopurinol or Uloric as it is high enough to be causing interstitial nephritis of the kidneys and declining renal function and possible aggravation of hypertension. I will leave this up to Dr. Briseno sees the patient next. These medications cannot be started till after the acute gout comes under control which is usually 10 days Sepsis Event Note (ED) - Evaluation Sepsis Screening Result: No Definite Risk - Focused Exam Vital Signs: Vital Signs Temp Pulse Resp BP Pulse Ox 04/23/20 11:12 36.5 C 62 18 116/69 98 - My Orders Last 24 Hours: My Active Orders 04/23/20 11:42 URINALYSIS W/MICROSCOPIC [UA W/MICROSCOPIC] [URIN] Stat 04/23/20 11:45 Dextrose 5%-0.9% NaCl [Dextrose 5%-Normal Saline] 1,000 ml IV ASDIRECTED - Assessment/Plan Last 24 Hours: My Active Orders 04/23/20 11:42 URINALYSIS W/MICROSCOPIC [UA W/MICROSCOPIC] [URIN] Stat 04/23/20 11:45 Dextrose 5%-0.9% NaCl [Dextrose 5%-Normal Saline] 1,000 ml IV ASDIRECTED
[2020-04-23] MEDS ORDERED: Dextrose 5%-0.9% NaCl 1,000 ML IV SCH (11:45)
--- NOTE | 2020-04-23 11:50 | CT ---
Head CT Technique: Multiple axial sections through the brain were obtained. Intravenous contrast was not utilized. Comparison: No prior intracranial imaging is available. Findings: Ventricles along with basal cisterns and sulci over convexities are moderately prominent. Diffuse diminished density is noted within the periventricular and subcortical white matter which is most likely due to small vessel ischemic demyelination change. Several old lacunar infarcts are seen within the basal ganglia. No other abnormal parenchymal densities are seen. No evidence of intracranial hemorrhage. No midline shift or mass-effect is seen. Atherosclerotic calcification is seen within the vertebral vessels and within the carotid siphon. Opacified right frontal sinus is noted. Mild mucosal thickening is seen within the right ethmoid sinuses. Mastoid sinuses are clear. Possible air-fluid level within the left maxillary sinus is seen. No acute calvarial finding is seen. Impression: 1. Air-fluid level within left maxillary sinus with air is mucosal thickening within the ethmoid sinuses on the right side and opacified right frontal sinus. Difficult to exclud acute sinusitis. 2. Senescent change as described above. 3. No acute intracranial abnormality is seen. Diagnostic code #3 This report was dictated in MDT
--- NOTE | 2020-04-23 12:03 | CR ---
Chest: Portable view of the chest was obtained. Comparison: Prior chest x-ray of 05/24/18. Heart is enlarged. Upper mediastinum is normal. Lungs show no acute parenchymal change. Deformity of the proximal left humerus is seen most likely representing old healed fracture. Impression: 1. Findings as noted above. 2. Nothing acute is definitely appreciated. Diagnostic code #2 This report was dictated in MDT
== END 2020-04-23 13:28 ==
LOC: JD.ED 11:01
DX: I63.9 Cerebral infarction, unspecified (principal); J01.00 Acute maxillary sinusitis, unspecified; M19.042 Primary osteoarthritis, left hand; M19.032 Primary osteoarthritis, left wrist; E79.0 Hyperuricemia without signs of inflammatory arthritis and tophaceous disease; Z88.0 Allergy status to penicillin; Z91.030 Bee allergy status; Z79.899 Other long term (current) drug therapy; Z79.01 Long term (current) use of anticoagulants; I10 Essential (primary) hypertension; F32.9 Major depressive disorder, single episode, unspecified
CPT/HCPCS: 36415; 70450; 71045; 80053; 83735; 83880; 84484; 84550; 85025; 85610; 85652; 85730; 86140; 93005; 99285; J7042

== ENCOUNTER 2023-01-07 12:54 | Emergency (ER) | payer MEDICARE, OTHER ==
[2023-01-07] MEDS ORDERED: Sodium Chloride 0.9% 10 ML Syringe FLUSH PRN (13:07)
[2023-01-07] MEDS ORDERED: Iopamidol 612 MG/ML 100 ML Bottle IVPUSH ONE (13:25)
[2023-01-07] MEDS ORDERED: Sodium Chloride 0.9% 10 ML Syringe FLUSH ONE (13:25)
[2023-01-07] MEDS ORDERED: Iopamidol 612 MG/ML 50 ML SDV IVPUSH ONE (13:26)
[2023-01-07] MEDS ORDERED: Sodium Chloride 0.9% 1,000 ML IV STA (13:37)
[2023-01-07] MEDS ORDERED: Sodium Chloride 0.9% 100 ML IV SCH (13:45)
[2023-01-07 14:09] LABS: ESTIMATED GFR 54 mL/min (>60)
[2023-01-07] MEDS ORDERED: Cefepime 2 GM in Sodium Chloride 0.9% 50 ML IV ONE (14:15)
[2023-01-07] MEDS ORDERED: cefOXitin 2 GM in Premix Bag 1 BAG IV ONE (14:27)
[2023-01-07] MEDS ORDERED: Albuterol/Ipratropium 3.0-0.5 MG/3 ML Neb Soln NEB ONE (15:17)
[2023-01-07 17:52] VITALS: BP 124/63; PULSE 104
== END 2023-01-07 17:42 ==
LOC: JD.ED 12:54
DX: K81.9 Cholecystitis, unspecified (principal); I10 Essential (primary) hypertension; N40.0 Benign prostatic hyperplasia without lower urinary tract symptoms; M19.90 Unspecified osteoarthritis, unspecified site; Z88.0 Allergy status to penicillin; Z91.030 Bee allergy status; Z91.038 Other insect allergy status; Z79.01 Long term (current) use of anticoagulants
CPT/HCPCS: 36415; 71260; 71260-26; 74177; 74177-26; 80053; 81001; 83605; 85007; 85027; 85610; 86140; 87040; 87086; 87088; 87186; 94640; 96361; 96365; 99284; 99285-25; J0694; J3490; J7030; J7620-GY; Q9967

== ENCOUNTER 2023-07-10 10:21 | Emergency (ER) | payer MEDICARE, OTHER ==
[2023-07-10 10:45] LABS: BASOPHILS PERCENT AUTO 0.4 % (0.0-1.0); EOSINOPHILS ABSOLUTE AUTO 0.1 K/mm3 (0.0-0.4); EOSINOPHILS PERCENT AUTO 1.3 % (0.0-6.0); HEMATOCRIT 35.2 % (42.0-52.0); HEMOGLOBIN 11.5 gm/dl (14.0-18.0); IMMATURE GRAN ABSOLUTE AUTO 0.05 K/mm3 (0.00-0.05); IMMATURE GRAN PERCENT AUTO 0.6 % (0.0-0.4); LYMPHOCYTES ABSOLUTE AUTO 0.6 K/mm3 (1.0-4.8); MEAN CORPUSCULAR HEMOGLOBIN 31.6 pg (28.0-32.0); MEAN CORPUSCULAR HGB CONC 32.7 g/dl (32.0-36.0); MEAN CORPUSCULAR VOLUME 96.7 fl (83.0-99.0); MEAN PLATELET VOLUME 8.9 fl (9.4-12.4); MONOCYTES ABSOLUTE AUTO 0.8 K/mm3 (0.0-0.8); MONOCYTES PERCENT AUTO 8.9 % (0.0-8.0); NEUTROPHILS ABSOLUTE AUTO 6.9 K/mm3 (1.8-7.7); NEUTROPHILS PERCENT AUTO 81.8 % (41.0-71.0); PLATELET COUNT,PLT 225 K/mm3 (150-400); RED BLOOD CELL COUNT 3.64 M/mm3 (4.52-5.90); WHITE BLOOD CELL COUNT,WBC 8.46 K/mm3 (3.9-11.3)
[2023-07-10] MEDS ORDERED: Lactated Ringers 1,000 ML IV SCH (10:45)
[2023-07-10 11:04] LABS: INR 1.18; PROTHROMBIN TIME 12.5 SECONDS (9.7-12.0)
[2023-07-10 11:05] LABS: PTT,PARTIAL THROMBOPLSTIN TIME 36.2 SECONDS (21.7-31.4)
[2023-07-10 11:12] LABS: A/G RATIO 0.8 (1-2); ALANINE AMINOTRANSFERASE,ALT 47 U/L (16-63); ALBUMIN 3.4 g/dl (3.4-5.0); ALKALINE PHOSPHATASE 108 U/L (46-116); ANION GAP 13.7 (5-15); ASPARTATE AMNIOTRANSFERASE,AST 88 U/L (15-37); BILIRUBIN TOTAL 0.9 mg/dL (0.2-1.0); BLOOD UREA NITROGEN,BUN 20 mg/dL (7-18); BUN/CREATININE RATIO 12.5 (14-18); CALCIUM 8.9 mg/dL (8.5-10.1); CARBON DIOXIDE,CO2 28 mEq/L (21-32); CHLORIDE,CL 104 mEq/L (98-107); CREATININE 1.6 mg/dL (0.7-1.3); ESTIMATED GFR 42 mL/min (>60); GLUCOSE RANDOM 106 mg/dL (70-99); LIPASE 111 U/L (73-393); POTASSIUM,K 3.7 mEq/L (3.5-5.1); PROTEIN TOTAL,TP 7.6 g/dl (6.4-8.2); SODIUM,NA 142 mEq/L (136-145); TROPONIN I HIGH SENSITIVITY 13 pg/mL (<=76)
[2023-07-10] MEDS ORDERED: Sodium Chloride 0.9% 10 ML Syringe FLUSH ONE (12:18)
[2023-07-10] MEDS ORDERED: Iopamidol 612 MG/ML 100 ML Bottle IVPUSH ONE (12:18)
[2023-07-10] MEDS ORDERED: Famotidine 20 MG/2 ML SDV IVPUSH ONE (13:52)
[2023-07-10 14:10] LABS: APPEARANCE,URINE CLEAR (Clear); BILIRUBIN,URINE NEGATIVE (Negative); COLOR,URINE YELLOW (Yellow); GLUCOSE,URINE NEGATIVE (Negative); KETONES,URINE NEGATIVE (Negative); LEUKOCYTE ESTERASE,URINE NEGATIVE (Negative); NITRITE,URINE NEGATIVE (Negative); OCCULT BLOOD,URINE NEGATIVE (Negative); PROTEIN,URINE NEGATIVE (Negative); UROBILINOGEN,URINE 0.2 (0.2-1.0)
[2023-07-10 18:47] VITALS: BP 149/79; PULSE 71
== END 2023-07-10 15:50 ==
LOC: JD.ED 10:21
DX: R10.11 Right upper quadrant pain (principal); I44.0 Atrioventricular block, first degree; I10 Essential (primary) hypertension; I48.92 Unspecified atrial flutter; Z88.0 Allergy status to penicillin; Z91.038 Other insect allergy status; Z91.030 Bee allergy status; Z79.899 Other long term (current) drug therapy
CPT/HCPCS: 36415; 74177; 80053; 81003; 83605; 83690; 84484; 85025; 85610; 85730; 93005; 96361; 96374; 99285; J3490; J7120; Q9967

== ENCOUNTER 2023-12-04 18:04 | Inpatient (IN) | payer MEDICARE, OTHER ==
[2023-12-04 18:39] LABS: BASOPHILS PERCENT AUTO 0.2 % (0.0-1.0); EOSINOPHILS ABSOLUTE AUTO 0.1 K/mm3 (0.0-0.4); EOSINOPHILS PERCENT AUTO 0.8 % (0.0-6.0); HEMATOCRIT 37.5 % (42.0-52.0); HEMOGLOBIN 11.9 gm/dl (14.0-18.0); IMMATURE GRAN ABSOLUTE AUTO 0.04 K/mm3 (0.00-0.05); IMMATURE GRAN PERCENT AUTO 0.4 % (0.0-0.4); LYMPHOCYTES ABSOLUTE AUTO 0.5 K/mm3 (1.0-4.8); LYMPHOCYTES PERCENT AUTO 4.9 % (24.0-44.0); MEAN CORPUSCULAR HEMOGLOBIN 30.5 pg (28.0-32.0); MEAN CORPUSCULAR HGB CONC 31.7 g/dl (32.0-36.0); MEAN CORPUSCULAR VOLUME 96.2 fl (83.0-99.0); MEAN PLATELET VOLUME 8.7 fl (9.4-12.4); MONOCYTES PERCENT AUTO 9.9 % (0.0-8.0); NEUTROPHILS ABSOLUTE AUTO 8.4 K/mm3 (1.8-7.7); NEUTROPHILS PERCENT AUTO 83.8 % (41.0-71.0); PLATELET COUNT,PLT 317 K/mm3 (150-400); WHITE BLOOD CELL COUNT,WBC 10.01 K/mm3 (3.9-11.3)
[2023-12-04 19:01] LABS: A/G RATIO 0.6 (1-2); ALBUMIN 2.8 g/dl (3.4-5.0); ANION GAP 11.1 (5-15); BILIRUBIN TOTAL 1.9 mg/dL (0.2-1.0); BUN/CREATININE RATIO 10.7 (14-18); C-REACTIVE PROTEIN 2.9 mg/dL (<1.0); CALCIUM 8.8 mg/dL (8.5-10.1); CREATININE 1.5 mg/dL (0.7-1.3); EST CRCL DRUG DOSING (CG) 39.52 mL/min; POTASSIUM,K 4.1 mEq/L (3.5-5.1); PROTEIN TOTAL,TP 7.6 g/dl (6.4-8.2)
[2023-12-04 19:25] LABS: APPEARANCE,URINE CLEAR (Clear); BILIRUBIN,URINE NEGATIVE (Negative); COLOR,URINE YELLOW (Yellow); GLUCOSE,URINE NEGATIVE (Negative); KETONES,URINE NEGATIVE (Negative); LEUKOCYTE ESTERASE,URINE NEGATIVE (Negative); NITRITE,URINE NEGATIVE (Negative); OCCULT BLOOD,URINE 2+ (Negative); PROTEIN,URINE NEGATIVE (Negative)
[2023-12-04 19:37] LABS: RBC,URINE 20-30 /hpf (0-5)
[2023-12-04 19:38] LABS: BACTERIA,URINE FEW /hpf (FEW); MUCUS,URINE FEW /hpf (FEW)
[2023-12-04] MEDS ORDERED: Sodium Chloride 0.9% 10 ML Syringe FLUSH PRN (19:38)
[2023-12-04] MEDS ORDERED: Sodium Chloride 0.9% 10 ML Syringe FLUSH ONE ×2 (19:40→23:03)
[2023-12-04] MEDS ORDERED: Iopamidol 612 MG/ML 100 ML Bottle IVPUSH ONE ×2 (19:40→23:03)
[2023-12-04] MEDS: Sodium Chloride 0.9% 1,000 ML IV SCH (22:07)
[2023-12-05] MEDS ORDERED: Cefepime 2 GM in Sodium Chloride 0.9% 50 ML IV ONE ×2 (00:01→13:45)
[2023-12-05] MEDS ORDERED: Cefepime 2 GM Vial ONE (00:09)
[2023-12-05] MEDS: Sodium Chloride 0.9% 1,000 ML IV SCH (04:53)
[2023-12-05 06:31] LABS: BASOPHILS PERCENT AUTO 0.3 % (0.0-1.0); EOSINOPHILS ABSOLUTE AUTO 0.1 K/mm3 (0.0-0.4); HEMOGLOBIN 11.2 gm/dl (14.0-18.0); IMMATURE GRAN ABSOLUTE AUTO 0.06 K/mm3 (0.00-0.05); IMMATURE GRAN PERCENT AUTO 0.6 % (0.0-0.4); LYMPHOCYTES ABSOLUTE AUTO 0.5 K/mm3 (1.0-4.8); MEAN CORPUSCULAR HEMOGLOBIN 30.2 pg (28.0-32.0); MEAN CORPUSCULAR VOLUME 94.3 fl (83.0-99.0); MONOCYTES ABSOLUTE AUTO 1.2 K/mm3 (0.0-0.8); MONOCYTES PERCENT AUTO 12.9 % (0.0-8.0); NEUTROPHILS ABSOLUTE AUTO 7.6 K/mm3 (1.8-7.7); NEUTROPHILS PERCENT AUTO 80.2 % (41.0-71.0); PLATELET COUNT,PLT 304 K/mm3 (150-400); RED BLOOD CELL COUNT 3.71 M/mm3 (4.52-5.90); WHITE BLOOD CELL COUNT,WBC 9.46 K/mm3 (3.9-11.3)
[2023-12-05 06:44] LABS: A/G RATIO 0.6 (1-2); ALBUMIN 2.5 g/dl (3.4-5.0); BILIRUBIN TOTAL 3.1 mg/dL (0.2-1.0); BUN/CREATININE RATIO 11.4 (14-18); CALCIUM 8.6 mg/dL (8.5-10.1); CREATININE 1.4 mg/dL (0.7-1.3); EST CRCL DRUG DOSING (CG) 42.34 mL/min; PROTEIN TOTAL,TP 6.9 g/dl (6.4-8.2)
[2023-12-05 14:52] LABS: A/G RATIO 0.5 (1-2); ALBUMIN 2.5 g/dl (3.4-5.0); ANION GAP 13.8 (5-15); BILIRUBIN TOTAL 2.6 mg/dL (0.2-1.0); BUN/CREATININE RATIO 12.3 (14-18); CALCIUM 8.8 mg/dL (8.5-10.1); CREATININE 1.3 mg/dL (0.7-1.3); EST CRCL DRUG DOSING (CG) 45.6 mL/min; POTASSIUM,K 3.8 mEq/L (3.5-5.1); PROTEIN TOTAL,TP 7.1 g/dl (6.4-8.2)
[2023-12-05] MEDS ORDERED: Ondansetron 4 MG/2 ML SDV IVPUSH PRN (19:25)
[2023-12-05] MEDS ORDERED: HYDROmorphone 0.5 MG/0.5 ML Syringe IVPUSH PRN (19:26)
[2023-12-05] MEDS ORDERED: Lactated Ringers 1,000 ML IV SCH (19:45)
[2023-12-05] MEDS: Apixaban 5 MG Tab PO SCH (21:07)
[2023-12-05 22:43] LABS: CORONAVIRUS COVID-19 NAA NEGATIVE (NEGATIVE); INFLUENZA A NAA NEGATIVE (NEGATIVE); RESPIRATORY SYNCYTIAL VIR NAA NEGATIVE (NEGATIVE)
[2023-12-06] MEDS: Cefepime 2 GM in Sodium Chloride 0.9% 50 ML IV SCH ×3 (01:53→18:39)
[2023-12-06] MEDS ORDERED: Levothyroxine 50 MCG Tab PO SCH (06:00)
[2023-12-06 06:29] LABS: BASOPHILS PERCENT AUTO 0.3 % (0.0-1.0); EOSINOPHILS ABSOLUTE AUTO 0.1 K/mm3 (0.0-0.4); EOSINOPHILS PERCENT AUTO 0.6 % (0.0-6.0); HEMATOCRIT 34.9 % (42.0-52.0); HEMOGLOBIN 11.1 gm/dl (14.0-18.0); IMMATURE GRAN ABSOLUTE AUTO 0.07 K/mm3 (0.00-0.05); IMMATURE GRAN PERCENT AUTO 0.6 % (0.0-0.4); LYMPHOCYTES ABSOLUTE AUTO 0.5 K/mm3 (1.0-4.8); LYMPHOCYTES PERCENT AUTO 4.3 % (24.0-44.0); MEAN CORPUSCULAR HEMOGLOBIN 30.8 pg (28.0-32.0); MEAN CORPUSCULAR HGB CONC 31.8 g/dl (32.0-36.0); MEAN CORPUSCULAR VOLUME 96.9 fl (83.0-99.0); MEAN PLATELET VOLUME 8.9 fl (9.4-12.4); MONOCYTES ABSOLUTE AUTO 1.3 K/mm3 (0.0-0.8); MONOCYTES PERCENT AUTO 11.2 % (0.0-8.0); NEUTROPHILS ABSOLUTE AUTO 9.7 K/mm3 (1.8-7.7); PLATELET COUNT,PLT 240 K/mm3 (150-400); WHITE BLOOD CELL COUNT,WBC 11.69 K/mm3 (3.9-11.3)
[2023-12-06 06:54] LABS: A/G RATIO 0.5 (1-2); ALBUMIN 2.2 g/dl (3.4-5.0); ANION GAP 12.6 (5-15); BILIRUBIN TOTAL 1.4 mg/dL (0.2-1.0); BUN/CREATININE RATIO 16.4 (14-18); CALCIUM 8.6 mg/dL (8.5-10.1); CREATININE 1.1 mg/dL (0.7-1.3); EST CRCL DRUG DOSING (CG) 53.89 mL/min; POTASSIUM,K 3.6 mEq/L (3.5-5.1); PROTEIN TOTAL,TP 6.6 g/dl (6.4-8.2)
[2023-12-06] MEDS ORDERED: Bumetanide 1 MG/4 ML MDV IVPUSH ONE (07:55)
[2023-12-06] MEDS ORDERED: Metoprolol Tartrate 5 MG/5 ML SDV IVPUSH ONE (07:56)
[2023-12-06] MEDS ORDERED: Potassium Chloride 20 MEQ Tab.ER PO SCH (09:00)
[2023-12-06] MEDS ORDERED: Pantoprazole 40 MG Tab.CR PO SCH (09:00)
[2023-12-06] MEDS ORDERED: Bumetanide 1 MG Tab PO SCH (09:00)
[2023-12-06] MEDS ORDERED: Sertraline 50 MG Tab PO SCH (09:00)
[2023-12-06] MEDS ORDERED: Metoprolol Succinate 25 MG Tab.ER PO SCH (09:00)
[2023-12-06] MEDS ORDERED: Tamsulosin 0.4 MG Cap.ER PO SCH (10:00)
[2023-12-06] MEDS: metroNIDAZOLE/Normal Saline 500 MG in Premix Bag 1 BAG IV SCH ×3 (11:24→20:38)
[2023-12-06] MEDS ORDERED: Iopamidol 612 MG/ML 100 ML Bottle IVPUSH ONE (11:36)
[2023-12-06] MEDS ORDERED: Iopamidol 612 MG/ML 30 ML SDV IVPUSH ONE (11:44)
[2023-12-06] MEDS ORDERED: Sodium Chloride 0.9% 10 ML Syringe FLUSH ONE (12:00)
[2023-12-06] MEDS ORDERED: oxyCODONE 5 MG Tab PO PRN (16:49)
[2023-12-06] MEDS ORDERED: Polyethylene Glycol 3350 Powder 17 GM Packet PO PRN (16:49)
[2023-12-06] MEDS ORDERED: Albuterol 0.083% 2.5 MG/3 ML Neb Soln NEB PRN ×2 (16:49→17:59)
[2023-12-06] MEDS ORDERED: Acetaminophen 325 MG Tab PO PRN (16:49)
[2023-12-06] MEDS ORDERED: Docusate Sodium 100 MG Cap PO PRN (16:49)
[2023-12-06] MEDS ORDERED: Ondansetron 4 MG Tab.DIS PO PRN (16:49)
[2023-12-06] MEDS: Apixaban 5 MG Tab PO SCH ×2 (17:50→20:39)
[2023-12-06] MEDS: Fluticasone NASAL Spray 16 GM Bottle NASBOTH SCH (20:39)
[2023-12-06] MEDS: Potassium Chloride 20 MEQ Tab.ER PO SCH (20:39)
[2023-12-06] MEDS: Carboxymethylcellulose Sodium 1% Ophth Gel 15 ML Bottle EYEBOTH SCH (20:40)
[2023-12-07] MEDS: metroNIDAZOLE/Normal Saline 500 MG in Premix Bag 1 BAG IV SCH ×3 (04:04→20:15)
[2023-12-07] MEDS: Cefepime 2 GM in Sodium Chloride 0.9% 50 ML IV SCH ×2 (05:11→18:06)
[2023-12-07] MEDS: Pantoprazole 40 MG Tab.CR PO SCH (05:15)
[2023-12-07] MEDS: Levothyroxine 50 MCG Tab PO SCH (05:15)
[2023-12-07 05:53] LABS: A/G RATIO 0.5 (1-2); ANION GAP 13.2 (5-15); BILIRUBIN TOTAL 0.7 mg/dL (0.2-1.0); CALCIUM 8.7 mg/dL (8.5-10.1); EST CRCL DRUG DOSING (CG) 59.28 mL/min; POTASSIUM,K 3.2 mEq/L (3.5-5.1); PROTEIN TOTAL,TP 6.4 g/dl (6.4-8.2)
[2023-12-07 05:54] LABS: BASOPHILS PERCENT AUTO 0.5 % (0.0-1.0); EOSINOPHILS ABSOLUTE AUTO 0.1 K/mm3 (0.0-0.4); EOSINOPHILS PERCENT AUTO 1.6 % (0.0-6.0); HEMATOCRIT 31.5 % (42.0-52.0); HEMOGLOBIN 10.4 gm/dl (14.0-18.0); IMMATURE GRAN ABSOLUTE AUTO 0.06 K/mm3 (0.00-0.05); IMMATURE GRAN PERCENT AUTO 0.7 % (0.0-0.4); LYMPHOCYTES ABSOLUTE AUTO 0.7 K/mm3 (1.0-4.8); LYMPHOCYTES PERCENT AUTO 7.8 % (24.0-44.0); MEAN CORPUSCULAR HEMOGLOBIN 30.6 pg (28.0-32.0); MEAN CORPUSCULAR VOLUME 92.6 fl (83.0-99.0); MEAN PLATELET VOLUME 9.7 fl (9.4-12.4); MONOCYTES ABSOLUTE AUTO 1.1 K/mm3 (0.0-0.8); MONOCYTES PERCENT AUTO 12.9 % (0.0-8.0); NEUTROPHILS ABSOLUTE AUTO 6.8 K/mm3 (1.8-7.7); NEUTROPHILS PERCENT AUTO 76.5 % (41.0-71.0); PLATELET COUNT,PLT 247 K/mm3 (150-400); WHITE BLOOD CELL COUNT,WBC 8.87 K/mm3 (3.9-11.3)
[2023-12-07 06:21] LABS: C-REACTIVE PROTEIN 17.9 mg/dL (<1.0)
[2023-12-07] MEDS: Fluticasone NASAL Spray 16 GM Bottle NASBOTH SCH ×2 (09:02→20:19)
[2023-12-07] MEDS: Potassium Chloride 10 MEQ in Premix Bag 1 BAG IV SCH ×4 (09:02→14:48)
[2023-12-07] MEDS: Sertraline 50 MG Tab PO SCH (09:03)
[2023-12-07] MEDS: Carboxymethylcellulose Sodium 1% Ophth Gel 15 ML Bottle EYEBOTH SCH ×3 (09:03→20:20)
[2023-12-07] MEDS: Finasteride 5 MG Tab PO SCH (09:03)
[2023-12-07] MEDS: Tamsulosin 0.4 MG Cap.ER PO SCH (09:04)
[2023-12-07] MEDS: Bumetanide 1 MG Tab PO SCH (09:04)
[2023-12-07] MEDS: Apixaban 5 MG Tab PO SCH ×2 (09:04→20:19)
[2023-12-07] MEDS: Metoprolol Succinate 25 MG Tab.ER PO SCH (09:05)
[2023-12-07] MEDS: Potassium Chloride 20 MEQ Tab.ER PO SCH ×2 (09:05→20:19)
[2023-12-07] MEDS ORDERED: Potassium Chloride 10 MEQ in Premix Bag 1 BAG IV SCH (14:15)
[2023-12-08] MEDS: metroNIDAZOLE/Normal Saline 500 MG in Premix Bag 1 BAG IV SCH ×3 (04:53→23:50)
[2023-12-08] MEDS: Pantoprazole 40 MG Tab.CR PO SCH (05:00)
[2023-12-08] MEDS: Levothyroxine 50 MCG Tab PO SCH (05:00)
[2023-12-08] MEDS: Cefepime 2 GM in Sodium Chloride 0.9% 50 ML IV SCH ×2 (05:00→17:38)
[2023-12-08 05:28] LABS: A/G RATIO 0.5 (1-2); ALBUMIN 2.3 g/dl (3.4-5.0); ANION GAP 12.2 (5-15); BILIRUBIN TOTAL 0.8 mg/dL (0.2-1.0); CALCIUM 8.5 mg/dL (8.5-10.1); EST CRCL DRUG DOSING (CG) 59.28 mL/min; MAGNESIUM 1.7 mg/dL (1.8-2.4); POTASSIUM,K 3.2 mEq/L (3.5-5.1); PROTEIN TOTAL,TP 6.8 g/dl (6.4-8.2)
[2023-12-08 07:21] LABS: HEMATOCRIT 34.1 % (42.0-52.0); HEMOGLOBIN 11.3 gm/dl (14.0-18.0); MEAN CORPUSCULAR HEMOGLOBIN 30.8 pg (28.0-32.0); MEAN CORPUSCULAR HGB CONC 33.1 g/dl (32.0-36.0); MEAN CORPUSCULAR VOLUME 92.9 fl (83.0-99.0); PLATELET COUNT,PLT 272 K/mm3 (150-400); RED BLOOD CELL COUNT 3.67 M/mm3 (4.52-5.90); WHITE BLOOD CELL COUNT,WBC 8.41 K/mm3 (3.9-11.3)
[2023-12-08 07:22] LABS: BASOPHILS ABSOLUTE AUTO 0.1 K/mm3 (0.0-0.2); BASOPHILS PERCENT AUTO 0.6 % (0.0-1.0); EOSINOPHILS ABSOLUTE AUTO 0.2 K/mm3 (0.0-0.4); EOSINOPHILS PERCENT AUTO 1.8 % (0.0-6.0); IMMATURE GRAN ABSOLUTE AUTO 0.06 K/mm3 (0.00-0.05); IMMATURE GRAN PERCENT AUTO 0.7 % (0.0-0.4); LYMPHOCYTES ABSOLUTE AUTO 0.8 K/mm3 (1.0-4.8); LYMPHOCYTES PERCENT AUTO 9.2 % (24.0-44.0); MEAN PLATELET VOLUME 9.7 fl (9.4-12.4); MONOCYTES PERCENT AUTO 12.2 % (0.0-8.0); NEUTROPHILS ABSOLUTE AUTO 6.4 K/mm3 (1.8-7.7); NEUTROPHILS PERCENT AUTO 75.5 % (41.0-71.0)
[2023-12-08] MEDS ORDERED: Magnesium Sulfate/Water 2 GM in Premix Bag 1 BAG IV ONE (07:36)
[2023-12-08] MEDS: Potassium Chloride 10 MEQ in Premix Bag 1 BAG IV SCH ×4 (08:38→15:22)
[2023-12-08] MEDS: Potassium Chloride 20 MEQ Tab.ER PO SCH ×2 (08:39→20:32)
[2023-12-08] MEDS: Metoprolol Succinate 25 MG Tab.ER PO SCH (08:39)
[2023-12-08] MEDS: Apixaban 5 MG Tab PO SCH ×2 (08:39→20:32)
[2023-12-08] MEDS: Sertraline 50 MG Tab PO SCH (08:39)
[2023-12-08] MEDS: Finasteride 5 MG Tab PO SCH (08:39)
[2023-12-08] MEDS: Tamsulosin 0.4 MG Cap.ER PO SCH (08:39)
[2023-12-08] MEDS: Carboxymethylcellulose Sodium 1% Ophth Gel 15 ML Bottle EYEBOTH SCH ×3 (08:40→20:32)
[2023-12-08] MEDS: Fluticasone NASAL Spray 16 GM Bottle NASBOTH SCH ×2 (08:40→20:32)
[2023-12-08] MEDS ORDERED: Bumetanide 1 MG Tab PO SCH (09:00)
[2023-12-08] MEDS: Nicotine 7 MG/24 Hr Patch TRDERM SCH (17:38)
[2023-12-08] MEDS: metroNIDAZOLE 500 MG Tab PO SCH (20:57)
[2023-12-09] MEDS: metroNIDAZOLE 500 MG Tab PO SCH (06:10)
[2023-12-09] MEDS: Pantoprazole 40 MG Tab.CR PO SCH (06:11)
[2023-12-09] MEDS: Levothyroxine 50 MCG Tab PO SCH (06:11)
[2023-12-09 06:21] LABS: BASOPHILS ABSOLUTE AUTO 0.1 K/mm3 (0.0-0.2); BASOPHILS PERCENT AUTO 0.6 % (0.0-1.0); EOSINOPHILS ABSOLUTE AUTO 0.2 K/mm3 (0.0-0.4); EOSINOPHILS PERCENT AUTO 1.9 % (0.0-6.0); HEMATOCRIT 34.8 % (42.0-52.0); HEMOGLOBIN 11.6 gm/dl (14.0-18.0); IMMATURE GRAN ABSOLUTE AUTO 0.05 K/mm3 (0.00-0.05); IMMATURE GRAN PERCENT AUTO 0.6 % (0.0-0.4); LYMPHOCYTES ABSOLUTE AUTO 0.7 K/mm3 (1.0-4.8); LYMPHOCYTES PERCENT AUTO 9.2 % (24.0-44.0); MEAN CORPUSCULAR HEMOGLOBIN 30.9 pg (28.0-32.0); MEAN CORPUSCULAR HGB CONC 33.3 g/dl (32.0-36.0); MEAN CORPUSCULAR VOLUME 92.6 fl (83.0-99.0); MEAN PLATELET VOLUME 9.1 fl (9.4-12.4); MONOCYTES ABSOLUTE AUTO 1.1 K/mm3 (0.0-0.8); MONOCYTES PERCENT AUTO 13.5 % (0.0-8.0); NEUTROPHILS ABSOLUTE AUTO 5.9 K/mm3 (1.8-7.7); NEUTROPHILS PERCENT AUTO 74.2 % (41.0-71.0); PLATELET COUNT,PLT 286 K/mm3 (150-400); RED BLOOD CELL COUNT 3.76 M/mm3 (4.52-5.90); WHITE BLOOD CELL COUNT,WBC 8.01 K/mm3 (3.9-11.3)
[2023-12-09 06:46] LABS: A/G RATIO 0.5 (1-2); ALBUMIN 2.4 g/dl (3.4-5.0); ANION GAP 13.7 (5-15); BILIRUBIN TOTAL 0.9 mg/dL (0.2-1.0); CREATININE 1.1 mg/dL (0.7-1.3); EST CRCL DRUG DOSING (CG) 53.89 mL/min; POTASSIUM,K 3.7 mEq/L (3.5-5.1); PROTEIN TOTAL,TP 7.2 g/dl (6.4-8.2)
[2023-12-09] MEDS: Cefepime 2 GM in Sodium Chloride 0.9% 50 ML IV SCH (07:03)
[2023-12-09] MEDS: Carboxymethylcellulose Sodium 1% Ophth Gel 15 ML Bottle EYEBOTH SCH (08:34)
[2023-12-09] MEDS: Fluticasone NASAL Spray 16 GM Bottle NASBOTH SCH (08:35)
[2023-12-09] MEDS: Bumetanide 1 MG Tab PO SCH (08:36)
[2023-12-09] MEDS: Nicotine 7 MG/24 Hr Patch TRDERM SCH (08:36)
[2023-12-09] MEDS: Sertraline 50 MG Tab PO SCH (08:37)
[2023-12-09] MEDS: Potassium Chloride 20 MEQ Tab.ER PO SCH (08:37)
[2023-12-09] MEDS: Finasteride 5 MG Tab PO SCH (08:37)
[2023-12-09] MEDS: Tamsulosin 0.4 MG Cap.ER PO SCH (08:37)
[2023-12-09] MEDS: Apixaban 5 MG Tab PO SCH (08:37)
[2023-12-09] MEDS: Metoprolol Succinate 25 MG Tab.ER PO SCH (08:38)
[2023-12-09] MEDS ORDERED: Levofloxacin 750 MG Tab PO SCH (09:00)
[2023-12-09 12:16] VITALS: BP 106/59; PULSE 64
== END 2023-12-09 12:11 | DRG 372 ==
LOC: JD.ED 18:04 → JD.MS 12-06 13:40 → UNDOADMIN 12-06 14:05 → JD.MS 12-06 14:05 → UNDODISIN 12-09 12:11
PROVIDERS: ADMIT Student in an Organized Health Care Education/Training Program; ATTEND Student in an Organized Health Care Education/Training Program
DX: K65.1 Peritoneal abscess (principal); I13.0 Hypertensive heart and chronic kidney disease with heart failure and stage 1 through stage 4 chronic kidney disease, or unspecified chronic kidney disease; G89.18 Other acute postprocedural pain; R10.9 Unspecified abdominal pain; Z66 Do not resuscitate; I48.91 Unspecified atrial fibrillation; E78.5 Hyperlipidemia, unspecified; N18.31 Chronic kidney disease, stage 3a; G20.A1 Parkinson's disease without dyskinesia, without mention of fluctuations; E53.8 Deficiency of other specified B group vitamins; D50.9 Iron deficiency anemia, unspecified; I11.0 Hypertensive heart disease with heart failure; I50.9 Heart failure, unspecified; D63.1 Anemia in chronic kidney disease; E87.6 Hypokalemia; R74.01 Elevation of levels of liver transaminase levels; F32.89 Other specified depressive episodes; I25.10 Atherosclerotic heart disease of native coronary artery without angina pectoris; Z95.0 Presence of cardiac pacemaker; E78.00 Pure hypercholesterolemia, unspecified; F17.210 Nicotine dependence, cigarettes, uncomplicated; Z90.49 Acquired absence of other specified parts of digestive tract; Z79.01 Long term (current) use of anticoagulants; Z99.81 Dependence on supplemental oxygen; Z11.52 Encounter for screening for COVID-19; Z96.659 Presence of unspecified artificial knee joint; Z79.899 Other long term (current) drug therapy; Z88.0 Allergy status to penicillin; Z91.030 Bee allergy status; Z88.8 Allergy status to other drugs, medicaments and biological substances
CPT/HCPCS: 0241U; 36415; 74177; 76705; 78226; 80053; 81001; 82977; 83690; 83735; 84145; 85025; 86140; 94760; 94761; 96361; 96365; 96366; 96375; 97162; 97530; 99285; 99222; 99232; 99239; 99284; A9270-GY; A9537; C1758; J0692; J1836; J3475; J3480; J3490; J7030; J7120; Q9967